=== PATIENT | female | born 1940 | race Caucasian/White ===

== ENCOUNTER 2019-07-31 06:00 | Outpatient (RCR) | payer MEDICARE, OTHER, SELFPAY | END 2019-08-30 00:01 | LOC: TPT 06:00 | PROVIDERS: Family Provider Nurse Practitioner Family; Visit Provider Nurse Practitioner Family | DX: S22.009D Unspecified fracture of unspecified thoracic vertebra, subsequent encounter for fracture with routine healing (principal); X58.XXXD Exposure to other specified factors, subsequent encounter | CPT/HCPCS: 97110 ×5; 97112; 97116 ×2; 97530 ×2 ==

== ENCOUNTER 2019-08-31 14:41 | Outpatient (RCR) | payer MEDICARE, OTHER, SELFPAY | END 2019-08-31 23:00 | disposition home or self-care (01) | LOC: TPT 14:41 | PROVIDERS: Family Provider Nurse Practitioner Family; PCP Nurse Practitioner Family; Visit Provider Nurse Practitioner Family | DX: S22.009D Unspecified fracture of unspecified thoracic vertebra, subsequent encounter for fracture with routine healing (principal); X58.XXXD Exposure to other specified factors, subsequent encounter ==

== ENCOUNTER → 2019-09-15 10:44 | Outpatient (BNVA) | payer MEDICARE, OTHER, SELFPAY | PROVIDERS: PCP Family Medicine; Visit Provider Nurse Practitioner Family | DX: I26.99 Other pulmonary embolism without acute cor pulmonale (principal) | CPT/HCPCS: 85610 ==

== ENCOUNTER → 2019-10-28 13:21 | Outpatient (BNVA) | payer MEDICARE, OTHER, SELFPAY | PROVIDERS: Visit Provider Nurse Practitioner Family | DX: I10 Essential (primary) hypertension (principal); E55.9 Vitamin D deficiency, unspecified; I48.91 Unspecified atrial fibrillation | CPT/HCPCS: 80053; 80061; 82306; 84443; 85025; 85610 ==

== ENCOUNTER → 2019-12-27 11:49 | Outpatient (BNVA) | payer MEDICARE, OTHER, SELFPAY | PROVIDERS: Visit Provider Nurse Practitioner Family | DX: I48.91 Unspecified atrial fibrillation (principal) | CPT/HCPCS: 85610 ==

== ENCOUNTER → 2020-01-10 17:07 | Outpatient (BNVA) | payer MEDICARE, OTHER, SELFPAY | PROVIDERS: PCP Nurse Practitioner Family; Visit Provider Nurse Practitioner Family | DX: I26.99 Other pulmonary embolism without acute cor pulmonale (principal) | CPT/HCPCS: 85610 ==

== ENCOUNTER → 2020-01-24 09:12 | Outpatient (BNVA) | payer MEDICARE, OTHER, SELFPAY | PROVIDERS: PCP Nurse Practitioner Family; Visit Provider Nurse Practitioner Family | DX: I48.91 Unspecified atrial fibrillation (principal); I10 Essential (primary) hypertension; R19.7 Diarrhea, unspecified; E55.9 Vitamin D deficiency, unspecified | CPT/HCPCS: 85610 ==

== ENCOUNTER → 2020-02-08 11:00 | Outpatient (BNVA) | payer MEDICARE, OTHER, SELFPAY | PROVIDERS: PCP Nurse Practitioner Family; Visit Provider Nurse Practitioner Family | DX: I48.91 Unspecified atrial fibrillation (principal) | CPT/HCPCS: 85610 ==

== ENCOUNTER → 2020-02-15 10:20 | Outpatient (BNVA) | payer MEDICARE, OTHER, SELFPAY | PROVIDERS: PCP Nurse Practitioner Family; Visit Provider Nurse Practitioner Family | DX: I48.91 Unspecified atrial fibrillation (principal) | CPT/HCPCS: 85610 ==

== ENCOUNTER → 2020-02-29 14:47 | Outpatient (BNVA) | payer MEDICARE, OTHER, SELFPAY | PROVIDERS: PCP Nurse Practitioner Family; Visit Provider Family Medicine | DX: I48.91 Unspecified atrial fibrillation (principal); R60.9 Edema, unspecified; M25.471 Effusion, right ankle; M25.472 Effusion, left ankle | CPT/HCPCS: 85610 ==

== ENCOUNTER → 2020-03-09 11:01 | Outpatient (BNVA) | payer MEDICARE, OTHER, SELFPAY | PROVIDERS: PCP Nurse Practitioner Family; Visit Provider Family Medicine | DX: I48.91 Unspecified atrial fibrillation (principal) | CPT/HCPCS: 85610 ==

== ENCOUNTER → 2020-03-16 11:45 | Outpatient (BNVA) | payer MEDICARE, OTHER, SELFPAY | PROVIDERS: PCP Nurse Practitioner Family; Visit Provider Nurse Practitioner Family | DX: I48.91 Unspecified atrial fibrillation (principal) | CPT/HCPCS: 85610 ==

== ENCOUNTER → 2020-03-23 10:53 | Outpatient (BNVA) | payer MEDICARE, OTHER, SELFPAY | PROVIDERS: PCP Nurse Practitioner Family; Visit Provider Nurse Practitioner Family | DX: I48.91 Unspecified atrial fibrillation (principal) | CPT/HCPCS: 85610 ==

== ENCOUNTER → 2020-03-30 11:37 | Outpatient (BNVA) | payer MEDICARE, OTHER, SELFPAY | PROVIDERS: PCP Nurse Practitioner Family; Visit Provider Nurse Practitioner Family | DX: I48.91 Unspecified atrial fibrillation (principal) | CPT/HCPCS: 85610 ==

== ENCOUNTER → 2020-04-06 13:19 | Outpatient (BNVA) | payer MEDICARE, OTHER, SELFPAY | PROVIDERS: PCP Nurse Practitioner Family; Visit Provider Nurse Practitioner Family | DX: I10 Essential (primary) hypertension (principal); E55.9 Vitamin D deficiency, unspecified; I48.91 Unspecified atrial fibrillation | CPT/HCPCS: 80053; 80061; 82306; 83735; 84443; 85025; 85610 ==

== ENCOUNTER → 2020-04-16 08:31 | Outpatient (BNVA) | payer MEDICARE, OTHER, SELFPAY | PROVIDERS: PCP Nurse Practitioner Family; Visit Provider Nurse Practitioner Family | DX: I48.91 Unspecified atrial fibrillation (principal) | CPT/HCPCS: 85610 ==

== ENCOUNTER → 2020-04-18 08:00 | Outpatient (BNVA) | payer MEDICARE, OTHER, SELFPAY | PROVIDERS: PCP Nurse Practitioner Family; Visit Provider Nurse Practitioner Family | DX: I48.91 Unspecified atrial fibrillation (principal); R19.7 Diarrhea, unspecified; H66.002 Acute suppurative otitis media without spontaneous rupture of ear drum, left ear | CPT/HCPCS: 85610 ==

== ENCOUNTER → 2020-09-10 09:34 | Outpatient (BNVA) | payer MEDICARE, OTHER, SELFPAY | PROVIDERS: PCP Nurse Practitioner Family; Visit Provider Nurse Practitioner Family | DX: I10 Essential (primary) hypertension (principal); E55.9 Vitamin D deficiency, unspecified | CPT/HCPCS: 80053; 80061; 82306; 84443; 85025 ==

== ENCOUNTER → 2020-09-18 11:00 | Outpatient (BNVA) | payer MEDICARE, OTHER, SELFPAY | PROVIDERS: PCP Nurse Practitioner Family; Visit Provider Nurse Practitioner Family | DX: M25.50 Pain in unspecified joint (principal) | CPT/HCPCS: 80053; 84550; 85651; 86038; 86140; 86431 ==

== ENCOUNTER → 2021-01-01 11:43 | Outpatient (BNVA) | payer MEDICARE, OTHER, SELFPAY | PROVIDERS: PCP Nurse Practitioner Family; Visit Provider Nurse Practitioner Family | DX: R25.2 Cramp and spasm (principal); M79.605 Pain in left leg | CPT/HCPCS: 80053; 82306; 83735; 84443; 85025; 85379 ==

== ENCOUNTER 2021-01-02 15:21 | Outpatient (CLI) | payer MEDICARE, OTHER, SELFPAY ==
--- NOTE | 2021-01-02 15:40 | USCV_ITS ---
Mary Shoemaker Age: 80 Gender: F : 1940 Exam Date: 01/02/2021 15:55 Ordering Phys: Ana Gould RESIDENT PHYSICIAN IN RADIOLOGY RESIDENT PHYSICIAN IN RADIOLOGY Technologist: Yessenia Cox Exam Location: [facility] [place] Indication: TENDERNESS LT INNER THIGH HISTORY: Tenderness lt inner thigh History of DVT lt leg PROCEDURES: Venous duplex imaging was performed in only the left lower extremity. The following venous structures were evaluated: common femoral vein, profunda vein, proximal portion of the greater saphenous vein, superficial femoral vein, and the popliteal vein. In addition, the posterior tibial and peroneal trunk were evaluated. Serial compression, augmentation maneuvers, and spectral Doppler flow evaluation were performed. FINDINGS: No dvt seen in any vessel examained CONCLUSIONS No evidence of left lower extremity DVT. Artemio Munoz MD (Electronically Signed) Final Date: 02 Jan 2021 17:00 S
== END 2021-01-02 15:22 | disposition home or self-care (01) ==
PROVIDERS: PCP Nurse Practitioner Family; Visit Provider Nurse Practitioner Family
DX: M79.605 Pain in left leg (principal)
CPT/HCPCS: 93971

== ENCOUNTER → 2021-02-01 11:55 | Outpatient (BNVA) | payer MEDICARE, OTHER, SELFPAY | PROVIDERS: PCP Nurse Practitioner Family; Visit Provider Nurse Practitioner Family | DX: R60.9 Edema, unspecified (principal) | CPT/HCPCS: 80048; 85025 ==

== ENCOUNTER → 2021-07-18 13:32 | Outpatient (BNVA) | payer MEDICARE, OTHER, SELFPAY | PROVIDERS: PCP Nurse Practitioner Family; Visit Provider Nurse Practitioner Family | DX: I10 Essential (primary) hypertension (principal); M79.605 Pain in left leg; R25.2 Cramp and spasm; R60.9 Edema, unspecified; M19.90 Unspecified osteoarthritis, unspecified site; R05.9 Cough, unspecified; R10.31 Right lower quadrant pain; I48.91 Unspecified atrial fibrillation; E55.9 Vitamin D deficiency, unspecified | CPT/HCPCS: 80053; 83735; 84550 ==

== ENCOUNTER 2021-07-20 09:05 | Inpatient (IN) | payer MEDICARE, OTHER, SELFPAY ==
[2021-07-20] VITALS (8 sets, daily range): BP systolic 127–174; BP diastolic 61–72; PULSE 69–97; RESP 18–20; TEMP 36.8–37.6; O2SAT 89–100; BMI 32.5; BMI 33.1
--- NOTE | 2021-07-20 09:27 | W.ED.SOB ---
HPI - SOB/Dyspnea General: Chief Complaint: Shortness of Breath/Dyspnea Stated Complaint: Cough, just not feeling good Time Seen by Provider: 07/20/21 09:27 History of Present Illness: HPI Narrative: Ms. Shoemaker is a 80-year-old lady with history of atrial fibrillation on anticoagulation who presents to the emergency department due to shortness of breath cough. Symptom onset was gradual approximately 2 weeks ago. She endorses worsening cough, generalized malaise, and shortness of breath. This is worse in the point that is moderate to severe and she feels short of breath with fairly minimal exertion. Cough is mildly productive. She has been vaccinated against COVID-19. No other specific symptoms, provoking, exacerbating, or alleviating factors identified. Review of Systems General: Reports: 10 or more systems reviewed and unremarkable except in HPI and below PFSH ED PFSH: Medical History (Updated 07/23/21 @ 00:01 by ) Atrial fibrillation Diverticulosis Emphysema of lung History of compression fracture of spine History of GI bleed History of pulmonary embolism HTN (hypertension) Lupus Lymphadenopathy Myalgia SCC (spinal cord compression) Varicose veins of both lower extremities Vitamin D insufficiency Surgical History Previous back surgery S/P D&C (status post dilation and curettage) S/P hysterectomy Family History Mother Cancer Social History Smoking and tobacco status: never smoked Second hand smoke exposure: No Alcohol intake: never Lives independently: No Household members: children Marital status: / service: No Current occupational status: retired History of recent travel: No Current gender identity: Female Special rafita needs: No Physical Exam Narrative: EXAM NARRATIVE: GENERAL/CONSTITUTIONAL -moderately ill ill-appearing. No acute distress. Eyes - PERRL, no conjunctival injection ENMT - Atraumatic external nose and ears. Dry mucous membranes NECK - supple. trachea midline CARDIOVASCULAR - regular rate and rhythm. Peripheral pulses 2+ and equal RESPIRATORY -coarse and diminished to auscultation bilaterally. Increased respiratory effort and rate, marked with exertion. Decreased oxygen saturation on room air. ABDOMEN/GI - Nontender/Nondistended. MSK - Extremities without obvious deformity or tenderness to palpation SKIN - Warm, Dry NEURO - alert and appropriately oriented. No focal neurologic deficits. Moves all extremities equally. Course ED course: - Patient was seen and evaluated by me at bedside - Patient placed on cardiac monitors, IV access obtained - Initial evaluation notable for diminished and coarse breath sounds with wheezes as noted above. Respiratory effort is increased and patient requiring supplemental oxygen. -RT and symptom treatment ordered - Labs notable for leukocytosis. Metabolic panel with hyponatremia and hypochloremia, mildly elevated anion gap. Delta troponin negative. Procalcitonin negative with significantly elevated CRP. - Imaging notable for no lobar consolidation - Upon serial reexamination after treatment the patient was mildly improved though patient still felt ill - Based on patient history, evaluation, labs, and imaging as interpreted the most likely cause of the patient's condition is viral pneumonia with superimposed asthma exacerbation - The results of ED evaluation were discussed with the patient including plan for admission due to requirement for level of care not available if discharged to prevent significant worsening/deterioration. -Hospitalist service contacted and agreed admit the patient. - Patient was admitted without further deterioration or significant events. Vital Signs: Vital signs: Vital Signs Temperature 98.0 F 07/22/21 14:57 Pulse Rate 73 07/22/21 14:57 Respiratory Rate 16 07/22/21 14:57 Blood Pressure 131/70 07/22/21 14:57 Pulse Oximetry 93 07/22/21 14:57 MDM - SOB/Dyspnea Medical Records: Attestation: I reviewed the patient's medical records. Lab Data: Attestation: I reviewed the patient's lab results. Labs: Lab Results 07/20/21 07/20/21 07/20/21 10:15 10:15 10:15 WBC 20.7 10^3/uL H 10 ^3/uL (4.0-10.0) RBC 3.57 10^6/uL L 10 ^6/uL (4.1-5.3) Hgb 11.9 g/dL g/dL (11.5-15.3) Hct 34.1 % L % (37.0-47.0) MCV 95.5 fl fl (81-99) MCH 33.3 pg pg (28.0-34.0) MCHC 34.9 g/dL g/dL (30.0-36.0) RDW 12.6 % % (12.1-15.1) Plt Count 283 10^3/cmm 10^3 /cmm (130-400) MPV 9.9 fL fL (7.4-10.4) Neut % (Auto) 83.1 % % Lymph % (Auto) 5.6 % % [place] % (Auto) 10.1 % % Eos % (Auto) 0.3 % % Baso % (Auto) 0.4 % % Neut # (Auto) 17.20 10^3/uL H 1 0^3/uL (1.8-7.7) Lymph # (Auto) 1.2 10^3/uL 10^3/ uL (0.8-4.8) [place] # (Auto) 2.1 10^3/uL H 10^ 3/uL (0.2-0.9) Eos # (Auto) 0.1 10^3/uL 10^3/ uL (0.0-0.8) Baso # (Auto) 0.1 10^3/uL 10^3/ uL (0.0-0.1) Nucleated RBC % (a uto) 0 % % Nucleated RBCs # 0.0 /100WBC /100W BC D-Dimer Sodium 130 mmol/L L mmol /L (136-145) Potassium 4.1 mmol/L mmol/L (3.5-5.1) Chloride 91 mmol/L L mmol/ L (98-107) Carbon Dioxide 24 mmol/L mmol/L (22-29) Anion Gap 19.1 H (5-19) BUN 19 mg/dL mg/dL (8-23) Creatinine 0.7 mg/dL mg/dL (0.5-0.9) GFR Calculation Not Reportable Glucose 109 mg/dL mg/dL (65-115) Calculated Osmolal ity 273 mOsm/kg L mOs m/kg (285-295) Lactic Acid 0.9 mmol/L mmol/L (0.5-2.2) Calcium 8.5 mg/dL mg/dL (8.5-10.5) Phosphorus Magnesium Total Bilirubin 0.9 mg/dL mg/dL (0.15-1.2) AST 16 U/L U/L (0-32) ALT 12 U/L U/L (0-33) Alkaline Phosphata se 83 IU/L IU/L (35-105) Troponin T Baselin e Troponin T 120 Min [place] Delta Troponin T Troponin T Hi Sens 6Hr Troponin T Hi Sens 6Hr Delta C-Reactive Protein 121.8 mg/L H mg/L (0.0-4.9) NT-Pro-B Natriuret Pep 1026 pg/mL H pg/m L (0-450) Total Protein 7.0 g/dL g/dL (6.6-8.7) Albumin 4.0 g/dL g/dL (3.5-5.2) Globulin 3.0 g/dL g/dL (1.3-4.6) Triglycerides Cholesterol LDL Cholesterol, C alc HDL Cholesterol LDL/HDL Ratio Cholesterol/HDL Ra chris Procalcitonin 0.19 ng/mL ng/mL (0-0.5) Influenza Type A A g Influenza Type B A g SARS-CoV-2 RNA (RT -PCR) SARS-CoV-2 Ag (Rap id) 07/20/21 07/20/21 07/20/21 10:15 10:15 10:15 WBC RBC Hgb Hct MCV MCH MCHC RDW Plt Count MPV Neut % (Auto) Lymph % (Auto) [place] % (Auto) Eos % (Auto) Baso % (Auto) Neut # (Auto) Lymph # (Auto) [place] # (Auto) Eos # (Auto) Baso # (Auto) Nucleated RBC % (a uto) Nucleated RBCs # D-Dimer <= 0.27 ug/mIFEU ug/mIFEU (0-0.59) Sodium Potassium Chloride Carbon Dioxide Anion Gap BUN Creatinine GFR Calculation Glucose Calculated Osmolal ity Lactic Acid Calcium Phosphorus Magnesium Total Bilirubin AST ALT Alkaline Phosphata se Troponin T Baselin e 20 ng/L H ng/L (0-10) Troponin T 120 Min [place] Delta Troponin T Troponin T Hi Sens 6Hr Troponin T Hi Sens 6Hr Delta C-Reactive Protein NT-Pro-B Natriuret Pep Total Protein Albumin Globulin Triglycerides Cholesterol LDL Cholesterol, C alc HDL Cholesterol LDL/HDL Ratio Cholesterol/HDL Ra chris Procalcitonin Influenza Type A A g Influenza Type B A g SARS-CoV-2 RNA (RT -PCR) SARS-CoV-2 Ag (Rap id) Negative (Negative) 07/20/21 07/20/21 07/20/21 12:25 18:18 19:03 WBC RBC Hgb Hct MCV MCH MCHC RDW Plt Count MPV Neut % (Auto) Lymph % (Auto) [place] % (Auto) Eos % (Auto) Baso % (Auto) Neut # (Auto) Lymph # (Auto) [place] # (Auto) Eos # (Auto) Baso # (Auto) Nucleated RBC % (a uto) Nucleated RBCs # D-Dimer Sodium Potassium Chloride Carbon Dioxide Anion Gap BUN Creatinine GFR Calculation Glucose Calculated Osmolal ity Lactic Acid Calcium Phosphorus Magnesium Total Bilirubin AST ALT Alkaline Phosphata se Troponin T Baselin e Troponin T 120 Min [place] 19.89 ng/L H ng/L (0-10) Delta Troponin T -0.11 ABS# L ABS# (0-10) Troponin T Hi Sens 6Hr 17.44 ng/L H ng/L (0-10) Troponin T Hi Sens 6Hr Delta Not Reportable C-Reactive Protein NT-Pro-B Natriuret Pep Total Protein Albumin Globulin Triglycerides 57 mg/dL mg/dL (0-150) Cholesterol 155 mg/dL mg/dL (0-200) LDL Cholesterol, C alc 80 mg/dL mg/dL (50-129) HDL Cholesterol 64 mg/dL mg/dL (60-100) LDL/HDL Ratio 1.25 RATIO RATIO (0.00-3.22) Cholesterol/HDL Ra chris 2.42 mg/dL mg/dL (0.0-4.40) Procalcitonin Influenza Type A A g Influenza Type B A g SARS-CoV-2 RNA (RT -PCR) SARS-CoV-2 Ag (Rap id) 07/20/21 07/20/21 07/21/21 20:11 22:50 05:26 WBC 11.9 10^3/uL H 10 ^3/uL (4.0-10.0) RBC 3.31 10^6/uL L 10 ^6/uL (4.1-5.3) Hgb 10.6 g/dL L g/dL (11.5-15.3) Hct 31.9 % L % (37.0-47.0) MCV 96.4 fl fl (81-99) MCH 32.0 pg pg (28.0-34.0) MCHC 33.2 g/dL g/dL (30.0-36.0) RDW 12.4 % % (12.1-15.1) Plt Count 255 10^3/cmm 10^3 /cmm (130-400) MPV 10.1 fL fL (7.4-10.4) Neut % (Auto) 87.7 % % Lymph % (Auto) 8.3 % % [place] % (Auto) 3.2 % % Eos % (Auto) 0.0 % % Baso % (Auto) 0.3 % % Neut # (Auto) 10.43 10^3/uL H 1 0^3/uL (1.8-7.7) Lymph # (Auto) 1.0 10^3/uL 10^3/ uL (0.8-4.8) [place] # (Auto) 0.4 10^3/uL 10^3/ uL (0.2-0.9) Eos # (Auto) 0.0 10^3/uL 10^3/ uL (0.0-0.8) Baso # (Auto) 0.0 10^3/uL 10^3/ uL (0.0-0.1) Nucleated RBC % (a uto) 0 % % Nucleated RBCs # 0.0 /100WBC /100W BC D-Dimer Sodium Potassium Chloride Carbon Dioxide Anion Gap BUN Creatinine GFR Calculation Glucose Calculated Osmolal ity Lactic Acid Calcium Phosphorus Magnesium Total Bilirubin AST ALT Alkaline Phosphata se Troponin T Baselin e Troponin T 120 Min [place] Delta Troponin T Troponin T Hi Sens 6Hr Troponin T Hi Sens 6Hr Delta C-Reactive Protein NT-Pro-B Natriuret Pep Total Protein Albumin Globulin Triglycerides Cholesterol LDL Cholesterol, C alc HDL Cholesterol LDL/HDL Ratio Cholesterol/HDL Ra chris Procalcitonin Influenza Type A A g Negative (Negative) Influenza Type B A g Negative (Negative) SARS-CoV-2 RNA (RT -PCR) Not detected (NOT DETECTED) SARS-CoV-2 Ag (Rap id) 07/21/21 07/21/21 07/21/21 05:26 11:42 11:42 WBC RBC Hgb Hct MCV MCH MCHC RDW Plt Count MPV Neut % (Auto) Lymph % (Auto) [place] % (Auto) Eos % (Auto) Baso % (Auto) Neut # (Auto) Lymph # (Auto) [place] # (Auto) Eos # (Auto) Baso # (Auto) Nucleated RBC % (a uto) Nucleated RBCs # D-Dimer 0.52 ug/mIFEU ug/ mIFEU (0-0.59) Sodium 124 mmol/L L mmol /L 128 mmol/L L mmol /L (136-145) (136-145) Potassium 4.1 mmol/L mmol/L 4.0 mmol/L mmol/L (3.5-5.1) (3.5-5.1) Chloride 90 mmol/L L mmol/ L 90 mmol/L L mmol/ L (98-107) (98-107) Carbon Dioxide 25 mmol/L mmol/L 27 mmol/L mmol/L (22-29) (22-29) Anion Gap 13.1 15.0 (5-19) (5-19) BUN 15 mg/dL mg/dL 17 mg/dL mg/dL (8-23) (8-23) Creatinine 0.5 mg/dL mg/dL 0.7 mg/dL mg/dL (0.5-0.9) (0.5-0.9) GFR Calculation Not Reportable Not Reportable Glucose 152 mg/dL H mg/dL 192 mg/dL H mg/dL (65-115) (65-115) Calculated Osmolal ity 262 mOsm/kg L mOs m/kg 273 mOsm/kg L mOs m/kg (285-295) (285-295) Lactic Acid Calcium 8.1 mg/dL L mg/dL 9.0 mg/dL mg/dL (8.5-10.5) (8.5-10.5) Phosphorus 2.4 mg/dL L mg/dL (2.5-4.5) Magnesium 1.8 mg/dL mg/dL (1.7-2.3) Total Bilirubin 0.5 mg/dL mg/dL (0.15-1.2) AST 14 U/L U/L (0-32) ALT 11 U/L U/L (0-33) Alkaline Phosphata se 98 IU/L IU/L (35-105) Troponin T Baselin e Troponin T 120 Min [place] Delta Troponin T Troponin T Hi Sens 6Hr Troponin T Hi Sens 6Hr Delta C-Reactive Protein NT-Pro-B Natriuret Pep Total Protein 6.5 g/dL L g/dL (6.6-8.7) Albumin 3.6 g/dL g/dL (3.5-5.2) Globulin 2.9 g/dL g/dL (1.3-4.6) Triglycerides Cholesterol LDL Cholesterol, C alc HDL Cholesterol LDL/HDL Ratio Cholesterol/HDL Ra chris Procalcitonin Influenza Type A A g Influenza Type B A g SARS-CoV-2 RNA (RT -PCR) SARS-CoV-2 Ag (Rap id) EKG Data^: EKG 1: Attestation: I personally reviewed and interpreted this EKG as follows: EKG Interpretation Date: 07/20/21 EKG interpretation time: 09:52 Interpretation: Twelve-lead EKG shows a regular rhythm at a rate of 71. ME interval 162, QRS duration 141, QTc 415. Normal axis. Interpretation: Sinus rhythm. Left bundle branch block. EKG 2: Attestation: I personally reviewed and interpreted this EKG as follows: EKG Interpretation Date: 07/20/21 EKG interpretation time: 11:46 Interpretation: Twelve-lead EKG shows a regular rhythm at a rate of 68. ME interval 135, QRS duration 136, QTc 410. Normal axis. Interpretation: Sinus rhythm. Left bundle branch block. EKG 3: Attestation: I personally reviewed and interpreted this EKG as follows: EKG Interpretation Date: 07/20/21 EKG interpretation time: 15:50 Interpretation: Twelve-lead EKG shows a regular rhythm at a rate of 73. ME interval 163, QRS duration 138, QTc 418. Normal axis. Interpretation: Sinus rhythm. Bundle branch block. Discharge Plan Discharge Patient Disposition: Admitted As Inpatient Admit Provider: Beka Timmons Clinical Impression: Asthma with exacerbation, Viral pneumonia Condition: Stable Discharge Diet: Usual diet Discharge Activity: Resume usual activity Coding Level of Care Code ED Oracle Erp Architect for Oliva Gamble
--- NOTE | 2021-07-20 09:35 | XRR_ITS ---
PROCEDURE INFORMATION: Exam: XR Chest Exam date and time: 07/20/2021 9:35 AM Age: 80 years old Clinical indication: Shortness of breath; Additional info: SOB TECHNIQUE: Imaging protocol: XR of the chest. Views: 1 view. COMPARISON: CR Chest 1 [place] [id number] 11/15/2018 6:22 PM FINDINGS: Lungs: No consolidation. Pleural spaces: No pleural effusion. No pneumothorax. Heart/Mediastinum: No cardiomegaly. Bones/joints: Visualized osseous structures are intact. XR/XR chest 1V portable [id number] IMPRESSION: No acute findings. Radiation Dose CTDIVOL = (mGy): DLP = (mGy-cm)
--- NOTE | 2021-07-20 09:36 | ECG_ITS ---
[facility] Test Date: 2021-07-20 Pat Name: Mary Shoemaker Department: Room: Gender: Female Manager Java: : 1940 Requested By: Deo Rodriguez Order Number: [id number] Ines MD: Dejon Morris M.D. Measurements Intervals [place] Rate: 71 P: 70 [place]: 162 QRS: 16 QRSD: 141 T: 77 QT: 392 QTc: 427 Interpretive Statements SINUS RHYTHM LEFT BUNDLE BRANCH BLOCK [120+ ms QRS DURATION, 80+ ms Q/S IN V1/V2, 85+ ms R IN I/aVL/V5/V6] Compared to ECG 11/16/2018 03:25:09 Sinus tachycardia no longer present Electronically Signed On 07-20-2021 22:05:06 BURRER HAND by Dejon Morris M.D. [id number] f
[2021-07-20] MEDS: sodium chloride 0.9% 500 ML 999 ML IV (10:33)
[2021-07-20 10:48] LABS: Basophils # 0.1 10^3/uL (0.0-0.1); Basophils % 0.4 %; Eosinophils # 0.1 10^3/uL (0.0-0.8); Eosinophils % 0.3 %; Hematocrit 34.1 % (37.0-47.0); Hemoglobin 11.9 g/dL (11.5-15.3); Lymphocytes # 1.2 10^3/uL (0.8-4.8); Lymphocytes % 5.6 %; Mean Corpuscular HGB Conc 34.9 g/dL (30.0-36.0); Mean Corpuscular Hemoglobin 33.3 pg (28.0-34.0); Mean Corpuscular Volume 95.5 fl (81-99); Mean Platelet Volume 9.9 fL (7.4-10.4); Monocytes # 2.1 10^3/uL (0.2-0.9); Monocytes % 10.1 %; Neutrophils % 83.1 %; Nucleated Red Blood Cells % 0 %; Platelet Count 283 10^3/cmm (130-400); Red Blood Count 3.57 10^6/uL (4.1-5.3); Red Cell Distribution Width 12.6 % (12.1-15.1); White Blood Count 20.7 10^3/uL (4.0-10.0)
[2021-07-20 10:57] LABS: Lactic Sepsis W/Reflex 0.9 mmol/L (0.5-2.2)
[2021-07-20 11:02] LABS: Troponin(5th) Baseline 20 ng/L (0-10)
[2021-07-20 11:09] LABS: NT Pro B Type Natriuretic Pept 1026 pg/mL (0-450); Procalcitonin 0.19 ng/mL (0-0.5)
[2021-07-20 11:20] LABS: Alanine Aminotransferase 12 U/L (0-33); Alkaline Phosphatase 83 IU/L (35-105); Anion Gap 19.1 (5-19); Aspartate Amino Transferase 16 U/L (0-32); Blood Urea Nitrogen 19 mg/dL (8-23); C Reactive Protein 121.8 mg/L (0.0-4.9); Calcium 8.5 mg/dL (8.5-10.5); Carbon Dioxide 24 mmol/L (22-29); Chloride 91 mmol/L (98-107); Creatinine Clr Calc Pharmacy 60.5756; Glucose 109 mg/dL (65-115); Osmolality Calculated 273 mOsm/kg (285-295); Potassium 4.1 mmol/L (3.5-5.1); Sodium 130 mmol/L (136-145); Total Bilirubin 0.9 mg/dL (0.15-1.2)
--- NOTE | 2021-07-20 11:36 | ECG_ITS ---
[facility] Test Date: 2021-07-20 Pat Name: Mary Shoemaker Department: Room: Gender: Female Bearingizer: : 1940 Requested By: Deo Rodriguez Order Number: [id number] Ines MD: Dejon Morris M.D. Measurements Intervals [place] Rate: 68 P: 52 [place]: 135 QRS: 13 QRSD: 136 T: 82 QT: 392 QTc: 420 Interpretive Statements SINUS RHYTHM WITH OCCASIONAL SUPRAVENTRICULAR PREMATURE COMPLEXES LEFT BUNDLE BRANCH BLOCK [120+ ms QRS DURATION, 80+ ms Q/S IN V1/V2, 85+ ms R IN I/aVL/V5/V6] Compared to ECG 07/20/2021 09:50:15 No significant changes Electronically Signed On 07-20-2021 22:16:54 DRUM BARKER OPERATOR by Dejon Morris M.D. [id number]
[2021-07-20 11:38] LABS: SARS Covid-2 Antigen Negative (Negative)
[2021-07-20 12:59] LABS: Troponin 5 2HR 19.89 ng/L (0-10)
[2021-07-20 13:17] LABS: Troponin 5 2HR Delta -0.11 ABS# (0-10)
[2021-07-20] MEDS: ipratropium-albuterol 3 mL Neb INHALATION ×2 (13:55→20:00)
[2021-07-20 15:21] LABS: D Dimer <= 0.27 ug/mIFEU (0-0.59)
--- NOTE | 2021-07-20 15:36 | ECG_ITS ---
[facility] Test Date: 2021-07-20 Pat Name: Mary Shoemaker Department: Room: Gender: Female Quality Assurance Manager: : 1940 Requested By: Deo Rodriguez Order Number: [id number] Ines MD: Dejon Morris M.D. Measurements Intervals [place] Rate: 73 P: 53 [place]: 163 QRS: -9 QRSD: 138 T: 80 QT: 392 QTc: 435 Interpretive Statements SINUS RHYTHM LEFT BUNDLE BRANCH BLOCK [120+ ms QRS DURATION, 80+ ms Q/S IN V1/V2, 85+ ms R IN I/aVL/V5/V6] Compared to ECG 07/20/2021 11:36:16 No significant changes Electronically Signed On 07-20-2021 22:19:10 DATA SECURITY ADMINISTRATOR by Dejon Morris M.D. [id number]
--- NOTE | 2021-07-20 16:15 | PM.HP ---
Providers/Chief Complaint Admitting Physician: Beka Timmons MD Primary Care Provider: Claribel Fink NP Chief Complaint: Cough, just not feeling good History of Present Illness Mary Shoemaker is a 80 year old female with a past medical history of asthma, lupus and arthritis on hydroxychloroquine, atrial fibrillation on Eliquis, history of multiple pulmonary emboli on Eliquis, history of GI bleed secondary to gastric ulcer, hypertension, hyperlipidemia, GERD, who presents to [facility] due to complaints of cough, shortness of breath, wheezing. Patient tells me that for the last week she has had increased episodes of shortness of breath, wheezing, cough, no lower extremity edema, no chest pain, no palpitations. She does have a history of asthma, no history of smoking, she received both Covid vaccinations, has not received flu vaccine, has not received pneumonia vaccine. No fevers, no chills, no nausea, no vomiting. She was seen in her primary care physician's office she was given Decadron and penicillin. In the emergency room she was found to have shortness of breath, was given a nebulizer treatment, no pneumonia, was found to be hyponatremia, evidence of dehydration, was given fluids, her oxygen saturations remained in the 90s, but at times it would drift down into the high 80s, hospitalist team was called for admission Review of Systems Const: Reports: fatigue and malaise; Denies: fever(s) or chills Eyes: Denies: change in vision or blurry vision ENMT: Reports: nasal congestion Card: Reports: dyspnea on exertion; Denies: chest pain, palpitations, irregular heart rhythm, edema, syncope or pre-syncope Resp: Reports: dyspnea, non-productive cough and wheezing; Denies: productive cough GI: Denies: abdominal pain, nausea, vomiting, hematemesis, diarrhea, constipation, hematochezia or melena : Denies: flank pain, dysuria or urinary frequency Musc: Reports: back pain Skin/Breast: Denies: rash Neuro: Denies: headache(s), dizziness or vertigo Psych: Denies: anxiety Medications/Allergies Home Medications Medication Instructions Recorded Confirmed Last Taken Type cholecalciferol (vitamin D3) 25 1,000 unit PO DAILY cap 09/14/19 07/18/21 Unknown History mcg (1,000 unit) capsule hydroxychloroquine 200 mg tablet 200 mg PO DAILY tab 01/16/20 07/18/21 Unknown History omega-3 fatty acids 1,000 mg 1,000 mg PO DAILY #90 cap 09/05/20 07/18/21 Unknown Rx capsule triamterene 37.5 1 tab PO DAILY PRN #30 tab 09/13/20 07/18/21 Unknown Rx mg-hydrochlorothiazide 25 mg tablet vit A 7,160 unit-vit C 113 mg-vit tab PO 09/14/20 07/18/21 Unknown History E 100 [id number]-[id number] tablet apixaban 5 mg tablet See Rx Instructions .ROUTE 04/05/21 07/18/21 Unknown Rx .COMPLEX #60 tab diclofenac sodium 1 % topical gel 2 g TOPICAL QID #1 tube 07/18/21 07/18/21 Unknown Rx levalbuterol tartrate 45 2 inh INHALATION TID PRN #15 gm 07/18/21 07/18/21 Unknown Rx mcg/actuation aerosol inhaler levothyroxine 100 mcg tablet See Rx Instructions .ROUTE 07/18/21 07/18/21 Unknown Rx .COMPLEX #90 tab metoprolol tartrate 50 mg tablet See Rx Instructions .ROUTE 07/18/21 07/18/21 Unknown Rx .COMPLEX #180 tab pantoprazole 40 mg tablet,delayed See Rx Instructions .ROUTE 07/18/21 07/18/21 Unknown Rx release .COMPLEX #180 tab penicillin V potassium 500 mg 500 mg PO TID 10 Days #30 tab 07/18/21 Unknown Rx tablet potassium chloride 20 mEq See Rx Instructions .ROUTE 07/18/21 07/18/21 Unknown Rx tablet,extended release(part/cryst) .COMPLEX #90 tab promethazine-DM 6.25 mg-15 mg/5 mL 5 ml PO Q6H #118 ml 07/18/21 07/18/21 Unknown Rx oral syrup albuterol sulfate 2 inh INHALATION Q4H #8.5 g 07/20/21 Unknown Rx doxycycline hyclate 100 mg PO BID 10 Days #20 tab 07/20/21 Unknown Rx prednisone 50 mg PO DAILY 5 Days #5 tab 07/20/21 Unknown Rx Allergies Allergy/AdvReac Type Severity Reaction Status Date / Time No Known Allergies Allergy Verified 07/20/21 09:23 PFSH Acute PFSH: Medical History (Updated 07/20/21 @ 16:18 by Beka Timmons MD) Atrial fibrillation Diverticulosis Emphysema of lung History of compression fracture of spine History of GI bleed History of pulmonary embolism HTN (hypertension) Lupus Lymphadenopathy Myalgia SCC (spinal cord compression) Varicose veins of both lower extremities Vitamin D insufficiency Surgical History Previous back surgery S/P D&C (status post dilation and curettage) S/P hysterectomy Family History Mother Cancer Social History Smoking and tobacco status: never smoked Second hand smoke exposure: No Alcohol intake: never Lives independently: No Household members: children Marital status: / service: No Current occupational status: retired History of recent travel: No Current gender identity: Female Special rafita needs: No Vitals/I&O/Wt Last Vital Signs Temp 98.3 F 07/20/21 10:22 Pulse 80 07/20/21 14:06 Resp 18 07/20/21 14:00 BP 174/72 07/20/21 10:22 Pulse Ox 93 07/20/21 14:00 07/20/21 07/20/21 07/20/21 06:59 14:59 22:59 Intake Total 500 / 500 Balance 500 / 500 Weight last 48 hrs Weight 86.183 kg Physical Exam Const: COMMON NORMALS: no acute distress and patient oriented x3 GENERAL APPEARANCE: cooperative and comfortable HENMT: COMMON NORMALS: normocephalic HEAD & SCALP: normocephalic Eye: COMMON NORMALS: Equal, round and reactive pupils present and EOMs intact bilaterally GENERAL EYE: appearance normal, both eyes and all related structures PUPIL: Yes Equal, round and reactive pupils present Neck/C-Spine: COMMON NORMALS: full ROM and no lymphadenopathy THYROID: Thyroid normal Lymph: LYMPHATIC: no lymphadenopathy noted Resp: COMMON NORMALS: normal respiratory effort, No retractions, No use of accessory muscles and clear to auscultation bilaterally AUSCULTATION: wheezes scattered wheezes Cardio: COMMON NORMALS: regular rate, regular rhythm, S1 normal heart sound present, S2 normal heart sound present, No gallops present (Cardio), No clicks present (Cardio) and No murmurs present (Cardio) RATE: regular rate RHYTHM: regular rhythm HEART SOUNDS: S1 normal heart sound present and S2 normal heart sound present GI: COMMON NORMALS: Normal to inspection, nondistended, normoactive bowel sounds present, Soft to palpation, non-tender and No hepatosplenomegaly present PALPATION: Yes Soft to palpation and Yes No hepatosplenomegaly present Extremity: COMMON NORMALS: normal to inspection, full ROM and no pedal edema Neuro: COMMON NORMALS: patient oriented x3, CN's II-XII intact bilaterally, moves all extremities and no focal motor deficits Psych: COMMON NORMALS: mental status grossly normal, Normal thought process present and cooperative THOUGHT PROCESS: Normal thought process present Data : 07/20/21 10:15 07/20/21 10:15 A&P Assessment and plan (1) Asthma with exacerbation: Asthma exacerbation with possible viral pneumonia Plan -Solu-Medrol 40 IV every 8 hours -BNP is elevated, hold off on Lasix for now -Rocephin and azithromycin -Rapid flu, Covid PCR, sputum cultures, urine bacterial antigens, Legionella -Full code -Eliquis for DVT prophylaxis Hyponatremia, secondary dehydration, hypertension medications, hold for now, hold off on IV hydration Hypothyroidism, continue levothyroxine Atrial fibrillation, continue metoprolol, continue Eliquis History of pulmonary emboli, on Eliquis, continue to monitor, not requiring any oxygen, no chest pain History of GI bleed, monitor hemoglobin Status: Acute (2) Viral pneumonia: Status: Acute Attestations Medical Necessity Statement*: Patient requires hospitalization, outpatient with observation, with asthma, possible viral pneumonia, Coding Level of Care Code Acute Planning Coordinator for [facility] Mavis Diagnoses Asthma with exacerbation J45.901 Viral pneumonia J12.9
--- NOTE | 2021-07-20 16:26 | PC.NURSE ---
Report called to floor, given to MIRELLA Farooq.
[2021-07-20] MEDS: doxycycline 100 MG in sodium chloride 0.9% (plus) 100 ML IV (17:31)
[2021-07-20 19:14] LABS: Troponin 5 6HR 17.44 ng/L (0-10)
[2021-07-20] MEDS: budesonide 0.5 mg/2 mL Neb INHALATION (19:59)
[2021-07-20] MEDS: cefTRIAXone 1,000 MG in sodium chloride 0.9% (plus) 50 ML 100 MG IV (20:00)
[2021-07-20] MEDS: metoprolol tartrate 50 mg Tablet PO (20:01)
[2021-07-20] MEDS: apixaban 5 mg Tablet PO (20:01)
[2021-07-20 20:07] LABS: Chol HDL Ratio 2.42 mg/dL (0.0-4.40); Cholesterol 155 mg/dL (0-200); HDL Cholesterol 64 mg/dL (60-100); LDL Cholesterol Calculated 80 mg/dL (50-129); LDL HDL Ratio 1.25 RATIO (0.00-3.22); Triglycerides 57 mg/dL (0-150)
[2021-07-20] MEDS: azithromycin 500 MG in sodium chloride 0.9% 250 ML 250 MG IV (21:12)
[2021-07-20 21:13] LABS: Influenza A by IFA Negative (Negative); Influenza B by IFA Negative (Negative)
[2021-07-21] VITALS (10 sets, daily range): BP systolic 119–151; BP diastolic 62–74; PULSE 69–82; RESP 16–18; TEMP 36.4–37.1; O2SAT 92–97
[2021-07-21 07:03] LABS: Basophils % 0.3 %; Hematocrit 31.9 % (37.0-47.0); Hemoglobin 10.6 g/dL (11.5-15.3); Lymphocytes % 8.3 %; Mean Corpuscular HGB Conc 33.2 g/dL (30.0-36.0); Mean Corpuscular Volume 96.4 fl (81-99); Mean Platelet Volume 10.1 fL (7.4-10.4); Monocytes # 0.4 10^3/uL (0.2-0.9); Monocytes % 3.2 %; Neutrophils # 10.43 10^3/uL (1.8-7.7); Neutrophils % 87.7 %; Nucleated Red Blood Cells % 0 %; Platelet Count 255 10^3/cmm (130-400); Red Blood Count 3.31 10^6/uL (4.1-5.3); Red Cell Distribution Width 12.4 % (12.1-15.1); White Blood Count 11.9 10^3/uL (4.0-10.0)
[2021-07-21 07:43] LABS: Alanine Aminotransferase 11 U/L (0-33); Albumin Level 3.6 g/dL (3.5-5.2); Alkaline Phosphatase 98 IU/L (35-105); Anion Gap 13.1 (5-19); Aspartate Amino Transferase 14 U/L (0-32); Blood Urea Nitrogen 15 mg/dL (8-23); Calcium 8.1 mg/dL (8.5-10.5); Carbon Dioxide 25 mmol/L (22-29); Chloride 90 mmol/L (98-107); Globulin 2.9 g/dL (1.3-4.6); Glucose 152 mg/dL (65-115); Magnesium 1.8 mg/dL (1.7-2.3); Osmolality Calculated 262 mOsm/kg (285-295); Phosphorus 2.4 mg/dL (2.5-4.5); Potassium 4.1 mmol/L (3.5-5.1); Sodium 124 mmol/L (136-145); Total Bilirubin 0.5 mg/dL (0.15-1.2); Total Protein 6.5 g/dL (6.6-8.7)
[2021-07-21] MEDS: apixaban 5 mg Tablet PO ×2 (09:18→20:14)
[2021-07-21] MEDS: levothyroxine 100 mcg Tablet PO (09:18)
[2021-07-21] MEDS: pantoprazole DR 40 mg Tablet PO (09:18)
[2021-07-21] MEDS: metoprolol tartrate 50 mg Tablet PO ×2 (09:18→20:14)
[2021-07-21] MEDS: ipratropium-albuterol 3 mL Neb INHALATION ×2 (09:25→20:07)
[2021-07-21] MEDS: budesonide 0.5 mg/2 mL Neb INHALATION ×2 (09:25→20:08)
[2021-07-21] MEDS: FUROsemide 10 mg/mL SDV 4mL 40 MG IVP (11:20)
--- NOTE | 2021-07-21 11:28 | CTR_ITS ---
PROCEDURE INFORMATION: Exam: CTA Chest With Contrast Exam date and time: 07/21/2021 11:28 AM Age: 80 years old Clinical indication: Cough and shortness of breath; Patient HX: C/O SOB, cough, wheezing TECHNIQUE: Imaging protocol: Computed tomographic angiography of the chest with contrast. 3D rendering (Not supervised by radiologist): MIP and/or 3D reconstructed images were created by the technologist. Radiation optimization: All CT scans at this facility use at least one of these dose optimization techniques: automated exposure control; mA and/or kV adjustment per patient size (includes targeted exams where dose is matched to clinical indication); or iterative reconstruction. Contrast material: OMNI 350; Contrast volume: 62 ml; Contrast route: INTRAVENOUS (IV); COMPARISON: CTA Chest-Pulmonary Emb [id number] 11/17/2018 4:15 PM RADIATION DOSE METRICS: Total DLP (mGy-cm): 542.44 FINDINGS: Pulmonary arteries: Normal. No pulmonary emboli. Aorta: Unremarkable. No aortic aneurysm. No aortic dissection. Veins: Suprarenal IVC filter. Lungs: Discoid atelectasis in both lungs. No consolidation. Pleural spaces: Unremarkable. No pneumothorax. No pleural effusion. Heart: Unremarkable. No cardiomegaly. No pericardial effusion. Lymph nodes: Prominent mediastinal and hilar lymph nodes are most likely reactive. Bones/joints: Severe progressive T9 compression fracture. Mild L1 and L2 compression fractures. Soft tissues: Unremarkable. CT/CT angio chest PE protcl [id number] IMPRESSION: 1. No evidence for pulmonary embolus. 2. Mild scattered atelectasis. 3. T9, L1, and L2 compression fractures. Radiation Dose CTDIVOL = (mGy): DLP = 542.44 (mGy-cm)
[2021-07-21 12:40] LABS: D Dimer 0.52 ug/mIFEU (0-0.59)
[2021-07-21 12:43] LABS: Blood Urea Nitrogen 17 mg/dL (8-23); Carbon Dioxide 27 mmol/L (22-29); Chloride 90 mmol/L (98-107); Glucose 192 mg/dL (65-115); Osmolality Calculated 273 mOsm/kg (285-295); Sodium 128 mmol/L (136-145)
--- NOTE | 2021-07-21 15:38 | P.PN_ITS ---
Subjective Subjective: Interval history: Patient was seen this morning, she continues to complain of shortness of breath, wheezing, she is worried about her Covid test Vitals/I&O/Wt Last Vital Signs Temp 98.4 F 07/21/21 12:00 Pulse 82 07/21/21 12:00 Resp 17 07/21/21 12:00 BP 132/74 07/21/21 12:00 Pulse Ox 94 07/21/21 12:00 07/21/21 07/21/21 07/21/21 06:59 14:59 22:59 Intake Total 240 / 1380 240 / 240 Output Total 350 / 650 200 / 200 Balance -110 / 730 40 / 40 Weight last 48 hrs Weight 87.543 kg Weight 86.183 kg Physical Exam Const: COMMON NORMALS: no acute distress and patient oriented x3 Resp: COMMON NORMALS: normal respiratory effort, No retractions and No use of accessory muscles AUSCULTATION: wheezes Cardio: COMMON NORMALS: regular rate, regular rhythm, S1 normal heart sound present and S2 normal heart sound present RATE: regular rate RHYTHM: regular rhythm HEART SOUNDS: S1 normal heart sound present and S2 normal heart sound present GI: COMMON NORMALS: Normal to inspection, nondistended, normoactive bowel sounds present, Soft to palpation and non-tender PALPATION: Yes Soft to palpation Extremity: COMMON NORMALS: no pedal edema Neuro: COMMON NORMALS: patient oriented x3 Psych: COMMON NORMALS: mental status grossly normal Data : 07/21/21 05:26 07/21/21 11:42 Micro: Microbiology 07/20/21 22:35 Legionella Urinary Antigen - Final Urine,Clean Catch Bacterial Antigens - Final 07/20/21 19:03 Blood Culture - Preliminary Blood SPECIMEN COLLECTED 07/20/21 19:03 Blood Culture - Preliminary Blood SPECIMEN COLLECTED A&P Assessment and plan (1) Asthma with exacerbation: Asthma exacerbation with possible viral pneumonia Plan -Solu-Medrol 40 IV every 8 hours -1 dose of Lasix today -Rocephin and azithromycin -Rapid flu negative, Covid PCR pending, sputum cultures, urine bacterial antigens, Legionella -Will perform CT angiogram the chest- -Full code -Eliquis for DVT prophylaxis Hyponatremia, secondary dehydration, hypertension medications, hold for now, hold off on IV hydration Hypothyroidism, continue levothyroxine Atrial fibrillation, continue metoprolol, continue Eliquis History of pulmonary emboli, on Eliquis, continue to monitor, not requiring any oxygen, no chest pain History of GI bleed, monitor hemoglobin Status: Acute (2) Viral pneumonia: Status: Acute Attestations Medical Necessity Statement*: Patient requires hospitalization inpatient, greater than 2 midnights, for asthma, hypoxia, viral pneumonia, Coding Level of Care Code Acute 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
[2021-07-21] MEDS: iohexol 350 mg/mL 100 mL Btl IV (16:19)
[2021-07-21] MEDS: cefTRIAXone 1,000 MG in sodium chloride 0.9% (plus) 50 ML 100 MG IV (19:38)
[2021-07-21] MEDS: azithromycin 500 MG in sodium chloride 0.9% 250 ML 250 MG IV (20:14)
[2021-07-22 03:10] VITALS: BP 125/68; PULSE 67; RESP 18; TEMP 36.4; O2SAT 93
[2021-07-22 06:30] LABS: Basophils % 0.3 %; Eosinophils # 0.1 10^3/uL (0.0-0.8); Eosinophils % 0.4 %; Hematocrit 30.9 % (37.0-47.0); Hemoglobin 10.7 g/dL (11.5-15.3); Lymphocytes # 1.4 10^3/uL (0.8-4.8); Lymphocytes % 8.8 %; Mean Corpuscular HGB Conc 34.6 g/dL (30.0-36.0); Mean Corpuscular Hemoglobin 32.9 pg (28.0-34.0); Mean Corpuscular Volume 95.1 fl (81-99); Mean Platelet Volume 10.6 fL (7.4-10.4); Monocytes # 1.1 10^3/uL (0.2-0.9); Monocytes % 6.8 %; Neutrophils # 13.23 10^3/uL (1.8-7.7); Neutrophils % 83.1 %; Nucleated Red Blood Cells % 0.1 %; Platelet Count 292 10^3/cmm (130-400); Red Blood Count 3.25 10^6/uL (4.1-5.3); Red Cell Distribution Width 12.1 % (12.1-15.1); White Blood Count 15.9 10^3/uL (4.0-10.0)
[2021-07-22 06:39] LABS: Alanine Aminotransferase 12 U/L (0-33); Albumin Level 3.4 g/dL (3.5-5.2); Alkaline Phosphatase 77 IU/L (35-105); Aspartate Amino Transferase 15 U/L (0-32); Blood Urea Nitrogen 21 mg/dL (8-23); Calcium 8.3 mg/dL (8.5-10.5); Carbon Dioxide 27 mmol/L (22-29); Chloride 92 mmol/L (98-107); Globulin 2.9 g/dL (1.3-4.6); Glucose 160 mg/dL (65-115); Magnesium 1.9 mg/dL (1.7-2.3); Osmolality Calculated 276 mOsm/kg (285-295); Phosphorus 2.5 mg/dL (2.5-4.5); Sodium 130 mmol/L (136-145); Total Bilirubin 0.3 mg/dL (0.15-1.2); Total Protein 6.3 g/dL (6.6-8.7)
[2021-07-22 07:49] VITALS: BP 148/77; PULSE 67; RESP 18; TEMP 36.5; O2SAT 94
[2021-07-22] MEDS: apixaban 5 mg Tablet PO (07:56)
[2021-07-22] MEDS: metoprolol tartrate 50 mg Tablet PO (07:56)
[2021-07-22] MEDS: levothyroxine 100 mcg Tablet PO (07:56)
[2021-07-22] MEDS: pantoprazole DR 40 mg Tablet PO (07:56)
[2021-07-22] MEDS: budesonide 0.5 mg/2 mL Neb INHALATION (09:38)
[2021-07-22] MEDS: ipratropium-albuterol 3 mL Neb INHALATION (09:39)
[2021-07-22 09:40] VITALS: PULSE 64; RESP 18; O2SAT 96
[2021-07-22 10:41] VITALS: O2SAT 88; O2SAT 94
--- NOTE | 2021-07-22 11:43 | P.DS_ITS ---
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 Patient was admitted for management of acute asthma exacerbation secondary to pneumonia. Patient was kept on steroids, nebs, inhalers, antibiotics , supplemental oxygen as needed, and other conservative RESPIRATORY SUPPORT MEASURES, CTA chest done during the hospital stay: Failed to show any acute PE, Prominent mediastinal and hilar lymph nodes are most likely reactive. Blood cultures were negative, urine Legionella antigen and bacterial antigen panel was negative.Rapid flu negative, influenza was negative, rapid Covid antigen. Patient responded well to above medical management at the time of discharge she was requiring 2 L home oxygen likely secondary to pneumonia. For CT finding of prominent mediastinal and hilar lymphadenopathy which is likely reactive she will follow pulmonary as an outpatient. Hyponatremia which was likely secondary to dehydration was improving she was asymptomatic.Hypothyroidism, she was continued on levothyroxine. Atrial fibrillation, continue metoprolol, continue Eliquis.History of pulmonary emboli, on Eliquis. Patient responded well to medical management and is being discharged in stable condition to home. She is being discharged on doxycycline 100 mg po BID for additional 10 days as well as prednisone 50 mg po daily for additional 5 days. Continue to follow with the primary care physician as well as pulmonary as an outpatient. Physical Exam Const: COMMON NORMALS: patient oriented x3 HENMT: COMMON NORMALS: normocephalic and atraumatic HEAD & SCALP: normocephalic and atraumatic Chest: COMMONS NORMALS: normal inspection of the chest Resp: OTHER: Minimal expiratory wheezing Cardio: COMMON NORMALS: regular rate, regular rhythm, S1 normal heart sound present, S2 normal heart sound present, No gallops present (Cardio), No murmurs present (Cardio), No rub (Cardio) and Peripheral pulses 2+ throughout RATE: regular rate RHYTHM: regular rhythm HEART SOUNDS: S1 normal heart sound present and S2 normal heart sound present PERIPHERAL PULSES: Peripheral pulses 2+ throughout GI: COMMON NORMALS: Normal to inspection, nondistended, normoactive bowel sounds present, Soft to palpation, non-tender, No hepatosplenomegaly present and no masses AUSCULTATION: Yes normoactive bowel sounds PALPATION: Yes Soft to palpation and Yes No hepatosplenomegaly present RECTAL EXAM: deferred Extremity: COMMON NORMALS: no clubbing, cyanosis or edema and no pedal edema Neuro: COMMON NORMALS: patient oriented x3 Discharge Data Data Completed and Pending: Completed Studies During Hospitalization Category Date Time Status CT angio chest PE protcl [id number] Rout ine Cat Scan 07/21/21 11:28 Completed XR chest 1V torrey ble [id number] Urgent Exams 07/20/21 09:35 Completed Pending at discharge Category Date Time Status Blood Culture Rou stephanie Lab 07/20/21 19:03 Results Complete Blood Co unt w/Auto AM LABS Lab 07/23/21 04:00 Ordered Comprehensive Met abolic Panel AM LA BS Lab 07/23/21 04:00 Ordered Magnesium AM LABS Lab 07/23/21 04:00 Ordered Phosphorus AM LAB S Lab 07/23/21 04:00 Ordered [facility] SARS-CoV-2 RNA Stat Lab 07/20/21 22:50 Received Labs from last 24 hours 07/22/21 07/22/21 07/21/21 04:33 04:33 11:42 WBC 15.9 H RBC 3.25 L Hgb 10.7 L Hct 30.9 L MCV 95.1 MCH 32.9 MCHC 34.6 RDW 12.1 Plt Count 292 MPV 10.6 H Neut % (Auto) 83.1 Lymph % (Auto) 8.8 Antelope % (Auto) 6.8 Eos % (Auto) 0.4 Baso % (Auto) 0.3 Neut # (Auto) 13.23 H Lymph # (Auto) 1.4 Antelope # (Auto) 1.1 H Eos # (Auto) 0.1 Baso # (Auto) 0.0 Nucleated RBC % (a uto) 0.1 Nucleated RBCs # 0.0 D-Dimer 0.52 Sodium 130 L Potassium 4.0 Chloride 92 L Carbon Dioxide 27 Anion Gap 15.0 BUN 21 Creatinine 0.8 GFR Calculation Not Reportable Glucose 160 H Calculated Osmolal ity 276 L Calcium 8.3 L Phosphorus 2.5 Magnesium 1.9 Total Bilirubin 0.3 AST 15 ALT 12 Alkaline Phosphata se 77 Total Protein 6.3 L Albumin 3.4 L Globulin 2.9 07/21/21 11:42 WBC RBC Hgb Hct MCV MCH MCHC RDW Plt Count MPV Neut % (Auto) Lymph % (Auto) Antelope % (Auto) Eos % (Auto) Baso % (Auto) Neut # (Auto) Lymph # (Auto) Antelope # (Auto) Eos # (Auto) Baso # (Auto) Nucleated RBC % (a uto) Nucleated RBCs # D-Dimer Sodium 128 L Potassium 4.0 Chloride 90 L Carbon Dioxide 27 Anion Gap 15.0 BUN 17 Creatinine 0.7 GFR Calculation Not Reportable Glucose 192 H Calculated Osmolal ity 273 L Calcium 9.0 Phosphorus Magnesium Total Bilirubin AST ALT Alkaline Phosphata se Total Protein Albumin Globulin Vitals: Last Vital Signs Temp 97.7 F 07/22/21 07:49 Pulse 64 07/22/21 09:40 Resp 18 07/22/21 09:40 BP 148/77 07/22/21 07:49 Pulse Ox 88 L 07/22/21 10:41 Discharge Plan Discharge Patient Disposition: Home Condition: Stable Prescriptions: New albuterol sulfate 90 mcg/actuation HFA aerosol inhaler 2 inh inhalation Q4H Qty: 8.5 RF: 0 prednisone 50 mg tablet 50 mg PO DAILY 5 Days Qty: 5 RF: 0 doxycycline hyclate 100 mg tablet 100 mg PO BID 10 Days Qty: 20 RF: 0 Continued triamterene-hydrochlorothiazid 37.5-25 mg tablet 1 tab PO DAILY PRN (Reason: edema) Qty: 30 RF: 5 cholecalciferol (vitamin D3) 1,000 unit capsule 1,000 unit PO DAILY RF: 0 hydroxychloroquine 200 mg tablet 200 mg PO DAILY RF: 0 EyeProtect 7,160-113-100 [id number]-nf-jopy tablet 1 tab PO DAILY RF: 0 levalbuterol tartrate [Xopenex HFA] 45 mcg/actuation HFA aerosol inhaler 2 inh INHALATION TID PRN (Reason: shortness of breath or wheezing) Qty: 15 RF: 5 pantoprazole 40 mg tablet,delayed release (DR/EC) See Rx Instructions .ROUTE .COMPLEX Qty: 180 RF: 0 diclofenac sodium [Voltaren Arthritis Pain] 1 % gel 2 g topical QID Qty: 1 RF: 6 promethazine-DM 6.25-15 mg/5 mL syrup 5 ml PO Q6H Qty: 118 RF: 0 omega-3 fatty acids [Fish Oil Concentrate] 1,000 mg capsule 1,000 mg PO DAILY Qty: 90 RF: 3 levothyroxine 100 mcg tablet 100 mcg PO DAILY RF: 0 potassium chloride 20 mEq tablet,ER particles/crystals 20 meq PO DAILY RF: 0 metoprolol tartrate 50 mg tablet 50 mg PO BID RF: 0 Eliquis 5 mg tablet 5 mg PO BID RF: 0 Discontinued penicillin V potassium 500 mg tablet 500 mg PO TID 10 Days Qty: 30 RF: 0 Discharge Orders: Discharge Order (Routine); Ordered 07/22/21 Ordered By: Haile Nayak Other Ambulatory Orders: DME: Oxygen (Order) Location: None Selected Ordered By: Haile Nayak DME: Oxygen (Order) Location: None Selected Ordered By: Haile Nayak DME: Oxygen (Order) Location: None Selected Ordered By: Haile Nayak Referrals: Claribel Fink NP [Primary Care Provider] - 08/01/21 9:00 am Datar,Samir Mai MD [Physician] - 09/02/21 10:00 am Discharge Diet: Usual diet Discharge Activity: Resume usual activity Patient Instructions: Asthma Exacerbation - Adult, Opioid Safety, Pneumonia - Viral Activity Restrictions/Additional Instructions: Thank you for visiting the emergency department. You were seen and evaluated for shortness of breath, cough, malaise. The exact cause of your symptoms is unclear however is likely related to exacerbation of your asthma in the context of viral or atypical infection. You were found to be dehydrated as well. Please ensure that you are staying hydrated. For the next 24 hours use your albuterol inhaler with 2 puffs every 4 hours, then 2 puffs every 6 hours for the next day, then back to your every 8 hour use. If you feel that you are worsening and have to use this significantly more frequently you should return to the emergency department. You will also be given a prescription for antibiotics and steroids. Please follow-up with your primary care provider. Please return to the emergency department for anything that you are concerned about and feel needs emergency department evaluation. Discharge Attestations Time Spent in Discharge Care*: less than 30 min Specific Discharge Activities: educating patient, educating and/or supporting family/caregiver, discussing with pcp/other providers, discussing with piano case and bench assembler/social workers/dc planners, documenting/other paperwork and evaluating patient/reviewing data Status at Discharge: Cognitive status at discharge: cognitively intact , Behavioral status at discharge: cooperative , Overall status at discharge: patient is progressing back to baseline Quality Metrics Clinical Quality Measures During this hospital stay, did patient experience: None Coding Level of Care Code Acute Chg FW DC note Diagnoses Asthma with exacerbation J45.901 Viral pneumonia J12.9
[2021-07-22 11:52] VITALS: BP 131/70; PULSE 73; RESP 16; TEMP 36.7; O2SAT 93
--- NOTE | 2021-07-22 14:56 | PC.NURSE ---
THIS NURSE CALLED IN PATIENT'S PRESCRIPTIONS TO [facility].
[2021-07-22 14:57] VITALS: BP 131/70; PULSE 73; RESP 16; TEMP 36.7; O2SAT 93
--- NOTE | 2021-07-22 15:01 | PC.NURSE ---
IV removed intact. Patient tolerated well. Patient is A&Ox3. Respirations even and [id number] on room air. Reviewed discharge with patient who verbalized understanding of new medications and follow up appointments. Patient wheel chaired to private car with her portable home oxygen.
[2021-07-23 09:52] LABS: Quest SARS-CoV-2 RNA NOT DETECTED (NOT DETECTED)
== END 2021-07-22 15:00 | disposition home or self-care (01) | DRG 202 ==
LOC: ER 14:39 → MEDSURG 15:49
PROVIDERS: Admitting Provider Family Medicine; Emergency Provider Emergency Medicine; PCP Nurse Practitioner Family; Visit Provider Internal Medicine
DX: J45.901 Unspecified asthma with (acute) exacerbation (principal); J12.9 Viral pneumonia, unspecified; E87.1 Hypo-osmolality and hyponatremia; I48.91 Unspecified atrial fibrillation; K57.90 Diverticulosis of intestine, part unspecified, without perforation or abscess without bleeding; Z86.711 Personal history of pulmonary embolism; I10 Essential (primary) hypertension; E55.9 Vitamin D deficiency, unspecified; M32.9 Systemic lupus erythematosus, unspecified; E78.5 Hyperlipidemia, unspecified; K21.9 Gastro-esophageal reflux disease without esophagitis; E86.0 Dehydration; E03.9 Hypothyroidism, unspecified; R59.0 Localized enlarged lymph nodes; Z79.01 Long term (current) use of anticoagulants
CPT/HCPCS: 36415; 71045; 71275; 80048; 80053; 80061; 83605; 83735; 83880; 84100; 84145; 84484; 84550; 85025; 85378; 86140; 86403; 87040; 87426; 87449; 87635; 87804; 93005; 94640; 94664; 96365; 96375; 97110; 97161; 97165; 97530; 99285; G0378; J0456; J0696; J1940; J2920; J2930; J3490; J7040; J7050; J7626; Q9967

== ENCOUNTER 2021-09-13 09:12 | Outpatient (CLI) | payer MEDICARE, OTHER, SELFPAY ==
--- NOTE | 2021-09-13 09:30 | US_ITS ---
WS: [id number] ULTRASOUND ABDOMEN CLINICAL INFORMATION: RLQ abd pain COMPARISON: None. FINDINGS: Technically difficult study. Patient unable to lie supine for exam Liver Size: Normal. Craniocaudal length: 15.8 cm. Echogenicity: Normal. Surface nodularity: None. Mass (size and location): None. Bile ducts Intrahepatic ducts: Normal. Common bile duct diameter: 0.5 cm. Gallbladder Shadowing cholelithiasis with calculus measuring 12 mm Gallstones: Present Gallbladder sludge: None. Gallbladder wall thickening: None. Pericholecystic fluid: None. Sonographic Yang sign: Absent. Pancreas Normal as visualized. Splenic granulomas. Splenomegaly: None. Craniocaudal length: 9.2 cm. Right kidney: Normal. Hydronephrosis: None. Size: 11.4 cm x 4.0 cm x 4.8 cm Left kidney: Normal. Hydronephrosis: None. Size: 10.3 cm x 4.6 cm x 4.5 cm. Abdominal aorta and IVC Visualized portions are normal. Ascites: None. US/US abdomen complete* [id number] IMPRESSION: 1. Normal liver. No intrahepatic biliary ductal dilatation. 2. Shadowing cholelithiasis with calculus measuring 12 mm. No gallbladder wall thickening or pericholecystic fluid. 3. Normal common bile duct. 4. No hydronephrosis in either kidney. 5. Splenic granulomas.
== END 2021-09-13 09:13 | disposition home or self-care (01) ==
LOC: RAD 09:14
PROVIDERS: PCP Nurse Practitioner Family; Visit Provider Nurse Practitioner Family
DX: R10.31 Right lower quadrant pain (principal); K80.20 Calculus of gallbladder without cholecystitis without obstruction; L92.8 Other granulomatous disorders of the skin and subcutaneous tissue
CPT/HCPCS: 76700

== ENCOUNTER → 2021-11-19 12:13 | Outpatient (BNVA) | payer MEDICARE, OTHER, SELFPAY | PROVIDERS: PCP Nurse Practitioner Family; Visit Provider Nurse Practitioner Family | DX: I10 Essential (primary) hypertension (principal); E55.9 Vitamin D deficiency, unspecified; R73.9 Hyperglycemia, unspecified | CPT/HCPCS: 80053; 80061; 82306; 82607; 83036; 83735; 84443; 85025 ==

== ENCOUNTER → 2021-12-11 15:07 | Outpatient (BNVA) | payer MEDICARE, OTHER, SELFPAY | PROVIDERS: PCP Nurse Practitioner Family; Visit Provider Internal Medicine Cardiovascular Disease | DX: I48.91 Unspecified atrial fibrillation (principal); I10 Essential (primary) hypertension; E03.9 Hypothyroidism, unspecified; J45.20 Mild intermittent asthma, uncomplicated; Z86.711 Personal history of pulmonary embolism; R06.02 Shortness of breath; Z87.891 Personal history of nicotine dependence; Z79.01 Long term (current) use of anticoagulants | CPT/HCPCS: 99214 ==

== ENCOUNTER → 2021-12-25 10:17 | Outpatient (BNVA) | payer MEDICARE, OTHER, SELFPAY | PROVIDERS: PCP Family Medicine; Visit Provider Internal Medicine Pulmonary Disease | DX: R05.9 Cough, unspecified (principal); Z09 Encounter for follow-up examination after completed treatment for conditions other than malignant neoplasm; J45.20 Mild intermittent asthma, uncomplicated; I48.91 Unspecified atrial fibrillation; Z87.891 Personal history of nicotine dependence; I10 Essential (primary) hypertension | CPT/HCPCS: 99214 ==

== ENCOUNTER 2022-01-08 10:45 | Outpatient (CLI) | payer MEDICARE, OTHER, SELFPAY ==
--- NOTE | 2022-01-08 11:15 | USCV_ITS ---
Mary Shoemaker Age: 81 Gender: F : 1940 Exam Date: 01/08/2022 11:15 Ordering Phys: Grace Calvo MD ([email or web address]) Technologist: TOÑO Exam Location: [facility] – [place], [place] Indication: SHORTNESS OF BREATH BP: 130 / 80 HR: 57 Rhythm: Sinus Technical Quality: Adequate MEASUREMENTS (Male / Female) Normal Values 2D ECHO LV Diastolic Diameter PLAX 4.1 cm 4.2 - 5.9 / 3.9 - 5.3 cm LV Systolic Diameter PLAX 2.4 cm IVS Diastolic Thickness 1.3 cm 0.6 - 1.0 / 0.6 - 0.9 cm IVS Systolic Thickness 2.0 cm LVPW Diastolic Thickness 1.2 cm 0.6 - 1.0 / 0.6 - 0.9 cm LVPW Systolic Thickness 2.0 cm LVOT Diameter 2.0 cm LV Ejection Fraction 2D Teich 71.3 % LV Ejection Fraction MOD 2C 62.9 % LV Ejection Fraction 2C AL 66.9 % LA Diameter 2.9 cm LA Width 3.8 cm LA Height 4.6 cm RA Width 4.1 cm RA Height 5.0 cm Aorta at Sinotubular Diameter 2.1 cm M-MODE Aortic Annulus Diameter 3.1 cm LA Ao Ratio MM 0.9 MV E Point Septal Separation 0.9 cm DOPPLER AV Peak Velocity 188.0 cm/s LVOT Peak Velocity 111.0 cm/s AV Area Cont Eq vti 1.8 cm squared AV Area Cont Eq pk 1.8 cm squared MV Peak Velocity 132.0 cm/s MV Area PHT 2.6 cm squared Mitral E to A Ratio 0.9 MV E' Velocity 61.0 cm/s Mitral E to MV E' Ratio 13.9 Mitral E to LV E' Lateral Ratio 12.2 Mitral E to LV E' Septal Ratio 16.6 TR Peak Velocity 252.3 cm/s TR Peak Gradient 25.5 mmHg TR Mean Velocity 187.3 cm/s TR Mean Gradient 15.7 mmHg TR Velocity Time Integral 73.3 cm TV Peak E Velocity 47.0 cm/s Right Atrial Pressure 8.0 mmHg Pulmonary Artery Systolic Pressu 33.5 mmHg PV Peak Velocity 130.0 cm/s RV Acceleration Time 0.1 s RV Ejection Time 0.3 s RV AcT/ET 0.3 FINDINGS Left Ventricle Normal left ventricular cavity size. Normal left ventricular wall thickness. Mildly decreased left ventricular systolic function. Left ventricular ejection fraction is estimated at 50- 55 %. Global left ventricular hypokinesis. Abnormal septal motion consistent with conduction abnormality. Grade II diastolic dysfunction, moderately elevated filling pressures. Right Ventricle Normal right ventricular size and systolic function. Right ventricular systolic pressure 34 mmHg. Right Atrium Mildly increased right atrial size. Left Atrium Mildly increased left atrial size. Mitral Valve Mild mitral annular calcification. Mildly thickened mitral valve. No mitral valve stenosis. Trace mitral valve regurgitation. Aortic Valve Aortic valve not well visualized. No aortic valve stenosis. No aortic valve regurgitation. Tricuspid Valve Structurally normal tricuspid valve. No tricuspid valve stenosis. Mild tricuspid valve regurgitation. Pulmonic Valve Pulmonic valve not well visualized. No pulmonary valve stenosis. Trace pulmonary valve regurgitation. Pericardium No pericardial effusion. Aorta Normal size aortic root and proximal ascending aorta. CONCLUSIONS 1. Normal left ventricular cavity size and wall thickness. Mildly decreased left ventricular systolic function. Left ventricular ejection fraction is estimated at 50-55 %. Global left ventricular hypokinesis. Grade II diastolic dysfunction, moderately elevated filling pressures. 2. Pulmonary artery pressure estimated at 34 mm Hg. 3. Mild biatrial enlargement. 4. Mild tricuspid valve regurgitation. 5. When compared to previous study dated 02/23/2015, there may not have been any significant change. Grace Calvo MD (Electronically Signed) Final Date: 12 Jan 2022 18:57 S
== END 2022-01-08 10:46 | disposition home or self-care (01) ==
LOC: RAD 10:53
PROVIDERS: PCP Family Medicine; Visit Provider Internal Medicine Cardiovascular Disease
DX: R06.02 Shortness of breath (principal); I48.91 Unspecified atrial fibrillation
CPT/HCPCS: 93306

== ENCOUNTER → 2022-04-23 10:28 | Outpatient (BNVA) | payer MEDICARE, OTHER, SELFPAY | PROVIDERS: PCP Family Medicine; Visit Provider Family Medicine | DX: R05.9 Cough, unspecified (principal) | CPT/HCPCS: 71046 ==

== ENCOUNTER → 2022-06-09 15:56 | Outpatient (BNVA) | payer MEDICARE, OTHER, SELFPAY | PROVIDERS: PCP Family Medicine; Visit Provider Family Medicine | DX: E03.9 Hypothyroidism, unspecified (principal); I10 Essential (primary) hypertension; I48.91 Unspecified atrial fibrillation; E78.5 Hyperlipidemia, unspecified | CPT/HCPCS: 80053; 80061; 84443; 85025 ==

== ENCOUNTER → 2022-06-26 10:17 | Outpatient (BNVA) | payer MEDICARE, OTHER, SELFPAY | PROVIDERS: PCP Family Medicine; Visit Provider Internal Medicine Pulmonary Disease | DX: I48.91 Unspecified atrial fibrillation (principal); I10 Essential (primary) hypertension; E03.9 Hypothyroidism, unspecified; J45.20 Mild intermittent asthma, uncomplicated; Z86.711 Personal history of pulmonary embolism; Z87.891 Personal history of nicotine dependence; R06.02 Shortness of breath; M32.9 Systemic lupus erythematosus, unspecified; Z86.718 Personal history of other venous thrombosis and embolism; Z79.01 Long term (current) use of anticoagulants; M79.672 Pain in left foot; R59.9 Enlarged lymph nodes, unspecified | CPT/HCPCS: 36415; 82785; 85025; 86003; 99214 ==

== ENCOUNTER → 2022-07-01 10:14 | Outpatient (BNVA) | payer MEDICARE, OTHER, SELFPAY | PROVIDERS: PCP Family Medicine; Visit Provider Podiatrist Foot & Ankle Surgery | DX: M10.9 Gout, unspecified (principal); I73.9 Peripheral vascular disease, unspecified | CPT/HCPCS: 73630; 99204 ==

== ENCOUNTER 2022-11-20 06:00 | Outpatient (RCR) | payer MEDICARE, OTHER, SELFPAY | END 2022-11-28 23:59 | disposition home or self-care (01) | LOC: TPT 06:00 | PROVIDERS: Visit Provider Family Medicine | DX: R53.1 Weakness (principal) | CPT/HCPCS: 97110; 97163 ==

== ENCOUNTER 2022-11-29 06:00 | Outpatient (RCR) | payer MEDICARE, OTHER, SELFPAY | END 2022-12-28 23:59 | disposition home or self-care (01) | LOC: TPT 06:00 | PROVIDERS: Visit Provider Family Medicine | DX: R53.1 Weakness (principal) | CPT/HCPCS: 97110 ==

== ENCOUNTER 2022-12-23 17:09 | Inpatient (IN) | payer MEDICARE, OTHER, SELFPAY ==
[2022-12-23] VITALS (18 sets, daily range): BP systolic 111–125; BP diastolic 51–83; PULSE 82–136; RESP 15–24; TEMP 36.5–36.7; O2SAT 89–96; BMI 32.6
--- NOTE | 2022-12-23 17:32 | XRR_ITS ---
PROCEDURE INFORMATION: Exam: XR Chest Exam date and time: 12/23/2022 5:52 PM Age: 82 years old Clinical indication: Pain; Chest pressure; Additional info: Cp TECHNIQUE: Imaging protocol: Radiologic exam of the chest. Views: 1 view. COMPARISON: CR XR chest 2V* [id number] 04/23/2022 10:34 AM FINDINGS: Lungs: Lungs are clear bilaterally. Pleural spaces: No pleural effusion. No pneumothorax. Heart/Mediastinum: Stable mild enlargement of the cardiac silhouette. Mediastinal contours are unremarkable. Vasculature: Stable vascular calcifications in the aorta. Bones/joints: Bones are diffusely osteopenic. Degenerative changes in the spine and shoulders. Stable moderate compression deformity of T10. XR/XR chest 1V portable [id number] IMPRESSION: 1. No acute cardiopulmonary process. 2. Incidental/nonacute findings are listed in the report.
--- NOTE | 2022-12-23 17:32 | ECG_ITS ---
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 Measurements Intervals [place] Rate: 135 P: 0 PA: 0 QRS: 19 QRSD: 138 T: 191 QT: 286 QTc: 429 Interpretive Statements ATRIAL FIBRILLATION WITH RAPID VENTRICULAR RESPONSE LEFT BUNDLE BRANCH BLOCK [120+ ms QRS DURATION, 80+ ms Q/S IN V1/V2, 85+ ms R IN I/aVL/V5/V6] Compared to ECG 07/20/2021 15:43:33 Sinus rhythm no longer present Electronically Signed On 12-23-2022 20:37:21 CDT by Inocencio Walters M.D. [id number]
--- NOTE | 2022-12-23 17:47 | W.ED.CHESTPA ---
HPI - Chest Pain General: Chief Complaint: Chest Pain Stated Complaint: chest pain/dizzy/weak Time Seen by Provider: 12/23/22 17:36 Source: patient Mode of arrival: ambulatory Limitations: no limitations History of Present Illness: 82-year-old female who states she has been having some pain in the center of her chest since 3 PM. States she is also had some palpitations she does have a history of A-fib she is in A-fib with RVR here 136. She denies any shortness of breath states her pain is actually improved its currently 2 out of 10 she denies any fever denies any cough. [facility] ED PFSH: Medical History Atrial fibrillation Diverticulosis Emphysema of lung History of compression fracture of spine History of GI bleed History of pulmonary embolism HTN (hypertension) Lupus Lymphadenopathy Myalgia SCC (spinal cord compression) Varicose veins of both lower extremities Vitamin D insufficiency Surgical History Previous back surgery S/P D&C (status post dilation and curettage) S/P hysterectomy Family History Mother Cancer Social History Smoking and tobacco status: former smoker Quit status (tobacco): has quit using tobacco Former quit date comment: reports smoking cigarettes occasionally as teenager, unsure as to length Second hand smoke exposure: No Alcohol intake: never Substance/Drug Use: never Lives independently: No Household members: children Marital status: / service: No Current occupational status: retired Current gender identity: Female Special rafita needs: No Physical Exam Const: COMMON NORMALS: patient oriented x3 GENERAL APPEARANCE: ill appearing HENMT: COMMON NORMALS: normocephalic and atraumatic HEAD & SCALP: normocephalic and atraumatic Eye: COMMON NORMALS: conjunctivae normal CONJUNCTIVA: Yes conjunctivae normal Neck/C-Spine: COMMON NORMALS: full ROM and supple Chest: COMMONS NORMALS: normal inspection of the chest and normal palpation of entire chest wall Resp: COMMON NORMALS: normal respiratory effort, No retractions, No use of accessory muscles and clear to auscultation bilaterally AUSCULTATION: clear to auscultation bilaterally Cardio: COMMON NORMALS: No murmurs present (Cardio) RATE: tachycardic RHYTHM: abnormal rhythm irregularly irregular GI: COMMON NORMALS: Normal to inspection, nondistended, normoactive bowel sounds present, Soft to palpation, non-tender and no masses PALPATION: Yes Soft to palpation Extremity: COMMON NORMALS: normal to inspection and full ROM Neuro: COMMON NORMALS: patient oriented x3, moves all extremities and no focal motor deficits Psych: COMMON NORMALS: mental status grossly normal, Normal thought process present and cooperative THOUGHT PROCESS: Normal thought process present Skin: COMMON NORMALS: no rashes or lesions noted and no wounds GENERAL SKIN EXAM: no rashes or lesions noted Course Vital Signs: Vital signs: Vital Signs Temperature 98.0 F 12/23/22 17:31 Pulse Rate 108 H 12/23/22 18:55 Respiratory Rate 18 12/23/22 18:55 Blood Pressure 111/68 12/23/22 18:55 Pulse Oximetry 92 12/23/22 18:55 Oxygen Delivery Me thod Room Air 12/23/22 18:50 MDM - Chest Pain Medical Decision Making Patient presents here with some chest pain along with A-fib with RVR her heart rate did improve here after Cardizem bolus but still is over 100 patient was started on a drip initial troponins only mildly elevated she has been pain-free here no signs of dissection or pulmonary embolism I spoke to the hospitalist will admit for A-fib with RVR. Lab Data 12/23/22 17:40 12/23/22 17:40 Radiology Impressions Chest X-Ray 12/23/22 17:32 IMPRESSION: 1. No acute cardiopulmonary process. 2. Incidental/nonacute findings are listed in the report. Laboratory Results WBC 9.9 10^3/uL (4.0-10.0) 12/23/22 17:40 RBC 4.09 10^6/uL (4.1-5.3) L 12/23/22 17:40 Hgb 13.4 g/dL (11.5-15.3) 12/23/22 17:40 Hct 38.2 % (37.0-47.0) 12/23/22 17:40 MCV 93.4 fl (81-99) 12/23/22 17:40 MCH 32.8 pg (28.0-34.0) 12/23/22 17:40 MCHC 35.1 g/dL (30.0-36.0) 12/23/22 17:40 RDW 12.9 % (12.1-15.1) 12/23/22 17:40 Plt Count 316 10^3/cmm (130-400) 12/23/22 17:40 MPV 9.1 fL (7.4-10.4) 12/23/22 17:40 Neut % (Auto) 62.1 % 12/23/22 17:40 Lymph % (Auto) 16.7 % 12/23/22 17:40 [place] % (Auto) 13.0 % 12/23/22 17:40 Eos % (Auto) 7.2 % 12/23/22 17:40 Baso % (Auto) 0.7 % 12/23/22 17:40 Neut # (Auto) 6.16 10^3/uL (1.8-7.7) 12/23/22 17:40 Lymph # (Auto) 1.7 10^3/uL (0.8-4.8) 12/23/22 17:40 [place] # (Auto) 1.3 10^3/uL (0.2-0.9) H 12/23/22 17:40 Eos # (Auto) 0.7 10^3/uL (0.0-0.8) 12/23/22 17:40 Baso # (Auto) 0.1 10^3/uL (0.0-0.1) 12/23/22 17:40 Nucleated RBC % (auto) 0 % 12/23/22 17:40 Nucleated RBCs # 0.0 /100WBC 12/23/22 17:40 PT 14.60 SECONDS (12.1-14.9) 12/23/22 17:40 INR 1.10 (0.8-1.2) 12/23/22 17:40 Sodium 129 mmol/L (136-145) L 12/23/22 17:40 Potassium 3.6 mmol/L (3.5-5.1) 12/23/22 17:40 Chloride 88 mmol/L (98-107) L 12/23/22 17:40 Carbon Dioxide 28 mmol/L (22-29) 12/23/22 17:40 Anion Gap 16.6 (5-19) 12/23/22 17:40 BUN 20 mg/dL (8-23) 12/23/22 17:40 Creatinine 0.9 mg/dL (0.5-0.9) 12/23/22 17:40 GFR Calculation Not Reportable 12/23/22 17:40 Glucose 109 mg/dL (65-115) 12/23/22 17:40 Calculated Osmolality 271 mOsm/kg (285-295) L 12/23/22 17:40 Calcium 9.5 mg/dL (8.5-10.5) 12/23/22 17:40 Total Bilirubin 0.6 mg/dL (0.15-1.2) 12/23/22 17:40 AST 19 U/L (0-32) 12/23/22 17:40 ALT 17 U/L (0-33) 12/23/22 17:40 Alkaline Phosphatase 88 U/L (35-105) 12/23/22 17:40 Troponin T Baseline 24 ng/L (0-10) H 12/23/22 17:40 Total Protein 7.4 g/dL (6.6-8.7) 12/23/22 17:40 Albumin 4.7 g/dL (3.5-5.2) 12/23/22 17:40 Globulin 2.7 g/dL (1.3-4.6) 12/23/22 17:40 EKG Data EKG 1: I personally reviewed and interpreted this EKG as follows: EKG interpretation date: 12/23/22 EKG interpretation time: 17:27 Interpretation: afib with rvr hr [address] or t wave abnormalities qrs 138 qtc 365 Critical Care Time Critical Care Time: Critical Care Time: Yes Total Critical Care Time: 40 Attestation: The high probability of a clinically significant, sudden or life threatening deterioration of the patient's cv system(s) required my full and direct attention, intervention and personal management. The critical care time is as shown. This time is in addition to time spent performing any reported procedures but includes the following: [x] Data and vital sign review and interpretation [x] Patient assessment, examination and intervention [x] Documentation [x] Medication orders and management Discharge Plan Discharge Patient Disposition: Admitted As Inpatient Clinical Impression: Atrial fibrillation with RVR Condition: Stable Prescriptions: No Action cholecalciferol (vitamin D3) 1,000 unit capsule 1,000 unit PO DAILY hydroxychloroquine 200 mg tablet 200 mg PO BID EyeProtect 7,160-113-100 [id number] tablet 1 tab PO DAILY diclofenac sodium [Voltaren Arthritis Pain] 1 % gel 2 g topical QID Qty: 1 6RF Rx Instructions: apply to single elbow, wrist or hand; for hand includes palm/fingers/back of hand levalbuterol tartrate [Xopenex HFA] 45 mcg/actuation HFA aerosol inhaler 2 inh INHALATION TID PRN (Reason: shortness of breath or wheezing) Qty: 15 5RF triamterene-hydrochlorothiazid 37.5-25 mg tablet See Rx Instructions .ROUTE .COMPLEX Qty: 30 4RF Dose Instruction: 1 TABLET BY MOUTH DAILY NEEDED FOR EDEMA Rx Instructions: 1 TABLET BY MOUTH DAILY in am. fluticasone propion-salmeterol [Advair Diskus] 100-50 mcg/dose blister with device 1 inh inhalation BID Qty: 60 3RF omega-3 fatty acids [Fish Oil Concentrate] 1,000 mg capsule 1,000 mg PO DAILY Qty: 90 3RF albuterol sulfate 2.5 mg /3 mL (0.083 %) solution for nebulization 2.5 mg inhalation QID PRN (Reason: shortness of breath or wheezing) Qty: 90 1RF (DME) tubing and mask for nebulizer See Rx Instructions .Route .MEDSUPPLY Qty: 1 0RF Rx Instructions: As directed levothyroxine 100 mcg tablet See Rx Instructions .ROUTE .COMPLEX Qty: 90 1RF Dose Instruction: TAKE 1 TABLET BY MOUTH EVERY DAY Rx Instructions: TAKE 1 TABLET BY MOUTH EVERY DAY sodium chloride 1,000 mg tablet,soluble 1,000 mg PO DAILY Qty: 30 1RF pantoprazole 40 mg tablet,delayed release (DR/EC) See Rx Instructions .ROUTE .COMPLEX Qty: 120 2RF Dose Instruction: TAKE ONE TABLET BY MOUTH TWICE DAILY Rx Instructions: TAKE ONE TABLET BY MOUTH TWICE DAILY metoprolol tartrate 50 mg tablet See Rx Instructions .ROUTE .COMPLEX Qty: 120 2RF Dose Instruction: TAKE ONE TABLET BY MOUTH TWICE DAILY Rx Instructions: TAKE ONE TABLET BY MOUTH TWICE DAILY potassium chloride 20 mEq tablet,ER particles/crystals See Rx Instructions .ROUTE .COMPLEX Qty: 90 0RF Dose Instruction: TAKE ONE TABLET BY MOUTH EVERY DAY Rx Instructions: TAKE ONE TABLET BY MOUTH EVERY DAY Eliquis 5 mg tablet See Rx Instructions .ROUTE .COMPLEX Qty: 180 0RF Dose Instruction: TAKE 1 TABLET BY MOUTH TWICE DAILY Rx Instructions: TAKE 1 TABLET BY MOUTH TWICE DAILY Referrals: Magaly Menchaca MD [Primary Care Provider] - Coding Level of Care Code 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
[2022-12-23] MEDS: dilTIAZem 5 mg/mL SDV 5 mL 10 MG IVP (17:58)
[2022-12-23] MEDS: aspirin 81 mg Chew Tablet 324 MG PO (17:58)
[2022-12-23 18:03] LABS: Basophils # 0.1 10^3/uL (0.0-0.1); Basophils % 0.7 %; Eosinophils # 0.7 10^3/uL (0.0-0.8); Eosinophils % 7.2 %; Hematocrit 38.2 % (37.0-47.0); Hemoglobin 13.4 g/dL (11.5-15.3); Lymphocytes # 1.7 10^3/uL (0.8-4.8); Lymphocytes % 16.7 %; Mean Corpuscular HGB Conc 35.1 g/dL (30.0-36.0); Mean Corpuscular Hemoglobin 32.8 pg (28.0-34.0); Mean Corpuscular Volume 93.4 fl (81-99); Mean Platelet Volume 9.1 fL (7.4-10.4); Monocytes # 1.3 10^3/uL (0.2-0.9); Neutrophils # 6.16 10^3/uL (1.8-7.7); Neutrophils % 62.1 %; Nucleated Red Blood Cells % 0 %; Platelet Count 316 10^3/cmm (130-400); Red Blood Count 4.09 10^6/uL (4.1-5.3); Red Cell Distribution Width 12.9 % (12.1-15.1); White Blood Count 9.9 10^3/uL (4.0-10.0)
[2022-12-23 18:27] LABS: Troponin(5th) Baseline 24 ng/L (0-10)
[2022-12-23 18:28] LABS: Alanine Aminotransferase 17 U/L (0-33); Albumin Level 4.7 g/dL (3.5-5.2); Alkaline Phosphatase 88 U/L (35-105); Anion Gap 16.6 (5-19); Aspartate Amino Transferase 19 U/L (0-32); Blood Urea Nitrogen 20 mg/dL (8-23); Calcium 9.5 mg/dL (8.5-10.5); Carbon Dioxide 28 mmol/L (22-29); Chloride 88 mmol/L (98-107); Globulin 2.7 g/dL (1.3-4.6); Glucose 109 mg/dL (65-115); Osmolality Calculated 271 mOsm/kg (285-295); Potassium 3.6 mmol/L (3.5-5.1); Sodium 129 mmol/L (136-145); Total Bilirubin 0.6 mg/dL (0.15-1.2); Total Protein 7.4 g/dL (6.6-8.7)
[2022-12-23] MEDS: dilTIAZem 100 MG in sodium chloride 0.9% (add-van) 100 ML IV (19:13)
--- NOTE | 2022-12-23 19:32 | ECG_ITS ---
[facility] Test Date: 2022-12-23 Pat Name: Mary Shoemaker Department: Room: 105 Gender: Female Clinical Rehabilitation Aide: : 1940 Requested By: Franklyn Arce Order Number: [id number] Ines MD: Inocencio Walters M.D. Measurements Intervals [place] Rate: 95 P: 0 PA: 0 QRS: 1 QRSD: 141 T: 122 QT: 368 QTc: 465 Interpretive Statements ATRIAL FIBRILLATION WITH ABERRANT CONDUCTION OR VENTRICULAR PREMATURE COMPLEXES LEFT BUNDLE BRANCH BLOCK [120+ ms QRS DURATION, 80+ ms Q/S IN V1/V2, 85+ ms R IN I/aVL/V5/V6] Compared to ECG 12/23/2022 17:27:48 Ventricular premature complex(es) now present Aberrant conduction of supraventricular beat(s) now present Electronically Signed On 12-24-2022 11:05:13 CDT by Inocencio Walters M.D. [id number]
--- NOTE | 2022-12-23 20:39 | PM.HP ---
Providers/Chief Complaint Admitting Physician: Silvia Solorzano MD Primary Care Provider: Magaly Menchaca MD Chief Complaint: chest pain/dizzy/weak History of Present Illness Mary Shoemaker is a 82 year old female with past medical history of atrial fibrillation, on chronic anticoagulation with Eliquis, history of GI bleed, history of pulmonary embolism, hypertension, spinal cord compression causing temporary paralysis in the bilateral lower extremities, lupus presented to the hospital today for complaint of chest tightness with pain radiating to the middle of her back. She also states she had a headache at the same time and felt she had facial flushing. She says she typically does not have the symptoms and therefore it alarmed her today. She does have a history of atrial fibrillation and is on Eliquis for it however says that she was never informed that she has a history of A-fib and she was unaware of this however she calls in palpitations. 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 Denies any gross shortness of breath however says the chest tightness really bothered her when it happened. The walker and a cane whenever needed. She states that she was at physical therapy today and that is when all this started and therefore she came to the hospital. ED course: 111/68, 18, 108, 98, saturating 92% on room air. Chest x-ray did not show any acute findings. He was given a Cardizem IV push and started on a Cardizem drip. Baseline troponin 24. 2-hour and 6-hour troponin pending at this time. WBC 9.9, hemoglobin 13.4, platelets 316, INR 1.10, sodium 139, potassium 3.6, anion gap 16.6, creatinine 0.9. Medications/Allergies Home Medications Medication Instructions Recorded Confirmed Last Taken Type cholecalciferol (vitamin D3) 25 1,000 unit PO DAILY 09/14/19 12/23/22 07/19/21 History mcg (1,000 unit) capsule omega-3 fatty acids 1,000 mg 1,000 mg PO DAILY #90 caps 09/05/20 12/23/22 07/20/21 Rx capsule (Fish Oil Concentrate) vit A 7,160 unit-vit C 113 mg-vit 1 tab PO DAILY 09/14/20 12/23/22 07/20/21 History E 100 [id number] tablet (EyeProtect) hydroxychloroquine 200 mg tablet 200 mg PO BID 12/11/21 12/23/22 Unknown History levalbuterol tartrate 45 2 inh inhalation TID PRN shortness 01/20/22 11/06/22 Unknown Rx mcg/actuation aerosol inhaler of breath or wheezing #15 grams (Xopenex HFA) albuterol sulfate 2.5 mg/3 mL 2.5 mg (3 mL) inhalation QID PRN 04/24/22 12/23/22 Unknown Rx (0.083 %) solution for nebulization shortness of breath or wheezing #90 mL tubing and mask for nebulizer #1 ea 04/24/22 11/06/22 Unknown Rx levothyroxine 100 mcg tablet See Rx Instructions .Route 06/02/22 12/23/22 Unknown Rx .COMPLEX #90 tabs sodium chloride 1,000 mg soluble 1,000 mg PO DAILY #30 tabs 06/23/22 11/06/22 Unknown Rx tablet fluticasone 100 mcg-salmeterol 50 1 inh inhalation BID #60 ea 06/26/22 11/06/22 Unknown Rx mcg/dose blistr powdr for inhalation (Advair Diskus) metoprolol tartrate 50 mg tablet See Rx Instructions .Route 08/11/22 12/23/22 Unknown Rx .COMPLEX #120 tabs pantoprazole 40 mg tablet,delayed See Rx Instructions .Route 08/11/22 12/23/22 Unknown Rx release .COMPLEX #120 tabs potassium chloride 20 mEq See Rx Instructions .Route 09/22/22 11/06/22 Unknown Rx tablet,extended release(part/cryst) .COMPLEX #90 tabs triamterene 37.5 See Rx Instructions .Route 11/06/22 11/06/22 Unknown Rx mg-hydrochlorothiazide 25 mg tablet .COMPLEX #30 tabs apixaban 5 mg tablet (Eliquis) See Rx Instructions .Route 11/10/22 12/23/22 Unknown Rx .COMPLEX #180 tabs diclofenac sodium 1 % topical gel 2 g topical PRN 12/23/22 Unknown History (Voltaren Arthritis Pain) Allergies Allergy/AdvReac Type Severity Reaction Status Date / Time No Known Allergies Allergy Verified 11/06/22 13:40 PFSH Acute PFSH: Medical History Atrial fibrillation Diverticulosis Emphysema of lung History of compression fracture of spine History of GI bleed History of pulmonary embolism HTN (hypertension) Lupus Lymphadenopathy Myalgia SCC (spinal cord compression) Varicose veins of both lower extremities Vitamin D insufficiency Surgical History Previous back surgery S/P D&C (status post dilation and curettage) S/P hysterectomy Family History Mother Cancer Social History Smoking and tobacco status: former smoker Quit status (tobacco): has quit using tobacco Former quit date comment: reports smoking cigarettes occasionally as teenager, unsure as to length Second hand smoke exposure: No Alcohol intake: never Substance/Drug Use: never Lives independently: No Household members: children Marital status: / service: No Current occupational status: retired Current gender identity: Female Special rafita needs: No Vitals/I&O/Wt Last Vital Signs Temp 97.8 F 12/23/22 19:57 Pulse 111 H 12/23/22 19:57 Resp 20 H 12/23/22 19:57 BP 115/79 12/23/22 19:57 Pulse Ox 95 12/23/22 19:57 O2 Del Method Room Air 12/23/22 20:04 12/23/22 12/23/22 12/23/22 06:59 14:59 22:59 Intake Total 2.5 / 2.5 Balance 2.5 / 2.5 Weight last 48 hrs Weight 86.319 kg Weight 81.193 kg Physical Exam Narrative: General: Alert oriented x3, patient seen laying in bed appearing comfortable at this time. HEENT: Normocephalic, atraumatic, EOMI, breathing comfortably Cardio: Irregularly irregular, slightly tachycardic at 112, normal S1-S2, currently running Cardizem drip at 12.5/h Respiratory: Good bilateral air entry, no wheezes no rhonchi appreciated GI: Abdomen soft, nontender, nondistended, bowel sounds + Extremities: Trace to 1+ generalized pitting edema bilateral lower extremities. Data 12/23/22 17:40 12/23/22 17:40 A&P Assessment and plan (1) Atrial fibrillation with RVR: (2) Edema: (3) Hyperlipidemia: (4) Hypothyroid: (5) Asthma: Qualifiers: Asthma severity: mild Asthma persistence: intermittent Asthma complication type: uncomplicated Qualified Code(s): J45.20 - Mild intermittent asthma, uncomplicated (6) Atrial fibrillation: Qualifiers: Atrial fibrillation type: unspecified Qualified Code(s): I48.91 - Unspecified atrial fibrillation (7) HTN (hypertension): Qualifiers: Hypertension type: essential hypertension Qualified Code(s): I10 - Essential (primary) hypertension Plan #Atrial fibrillation with RVR #Chest pain/chest tightness #Chronic anticoagulation with Eliquis #Lupus #History of PE, GI bleed, emphysema #Hypertension ? Initial troponin 24, 2-hour 6-hour troponin pending at this time ? Check echocardiogram ? Continue Cardizem drip and titrate. ? Titrate dose of beta-gerardo. Currently she is on Lopressor 50 twice daily at home. ? Placed on IV fluids normal saline 75 cc/h ? Continue hydroxychloroquine, levothyroxine, pantoprazole, -Patient's home medications will need to be confirmed in the morning. Hold parameter and hydrochlorothiazide at this time. ? Check TSH ? EKG done in ER did not show any acute ischemic changes. Did show A-fib with RVR ? Check electrolytes. Keep magnesium above 2 and potassium above 4 ? Check BMP, magnesium in a.m. Continue to monitor on cardiac telemetry DNR DNI SCDs Attestations Medical Necessity Statement*: Greater than 2 midnight stay for management of atrial fibrillation requiring Cardizem drip Other Coding Information Focused coding review requested Diagnoses Atrial fibrillation with RVR I48.91 Edema R60.9 Hyperlipidemia E78.5 Hypothyroid E03.9 Asthma J45.20 Asthma severity: mild Asthma persistence: intermittent Asthma complication type: uncomplicated Atrial fibrillation I48.91 Atrial fibrillation type: unspecified HTN (hypertension) I10 Hypertension type: essential hypertension
--- NOTE | 2022-12-23 21:08 | USCV_ITS ---
Mary Shoemaker Age: 82 Gender: F : 1940 Exam Date: 12/23/2022 01:49 Ordering Phys: Silvia Solorzano MD Technologist: SHARAD Exam Location: [facility] – [place] Indication: atrial fibrillation BP: 115 / 79 HR: 95 Rhythm: mostily Atrial Fibrillation Technical Quality: Adequate MEASUREMENTS (Male / Female) Normal Values 2D ECHO LV Diastolic Diameter PLAX 2.5 cm 4.2 - 5.9 / 3.9 - 5.3 cm LV Systolic Diameter PLAX 1.6 cm IVS Diastolic Thickness 1.4 cm 0.6 - 1.0 / 0.6 - 0.9 cm IVS Systolic Thickness 2.2 cm LVPW Diastolic Thickness 1.1 cm 0.6 - 1.0 / 0.6 - 0.9 cm LVPW Systolic Thickness 1.5 cm LVOT Diameter 1.8 cm LV Ejection Fraction 2D Teich 68.2 % LV Ejection Fraction MOD 2C 69.1 % LV Ejection Fraction 2C AL 70.0 % LA Diameter 3.5 cm LA Width 4.2 cm LA Height 5.7 cm RA Width 3.8 cm RA Height 5.6 cm Aorta at Sinotubular Diameter 2.4 cm IVC Diameter 1.3 cm M-MODE Aortic Annulus Diameter 2.8 cm LA Ao Ratio MM 1.2 MV E Point Septal Separation 0.5 cm DOPPLER AV Peak Velocity 197.0 cm/s LVOT Peak Velocity 121.0 cm/s AV Area Cont Eq vti 1.5 cm squared AV Area Cont Eq pk 1.6 cm squared MV Area PHT 5.1 cm squared MV E' Velocity 92.0 cm/s Mitral E to MV E' Ratio 11.1 Mitral E to LV E' Lateral Ratio 8.7 Mitral E to LV E' Septal Ratio 15.3 TR Peak Velocity 288.3 cm/s TR Peak Gradient 33.2 mmHg TV Peak E Velocity 61.0 cm/s Right Atrial Pressure 5.0 mmHg Pulmonary Artery Systolic Pressu 38.2 mmHg PV Peak Velocity 146.0 cm/s RV Acceleration Time 0.1 s RV Ejection Time 0.3 s RV AcT/ET 0.4 FINDINGS Left Ventricle Left ventricle is normal in size. LV systolic function is normal with EF of 50-55%. Septal motion consistent with conduction abnormality. Right Ventricle Normal in size and function. Right Atrium Normal in size Left Atrium Dilated Mitral Valve Mild mitral annular calcification. Aortic Valve Aortic valve is thickened. Mild aortic stenosis with aortic valve area 1.54 cm squared and mean gradient across aortic valve of 8 mmHg. Tricuspid Valve Mild tricuspid regurgitation. RVSP is 35 to 40 mmHg. This is consistent with mild pulmonary hypertension. Pulmonic Valve Not well-visualized Pericardium Normal Aorta Normal in size. IVC Appears to be normal CONCLUSIONS LV systolic function is normal with EF 50-55%. Left atrial dilation Mild aortic stenosis. Mild tricuspid regurgitation Mild pulmonary hypertension Compared to prior echocardiogram from 2021, no significant changes are seen Inocencio Walters MD (Electronically Signed) Final Date: 25 December 2022 11:18 S
[2022-12-23 21:13] LABS: Troponin 5 2HR 81.25 ng/L (0-10)
[2022-12-23 21:19] LABS: Troponin 5 2HR Delta 57.25 ABS# (0-10)
[2022-12-23] MEDS: sodium chloride 0.9% 1,000 ML 75 ML IV (21:42)
[2022-12-23 22:04] LABS: Estmated Average Glucose 111; Hemoglobin A1C 5.5 % (4.0-6.0); Procalcitonin 0.12 ng/mL (0-0.5); Thyroid Stimulating Hormone 4.49 uIU/mL (0.27-4.20)
[2022-12-23 22:14] LABS: Chol HDL Ratio 2.62 mg/dL (0.0-4.40); Cholesterol 204 mg/dL (0-200); HDL Cholesterol 78 mg/dL (60-100); LDL Cholesterol Calculated 99 mg/dL (50-129); LDL HDL Ratio 1.27 RATIO (0.00-3.22); Triglycerides 137 mg/dL (0-150)
[2022-12-23] MEDS: enoxaparin 100 mg/mL Syringe 90 MG SUBCUT (23:26)
--- NOTE | 2022-12-23 23:40 | ECG_ITS ---
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 Measurements Intervals [place] Rate: 97 P: 207 NH: 95 QRS: 39 QRSD: 133 T: 247 QT: 364 QTc: 463 Interpretive Statements ATRIAL FIBRILLATION LEFT BUNDLE BRANCH BLOCK [120+ ms QRS DURATION, 80+ ms Q/S IN V1/V2, 85+ ms R IN I/aVL/V5/V6] Compared to ECG 12/23/2022 22:30:01 Ventricular premature complex(es) no longer present Aberrant conduction of supraventricular beat(s) no longer present Electronically Signed On 12-24-2022 11:04:27 CDT by Inocencio Walters M.D. [id number]
[2022-12-24] VITALS (10 sets, daily range): BP systolic 95–120; BP diastolic 46–68; PULSE 68–109; RESP 16–21; TEMP 36.5–36.9; O2SAT 92–96
[2022-12-24 00:16] LABS: Troponin 5 6HR 111.4 ng/L (0-10)
[2022-12-24 00:18] LABS: Troponin 5 6HR Delta 87.4 ng/L (0-12)
[2022-12-24] MEDS: dilTIAZem 100 MG in sodium chloride 0.9% (add-van) 100 ML 12.5 MG IV (00:53)
[2022-12-24 03:38] LABS: Basophils # 0.1 10^3/uL (0.0-0.1); Basophils % 1.1 %; Eosinophils # 0.7 10^3/uL (0.0-0.8); Eosinophils % 10.4 %; Hematocrit 32.7 % (37.0-47.0); Hemoglobin 11.2 g/dL (11.5-15.3); Lymphocytes # 1.7 10^3/uL (0.8-4.8); Lymphocytes % 23.9 %; Mean Corpuscular HGB Conc 34.3 g/dL (30.0-36.0); Mean Corpuscular Hemoglobin 32.4 pg (28.0-34.0); Mean Corpuscular Volume 94.5 fl (81-99); Mean Platelet Volume 9.3 fL (7.4-10.4); Monocytes # 1.2 10^3/uL (0.2-0.9); Monocytes % 16.1 %; Neutrophils # 3.43 10^3/uL (1.8-7.7); Neutrophils % 48.1 %; Nucleated Red Blood Cells % 0 %; Platelet Count 263 10^3/cmm (130-400); Red Blood Count 3.46 10^6/uL (4.1-5.3); White Blood Count 7.1 10^3/uL (4.0-10.0)
[2022-12-24 04:00] LABS: Blood Urea Nitrogen 17 mg/dL (8-23); Calcium 8.8 mg/dL (8.5-10.5); Carbon Dioxide 24 mmol/L (22-29); Chloride 94 mmol/L (98-107); Glucose 94 mg/dL (65-115); Magnesium 1.7 mg/dL (1.7-2.3); Osmolality Calculated 271 mOsm/kg (285-295); Sodium 130 mmol/L (136-145)
[2022-12-24 04:01] LABS: Anion Gap 15.8 (5-19); Potassium 3.8 mmol/L (3.5-5.1)
[2022-12-24] MEDS: levothyroxine 100 mcg Tablet PO (08:55)
[2022-12-24] MEDS: pantoprazole DR 40 mg Tablet PO ×2 (08:55→17:19)
[2022-12-24] MEDS: metoprolol tartrate 50 mg Tablet PO ×2 (08:55→17:19)
[2022-12-24] MEDS: sodium chloride 1 gm Tablet PO (08:55)
[2022-12-24] MEDS: aspirin 81 mg EC Tablet PO (08:56)
--- NOTE | 2022-12-24 09:03 | PC.CHAP ---
Pastoral Care Encounter/Spiritual Assessment Type of Contact [] Declined mill washer visit [] Patient/Family/Request visit [] Outpatient visit [] Follow-up visit [] Physician referral [] Code/Alert [x] Routine visit [] Staff referral [] Actively dying [] Patient sleeping [] Family support [] [] Out of room [] Palliative care [] [] Receiving care in room [] Pre-surgical visit [] Trauma [] Long length of stay [] ICU visit [] Other: Relational/Emotional Strength [x] Patient feels connected with others/family/visitors/staff [] Distress [] Loneliness/isolation [] Abandonment Spirituality of Patient [x] Person of Delmy [x] Attends Holiness of their Delmy [x] Believes in Prayer [] Reads Bible or Restorationist materials [] There are Spiritual issues to be addressed [employer] Interventions [x] Prayer [x] Active listening [x] Non-anxious presence [x] Spiritual/emotional support [] Crisis/trauma care [] Spiritual counseling [] Bereavement support [] Provided bereavement packet [] Provided Bible/devotional materials [] Provided toy/stuffed animal, coloring book to patient or family member [] Provided Communion [] Anointing/[place] [] Salvation [x] Completed spiritual assessment [] Other: Impact on Illness or Injury [] Angry [] Fearful [] Anxious [] Often cries [] Exhaustion [] Unable to work [] Unable to attend faith [] Unable to walk/stand [] Unable to read [] Unable to drive [] Unable to eat/drink [] Unable to sleep [] Unable to be with family [] Patient intubated [] Other: Summary Pt has a positive attitude. Has three children and three grandchildren who are around if she needs them. Her of 49 years nine years ago and since then she has had many health issues. Time spent with patient 15m
--- NOTE | 2022-12-24 10:15 | PM.CONSULT ---
Providers/Reason For Consult Consulting Physician/Specialty*: Inocencio Walters MD/ Cardiology Reason for Consult*: NSTEMI/Atrial fibrillation Requesting Physician: Dr Solorzano Attending Physician: Silvia Solorzano MD Primary Care Provider: Magaly Menchaca MD History of Present Illness History of Present Illness Mary Shoemaker is a 82 year old female with past medical history of atrial fibrillation on Eliquis, history of pulmonary emboli, hypothyroidism, lupus who presented to hospital with chest pain that started last evening. She states it was substernal radiating to the back. It was severe and she decided to come to the hospital. Her troponins increase significantly from 24 at baseline to 111 at 6 hours. Chest pain has resolved now. EKG showed atrial fibrillation with RVR and left bundle branch block. She denies any prior history of coronary artery disease. Review of Systems Narrative: CONSTITUTIONAL: No fever chills weight loss or gain or night sweats. [] HEENT: Normocephalic, atraumatic.[] RESPIRATORY: Shortness of breath CARDIOVASCULAR: Chest pain and shortness of breath GI: no nausea vomiting diarrhea. [] EPIDEMIOLOGY INTERNSHIP: No numbness, tingling, weakness or loss of function in any part of the body. [] MUSCULOSKELETAL: No knee or joint pain or rashes. [] Medications/Allergies Home Medications Medication Instructions Recorded Confirmed Last Taken Type cholecalciferol (vitamin D3) 25 1,000 unit PO DAILY 09/14/19 12/23/22 07/19/21 History mcg (1,000 unit) capsule omega-3 fatty acids 1,000 mg 1,000 mg PO DAILY #90 caps 09/05/20 12/23/22 07/20/21 Rx capsule (Fish Oil Concentrate) vit A 7,160 unit-vit C 113 mg-vit 1 tab PO DAILY 09/14/20 12/23/22 07/20/21 History E 100 xonm-eoes-hxymxt tablet (EyeProtect) hydroxychloroquine 200 mg tablet 200 mg PO BID 12/11/21 12/23/22 Unknown History levalbuterol tartrate 45 2 inh inhalation TID PRN shortness 01/20/22 12/24/22 Unknown Rx mcg/actuation aerosol inhaler of breath or wheezing #15 grams (Xopenex HFA) albuterol sulfate 2.5 mg/3 mL 2.5 mg (3 mL) inhalation QID PRN 04/24/22 12/23/22 Unknown Rx (0.083 %) solution for nebulization shortness of breath or wheezing #90 mL tubing and mask for nebulizer #1 ea 04/24/22 12/24/22 Unknown Rx levothyroxine 100 mcg tablet See Rx Instructions .Route 06/02/22 12/23/22 Unknown Rx .COMPLEX #90 tabs sodium chloride 1,000 mg soluble 1,000 mg PO DAILY #30 tabs 06/23/22 12/24/22 Unknown Rx tablet metoprolol tartrate 50 mg tablet See Rx Instructions .Route 08/11/22 12/23/22 Unknown Rx .COMPLEX #120 tabs pantoprazole 40 mg tablet,delayed See Rx Instructions .Route 08/11/22 12/23/22 Unknown Rx release .COMPLEX #120 tabs potassium chloride 20 mEq See Rx Instructions .Route 09/22/22 12/24/22 Unknown Rx tablet,extended release(part/cryst) .COMPLEX #90 tabs triamterene 37.5 See Rx Instructions .Route 11/06/22 12/24/22 Unknown Rx mg-hydrochlorothiazide 25 mg tablet .COMPLEX #30 tabs apixaban 5 mg tablet (Eliquis) See Rx Instructions .Route 11/10/22 12/23/22 Unknown Rx .COMPLEX #180 tabs diclofenac sodium 1 % topical gel 2 g topical PRN 12/23/22 12/24/22 Unknown History (Voltaren Arthritis Pain) Allergies Allergy/AdvReac Type Severity Reaction Status Date / Time No Known Allergies Allergy Verified 12/24/22 08:44 Current Medications Generic Name Dose Route Start Last Admin Trade Name Freq PRN Reason Stop Dose Admin Aspirin 81 mg 12/24/22 09:00 12/24/22 08:56 Aspirin 81 Mg Ec Tablet PO 81 mg DAILY SUZANNA Administration Enoxaparin Sodium 90 mg 12/23/22 22:45 12/23/22 23:26 Enoxaparin 100 Mg/Ml Syringe 1 mg/kg (90 mg) 90 mg SUBCUT Administration Q12H SUZANNA Diltiazem HCl 100 mg/ Sodium 100 mls @ 0 mls/hr 12/23/22 18:45 12/24/22 06:57 Chloride IV 10 mg/hr .Q0M SUZANNA 10 mls/hr Titration Protocol Per Protocol Sodium Chloride 1,000 mls @ 75 mls/hr 12/23/22 21:15 12/23/22 21:42 Sodium Chloride 0.9% IV 75 mls/hr .[id number] SUZANNA Administration Levothyroxine Sodium 100 mcg 12/24/22 09:00 12/24/22 08:55 Levothyroxine 100 Mcg Tablet PO 100 mcg DAILY SUZANNA Administration Metoprolol Tartrate 50 mg 12/24/22 09:00 12/24/22 08:55 Metoprolol Tartrate 50 Mg Tablet PO 50 mg BID SUZANNA Administration Pantoprazole Sodium 40 mg 12/24/22 09:00 12/24/22 08:[address] 40 Mg Tablet PO 40 mg BID SUZANNA Administration Sodium Chloride 1 gm 12/24/22 09:00 12/24/22 08:55 Sodium Chloride 1 Gm Tablet PO 1 gm DAILY SUZANNA Administration PFSH Acute PFSH: Medical History Atrial fibrillation Diverticulosis Emphysema of lung History of compression fracture of spine History of GI bleed History of pulmonary embolism HTN (hypertension) Lupus Lymphadenopathy Myalgia SCC (spinal cord compression) Varicose veins of both lower extremities Vitamin D insufficiency Surgical History Previous back surgery S/P D&C (status post dilation and curettage) S/P hysterectomy Family History Mother Cancer Social History Smoking and tobacco status: former smoker Quit status (tobacco): has quit using tobacco Former quit date comment: reports smoking cigarettes occasionally as teenager, unsure as to length Second hand smoke exposure: No Alcohol intake: never Substance/Drug Use: never Lives independently: No Household members: children Marital status: / service: No Current occupational status: retired Current gender identity: Female Special rafita needs: No Vitals/I&O/Wt Last Vital Signs Temp 97.9 F 12/24/22 08:00 Pulse 79 12/24/22 08:17 Resp 16 04/26/23 08:17 BP 120/68 12/24/22 08:00 Pulse Ox 92 12/24/22 08:17 O2 Del Method Room Air 12/24/22 08:17 12/23/22 12/24/22 12/24/22 22:59 06:59 14:59 Intake Total 125.333 / 125.333 111.875 / 237.208 240 / 240 Balance 125.333 / 125.333 111.875 / 237.208 240 / 240 Weight last 48 hrs Weight 190 lb 4.8 oz Weight 179 lb Physical Exam Narrative: GENERAL: Patient is alert, awake and oriented x3. [] NECK: No jugular vein distension. [] HEENT: No cyanosis. No icterus. No pallor. [] HEART: Slightly irregular. LUNGS: Clear to auscultate bilaterally. [] CENTRAL NERVOUS SYSTEM: Grossly nonfocal. [] EXTREMITIES: Lower extremities with 1+ edema bilaterally. Pulses palpable in the lower extremities, both dorsalis pedis and posterior tibial. [] Data 12/24/22 03:20 12/24/22 03:20 A&P Assessment and plan (1) Atrial fibrillation with RVR: (2) NSTEMI (non-ST elevated myocardial infarction): (3) Hyperlipidemia: (4) HTN (hypertension): Qualifiers: Hypertension type: essential hypertension Qualified Code(s): I10 - Essential (primary) hypertension Plan Patient has presented with typical chest pain symptoms. These were in the setting of A-fib with RVR. However troponins have increased significantly. We will proceed with coronary angiogram with possible percutaneous coronary intervention. Risks and benefits of the procedure have been discussed with the patient. She understands the risks and benefits and wants to proceed with it. N.p.o. past midnight. Continue aspirin and Lovenox. Keep holding eliquis in preparation of cardiac cath tomorrow. Can titrate down Cardizem if heart rates allow. Echocardiogram ordered. Thank you for involving us with care of this patient. We will continue to follow. Please call with questions. Consult Attestations Medical Necessity Statement: Care expected to cross 2 midnights. Coding Level of Care Code Acute Code for [facility] Fwd Diagnoses Atrial fibrillation with RVR I48.91 NSTEMI (non-ST elevated myocardial infarction) I21.4 Hyperlipidemia E78.5 HTN (hypertension) I10 Hypertension type: essential hypertension
--- NOTE | 2022-12-24 10:42 | PC.NURSE ---
Held PO metoprolol 50mg due to blood pressure. Current blood pressure 108/50 and received orders to proceed with ordered dose. Also notified physician regarding urinary retention. Patient unable to void and has 411 in bladder. Received orders to place de leon catheter.
[2022-12-24] MEDS: enoxaparin 100 mg/mL Syringe 90 MG SUBCUT ×2 (11:22→22:14)
--- NOTE | 2022-12-24 19:09 | P.PN_ITS ---
Subjective Subjective: Patient was seen and examined this morning, heart rate is better controlled she is off Cardizem drip, currently she has denied chest tightness, palpitation nausea vomiting diaphoresis. Medications: Medication Review Details: Generic Name Dose Route Start Last Admin Trade Name Flo PRN Reason Stop Dose Admin Aspirin 81 mg 12/24/22 09:00 12/24/22 08:56 Aspirin 81 Mg Ec Tablet PO 81 mg DAILY SUZANNA Administration Enoxaparin Sodium 90 mg 12/23/22 22:45 12/24/22 11:22 Enoxaparin 100 M g/Ml Syringe 1 mg/kg (90 mg) 90 mg SUBCUT Administration Q12H SUZANNA Diltiazem HCl 100 mg/ Sodium 100 mls @ 0 mls/h r 12/23/22 18:45 12/24/22 11:15 Chloride IV Infused .Q0M SUZANNA Titration Protocol Per Protocol Sodium Chloride 1,000 mls @ 75 ml s/hr 12/23/22 21:15 12/24/22 13:57 Sodium Chloride 0.9% IV Infused .[id number] SUZANNA Infusion Levothyroxine Sodi um 100 mcg 12/24/22 09:00 12/24/22 08:55 Levothyroxine 10 0 Mcg Tablet PO 100 mcg DAILY SUZANNA Administration Metoprolol Tartrat e 50 mg 12/24/22 09:00 12/24/22 17:19 Metoprolol Tartr ate 50 Mg Tablet PO 50 mg BID SUZANNA Administration Pantoprazole Sodiu m 40 mg 12/24/22 09:00 12/24/22 17:[address] 40 Mg Tablet PO 40 mg BID SUZANNA Administration Sodium Chloride 1 gm 12/24/22 09:00 12/24/22 08:55 Sodium Chloride 1 Gm Tablet PO 1 gm DAILY SUZANNA Administration Vitals/I&O/Wt Last Vital Signs Temp 97.9 F 12/24/22 08:00 Pulse 70 12/24/22 16:03 Resp 21 H 12/24/22 16:03 BP 104/55 12/24/22 16:03 Pulse Ox 96 12/24/22 16:03 O2 Del Method Room Air 12/24/22 12:00 12/24/22 12/24/22 12/24/22 06:59 14:59 22:59 Intake Total 111.875 / 756.885 3987.167 / 1504.167 480 / 1984.167 Output Total 550 / 550 350 / 900 Balance 111.875 / 237.208 954.167 / 954.167 130 / 1084.167 Weight last 48 hrs Weight 86.319 kg Weight 81.193 kg Physical Exam Const: COMMON NORMALS: patient oriented x3 HENMT: COMMON NORMALS: normocephalic and atraumatic HEAD & SCALP: normoceph alic and atraumatic Resp: COMMON NORMALS: normal respiratory effort, No retractions, No use of accessory muscles and clear to auscultation bilaterally EFFORT & INSPECTION: Yes symmetric chest movement AUSCULTATION: clear to auscultation bilaterally Cardio: COMMON NORMALS: Peripheral pulses 2+ throughout PERIPHERAL PULSES: Peripheral pulses 2+ throughout OTHER: Irregularly irregular rhythm S1-S2 variable intensity GI: COMMON NORMALS: Normal to inspection, nondistended, normoactive bowel sounds present, Soft to palpation, non-tender, No hepatosplenomegaly present and no masses AUSCULTATION: Yes normoactive bowel sounds PALPATION: Yes Soft to palpation and Yes No hepatosplenomegaly present RECTAL EXAM: deferred Extremity: COMMON NORMALS: no clubbing, cyanosis or edema and no pedal edema Neuro: COMMON NORMALS: patient oriented x3 Urinary Catheter Management: [place]: Cath Placed During This Visit: yes Urinary Catheter Date of Insertion: 12/24/22 Urinary Catheter Time of Insertion: 11:00 Data 12/24/22 03:20 12/24/22 03:20 A&P Assessment and plan (1) Atrial fibrillation with RVR: (2) Edema: (3) Hyperlipidemia: (4) Hypothyroid: (5) Asthma: Qualifiers: Asthma severity: mild Asthma persistence: intermittent Asthma complication type: uncomplicated Qualified Code(s): J45.20 - Mild intermittent asthma, uncomplicated (6) Atrial fibrillation: Qualifiers: Atrial fibrillation type: unspecified Qualified Code(s): I48.91 - Unspecified atrial fibrillation (7) HTN (hypertension): Qualifiers: Hypertension type: essential hypertension Qualified Code(s): I10 - Essential (primary) hypertension Plan Assessment: #NSTEMI #Atrial fibrillation with RVR #Lupus #History of PE, #GI bleed #Hypertension Troponin trend with significant delta 2D echo: Done report pending She was on Cardizem has been weaned off currently on p.o. metoprolol. Currently she is on ACS protocol on therapeutic anticoagulation with Lovenox aspirin , statin beta-gerardo. -Cardiology on board for coronary angiogram tomorrow in the morning n.p.o. after midnight ? Continue hydroxychloroquine, levothyroxine, pantoprazole, Attestations Medical Necessity Statement*: Needs to be in hospital management of NSTEMI Coding Level of Care Code Acute Code for [facility] Fw Diagnoses Atrial fibrillation with RVR I48.91 Edema R60.9 Hyperlipidemia E78.5 Hypothyroid E03.9 Asthma J45.20 Asthma severity: mild Asthma persistence: intermittent Asthma complication type: uncomplicated Atrial fibrillation I48.91 Atrial fibrillation type: unspecified HTN (hypertension) I10 Hypertension type: essential hypertension
[2022-12-24] MEDS: atorvastatin 40 mg Tablet 80 MG PO (19:56)
[2022-12-25] VITALS (54 sets, daily range): BP systolic 85–136; BP diastolic 41–106; PULSE 59–90; RESP 0–25; TEMP 36.6–37.2; O2SAT 85–97
[2022-12-25 05:02] LABS: Basophils # 0.1 10^3/uL (0.0-0.1); Basophils % 0.6 %; Eosinophils # 0.6 10^3/uL (0.0-0.8); Eosinophils % 5.4 %; Hematocrit 30.3 % (37.0-47.0); Hemoglobin 10.5 g/dL (11.5-15.3); Lymphocytes # 1.4 10^3/uL (0.8-4.8); Lymphocytes % 12.7 %; Mean Corpuscular HGB Conc 34.7 g/dL (30.0-36.0); Mean Corpuscular Hemoglobin 32.5 pg (28.0-34.0); Mean Corpuscular Volume 93.8 fl (81-99); Mean Platelet Volume 9.7 fL (7.4-10.4); Monocytes # 1.5 10^3/uL (0.2-0.9); Monocytes % 14.2 %; Neutrophils # 7.12 10^3/uL (1.8-7.7); Neutrophils % 66.7 %; Nucleated Red Blood Cells % 0 %; Platelet Count 274 10^3/cmm (130-400); Red Blood Count 3.23 10^6/uL (4.1-5.3); White Blood Count 10.7 10^3/uL (4.0-10.0)
[2022-12-25 06:44] LABS: Alanine Aminotransferase 14 U/L (0-33); Albumin Level 3.4 g/dL (3.5-5.2); Alkaline Phosphatase 61 U/L (35-105); Anion Gap 12.7 (5-19); Aspartate Amino Transferase 16 U/L (0-32); Blood Urea Nitrogen 15 mg/dL (8-23); Calcium 8.1 mg/dL (8.5-10.5); Carbon Dioxide 24 mmol/L (22-29); Chloride 93 mmol/L (98-107); Glucose 105 mg/dL (65-115); Osmolality Calculated 263 mOsm/kg (285-295); Potassium 3.7 mmol/L (3.5-5.1); Sodium 126 mmol/L (136-145); Total Bilirubin 0.7 mg/dL (0.15-1.2); Total Protein 5.4 g/dL (6.6-8.7)
[2022-12-25] MEDS: pantoprazole DR 40 mg Tablet PO ×3 (08:08→16:57)
[2022-12-25] MEDS: levothyroxine 100 mcg Tablet PO ×2 (08:08→08:13)
[2022-12-25] MEDS: metoprolol tartrate 50 mg Tablet PO ×2 (08:08→16:57)
[2022-12-25] MEDS: sodium chloride 1 gm Tablet 2 GM PO ×2 (08:08→16:56)
[2022-12-25] MEDS: sodium chloride 0.9% 1,000 ML 50 ML IV (08:10)
[2022-12-25] MEDS: aspirin 81 mg EC Tablet PO (08:12)
[2022-12-25] MEDS: ipratropium-albuterol 3 mL Neb INHALATION (08:17)
--- NOTE | 2022-12-25 09:27 | PM.PN ---
Subjective Subjective: Patient feels different sensation in chest but no chest pain. Blood pressure controlled. Heart rate is controlled. She underwent coronary angiogram that did not show significant CAD. Vitals/I&O/Wt Last Vital Signs Temp 98.6 F 12/25/22 07:21 Pulse 79 12/25/22 08:19 Resp 18 12/25/22 08:19 BP 128/76 12/25/22 07:21 Pulse Ox 97 12/25/22 08:19 O2 Del Method Room Air 12/25/22 08:19 12/24/22 12/25/22 12/25/22 22:59 06:59 14:59 Intake Total 580 / 2084.167 Output Total 400 / 950 550 / 1500 Balance 180 / 1134.167 -550 / 584.167 Weight last 48 hrs Weight 190 lb 4.8 oz Weight 179 lb Physical Exam Narrative: GENERAL: Patient is alert, awake and oriented x3. [] NECK: No jugular vein distension. [] HEENT: No cyanosis. No icterus. No pallor. [] HEART: Slightly irregular. LUNGS: Clear to auscultate bilaterally. [] CENTRAL NERVOUS SYSTEM: Grossly nonfocal. [] EXTREMITIES: Lower extremities with 1+ edema bilaterally. Pulses palpable in the lower extremities, both dorsalis pedis and posterior tibial. [] Urinary Catheter Management: [place]: Cath Placed During This Visit: yes Reason for Continuing Indwelling Catheter: Acute Urinary Retention or Obstruction Urinary Catheter Date of Insertion: 12/24/22 Urinary Catheter Time of Insertion: 11:00 Data 12/25/22 04:35 12/25/22 06:00 A&P Assessment and plan (1) Atrial fibrillation with RVR: (2) NSTEMI (non-ST elevated myocardial infarction): (3) Hyperlipidemia: (4) HTN (hypertension): Qualifiers: Hypertension type: essential hypertension Qualified Code(s): I10 - Essential (primary) hypertension Plan Coronary angiogram reveals nonobstructive CAD. Troponin elevation and chest pain secondary to A-fib RVR. Heart rate is better controlled. Can stop cardizem gtt. Uptitrate metoprolol as tolerated Resume eliquis in the evening Echocardiogram showed normal LV systolic function Thank you for involving us with care of this patient. Please call with questions. Attestations Medical Necessity Statement*: Care expected to cross 2 midnights. Coding Level of Care Code Acute Code for [facility] Fwd Diagnoses Atrial fibrillation with RVR I48.91 NSTEMI (non-ST elevated myocardial infarction) I21.4 Hyperlipidemia E78.5 HTN (hypertension) I10 Hypertension type: essential hypertension
--- NOTE | 2022-12-25 09:49 | W.PM.OPSUD ---
Surgery/Procedure H&P Update DATE OF PROCEDURE: December 25, 2022 DATE H&P PERFORMED: 12/24/22 H&P UPDATE INFORMATION: I have reviewed H&P completed within last 30 days, I have examined patient prior to procedure and No changes to prior documentation PREOP DIAGNOSIS: NSTEMI PRIMARY INDICATION FOR PROCEDURE: NSTEMI PLANNED PROCEDURE: Operation Date: 12/25/22 10:00 Proposed Procedures p Cardiac Catheterization(Left) - Inocencio Walters M.D Possible percutaneous coronary intervention PATIENT REASSESSED PRIOR TO SEDATION, WITH NO CHANGE NOTED: Yes PHYSICAL EXAM: alert, oriented x 3, clear to auscultation bilaterally and regular rate & rhythm AIRWAY EVAL/ANESTHESIA PLAN: normal airway, ASA III, Local Anesthesia, Risks, benefits & alternatives of sedation and/or procedure discussed and Patient agrees to continue as planned
--- NOTE | 2022-12-25 09:58 | PC.NURSE ---
pt off unit for angiogram
--- NOTE | 2022-12-25 10:00 | XACV_ITS ---
Exam Room: 2 Ht: 163 cm Wt: 86 kg BSA: 2.01 m2 Gender: Female : 1940 Exam Priority: Routine Procedure(s): Procedure Description: Diagnostic procedure Procedure Description: Left Heart Catheterization Procedure Description: Left ventriculography Procedure Description: Coronary Angiography Diagnostic Cath Status: Urgent Diagnostic Findings * Left Main has no significant disease. * Circumflex has no significant disease. * Right Coronary Artery has no significant disease. * Mid Left Anterior Descending: minimal 30% stenosis, SUSAN: 3 flow. * Coronary angiography shows right dominance. Conclusions 1. Non-obstructive coronary artery disease. 2. Normal left ventricular systolic function. Ejection fraction of 55%. Recommendations * Aggressive risk factor modification. * High intensity statin therapy. * Outpatient cardiology follow up in 4 weeks. Interventional RX Recommendation: medical therapy and/or counseling Diagnostic RX Recommendation: medical therapy and/or counseling Anticoagulation: Heparin Ventriculography Ejection Fraction: 55.0 % Pressures Phase:Rest AO : 90 / 85 ( 69 ) @ 11:11:00 AM 88 / 52 ( 69 ) @ 11:16:00 AM 111 / 55 ( 76 ) @ 11:20:00 AM 106 / 60 ( 76 ) @ 11:20:00 AM LV : 120 / 10 / 22 @ 11:19:00 AM 124 / 9 / 25 @ 11:20:00 AM 122 / 9 / 24 @ 11:20:00 AM Valves Phase:DefaultPhase AV : 13.0 @ 10:27:59 AM 13.0 @ 10:27:59 AM AV Mean Gradient: 12.0 @ 10:27:59 AM 12.0 @ 10:27:59 AM Clinical Evaluation EBL: 5mL-10mL Procedural Details Procedure Consent Obtained. Admit Source: In Patient. Pre-Procedure Time Out. Identified patient by full name and date of as verbalized by the patient/guarantor. Does the consent match the physician's order: Yes. Accurate & Complete Informed Consent: Yes. Inpatient/Outpatient History & Physical on Chart: Yes. If H&P is completed, is and addenduem needed: No; If yes, is the addendum complete: N/A. Visualize and Verify Site with Patient/Guarantor: N/A. Relevant Radiology Images available: N/A. The risks, benefits, and alternatives of sedation and/or procedure were discussed by physician. The patient agrees to continue. Procedure started. [facility] Clinical Fraility Score: 4: Vulnerable. Chest Pain Symptom Assessment: Typical Angina Symptoms. Decatizer Indications: NSTEMI. Cardiovascular Instability: No. Correct patient, site and procedure confirmed by cath team. Current diagnosis: NSTEMI. PERRLA. 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 Lungs clear x 5 lobes. IV Site on Arrival: 20 gauge in the right anticubital. IV Fluids: 0.9% NaCl at KVO. 150 mL infused prior to mobile home laborer. Pre Procedural Pulses: bilateral radial was 1+. Pre Procedural Pulses: right dorsalis pedis was 2+. Pre Procedural Pulses: right dorsalis pedis was 1+. Oxygen started at 2liters/min via nasal canula. right groin was prepped with chloroprep then draped in the usual sterile fashion. right radial was prepped with chloroprep then draped in the usual sterile fashion. Baseline sample Acquired. HR: 80 BPM. Physician notified. Physician arrived. Physician scrubbed in. Immediate Pre-Procedure Time Out. Correct Patient: Yes; Correct Procedure: Yes; Correct Site: Yes; Correct Patient Position: Yes; Correct Supplies: Yes; Dried Flammable Prep: Yes; Blood Products Available: N/A;. Lidocaine 1% infiltrated to the right radial. Arterial access obtained. A 5 mozamb[place] TIG catheter in over wire. Multiple views taken of left coronary artery. Catheter redirected to the RCA. Multiple views taken of right coronary artery. Catheter out. A 5 mozambican Angled Pig catheter in over wire. LV gram performed in DYKES @ 10 mL/second for a total of 30 mL. EDP Sample taken: LV 120/10,22; HR: 78 BPM; SpO2: 92%. EDP Sample taken: LV 124/9,25; HR: 67 BPM; SpO2: 93%. Pullback taken: LV 122/9,24; AO 111/55(76); Mean: 12mmHg, Peak to Peak: 13mmHg, SEP: 19sec/min; HR: 70 BPM; SpO2: 92%. Catheter out. Wire out. PERRLA. 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 No VTE prophylaxis required. Medication's Wasted: Lidocaine 1% = 1 mL. Medication's Wasted: Nitro = 49.8 mg. Medication's Wasted: Heparin = 1000 units. Medication's Wasted: Other = Fentanyl 50 mcg. Total IV fluids: 38 mL. A TR Band was successful obtaining hemostatsis at the Right Radial artery insertion site. Post-op diagnosis: non obstructive CAD. Complications: none. Estimated blood loss: 5mL-10mL. Responsiveness - Normal response to verbal stimuli; alert and oriented, PERRLA. Airway - Unaffected, no intervention required; spontaneous ventilation. Circulation: W/N/L, pulses unchanged. Nausea/Vomiting: No. Procedure completed. Patient transferred by bed to 1st floor. Vital chart was stopped. Access Site Site: Right Radial artery Sheath Size: 6 Fr Hemostasis Method: TR Band Hemostasis Success: Successful Procedure Medications Start: 10:00 AM Stop: 10:00 AM Medication: Versed Amount: 1 mg Route: I.V. Start: 10:00 AM Stop: 10:00 AM Medication: Fentanyl Amount: 50 mcg Route: I.V. Start: 10:09 AM Stop: 10:09 AM Medication: Nitrogylcerin Amount: 200 mcg Route: I.A. Start: 10:11 AM Stop: 10:11 AM Medication: Heparin Amount: 5000 units Route: I.V. Start: 10:14 AM Stop: 10:14 AM Medication: Versed Amount: 1 mg Route: I.V. I, the attending physician, have reviewed and verified all procedure medications. Yes, all medications given per verbal order History/Risk Factors Hypertension: Yes Dyslipidemia: No Peripheral Arterial Disease (PAD): No Myocardial Infarction (OR): No Obesity: No Tobacco Use: Former Prior Interventions PCI: Yes CABG: Yes Valve Surgery: No Report Signatures Finalized by Inocencio Walters MD on 12/30/2022 12:50 PM
--- NOTE | 2022-12-25 10:44 | PC.NURSE ---
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 TR band in place no oozing or hematoma present. Patient educated on restrictions. Nurse will continue to monitor per protocol.
--- NOTE | 2022-12-25 10:53 | P.PN_ITS ---
Subjective Subjective: Patient was seen and examined this morning, after her coronary angiogram, denied any chest pain. Currently heart rate is decently controlled. Medications: Medication Review Details: Generic Name Dose Route Start Last Admin Trade Name Flo PRN Reason Stop Dose Admin Albuterol/Ipratrop ium 3 ml 12/23/22 21:07 12/25/22 08:17 Ipratropium-Albu terol 3 Ml Neb INHALATION 3 ml Q6H.RESP PRN Administration SHORTNESS OF RIN TH Aspirin 81 mg 12/24/22 09:00 12/25/22 08:12 Aspirin 81 Mg Ec Tablet PO 81 mg DAILY SUZANNA Administration Atorvastatin Calci um 80 mg 12/24/22 21:00 12/24/22 19:56 Atorvastatin 40 Mg Tablet PO 80 mg BEDTIME SUZANNA Administration Enoxaparin Sodium 90 mg 12/23/22 22:45 12/25/22 09:53 Enoxaparin 100 M g/Ml Syringe 1 mg/kg (90 mg) Not Given SUBCUT Q12H SUZANNA Diltiazem HCl 100 mg/ Sodium 100 mls @ 0 mls/h r 12/23/22 18:45 12/24/22 11:15 Chloride IV Infused .Q0M SUZANNA Titration Protocol Per Protocol Sodium Chloride 1,000 mls @ 50 ml s/hr 12/24/22 17:22 12/25/22 08:10 Sodium Chloride 0.9% IV 12/25/22 13:21 50 mls/hr .Q20H ONE Administration Levothyroxine Sodi um 100 mcg 12/24/22 09:00 12/25/22 08:13 Levothyroxine 10 0 Mcg Tablet PO 100 mcg DAILY SUZANNA Administration Metoprolol Tartrat e 50 mg 12/24/22 09:00 12/25/22 08:08 Metoprolol Tartr ate 50 Mg Tablet PO 50 mg BID SUZANNA Administration Pantoprazole Sodiu m 40 mg 12/24/22 09:00 12/25/22 08:[address] 40 Mg Tablet PO 40 mg BID SUZANNA Administration Sodium Chloride 2 gm 12/25/22 09:00 12/25/22 08:08 Sodium Chloride 1 Gm Tablet PO 2 gm BID SUZANNA Administration Vitals/I&O/Wt Last Vital Signs Temp 98.6 F 12/25/22 07:21 Pulse 79 12/25/22 08:19 Resp 18 12/25/22 08:19 BP 128/76 12/25/22 07:21 Pulse Ox 97 12/25/22 08:19 O2 Del Method Room Air 12/25/22 08:19 12/24/22 12/25/22 12/25/22 22:59 06:59 14:59 Intake Total 580 / 2084.167 100 / 100 Output Total 400 / 950 550 / 1500 300 / 300 Balance 180 / 1134.167 -550 / 584.167 -200 / -200 Weight last 48 hrs Weight 86.319 kg Weight 81.193 kg Physical Exam 2 Const: COMMON NORMALS: patient oriented x3 HENMT: COMMON NORMALS: normocephalic and atraumatic HEAD & SCALP: normocephalic and atraumatic Resp: COMMON NORMALS: normal respiratory effort, No retractions, No use of accessory muscles and clear to auscultation bilaterally EFFORT & INSPECTION: Yes symmetric chest movement AUSCULTATION: clear to auscultation bilaterally Cardio: COMMON NORMALS: Peripheral pulses 2+ throughout PERIPHERAL PULSES: Peripheral pulses 2+ throughout OTHER: Irregularly irregular rhythm S1-S2 variable intensity GI: COMMON NORMALS: Normal to inspection, nondistended, normoactive bowel sounds present, Soft to palpation, non-tender, No hepatosplenomegaly present and no masses AUSCULTATION: Yes normoactive bowel sounds PALPATION: Yes Soft to palpation and Yes No hepatosplenomegaly present RECTAL EXAM: deferred Extremity: COMMON NORMALS: no clubbing, cyanosis or edema and no pedal edema Neuro: COMMON NORMALS: patient oriented x3 Urinary Catheter Management: Beach: Cath Placed During This Visit: yes Reason for Continuing Indwelling Catheter: Acute Urinary Retention or Obs truction Urinary Catheter Date of Insertion: 12/24/22 Urinary Catheter Time of Insertion: 11:00 Data 12/25/22 04:35 12/25/22 06:00 A&P Assessment and plan (1) Atrial fibrillation with RVR: (2) Edema: (3) Hyperlipidemia: (4) Hypothyroid: (5) Asthma: Qualifiers: Asthma complication type: uncomplicated Asthma persistence: intermittent Asthma severity: mild Qualified Code(s): J45.20 - Mild intermittent asthma, uncomplicated (6) Atrial fibrillation: Qualifiers: Atrial fibrillation type: unspecified Qualified Code(s): I48.91 - Un specified atrial fibrillation (7) HTN (hypertension): Qualifiers: Hypertension type: essential hypertension Qualified Code(s): I10 - Essential (primary) hypertension Plan Assessment: #NSTEMI type II likely secondary to A-fib with RVR #Atrial fibrillation with RVR #Lupus #History of PE, #GI bleed #Hypertension #Hyponatremia appears to be chronic: Troponin trend with significant delta 2D echo: Normal LV systolic function with EF of 50 -55% LA dilation, mild mild TR, mild pulmonary hypertension. She was on Cardizem has been weaned off currently on p.o. metoprolol. She was on ACS protocol on therapeutic anticoagulation with Lovenox aspirin , statin beta-gerardo. Currently therapeutic anticoagulation has been discontinued, Eliquis has been resumed for history of atrial fibrillation Status post CAG: Has failed to show any significant coronary arteries stenosis. Continue hydroxychloroquine, levothyroxine, pantoprazole, Attestations Medical Necessity Statement*: Patient is in hospital for management of NSTEMI. Coding Level of Care Code 81259 Diagnoses Atrial fibrillation with RVR I48.91 Edema R60.9 Hyperlipidemia E78.5 Hypothyroid E03.9 Asthma J45.20 Asthma complication type: uncomplicated Asthma persistence: intermittent Asthma severity: mild Atrial fibrillation I48.91 Atrial fibrillation type: unspecified HTN (hypertension) I10 Hypertension type: essential hypertension
[2022-12-25] MEDS: sodium chloride 0.9% 1,000 ML 100 ML IV (12:04)
--- NOTE | 2022-12-25 18:36 | PC.NURSE ---
TR band removed dressing applied no issues or concerns. No hematoma or drainage.
[2022-12-25] MEDS: atorvastatin 40 mg Tablet PO (20:54)
[2022-12-25] MEDS: apixaban 5 mg Tablet PO (20:54)
[2022-12-26] VITALS (37 sets, daily range): BP systolic 102–132; BP diastolic 47–67; PULSE 61–99; RESP 0–31; TEMP 36.6–37.3; O2SAT 89–94
[2022-12-26 03:24] LABS: Basophils % 0.6 %; Eosinophils # 0.5 10^3/uL (0.0-0.8); Eosinophils % 7.5 %; Hemoglobin 9.8 g/dL (11.5-15.3); Lymphocytes # 1.5 10^3/uL (0.8-4.8); Lymphocytes % 21.5 %; Mean Corpuscular Hemoglobin 33.1 pg (28.0-34.0); Mean Corpuscular Volume 94.6 fl (81-99); Mean Platelet Volume 9.7 fL (7.4-10.4); Monocytes # 1.3 10^3/uL (0.2-0.9); Monocytes % 18.6 %; Neutrophils # 3.53 10^3/uL (1.8-7.7); Neutrophils % 51.5 %; Nucleated Red Blood Cells % 0 %; Platelet Count 232 10^3/cmm (130-400); Red Blood Count 2.96 10^6/uL (4.1-5.3); Red Cell Distribution Width 13.1 % (12.1-15.1); White Blood Count 6.8 10^3/uL (4.0-10.0)
[2022-12-26 03:47] LABS: Alanine Aminotransferase 10 U/L (0-33); Albumin Level 3.3 g/dL (3.5-5.2); Alkaline Phosphatase 65 U/L (35-105); Anion Gap 11.2 (5-19); Aspartate Amino Transferase 13 U/L (0-32); Blood Urea Nitrogen 12 mg/dL (8-23); Calcium 7.6 mg/dL (8.5-10.5); Carbon Dioxide 26 mmol/L (22-29); Chloride 93 mmol/L (98-107); Globulin 1.9 g/dL (1.3-4.6); Glucose 101 mg/dL (65-115); Osmolality Calculated 264 mOsm/kg (285-295); Potassium 3.2 mmol/L (3.5-5.1); Sodium 127 mmol/L (136-145); Total Bilirubin 0.7 mg/dL (0.15-1.2); Total Protein 5.2 g/dL (6.6-8.7)
--- NOTE | 2022-12-26 07:27 | P.PN_ITS ---
Subjective Subjective: Patient is doing well. No chest pain. Vitals/I&O/Wt Last Vital Signs Temp 99.2 F 12/26/22 04:00 Pulse 70 12/26/22 04:45 Resp 23 H 12/26/22 04:00 BP 115/49 12/26/22 04:00 Pulse Ox 91 12/26/22 04:00 O2 Del Method Room Air 12/26/22 04:00 12/25/22 12/26/22 12/26/22 22:59 06:59 14:59 Intake Total 1240 / 1460 880 / 2340 Output Total 1000 / 1300 Balance 1240 / 1160 -120 / 1040 Weight last 48 hrs Weight 196 lb 14.4 oz Physical Exam Narrative: GENERAL: Patient is alert, awake and oriented x3. [] NECK: No jugular vein distension. [] HEENT: No cyanosis. No icterus. No pallor. [] HEART: Slightly irregular. LUNGS: Clear to auscultate bilaterally. [] CENTRAL NERVOUS SYSTEM: Grossly nonfocal. [] EXTREMITIES: Lower extremities with 1+ edema bilaterally. Pulses palpable in the lower extremities, both dorsalis pedis and posterior tibial. [] Urinary Catheter Management: Beach: Cath Placed During This Visit: yes Reason for Continuing Indwelling Catheter: Accurate Measurement of Urinary Output in Critically Ill Patients Urinary Catheter Date of Insertion: 12/24/22 Urinary Catheter Time of Insertion: 11:00 Data 12/26/22 02:12 12/26/22 02:12 A&P Assessment and plan (1) Atrial fibrillation with RVR: (2) NSTEMI (non-ST elevated myocardial infarction): (3) Hyperlipidemia: (4) HTN (hypertension): Qualifiers: Hypertension type: essential hypertension Qualified Code(s): I10 - Essential (primary) hypertension Plan Patient is overall feeling better. Continue metoprolol. Anticoagulation with Eliquis resumed. Thank you for involving us with care of this patient. Patient is stable to be discharged from radiology standpoint. Please call with questions. Attestations Medical Necessity Statement*: Care expected to cross 2 midnights. Coding Level of Care Code Acute Code for [facility] Diagnoses Atrial fibrillation with RVR I48.91 NSTEMI (non-ST elevated myocardial infarction) I21.4 Hyperlipidemia E78.5 HTN (hypertension) I10 Hypertension type: essential hypertension
[2022-12-26] MEDS: sodium chloride 1 gm Tablet 2 GM PO (08:16)
[2022-12-26] MEDS: metoprolol tartrate 50 mg Tablet PO (08:16)
[2022-12-26] MEDS: aspirin 81 mg EC Tablet PO (08:16)
[2022-12-26] MEDS: apixaban 5 mg Tablet PO (08:17)
[2022-12-26] MEDS: potassium chloride ER 20 mEq Tablet 40 MEQ PO (11:09)
--- NOTE | 2022-12-26 11:09 | P.DS_ITS ---
Discharge Providers Date of Admission: 12/23/22 19:22 Date of Discharge: December 26, 2022 Attending Provider at Admission: Silvia Solorzano MD Attending Provider at Discharge: Haile Nayak MD Primary Care Provider: Magaly Menchaca MD Diagnoses at Discharge Discharge Diagnosis (1) Atrial fibrillation with RVR: Status: Acute (2) Edema: Status: Acute (3) Hyperlipidemia: Status: Acute (4) Hypothyroid: Status: Acute (5) Asthma: Status: Acute Qualifiers: Asthma complication type: uncomplicated Asthma persistence: intermittent Asthma severity: mild Qualified Code(s): J45.20 - Mild intermittent asthma, uncomplicated (6) Atrial fibrillation: Status: Acute Qualifiers: Atrial fibrillation type: unspecified Qualified Code(s): I48.91 - Unspecified atrial fibrillation (7) HTN (hypertension): Status: Acute Qualifiers: Hypertension type: essential hypertension Qualified Code(s): I10 - Essential (primary) hypertension Reason for Visit Reason for Visit: chest pain/dizzy/weak Hospital Course Hospital Course 82 year old female with past medical history of atrial fibrillation, on chronic anticoagulation with Eliquis, history of GI bleed, history of pulmonary embolism, hypertension, spinal cord compression causing 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 During the hospital stay she was admitted for the management of A-fib with RVR as well as NSTEMI type II: For A-fib with RVR she was initially kept on Cardizem drip and was later transitioned to metoprolol p.o. 50 twice daily, heart rate was well controlled at the time of discharge. She was also managed for NSTEMI: 2D echo showed:Normal LV systolic function with EF of 50 -55% LA dilation, mild mild TR, mild pulmonary hypertension.She was initially kept on ACS protocol given her typical symptomatic presentation for cardiac chest pain, she also underwent coronary angiogram, which failed to show any, significant coronary arteries lesion. NSTEMI is type II related to A-fib with RVR. Patient has history of chronic hyponatremia, BMP was monitored, serum sodium at the time of discharge was 127. Overall patient responded well to above medical management at the time of discharge she was not complaining of any chest pain, palpitation shortness of breath, she was discharged in stable condition to home,she will continue to follow PCP as well as cardiology as outpatient. Physical Exam 2 Const: COMMON NORMALS: patient oriented x3 HENMT: COMMON NORMALS: normocephalic and atraumatic HEAD & SCALP: normocephalic and atraumatic Resp: COMMON NORMALS: normal respiratory effort, No retractions, No use of accessory muscles and clear to auscultation bilaterally EFFORT & INSPECTION: Yes symmetric chest movement AUSCULTATION: clear to auscultation bilaterally Cardio: COMMON NORMALS: Peripheral pulses 2+ throughout PERIPHERAL PULSES: Peripheral pulses 2+ throughout OTHER: Irregularly irregular rhythm S1-S2 variable intensity GI: COMMON NORMALS: Normal to inspection, nondistended, normoactive bowel sounds present, Soft to palpation, non-tender, No hepatosplenomegaly present and no masses AUSCULTATION: Yes normoactive bowel sounds PALPATION: Yes Soft to palpation and Yes No hepatosplenomegaly present RECTAL EXAM: deferred Extremity: COMMON NORMALS: no clubbing, cyanosis or edema and no pedal edema Neuro: COMMON NORMALS: patient oriented x3 Urinary Catheter Management: [place]: Cath Placed During This Visit: yes Reason for Continuing Indwelling Catheter: Accurate Measurement of Urinary Output in Critically Ill Patients Urinary Catheter Date of Insertion: 12/24/22 Urinary Catheter Time of Insertion: 11:00 Discharge Data Studies Completed and Pending Completed Studies During Hospitalization Category Date Time Status XR chest 1V portable [id number] Stat Exams 12/23/22 17:32 Completed US echo complete [CV. echo complete* [id number]] Routine Ultrasound 12/23/22 21:08 Completed Pending at discharge Category Date Time Status [employer] request for service Routine Exams 12/25/22 10:00 Taken CBC Auto Diff [Complete Blood Count w/Auto] AM LABS Lab 12/27/22 04:00 Ordered CMP [Comprehensive Metabolic Panel] AM LABS Lab 12/27/22 04:00 Ordered Radiology Impressions Chest X-Ray 12/23/22 17:32 IMPRESSION: 1. No acute cardiopulmonary process. 2. Incidental/nonacute findings are listed in the report. Laboratory Results WBC 6.8 10^3/uL (4.0-10.0) 12/26/22 02:12 RBC 2.96 10^6/uL (4.1-5.3) L 12/26/22 02:12 Hgb 9.8 g/dL (11.5-15.3) L 12/26/22 02:12 Hct 28.0 % (37.0-47.0) L 12/26/22 02:12 MCV 94.6 fl (81-99) 12/26/22 02:12 MCH 33.1 pg (28.0-34.0) 12/26/22 02:12 MCHC 35.0 g/dL (30.0-36.0) 12/26/22 02:12 RDW 13.1 % (12.1-15.1) 12/26/22 02:12 Plt Count 232 10^3/cmm (130-400) 12/26/22 02:12 MPV 9.7 fL (7.4-10.4) 12/26/22 02:12 Neut % (Auto) 51.5 % 12/26/22 02:12 Lymph % (Auto) 21.5 % 12/26/22 02:12 [place] % (Auto) 18.6 % 12/26/22 02:12 Eos % (Auto) 7.5 % 12/26/22 02:12 Baso % (Auto) 0.6 % 12/26/22 02:12 Neut # (Auto) 3.53 10^3/uL (1.8-7.7) 12/26/22 02:12 Lymph # (Auto) 1.5 10^3/uL (0.8-4.8) 12/26/22 02:12 [place] # (Auto) 1.3 10^3/uL (0.2-0.9) H 12/26/22 02:12 Eos # (Auto) 0.5 10^3/uL (0.0-0.8) 12/26/22 02:12 Baso # (Auto) 0.0 10^3/uL (0.0-0.1) 12/26/22 02:12 Nucleated RBC % (auto) 0 % 12/26/22 02:12 Nucleated RBCs # 0.0 /100WBC 12/26/22 02:12 PT 14.60 SECONDS (12.1-14.9) 12/23/22 17:40 INR 1.10 (0.8-1.2) 12/23/22 17:40 Sodium 127 mmol/L (136-145) L 12/26/22 02:12 Potassium 3.2 mmol/L (3.5-5.1) L 12/26/22 02:12 Chloride 93 mmol/L (98-107) L 12/26/22 02:12 Carbon Dioxide 26 mmol/L (22-29) 12/26/22 02:12 Anion Gap 11.2 (5-19) 12/26/22 02:12 BUN 12 mg/dL (8-23) 12/26/22 02:12 Creatinine 0.7 mg/dL (0.5-0.9) 12/26/22 02:12 GFR Calculation Not Reportable 12/26/22 02:12 Glucose 101 mg/dL (65-115) 12/26/22 02:12 Estimat Average Glucose 111 12/23/22 17:40 Hemoglobin A1c 5.5 % (4.0-6.0) 12/23/22 17:40 Calculated Osmolality 264 mOsm/kg (285-295) L 12/26/22 02:12 Calcium 7.6 mg/dL (8.5-10.5) L 12/26/22 02:12 Magnesium 1.7 mg/dL (1.7-2.3) 12/24/22 03:20 Total Bilirubin 0.7 mg/dL (0.15-1.2) 12/26/22 02:12 AST 13 U/L (0-32) 12/26/22 02:12 ALT 10 U/L (0-33) 12/26/22 02:12 Alkaline Phosphatase 65 U/L (35-105) 12/26/22 02:12 Troponin T Baseline 24 ng/L (0-10) H 12/23/22 17:40 Troponin T 120 Minute 81.25 ng/L (0-10) H 12/23/22 20:38 Delta Troponin T 57.25 ABS# (0-10) H* 12/23/22 20:38 Troponin T Hi Sens 6Hr 111.4 ng/L (0-10) H 12/23/22 23:39 Troponin T Hi Sens 6Hr Delta 87.4 ng/L (0-12) H* 12/23/22 23:39 Total Protein 5.2 g/dL (6.6-8.7) L 12/26/22 02:12 Albumin 3.3 g/dL (3.5-5.2) L 12/26/22 02:12 Globulin 1.9 g/dL (1.3-4.6) 12/26/22 02:12 Triglycerides 137 mg/dL (0-150) 12/23/22 17:40 Cholesterol 204 mg/dL (0-200) H 12/23/22 17:40 LDL Cholesterol, Calc 99 mg/dL (50-129) 12/23/22 17:40 HDL Cholesterol 78 mg/dL (60-100) 12/23/22 17:40 LDL/HDL Ratio 1.27 RATIO (0.00-3.22) 12/23/22 17:40 Cholesterol/HDL Ratio 2.62 mg/dL (0.0-4.40) 12/23/22 17:40 Procalcitonin 0.12 ng/mL (0-0.5) 12/23/22 17:40 TSH 4.49 uIU/mL (0.27-4.20) H 12/23/22 17:40 Vitals Last Vital Signs Temp 99.2 F 12/26/22 04:00 Pulse 63 12/26/22 09:44 Resp 24 H 12/26/22 09:44 BP 132/48 12/26/22 09:44 Pulse Ox 93 12/26/22 09:44 O2 Del Method Room Air 12/26/22 07:57 Discharge Plan Discharge Patient Disposition: Home Condition: Stable Prescriptions: Continued cholecalciferol (vitamin D3) 1,000 unit capsule 1,000 unit PO DAILY hydroxychloroquine 200 mg tablet 200 mg PO BID EyeProtect [id number] puum-ci-geoc tablet 1 tab PO DAILY levalbuterol tartrate [Xopenex HFA] 45 mcg/actuation HFA aerosol inhaler 2 inh INHALATION TID PRN (Reason: shortness of breath or wheezing) Qty: 15 5RF triamterene-hydrochlorothiazid 37.5-25 mg tablet See Rx Instructions .ROUTE .COMPLEX Qty: 30 4RF Dose Instruction: 1 TABLET BY MOUTH DAILY NEEDED FOR EDEMA Rx Instructions: 1 TABLET BY MOUTH DAILY in am. omega-3 fatty acids [Fish Oil Concentrate] 1,000 mg capsule 1,000 mg PO DAILY Qty: 90 3RF albuterol sulfate 2.5 mg /3 mL (0.083 %) solution for nebulization 2.5 mg inhalation QID PRN (Reason: shortness of breath or wheezing) Qty: 90 1RF (DME) tubing and mask for nebulizer See Rx Instructions .Route .MEDSUPPLY Qty: 1 0RF Rx Instructions: As directed levothyroxine 100 mcg tablet See Rx Instructions .ROUTE .COMPLEX Qty: 90 1RF Dose Instruction: TAKE 1 TABLET BY MOUTH EVERY DAY Rx Instructions: TAKE 1 TABLET BY MOUTH EVERY DAY sodium chloride 1,000 mg tablet,soluble 1,000 mg PO DAILY Qty: 30 1RF pantoprazole 40 mg tablet,delayed release (DR/EC) See Rx Instructions .ROUTE .COMPLEX Qty: 120 2RF Dose Instruction: TAKE ONE TABLET BY MOUTH TWICE DAILY Rx Instructions: TAKE ONE TABLET BY MOUTH TWICE DAILY metoprolol tartrate 50 mg tablet See Rx Instructions .ROUTE .COMPLEX Qty: 120 2RF Dose Instruction: TAKE ONE TABLET BY MOUTH TWICE DAILY Rx Instructions: TAKE ONE TABLET BY MOUTH TWICE DAILY potassium chloride 20 mEq tablet,ER particles/crystals See Rx Instructions .ROUTE .COMPLEX Qty: 90 0RF Dose Instruction: TAKE ONE TABLET BY MOUTH EVERY DAY Rx Instructions: TAKE ONE TABLET BY MOUTH EVERY DAY Eliquis 5 mg tablet See Rx Instructions .ROUTE .COMPLEX Qty: 180 0RF Dose Instruction: TAKE 1 TABLET BY MOUTH TWICE DAILY Rx Instructions: TAKE 1 TABLET BY MOUTH TWICE DAILY diclofenac sodium [Voltaren Arthritis Pain] 1 % gel 2 g topical PRN Rx Instructions: apply to single elbow, wrist or hand; for hand includes palm/fingers/back of hand Discharge Orders: Discharge Order (Routine); Ordered 12/26/22 Ordered By: Haile Nayak Referrals: [facility] ([facility]) [Outside] Layne Fatima FNP [Nurse Practitioner] - 01/06/23 10:45 am Magaly Menchaca MD [Primary Care Provider] - 01/01/23 2:00 pm Patient Instructions: Heart Catheterization (DC), Opioid Safety, Post Angiogram Home Care Instructions Discharge Attestations Time Spent in Discharge Care*: less than 30 min Status at Discharge: Cognitive status at discharge: cognitively intact , Behavioral status at discharge: cooperative , Quality Metrics Clinical Quality Measures [ No reported AMI, CVA or VTE this stay] Coding Level of Care Code Acute Code for [facility] Diagnoses Atrial fibrillation with RVR I48.91 Edema R60.9 Hyperlipidemia E78.5 Hypothyroid E03.9 Asthma J45.20 Asthma complication type: uncomplicated Asthma persistence: intermittent Asthma severity: mild Atrial fibrillation I48.91 Atrial fibrillation type: unspecified HTN (hypertension) I10 Hypertension type: essential hypertension
--- NOTE | 2022-12-26 11:30 | PC.SOCIAL ---
Pg 2 IMM Explained to pt Pg 2 IMM. No questions voiced. Provided pt a copy. Initialed, dated, & timed a copy & placed in chart.
--- NOTE | 2022-12-26 15:28 | PC.NURSE ---
Catheter removed in 105 at 10:30am. Patient has still been unable to void. Bladder scan completed at 1400 and had 120cc's reported. Physician notified and orders to proceed with discharge.
--- NOTE | 2022-12-26 16:35 | PC.NURSE ---
Discharge Note Patient discharged to home via POV accompanied by daughter. Discharge instructions reviewed with patient and/or phlebotomy services representative. Mobile pharmacy medications and/or prescriptions provided. Belongings/home medications returned.
== END 2022-12-26 16:36 | disposition home health service (06) | DRG 281 ==
LOC: ER 19:17 → CSU 19:22
PROVIDERS: Internal Medicine Cardiovascular Disease; Admitting Provider Internal Medicine; Emergency Provider Emergency Medicine; PCP Family Medicine; Visit Provider Internal Medicine
DX: I48.91 Unspecified atrial fibrillation (principal); I21.A1 Myocardial infarction type 2; E87.1 Hypo-osmolality and hyponatremia; I25.10 Atherosclerotic heart disease of native coronary artery without angina pectoris; Z86.711 Personal history of pulmonary embolism; I10 Essential (primary) hypertension; M32.9 Systemic lupus erythematosus, unspecified; Z79.51 Long term (current) use of inhaled steroids; Z79.02 Long term (current) use of antithrombotics/antiplatelets; K57.90 Diverticulosis of intestine, part unspecified, without perforation or abscess without bleeding; J43.9 Emphysema, unspecified; Z87.891 Personal history of nicotine dependence; J45.20 Mild intermittent asthma, uncomplicated; E03.9 Hypothyroidism, unspecified; E78.5 Hyperlipidemia, unspecified
CPT/HCPCS: 36415; 51702; 71045; 80048; 80053; 80061; 83036; 83735; 84145; 84443; 84484; 85025; 85610; 93005; 93306; 93458; 94640; 96361; 96365; 96372; 96375; 96376; 97110; 97116; 97161; 99152; 99153; 99285; C1769; C1887; C1894; J1644; J1650; J2250; J3010; J3490; J7030; Q9967

== ENCOUNTER → 2023-01-06 11:12 | Outpatient (BNVA) | payer MEDICARE, OTHER, SELFPAY | PROVIDERS: PCP Family Medicine; Visit Provider Nurse Practitioner Family | DX: I25.2 Old myocardial infarction (principal); I25.10 Atherosclerotic heart disease of native coronary artery without angina pectoris; I48.91 Unspecified atrial fibrillation; Z79.01 Long term (current) use of anticoagulants; Z87.891 Personal history of nicotine dependence; I10 Essential (primary) hypertension | CPT/HCPCS: 36415; 80048; 99214 ==

== ENCOUNTER → 2023-02-23 10:14 | Outpatient (BNVA) | payer MEDICARE, OTHER, SELFPAY | PROVIDERS: PCP Family Medicine; Visit Provider Internal Medicine Pulmonary Disease | DX: J45.20 Mild intermittent asthma, uncomplicated (principal); J82.83 Eosinophilic asthma; I48.91 Unspecified atrial fibrillation; Z79.01 Long term (current) use of anticoagulants; M32.9 Systemic lupus erythematosus, unspecified | CPT/HCPCS: 99214 ==

== ENCOUNTER → 2023-02-27 10:09 | Outpatient (BNVA) | payer MEDICARE, OTHER, SELFPAY | PROVIDERS: PCP Family Medicine; Visit Provider Internal Medicine Cardiovascular Disease | DX: I48.91 Unspecified atrial fibrillation (principal); I10 Essential (primary) hypertension; Z87.891 Personal history of nicotine dependence; Z79.01 Long term (current) use of anticoagulants | CPT/HCPCS: 99214 ==

== ENCOUNTER 2023-04-16 12:11 | Emergency (ER) | payer MEDICARE, OTHER, SELFPAY ==
[2023-04-16 12:14] VITALS: BP 157/77; PULSE 66; RESP 93; TEMP 36.8; O2SAT 94; BMI 30.4
--- NOTE | 2023-04-16 12:21 | CT_ITS ---
WS: [id number] CT HEAD NONCONTRAST HISTORY: fall TECHNIQUE: Contiguous axial imaging performed through the brain in 2.5 mm imaging. Bone and soft tiss ue windows. Sagittal and coronal reformats reviewed. All CT scans at [facility] use at least one of these dose optimization techniques: automated exposure control; mA and/or kV adjustment per pa tient size (includes targeted exams where dose is matched to clinical indication); or iterative recon struction. DLP: 724.35 mGy.cm COMPARISON: None available. Suboptimal quality due to imaging technique and position of the head within the gantry. Limited evaluation for hemorrhage or edema. No obvious hemorrhage identified. No obvious atrophy. Sma ll vessel ischemic changes and edema would not be readily evident with this amount of artifact. Ventricles: Normal size with no hydrocephalus. Paranasal sinuses: Mild mucoperiosteal disease in the ethmoid air cells. Mastoid air cells: Well pneumatized. Calvarium and scalp: No skull fracture. Small left frontal scalp hematoma. IMPRESSION: 1. Suboptimal imaging quality evaluation. Small areas of hemorrhage or edema would be obscured. 2. Small left frontal scalp hematoma.
--- NOTE | 2023-04-16 12:21 | CT_ITS ---
WS: [id number] CT CERVICAL SPINE HISTORY: fall TECHNIQUE: Contiguous 2.0 mm axial imaging performed through the entire cervical spine. Sagittal and coronal reformats also performed. All CT scans at [facility] use at least one of these dose o ptimization techniques: automated exposure control; mA and/or kV adjustment per patient size (include s targeted exams where dose is matched to clinical indication); or iterative reconstruction. DLP: 724.35 mGy.cm COMPARISON: None available. Increase in the cervical kyphosis. No acute fractures. Craniocervical junction is normal. Marked face t joint arthritis throughout the cervical spine. Bilateral areas of facet joint fusion. Disc spaces a re narrowed. No fractures. Lateral masses of C1 and C2 are intact. C2-C3: Severe bilateral facet arthritis and foraminal narrowing. C3-C4: Severe bilateral facet arthropathy, right greater than left. Severe right and moderate left fo raminal stenosis. C4-C5: Severe bilateral facet arthritis with left foraminal stenosis. C5-C6: Severe bilateral facet arthritis and foraminal stenosis. C6-C7: Osteophytic ridging and severe bilateral facet arthritis and central and foraminal stenosis. C7-T1: Normal. IMPRESSION: 1. No acute cervical spine fracture. 2. Severe facet joint arthritis with multilevel areas of significant foraminal stenosis.
--- NOTE | 2023-04-16 12:25 | ED_ITS ---
HPI - Fall General: Chief Complaint: Fall Stated Complaint: fall, blood thinner Time Seen by Provider: 04/16/23 12:12 Source: patient Mode of arrival: ambulatory Limitations: no limitations History of Present Illness: 82-year-old female who states that she tripped and fell today at home hit her head on her deck. Does have a small laceration to her head she is on blood thinners she takes Eliquis. She denies any loss conscious has a mild headache and some neck pain denies any other injuries. Associated symptoms-after fall: Reports headache(s) and neck pain; Denies abdominal pain or chest pain Review of Systems Const: Denies: fever(s), chills, body aches or change in appetite ENMT: Denies: throat pain or dental pain Card: Denies: chest pain Resp: Denies: dyspnea GI: Denies: abdominal pain, nausea, vomiting or diarrhea : Denies: dysuria Musc: Reports: neck pain; Denies: back pain Skin/Breast: Denies: rash Neuro: Reports: headache(s) PFSH ED PFSH: Medical History Asthma Atrial fibrillation Atrial fibrillation with RVR Coronary artery disease 30% mid LAD 12/25/22 Diverticulosis Edema Emphysema of lung History of compression fracture of spine History of GI bleed History of pulmonary embolism HTN (hypertension) Hyperlipidemia Hypothyroid Lupus Lymphadenopathy Myalgia NSTEMI (non-ST elevated myocardial infarction) SCC (spinal cord compression) Varicose veins of both lower extremities Vitamin D insufficiency Surgical History Previous back surgery S/P D&C (status post dilation and curettage) S/P hysterectomy Family History Mother Cancer Social History Smoking and tobacco status: former smoker Quit status (tobacco): has quit using tobacco Former quit date comment: reports smoking cigarettes occasionally as teenager, unsure as to length Second hand smoke exposure: No Alcohol intake: never Substance/Drug Use: never Lives independently: No Household members: children Marital status: / service: No Current occupational status: retired Current gender identity: Female Special rafita needs: No Physical Exam Const: COMMON NORMALS: no acute distress, patient oriented x3 and healthy appearing HENMT: COMMON NORMALS: normocephalic; head/scalp not atraumatic HEAD & SCALP: normocephalic; not atraumatic OTHER: 1cm laceration Eye: COMMON NORMALS: Equal, round and reactive pupils present and EOMs intact bilaterally PUPIL: Yes Equal, round and reactive pupils present Neck/C-Spine: COMMON NORMALS: full ROM and supple Chest: COMMONS NORMALS: normal inspection of the chest and normal palpation of entire chest wall Resp: COMMON NORMALS: normal respiratory effort, No retractions, No use of accessory muscles and clear to auscultation bilaterally AUSCULTATION: clear to auscultation bilaterally Cardio: COMMON NORMALS: regular rate, regular rhythm and No murmurs present (C ardio) RATE: regular rate RHYTHM: regular rhythm GI: COMMON NORMALS: Normal to inspection, nondistended, normoactive bowel sounds present, Soft to palpation, non-tender and no masses PALPATION: Yes Soft to palpation Extremity: COMMON NORMALS: normal to inspection and full ROM Neuro: COMMON NORMALS: patient oriented x3, moves all extremities and no focal motor deficits Psych: COMMON NORMALS: mental status grossly normal, Normal thought process present and cooperative THOUGHT PROCESS: Normal thought process present Skin: COMMON NORMALS: no rashes or lesions noted and no wounds GENERAL SKIN EXAM: no rashes or lesions noted Procedures Laceration Laceration 1: Site: face Size (cm): 2 Description: linear Depth: simple, single layer Pre-repair: wound explored Skin layer closed with: other (dermabond) Course Vital Signs: Vital signs: Vital Signs Temperature 98.3 F 04/16/23 12:14 Pulse Rate 66 04/16/23 12:14 Respiratory Rate 93 H 04/16/23 12:14 Blood Pressure 157/77 04/16/23 12:14 Pulse Oximetry 94 04/16/23 12:14 Oxygen Delivery Me thod Room Air 04/16/23 12:14 MDM - Fall Medical Decision Making Patient presents here with a laceration from a fall her head and neck CT are normal she has slight abrasion to her left hand as well that does not require sutures was able to repair the head wound with Dermabond she had a small contusion left knee x-ray was normal she is stable for discharge. Medical Records I reviewed the patient's medical records. Lab Data I reviewed the patient's lab results. Discharge Plan Discharge Patient Disposition: Home Clinical Impression: Laceration of head, Fall Condition: Stable Prescriptions: New benzonatate 100 mg capsule 100 mg PO TID PRN (Reason: cough) Qty: 14 0RF No Action cholecalciferol (vitamin D3) 1,000 unit capsule 1,000 unit PO DAILY hydroxychloroquine 200 mg tablet 200 mg PO BID EyeProtect [id number] tablet 1 tab PO DAILY triamterene-hydrochlorothiazid 37.5-25 mg tablet See Rx Instructions .ROUTE .COMPLEX Qty: 30 4RF Dose Instruction: 1 TABLET BY MOUTH DAILY NEEDED FOR EDEMA Rx Instructions: 1 TABLET BY MOUTH DAILY in am. doxycycline hyclate 100 mg tablet 100 mg PO BID 7 Days Qty: 14 0RF fluticasone propion-salmeterol [Advair Diskus] 100-50 mcg/dose blister with device 1 inh inhalation BID Qty: 60 3RF levalbuterol tartrate [Xopenex HFA] 45 mcg/actuation HFA aerosol inhaler 2 inh INHALATION TID PRN (Reason: shortness of breath or wheezing) Qty: 15 5RF omega-3 fatty acids [Fish Oil Concentrate] 1,000 mg capsule 1,000 mg PO DAILY Qty: 90 3RF albuterol sulfate 2.5 mg /3 mL (0.083 %) solution for nebulization 2.5 mg inhalation QID PRN (Reason: shortness of breath or wheezing) Qty: 90 1RF (DME) tubing and mask for nebulizer See Rx Instructions .Route .MEDSUPPLY Qty: 1 0RF Rx Instructions: As directed levothyroxine 100 mcg tablet See Rx Instructions .ROUTE .COMPLEX Qty: 90 1RF Dose Instruction: TAKE 1 TABLET BY MOUTH EVERY DAY Rx Instructions: TAKE 1 TABLET BY MOUTH EVERY DAY sodium chloride 1,000 mg tablet,soluble 1,000 mg PO DAILY Qty: 30 1RF (DME) Blood Pressure Cuff Misc See Rx Instructions .Route Qty: 1 0RF Rx Instructions: As directed potassium chloride 20 mEq tablet,ER particles/crystals See Rx Instructions .ROUTE .COMPLEX Qty: 90 1RF Dose Instruction: TAKE ONE TABLET BY MOUTH EVERY DAY Rx Instructions: TAKE ONE TABLET BY MOUTH EVERY DAY metoprolol tartrate 50 mg tablet See Rx Instructions .ROUTE .COMPLEX Qty: 120 2RF Dose Instruction: TAKE ONE TABLET BY MOUTH TWICE DAILY Rx Instructions: TAKE ONE TABLET BY MOUTH TWICE DAILY pantoprazole 40 mg tablet,delayed release (DR/EC) See Rx Instructions .ROUTE .COMPLEX Qty: 120 2RF Dose Instruction: TAKE ONE TABLET BY MOUTH TWICE DAILY Rx Instructions: TAKE ONE TABLET BY MOUTH TWICE DAILY Eliquis 5 mg tablet See Rx Instructions .ROUTE .COMPLEX Qty: 180 0RF Dose Instruction: TAKE 1 TABLET BY MOUTH TWICE DAILY Rx Instructions: TAKE 1 TABLET BY MOUTH TWICE DAILY diclofenac sodium [Voltaren Arthritis Pain] 1 % gel 2 g topical PRN Rx Instructions: apply to single elbow, wrist or hand; for hand includes palm/fingers/back of hand Discharge Orders: Discharge ED (Routine); Ordered 04/16/23 Ordered By: Franklyn Arce Referrals: Magaly Menchaca MD [Primary Care Provider] - Discharge Diet: Advance as tolerated Discharge Activity: Resume usual activity Patient Instructions: Head Injury (ED), Skin Adhesive Care (ED) Coding Level of Care Code ED Charge Preparation Technician for Oliva Gamlbe
--- NOTE | 2023-04-16 13:11 | XR_ITS ---
WS: [id number] Left knee, 3 views, 04/16/2023 Clinical Data: injury Comparison: Left knee, 06/14/2009 Findings: No fractures or dislocations are seen. There is medial and lateral joint space narrowing with spurrin g of the medial and lateral tibial plateaus and femoral condyles. The patella shows minimal irregular ity with anterior spurs. The soft tissues are unremarkable. Vascular calcifications are seen. Impression: Moderate osteoarthritis of the left knee. Kellgren-Hi Classification: grade 3 (moderate): moderate multiple osteophytes, definite narrowi ng of joint space and some sclerosis and possible deformity of bone ends
== END 2023-04-16 13:50 | disposition home or self-care (01) ==
PROVIDERS: Emergency Provider Emergency Medicine; PCP Family Medicine
DX: S01.81XA Laceration without foreign body of other part of head, initial encounter (principal); S60.512A Abrasion of left hand, initial encounter; Z79.01 Long term (current) use of anticoagulants; Z87.891 Personal history of nicotine dependence; I25.10 Atherosclerotic heart disease of native coronary artery without angina pectoris; J43.9 Emphysema, unspecified; I10 Essential (primary) hypertension; E78.5 Hyperlipidemia, unspecified; I25.2 Old myocardial infarction; W01.198A Fall on same level from slipping, tripping and stumbling with subsequent striking against other object, initial encounter
CPT/HCPCS: 12011; 70450; 72125; 73562; 99284

== ENCOUNTER → 2023-04-21 11:07 | Outpatient (BNVA) | payer MEDICARE, OTHER, SELFPAY | PROVIDERS: PCP Family Medicine; Visit Provider Family Medicine | DX: R05.9 Cough, unspecified (principal) | CPT/HCPCS: 87426 ==

== ENCOUNTER 2023-07-26 21:39 | Emergency (ER) | payer MEDICARE, OTHER, SELFPAY ==
[2023-07-26 21:46] VITALS: BP 138/73; PULSE 61; TEMP 36.3; O2SAT 98; BMI 29.2
--- NOTE | 2023-07-26 23:12 | W.ED.BACK ---
HPI - Back Pain/Injury General: Chief Complaint: Back Pain/Injury Stated Complaint: Lower Back Pain Time Seen by Provider: 07/26/23 22:03 History of Present Illness: Patient is an 82-year-old female that presents to the emergency department with son and [id number]. Patient states that yesterday she developed some intermittent right-sided back pain. Denies radiation Denies numbness and tingling Denies weakness Denies falls or injuries. Patient states that she went to bed and pain got better but as the day wore on today she developed the pain again. Patient denies fever chills, abdominal pain, nausea vomiting or diarrhea. Denies any urinary symptoms Pain is worse with movement. Does not hurt when she is at rest History of back pain with prior lumbar fusion 4 years ago Review of Systems General: Reports: 10 or more systems reviewed and unremarkable except in HPI and below PFSH ED PFSH: Medical History Asthma Atrial fibrillation Atrial fibrillation with RVR Coronary artery disease 30% mid LAD 12/25/22 Diverticulosis Edema Emphysema of lung History of compression fracture of spine History of GI bleed History of pulmonary embolism HTN (hypertension) Hyperlipidemia Hypothyroid Lupus Lymphadenopathy Myalgia NSTEMI (non-ST elevated myocardial infarction) SCC (spinal cord compression) Varicose veins of both lower extremities Vitamin D insufficiency Surgical History Previous back surgery S/P D&C (status post dilation and curettage) S/P hysterectomy Family History Mother Cancer Social History Smoking and tobacco/nicotine status: former use of tobacco/nicotine Quit status (tobacco/nicotine): has quit using Former quit date comment: reports smoking cigarettes occasionally as teenager, unsure as to length Second hand smoke exposure: No Alcohol intake: never Substance/Drug Use: never Lives independently: No Household members: children Marital status: / service: No Current occupational status: retired Current gender identity: Female Special rafita needs: No Physical Exam Const: COMMON NORMALS: no acute distress, patient oriented x3 and alert GENERAL APPEARANCE: cooperative ORIENTATION/CONSCIOUSNESS: Yes awake, Yes oriented to person, Yes oriented to place and Yes oriented to time Neck/C-Spine: COMMON NORMALS: full ROM GENERAL: Yes normal visual inspection Lymph: LYMPHATIC: no lymphadenopathy noted Chest: COMMONS NORMALS: normal inspection of the chest Breast/axilla inspection: Yes no chest deformity, asymmetry, normal contours, no nodules, masses, tenderness Resp: COMMON NORMALS: normal respiratory effort, No retractions, No use of accessory muscles and clear to auscultation bilaterally EFFORT & INSPECTION: Yes able to speak in complete sentences and Yes symmetric chest movement AUSCULTATION: clear to auscultation bilaterally Cardio: COMMON NORMALS: regular rate, regular rhythm and Peripheral pulses 2+ throughout RATE: regular rate RHYTHM: regular rhythm PERIPHERAL PULSES: Peripheral pulses 2+ throughout GI: COMMON NORMALS: Normal to inspection, nondistended, normoactive bowel sounds present, Soft to palpation, non-tender and No hepatosplenomegaly present INSPECTION: Yes normal to inspection AUSCULTATION: Yes normoactive bowel sounds PALPATION: Yes Soft to palpation and Yes No hepatosplenomegaly present RECTAL EXAM: deferred Back/Pelvis: OTHER: Patient was evaluated in the emergency department right-sided paraspinous muscle spasm in the lumbar spine. Denies radiation Denies numbness and tingling Denies bladder or bowel dysfunction Denies saddle paresthesias Patient is able to perform straight leg raise Patient is able to flex and extend hip and knee without difficulty Patient is able to dorsiflex plantarflex bilateral feet She is able to dorsiflex great toe Sensation intact to light touch bilaterally 5/5 strength globally Extremity: COMMON NORMALS: normal to inspection GENERAL: Yes normal exam except as noted Neuro: COMMON NORMALS: patient oriented x3 SENSORIUM/ORIENTATION: Yes alert, Yes oriented to person, Yes oriented to place and Yes oriented to time CRANIAL NERVES: Yes CN normal except as noted Psych: COMMON NORMALS: mental status grossly normal, Normal thought process present, cooperative, activity/motor behavior normal, denies homicidal ideation and denies suicidal ideation THOUGHT PROCESS: Normal thought process present Skin: COMMON NORMALS: no rashes or lesions noted, no wounds and turgor normal GENERAL SKIN EXAM: no rashes or lesions noted and turgor normal Course Vital Signs: Vital signs: Vital Signs Temperature 97.4 F L 11/26/23 21:46 Pulse Rate 60 07/26/23 23:23 Respiratory Rate 17 07/26/23 23:23 Blood Pressure 135/56 07/26/23 23:23 Pulse Oximetry 98 07/26/23 23:23 Oxygen Delivery Me thod Room Air 07/26/23 23:23 MDM - Back Pain/Injury Medical Decision Making She was evaluated in the emergency department for paraspinous muscle spasm. Differential diagnosis fracture, contusion, kidney stone, hip injury Denies any falls or injuries Pain is intermittent and reproducible with any type of movement Patient does not warrant any diagnostic imaging at this time. I treated her pain here in the emergency department with Norflex, Toradol, Decadron. Patient responded very well to these medications. For him to discharge her home with similar prescriptions. Patient is to return to the emergency department as needed for new concerning or worsening symptoms. All questions answered No radiology studies performed this visit Discharge Plan Discharge Patient Disposition: Home Clinical Impression: Acute exacerbation of chronic low back pain Condition: Stable Prescriptions: New methocarbamol 500 mg tablet 500 mg PO Q6H Qty: 20 0RF methylprednisolone [Medrol (Logan)] 4 mg tablets,dose pack See Rx Instructions .ROUTE .COMPLEX Qty: 21 0RF Rx Instructions: orally per package directions No Action cholecalciferol (vitamin D3) 1,000 unit capsule 1,000 unit PO DAILY hydroxychloroquine 200 mg tablet 200 mg PO BID EyeProtect [id number] tablet 1 tab PO DAILY cefdinir 300 mg capsule 300 mg PO BID Qty: 14 0RF promethazine-DM 6.25-15 mg/5 mL syrup 5 ml PO Q6H PRN (Reason: cough) Qty: 160 1RF fluticasone propion-salmeterol [Advair Diskus] 100-50 mcg/dose blister with device 1 inh inhalation BID Qty: 60 3RF levalbuterol tartrate [Xopenex HFA] 45 mcg/actuation HFA aerosol inhaler 2 inh INHALATION TID PRN (Reason: shortness of breath or wheezing) Qty: 15 5RF omega-3 fatty acids [Fish Oil Concentrate] 1,000 mg capsule 1,000 mg PO DAILY Qty: 90 3RF albuterol sulfate 2.5 mg /3 mL (0.083 %) solution for nebulization 2.5 mg inhalation QID PRN (Reason: shortness of breath or wheezing) Qty: 90 1RF (DME) tubing and mask for nebulizer See Rx Instructions .Route .MEDSUPPLY Qty: 1 0RF Rx Instructions: As directed sodium chloride 1,000 mg tablet,soluble 1,000 mg PO DAILY Qty: 30 1RF (DME) Blood Pressure Cuff Misc See Rx Instructions .Route Qty: 1 0RF Rx Instructions: As directed levothyroxine 100 mcg tablet See Rx Instructions .ROUTE .COMPLEX Qty: 90 1RF Dose Instruction: TAKE 1 TABLET BY MOUTH EVERY DAY Rx Instructions: TAKE 1 TABLET BY MOUTH EVERY DAY potassium chloride 20 mEq tablet,ER particles/crystals See Rx Instructions .ROUTE .COMPLEX Qty: 90 1RF Dose Instruction: TAKE ONE TABLET BY MOUTH EVERY DAY Rx Instructions: TAKE ONE TABLET BY MOUTH EVERY DAY Eliquis 5 mg tablet See Rx Instructions .ROUTE .COMPLEX Qty: 180 1RF Dose Instruction: TAKE 1 TABLET BY MOUTH TWICE DAILY Rx Instructions: TAKE 1 TABLET BY MOUTH TWICE DAILY metoprolol tartrate 50 mg tablet See Rx Instructions .ROUTE .COMPLEX Qty: 120 2RF Dose Instruction: TAKE ONE TABLET BY MOUTH TWICE DAILY Rx Instructions: TAKE ONE TABLET BY MOUTH TWICE DAILY pantoprazole 40 mg tablet,delayed release (DR/EC) See Rx Instructions .ROUTE .COMPLEX Qty: 120 2RF Dose Instruction: TAKE ONE TABLET BY MOUTH TWICE DAILY Rx Instructions: TAKE ONE TABLET BY MOUTH TWICE DAILY triamterene-hydrochlorothiazid 37.5-25 mg tablet See Rx Instructions .ROUTE .COMPLEX Qty: 30 1RF Dose Instruction: TAKE 1 TABLET BY MOUTH EVERY MORNING Rx Instructions: TAKE 1 TABLET BY MOUTH EVERY MORNING diclofenac sodium [Voltaren Arthritis Pain] 1 % gel 2 g topical PRN Rx Instructions: apply to single elbow, wrist or hand; for hand includes palm/fingers/back of hand benzonatate 100 mg capsule 100 mg PO TID PRN (Reason: cough) Qty: 14 0RF Discharge Orders: Discharge ED (Routine); Ordered 07/27/23 Ordered By: Stefanie Barragan Referrals: Magaly Menchaca MD [Primary Care Provider] - Discharge Diet: Advance as tolerated Discharge Activity: Resume usual activity Patient Instructions: Chronic Back Pain (DC), Lower Back Exercises (ED), Pain Management Activity Restrictions/Additional Instructions: Please return to the emergency department for new, concerning, worsening symptoms Coding Level of Care Code ED Binding Cementer French Cord for Oliva Gamble
[2023-07-26] MEDS: dexamethasone 10 mg/mL INJ IM (23:17)
[2023-07-26] MEDS: orphenadrine 30 mg/mL Inj 2 mL IM (23:19)
[2023-07-26] MEDS: ketorolac 30 mg/mL INJ 15 MG IM (23:21)
[2023-07-26 23:23] VITALS: BP 135/56; PULSE 60; RESP 17; O2SAT 98
[2023-07-27 00:13] VITALS: BP 133/46; PULSE 63; RESP 18; O2SAT 99
== END 2023-07-27 00:14 | disposition home or self-care (01) ==
PROVIDERS: Emergency Provider Nurse Practitioner; PCP Family Medicine
DX: G89.29 Other chronic pain (principal); M54.50 Low back pain, unspecified; Z79.01 Long term (current) use of anticoagulants; Z87.891 Personal history of nicotine dependence; I25.10 Atherosclerotic heart disease of native coronary artery without angina pectoris; J43.9 Emphysema, unspecified; I10 Essential (primary) hypertension; E78.5 Hyperlipidemia, unspecified; M32.9 Systemic lupus erythematosus, unspecified; I25.2 Old myocardial infarction
CPT/HCPCS: 96372; 99284; J1100; J1885; J2360

== ENCOUNTER → 2023-09-24 09:14 | Outpatient (BNVA) | payer MEDICARE, OTHER, SELFPAY | PROVIDERS: PCP Family Medicine; Visit Provider Internal Medicine Pulmonary Disease | DX: J82.83 Eosinophilic asthma (principal); I48.91 Unspecified atrial fibrillation; Z79.01 Long term (current) use of anticoagulants; Z87.891 Personal history of nicotine dependence; Z86.711 Personal history of pulmonary embolism; Z86.718 Personal history of other venous thrombosis and embolism | CPT/HCPCS: 99214 ==

== ENCOUNTER 2023-10-01 06:03 | Outpatient (CLI) | payer MEDICARE, OTHER, SELFPAY ==
--- NOTE | 2023-10-01 06:15 | USCV_ITS ---
Mary Shoemaker Age: 83 Gender: F : 1940 Exam Date: 10/01/2023 06:34 Ordering Phys: Layne Fatima Technologist: TOÑO Exam Location: [facility] [place] Indication: AORTIC STENOSIS BP: 127 / 77 HR: 61 Rhythm: Sinus Technical Quality: Adequate MEASUREMENTS (Male / Female) Normal Values 2D ECHO LVOT Diameter 1.8 cm LV Ejection Fraction MOD 2C 68.0 % LV Ejection Fraction 2C AL 68.5 % LA Diameter 2.7 cm LA Width 3.1 cm LA Height 4.4 cm RA Width 3.6 cm RA Height 4.5 cm Aorta at Sinotubular Diameter 1.6 cm M-MODE Aortic Annulus Diameter 3.0 cm LA Ao Ratio MM 0.8 MV E Point Septal Separation 0.9 cm DOPPLER AV Peak Velocity 220.3 cm/s LVOT Peak Velocity 134.0 cm/s AV Area Cont Eq vti 1.5 cm squared AV Area Cont Eq pk 1.5 cm squared MV Peak Velocity 140.0 cm/s MV Area PHT 2.5 cm squared Mitral E to A Ratio 0.8 MV E' Velocity 55.0 cm/s Mitral E to MV E' Ratio 12.9 Mitral E to LV E' Lateral Ratio 14.0 Mitral E to LV E' Septal Ratio 12.2 TR Peak Velocity 249.0 cm/s TR Peak Gradient 24.8 mmHg TR Mean Velocity 209.9 cm/s TR Mean Gradient 18.1 mmHg TR Velocity Time Integral 92.7 cm TV Peak E Velocity 62.0 cm/s Right Atrial Pressure 8.0 mmHg Pulmonary Artery Systolic Pressu 32.8 mmHg PV Peak Velocity 106.0 cm/s RV Acceleration Time 0.1 s RV Ejection Time 0.3 s RV AcT/ET 0.3 FINDINGS Left Ventricle Left ventricle is normal size. LV systolic function is normal with EF of 50-55 %. Septal motion is consistent with conduction abnormality. Grade 1 diastolic dysfunction. Right Ventricle Normal in size and function Right Atrium Normal in size Left Atrium Normal in size Mitral Valve Mitral valve is thickened. Mild mitral regurgitation Aortic Valve Structurally normal aortic valve. Mild aortic stenosis with aortic valve area 1.55 cm squared and mean gradient of 10 mmHg. Tricuspid Valve Mild tricuspid regurgitation. Insufficient TR jet to calculate RVSP. Pulmonic Valve Not well-visualized Pericardium Normal Aorta Normal in size IVC Not well visualized CONCLUSIONS LV systolic function is normal with EF of 50 to 55%. Grade 1 diastolic dysfunction. Mild mitral regurgitation Mild aortic stenosis Mild tricuspid regurgitation Compared to prior echocardiogram from 2022, no significant changes are seen. Inocencio Walters MD (Electronically Signed) Final Date: 11 October 2023 19:12 S
== END 2023-10-01 06:04 | disposition home or self-care (01) ==
LOC: RAD 06:03
PROVIDERS: PCP Family Medicine; Visit Provider Nurse Practitioner Family
DX: I48.91 Unspecified atrial fibrillation (principal); I25.10 Atherosclerotic heart disease of native coronary artery without angina pectoris; R60.0 Localized edema
CPT/HCPCS: 93306

== ENCOUNTER → 2023-12-03 15:36 | Outpatient (BNVA) | payer MEDICARE, OTHER, SELFPAY | PROVIDERS: PCP Family Medicine; Visit Provider Family Medicine | DX: E55.9 Vitamin D deficiency, unspecified (principal); E78.5 Hyperlipidemia, unspecified; E03.9 Hypothyroidism, unspecified; I10 Essential (primary) hypertension; R25.2 Cramp and spasm; I21.4 Non-ST elevation (NSTEMI) myocardial infarction; E78.2 Mixed hyperlipidemia; Z79.899 Other long term (current) drug therapy | CPT/HCPCS: 80053; 80061; 82306; 84443; 85025 ==

== ENCOUNTER → 2024-03-24 12:30 | Outpatient (BNVA) | payer MEDICARE, OTHER, SELFPAY | PROVIDERS: PCP Family Medicine; Visit Provider Internal Medicine | DX: I48.91 Unspecified atrial fibrillation (principal); I10 Essential (primary) hypertension; E03.9 Hypothyroidism, unspecified; J45.20 Mild intermittent asthma, uncomplicated; Z86.711 Personal history of pulmonary embolism; Z87.891 Personal history of nicotine dependence; Z79.01 Long term (current) use of anticoagulants | CPT/HCPCS: 99214 ==

== ENCOUNTER → 2024-05-10 11:13 | Outpatient (BNVA) | payer MEDICARE, OTHER, SELFPAY | PROVIDERS: PCP Family Medicine; Visit Provider Family Medicine | DX: I10 Essential (primary) hypertension (principal); E78.2 Mixed hyperlipidemia; E03.9 Hypothyroidism, unspecified; E55.9 Vitamin D deficiency, unspecified; R25.2 Cramp and spasm | CPT/HCPCS: 80053; 80061; 84443; 85025 ==

== ENCOUNTER 2024-09-07 13:32 | Outpatient (CLI) | payer MEDICARE, OTHER, SELFPAY ==
--- NOTE | 2024-09-07 14:30 | XR_ITS ---
WS: [id number] DEXA (DUAL ENERGY X-RAY ABSORPTIOMETRY) Bone mineral density was performed using a [employer] machine. HISTORY: Z78.0 - Asymptomatic menopausal state COMPARISON: None available. Lumbar spine BMD (L1-L4): 1.150 g/cm2 T score: -0.3 Z score: 1.3 Total hip BMD: Left: 0.831 g/cm2. T score: -1.4 Z score: 0.5 Right: 0.716 g/cm2. T score: -2.3 Z score: -0.4 10 year probability of a major osteoporotic fracture is 13.6%. XR/XR DEXA axial skeleton* [id number] IMPRESSION: OSTEOPENIA based upon the WHO classification for females.
== END 2024-09-07 13:33 | disposition home or self-care (01) ==
LOC: RAD 13:36
PROVIDERS: PCP Nurse Practitioner Family; Visit Provider Nurse Practitioner Family
DX: Z78.0 Asymptomatic menopausal state (principal); M85.80 Other specified disorders of bone density and structure, unspecified site
CPT/HCPCS: 77080

== ENCOUNTER 2024-09-09 06:08 | Emergency (ER) | payer OTHER, MEDICARE, SELFPAY ==
[2024-09-09] VITALS (25 sets, daily range): BP systolic 102–130; BP diastolic 47–102; PULSE 56–133; RESP 18–26; TEMP 36.6; O2SAT 85–98; BMI 28.3
--- NOTE | 2024-09-09 06:21 | XRR_ITS ---
PROCEDURE INFORMATION: Exam: XR Chest Exam date and time: 09/09/2024 6:36 AM Age: 84 years old Clinical indication: Cough and dyspnea; Additional info: Dyspnea/cough TECHNIQUE: Imaging protocol: Radiologic exam of the chest. Views: 1 view. COMPARISON: CR XR chest 1V portable [id number] 12/23/2022 5:52 PM FINDINGS: Lungs: Mild interstitial prominence. Pleural spaces: Unremarkable. No pleural effusion. No pneumothorax. Heart/Mediastinum: See Vasculature finding. Vasculature: Borderline cardiomegaly and uncoiling of thoracic aorta. This is accentuated by the AP positioning. Bones/joints: Unremarkable. XR/XR chest 1V portable [id number] IMPRESSION: No acute cardiopulmonary disease.
[2024-09-09] MEDS: dilTIAZem 5 mg/mL SDV 5 mL 20 MG IVP (06:25)
[2024-09-09 06:32] LABS: Basophils # 0.1 10^3/uL (0.0-0.1); Basophils % 0.8 %; Eosinophils # 0.5 10^3/uL (0.0-0.8); Eosinophils % 6.8 %; Hematocrit 33.6 % (36-47); Lymphocytes % 26.5 %; Mean Corpuscular HGB Conc 34.8 g/dL (30-55); Mean Corpuscular Hemoglobin 33.5 pg (27-33); Mean Corpuscular Volume 96.3 fl (85-98); Mean Platelet Volume 9.7 fL (7.4-10.4); Monocytes # 0.9 10^3/uL (0.2-0.9); Monocytes % 12.3 %; Neutrophils # 4.04 10^3/uL (1.8-7.7); Neutrophils % 52.9 %; Nucleated Red Blood Cells % 0 %; Platelet Count 325 10^3/cmm (157-399); Red Blood Count 3.49 10^6/uL (3.85-5.65); Red Cell Distribution Width 13.7 % (12.1-15.1); White Blood Count 7.63 10^3/uL (3.29-11.43)
--- NOTE | 2024-09-09 06:37 | ED_ITS ---
HPI - Arrhythmia/Palpitations 2 General: Chief Complaint: Shortness of Breath/Dyspnea Stated Complaint: SOB feeling in chest n/d Time Seen by Provider: 09/09/24 06:15 History of Present Illness: 84-year-old female who presents to the mergency room with increasing shortness of breath chest discomfort rapid heart rate. Patient has a known history of atrial fibrillation. She is on Eliquis and metoprolol. She had symptoms for the last couple days she describes a vague chest heaviness increasing shortness of breath with exertion. No radiation of discomfort to the extremities. She has not noticed any increasing swelling in her lower extremities Related Data Home Medications Medication Instructions Recorded Confirmed vit A 7,160 unit-vit C 113 mg-vit 1 tab PO DAILY 09/14/20 09/09/24 E 100 oely-qgpi-kooatr tablet (EyeProtect) hydroxychloroquine 200 mg tablet 200 mg PO BID 12/11/21 09/09/24 cholecalciferol (vitamin D3) 10 10 mcg PO DAILY 03/24/24 09/09/24 mcg (400 unit) tablet omega 0-xeg-ogu-fish oil 100 1 cap PO DAILY 03/24/24 09/09/24 mg-160 mg-1,000 mg capsule (Fish Oil) apixaban 5 mg tablet (Eliquis) 5 mg PO BID 09/09/24 09/09/24 levothyroxine 100 mcg tablet 100 mcg PO DAILY 09/09/24 09/09/24 metoprolol tartrate 50 mg tablet 50 mg PO BID 09/09/24 09/09/24 pantoprazole 40 mg tablet,delayed 40 mg PO BID 09/09/24 09/09/24 release potassium chloride 20 mEq 20 meq PO DAILY 09/09/24 09/09/24 tablet,extended release(part/cryst) Previous Rx's Medication Instructions Recorded tubing and mask for nebulizer #1 ea 04/24/22 miscellaneous medical supply #1 ea 01/06/23 (Blood Pressure Cuff) albuterol sulfate 90 mcg/actuation 2 puff inhalation QID PRN 05/10/24 aerosol inhaler (Ventolin HFA) shortness of breath or wheezing #8.5 grams furosemide 20 mg tablet (Lasix) 40 mg (2 x 20 mg) PO .COMPLEX #270 05/10/24 tabs cefdinir 300 mg capsule 300 mg PO BID 7 days #14 caps 09/09/24 Allergies Allergy/AdvReac Type Severity Reaction Status Date / Time No Known Allergies Allergy Verified 08/29/24 14:00 Review of Systems 2 Const: Denies: fever(s) or chills Card: Reports: palpitations, irregular heart rhythm, dyspnea on exertion and orthopnea; Denies: edema or swelling of feet/ankles Resp: Denies: dyspnea GI: Denies: abdominal pain : Denies: dysuria, urinary frequency or urinary urgency Musc: Denies: neck pain or back pain Skin/Breast: Denies: rash PFSH ED 2 PFSH: Medical History Asthma Enrolled in chronic care management Hyperlipidemia Hypothyroid HTN (hypertension) Coronary artery disease 30% mid LAD 12/25/22 NSTEMI (non-ST elevated myocardial infarction) Atrial fibrillation with RVR Edema History of pulmonary embolism Lupus Lymphadenopathy SCC (spinal cord compression) History of compression fracture of spine Emphysema of lung History of GI bleed Myalgia Varicose veins of both lower extremities Diverticulosis Atrial fibrillation Vitamin D insufficiency Surgical History S/P D&C (status post dilation and curettage) S/P hysterectomy Previous back surgery Family History Mother Cancer Social History Smoking and tobacco/nicotine status: former use of tobacco/nicotine Quit status (tobacco/nicotine): has quit using Former quit date comment: reports smoking cigarettes occasionally as teenager, unsure as to length Second hand smoke exposure: No Alcohol intake: never Substance/Drug Use: never Lives independently: No Household members: children Marital status: / service: No Current occupational status: retired Current gender identity: Female Special rafita needs: No Physical Exam 2 Const: GENERAL APPEARANCE: cooperative ORIENTATION/CONSCIOUSNESS: Yes awake, Yes oriented to person, Yes oriented to place and Yes oriented to time HENMT: COMMON NORMALS: normocephalic, atraumatic and hearing grossly normal bilaterally HEAD & SCALP: normocephalic and atraumatic Resp: COMMON NORMALS: normal respiratory effort, No retractions, No use of accessory muscles and clear to auscultation bilaterally AUSCULTATION: clear to auscultation bilaterally Cardio: COMMON NORMALS: No murmurs present (Cardio) RATE: tachycardic R HYTHM: abnormal rhythm irregularly irregular GI: COMMON NORMALS: Soft to palpation and No hepatosplenomegaly present A USCULTATION: Yes normoactive bowel sounds PALPATION: Yes Soft to palpation, No Tenderness to palpation present (GI), No Guarding due to palpation present (GI) and Yes No hepatosplenomegaly present Extremity: COMMON NORMALS: normal to inspection, capillary refill normal, no clubbing, cyanosis or edema, no calf tenderness and no pedal edema Neuro: SENSORIUM/ORIENTATION: Yes oriented to person, Yes oriented to place and Yes oriented to time Skin: COMMON NORMALS: no rashes or lesions noted GENERAL SKIN EXAM: no rashes or lesions noted Course 2 Vital Signs: Vital signs: Vital Signs Temperature 98 F 09/09/24 06:13 Pulse Rate 73 09/09/24 09:38 Respiratory Rate 20 H 09/09/24 09:05 Blood Pressure 108/47 09/09/24 09:38 Pulse Oximetry 92 09/09/24 09:38 Oxygen Delivery Me thod Nasal Cannula 09/09/24 07:16 Oxygen Flow Rate 1.5 09/09/24 07:16 MDM - Arrhythmia/Palpitations Medical Decision Making Patient started on Cardizem and given her usual morning dose of metoprolol. She ultimately converted she does have underlying left bundle branch block she denies any further chest pains chest x-ray looked normal incidental notation of a bladder infection and hypokalemia. She is given oral potassium supplement discharged home with an increase her potassium to 1 twice daily. Continue her current dose of metoprolol. Will set her up for an outpatient Holter monitor to evaluate for other episodes of breakthrough RVR. Patient was given dose of Rocephin here started on cefdinir 1 tablet twice daily for 7 days beginning tomorrow. Lab Data 09/09/24 06:20 09/09/24 06:20 Radiology Impressions Chest X-Ray 09/09/24 06:21 IMPRESSION: No acute cardiopulmonary disease. Laboratory Results WBC 7.63 10^3/uL (3.29-11.43) 09/09/24 06:20 RBC 3.49 10^6/uL (3.85-5.65) L 09/09/24 06:20 Hgb 11.70 g/dL (11.27-16.99) 09/09/24 06:20 Hct 33.6 % (36-47) L 09/09/24 06:20 MCV 96.3 fl (85-98) 09/09/24 06:20 MCH 33.5 pg (27-33) H 09/09/24 06:20 MCHC 34.8 g/dL (30-55) 09/09/24 06:20 RDW 13.7 % (12.1-15.1) 09/09/24 06:20 Plt Count 325 10^3/cmm (157-399) 09/09/24 06:20 MPV 9.7 fL (7.4-10.4) 09/09/24 06:20 Neut % (Auto) 52.9 % 09/09/24 06:20 Lymph % (Auto) 26.5 % 09/09/24 06:20 [place] % (Auto) 12.3 % 09/09/24 06:20 Eos % (Auto) 6.8 % 09/09/24 06:20 Baso % (Auto) 0.8 % 09/09/24 06:20 Neut # (Auto) 4.04 10^3/uL (1.8-7.7) 09/09/24 06:20 Lymph # (Auto) 2.0 10^3/uL (0.8-4.8) 09/09/24 06:20 [place] # (Auto) 0.9 10^3/uL (0.2-0.9) 09/09/24 06:20 Eos # (Auto) 0.5 10^3/uL (0.0-0.8) 09/09/24 06:20 Baso # (Auto) 0.1 10^3/uL (0.0-0.1) 09/09/24 06:20 Nucleated RBC % (auto) 0 % 09/09/24 06:20 Nucleated RBCs # 0.0 /100WBC 09/09/24 06:20 Sodium 141 mmol/L (136-145) 09/09/24 06:20 Potassium 3.0 mmol/L (3.5-5.1) L 09/09/24 06:20 Chloride 98 mmol/L (98-107) 09/09/24 06:20 Carbon Dioxide 30 mmol/L (22-29) H 09/09/24 06:20 Anion Gap 16.0 (5-19) 09/09/24 06:20 BUN 14 mg/dL (8-23) 09/09/24 06:20 Creatinine 0.9 mg/dL (0.5-0.9) 09/09/24 06:20 GFR Calculation Not Reportable 09/09/24 06:20 Glucose 112 mg/dL (65-115) 09/09/24 06:20 Calculated Osmolality 293 mOsm/kg (285-295) 09/09/24 06:20 Calcium 9.0 mg/dL (8.5-10.5) 09/09/24 06:20 Magnesium 1.4 mg/dL (1.7-2.3) L 09/09/24 06:20 Total Bilirubin 0.6 mg/dL (0.15-1.2) 09/09/24 06:20 AST 20 U/L (0-32) 09/09/24 06:20 ALT 8 U/L (0-33) 09/09/24 06:20 Alkaline Phosphatase 89 U/L (35-105) 09/09/24 06:20 Total Protein 6.7 g/dL (6.6-8.7) 09/09/24 06:20 Albumin 4.1 g/dL (3.5-5.2) 09/09/24 06:20 Globulin 2.6 g/dL (1.3-4.6) 09/09/24 06:20 Urine Color Yellow (Yellow) 09/09/24 06:49 Urine Appearance Cloudy (CLEAR) A 09/09/24 06:49 Urine pH 5.5 (5-7) 09/09/24 06:49 Ur Specific [place] 1.017 (1.005-1.030) 09/09/24 06:49 Urine Protein 1+ (Negative) A 09/09/24 06:49 Urine Glucose (UA) Negative (Normal) 09/09/24 06:49 Urine Ketones Negative (Negative) 09/09/24 06:49 Urine Blood Non-haemolysed trace (Negative) 09/09/24 06:49 Urine Nitrate Positive (Negative) A 09/09/24 06:49 Urine Bilirubin Negative (Negative) 09/09/24 06:49 Urine Urobilinogen 1.0 mg/dL (Negative) 09/09/24 06:49 Ur Leukocyte Esterase 2+ (Negative) A 09/09/24 06:49 Urine RBC 3-5 /hpf (0-2) 09/09/24 06:49 Urine WBC 51-100 /hpf (0-5) H 09/09/24 06:49 Ur Squamous Epith Cells 0-5 /hpf (0-5) 09/09/24 06:49 Amorphous Sediment Not Reportable 09/09/24 06:49 Urine Bacteria 4+ /hpf (NONE) H 09/09/24 06:49 Hyaline Casts 7.10 /lpf 09/09/24 06:49 All radiology interpretation(s) finalized by discharge Discharge Plan Discharge Patient Disposition: Home Clinical Impression: Atrial fibrillation with RVR, Cystitis, Hypokalemia Condition: Stable Prescriptions: New cefdinir 300 mg capsule 300 mg PO BID 7 Days Qty: 14 0RF No Action hydroxychloroquine 200 mg tablet 200 mg PO BID EyeProtect 7,160-113-100 esgy-sg-rwjx tablet 1 tab PO DAILY Fish Oil 100-160-1,000 mg capsule 1 cap PO DAILY cholecalciferol (vitamin D3) 10 mcg (400 unit) tablet 10 mcg PO DAILY furosemide [Lasix] 20 mg tablet 40 mg PO .COMPLEX Qty: 270 2RF Rx Instructions: 40 mg orally and 1 tab in the evening; albuterol sulfate [Ventolin HFA] 90 mcg/actuation HFA aerosol inhaler 2 puff inhalation QID PRN (Reason: shortness of breath or wheezing) Qty: 8.5 3RF (DME) tubing and mask for nebulizer See Rx Instructions .Route .MEDSUPPLY Qty: 1 0RF Rx Instructions: As directed (DME) Blood Pressure Cuff Misc See Rx Instructions .Route Qty: 1 0RF Rx Instructions: As directed levothyroxine 100 mcg tablet 100 mcg PO DAILY Rx Instructions: TAKE 1 TABLET BY MOUTH EVERY DAY potassium chloride 20 mEq tablet,ER particles/crystals 20 meq PO DAILY Rx Instructions: TAKE ONE TABLET BY MOUTH EVERY DAY pantoprazole 40 mg tablet,delayed release (DR/EC) 40 mg PO BID metoprolol tartrate 50 mg tablet 50 mg PO BID Rx Instructions: TAKE ONE TABLET BY MOUTH TWICE DAILY Eliquis 5 mg tablet 5 mg PO BID Rx Instructions: TAKE 1 TABLET BY MOUTH TWICE DAILY Discharge Orders: Discharge ED (Routine); Ordered 09/09/24 Ordered By: Carmelo Pendleton Referrals: Ana Gould, TOOL ENGINEER [Primary Care Provider] - Discharge Diet: Usual diet Discharge Activity: Increase activity as tolerated Patient Instructions: Opioid Safety, Pain Management Activity Restrictions/Additional Instructions: Thank you for choosing [facility] for your healthcare needs today. It is very important that you follow up as instructed or that you return to the Emergency Department should you have concerns or if your condition changes or worsens in any way. You were seen in the emergency room for atrial fibrillation. With medications given you converted back to a normal sinus rhythm and your heart rate was controlled. We did give you your morning dose of metoprolol in the emergency room. You should continue your current dose of metoprolol to control your heart rate. Will set you up for a outpatient 72-hour Holter monitor to evaluate for episodes of your heart rate going too high. Additionally you are noted to have a low potassium and you are given a potassium supplement in the emergency room and recommend that you increase your oral potassium intake to 1 tablet twice a day. Finally you are noted to have a bladder infection you were given an initial dose of IV antibiotics in the emergency room and can start the oral antibiotics 1 pill twice a day for a week tomorrow. Case management will set up the Holter monitor. Recommend you call your doctor and follow-up within a week in the office. Coding Level of Care Code ED Piano Case Maker for Oliva Gamble
[2024-09-09 06:45] LABS: Alanine Aminotransferase 8 U/L (0-33); Albumin Level 4.1 g/dL (3.5-5.2); Alkaline Phosphatase 89 U/L (35-105); Aspartate Amino Transferase 20 U/L (0-32); Blood Urea Nitrogen 14 mg/dL (8-23); Carbon Dioxide 30 mmol/L (22-29); Chloride 98 mmol/L (98-107); Creatinine Clr Calc Pharmacy 46.9226; Globulin 2.6 g/dL (1.3-4.6); Glucose 112 mg/dL (65-115); Magnesium 1.4 mg/dL (1.7-2.3); Osmolality Calculated 293 mOsm/kg (285-295); Sodium 141 mmol/L (136-145); Total Bilirubin 0.6 mg/dL (0.15-1.2); Total Protein 6.7 g/dL (6.6-8.7)
--- NOTE | 2024-09-09 06:50 | ECG_ITS ---
[facility] Date: 2024[facility]09[facility]09 Pat Name: Mary Shoemaker Department: Room: Gender: Female Division Chief: : 1940 Requested By: Carmelo Smith Order Number: [id number] Ines MD: Dejon Morris M.D. Measurements Intervals [place] Rate: 146 P: 0 MD: 0 QRS: -12 QRSD: 129 T: 150 QT: 305 QTc: 476 Interpretive Statements ATRIAL FIBRILLATION WITH RAPID VENTRICULAR RESPONSE LEFT BUNDLE BRANCH BLOCK [120+ ms QRS DURATION, 80+ ms Q/S IN V1/V2, 85+ ms R IN I/aVL/V5/V6] Compared to ECG 12/23/2022 23:40:25 No significant changes Electronically Signed On 09-09-2024 16:57:16 CRATING AND MOVING ESTIMATOR by Dejon Morris M.D. [email or web address]
[2024-09-09] MEDS: metoprolol tartrate 50 mg Tablet PO (07:11)
[2024-09-09] MEDS: dilTIAZem 100 MG in sodium chloride 0.9% (add-van) 100 ML IV (07:12)
[2024-09-09 07:46] LABS: Bilirubin Urine Negative (Negative); Blood Urine Non-haemolysed trace (Negative); Glucose Urine UA Negative (Normal); Ketones Urine Negative (Negative); Leukocyte Esterase Urine 2+ (Negative); Nitrate Urine Positive (Negative); Protein Urine 1+ (Negative); Specific Gravity, Urine 1.017 (1.005-1.030); Urine Appearance Cloudy (CLEAR); Urine Color Yellow (Yellow); pH Urine 5.5 (5-7)
[2024-09-09 07:49] LABS: Add Urine Microscopic? YES; Bacteria Urine 4+ /hpf; Squamous Epithelial Cell Urine 0-5 /hpf (0-5); WBC Urine 51-100 /hpf (0-5)
[2024-09-09] MEDS: dilTIAZem 5 mg/mL SDV 5 mL 10 MG IVP (07:54)
[2024-09-09 08:02] LABS: Add Urine Culture? Yes; UA Slide Review UA Slide Review Perf
[2024-09-09] MEDS: cefTRIAXone 1,000 mg SDV 1000 MG IVP (08:54)
[2024-09-09] MEDS: potassium chloride oral liq 20 mEq/15 mL UDC 40 MEQ PO (09:03)
[2024-09-09] MEDS: magnesium oxide 400 mg tablet 800 MG PO (09:03)
--- NOTE | 2024-09-09 09:53 | DCPLANNER ---
messaged heart care for er f/u
== END 2024-09-09 10:08 | disposition home or self-care (01) ==
PROVIDERS: Emergency Provider Family Medicine; PCP Nurse Practitioner Family
DX: I48.20 Chronic atrial fibrillation, unspecified (principal); E87.6 Hypokalemia; Z79.01 Long term (current) use of anticoagulants; Z87.891 Personal history of nicotine dependence; I25.10 Atherosclerotic heart disease of native coronary artery without angina pectoris; E78.5 Hyperlipidemia, unspecified; I10 Essential (primary) hypertension
CPT/HCPCS: 36415; 71045; 80053; 81001; 83735; 85025; 87040; 87077; 87086; 87186; 93005; 96365; 96375; 96376; 99285; J0696; J3490

== ENCOUNTER → 2024-09-29 13:07 | Outpatient (BNVA) | payer MEDICARE, OTHER, SELFPAY | PROVIDERS: PCP Nurse Practitioner Family; Visit Provider Internal Medicine | DX: I48.91 Unspecified atrial fibrillation (principal); I10 Essential (primary) hypertension; E03.9 Hypothyroidism, unspecified; J45.20 Mild intermittent asthma, uncomplicated; Z86.711 Personal history of pulmonary embolism; Z87.891 Personal history of nicotine dependence | CPT/HCPCS: 99214 ==

== ENCOUNTER → 2024-11-09 13:00 | Outpatient (BNVA) | payer MEDICARE, OTHER, SELFPAY | PROVIDERS: PCP Nurse Practitioner Family; Visit Provider Nurse Practitioner Family | DX: I10 Essential (primary) hypertension (principal); R60.9 Edema, unspecified; Z13.6 Encounter for screening for cardiovascular disorders; E55.9 Vitamin D deficiency, unspecified | CPT/HCPCS: 80053; 80061; 82306; 82607; 82746; 83880; 84443; 85025 ==

== ENCOUNTER 2025-01-05 15:53 | Emergency (ER) | payer MEDICARE, OTHER, SELFPAY ==
[2025-01-05] VITALS (23 sets, daily range): BP systolic 100–180; BP diastolic 61–130; PULSE 57–149; RESP 17–20; TEMP 36.7; O2SAT 90–97; BMI 27.4
--- NOTE | 2025-01-05 15:55 | ECG_ITS ---
[facility] Date: 2025-[facility]-05 Pat Name: Mary Shoemaker Department: Room: Gender: Female Ross Lift Operator: : 1940 Requested By: Carmelo Smith Order Number: [id number] Ines MD: Inocencio Walters M.D. Measurements Intervals [place] Rate: 66 P: 23 [place]: 168 QRS: -19 QRSD: 142 T: 76 QT: 416 QTc: 438 Interpretive Statements SINUS RHYTHM LEFT BUNDLE BRANCH BLOCK [120+ ms QRS DURATION, 80+ ms Q/S IN V1/V2, 85+ ms R IN I/aVL/V5/V6] Compared to ECG 09/09/2024 06:13:18 Atrial fibrillation no longer present Electronically Signed On 01-06-2025 13:37:00 CDT by Inocencio Walters M.D. [email or web address]
--- NOTE | 2025-01-05 16:30 | XRR_ITS ---
PROCEDURE INFORMATION: Exam: XR Chest Exam date and time: 01/05/2025 4:35 PM Age: 84 years old Clinical indication: Pain; Chest pressure; Additional info: Chest pain TECHNIQUE: Imaging protocol: Radiologic exam of the chest. Views: 1 view. COMPARISON: CR (CHEST, ) 09/09/2024 6:36 AM FINDINGS: Lungs: Lungs appear free of acute disease. Pleural spaces: Unremarkable. No pleural effusion. No pneumothorax. Heart/Mediastinum: Unremarkable. No cardiomegaly. Bones/joints: No acute findings. XR/XR chest 1V portable [id number] IMPRESSION: No acute findings.
[2025-01-05] MEDS: aspirin 81 mg Chew Tablet 324 MG PO (16:45)
[2025-01-05 16:52] LABS: Basophils # 0.1 10^3/uL (0.0-0.1); Basophils % 0.8 %; Eosinophils # 0.7 10^3/uL (0.0-0.8); Eosinophils % 8.3 %; Lymphocytes # 1.7 10^3/uL (0.8-4.8); Lymphocytes % 21.9 %; Mean Corpuscular HGB Conc 33.7 g/dL (30-55); Mean Corpuscular Hemoglobin 32.8 pg (27-33); Mean Corpuscular Volume 97.4 fl (85-98); Monocytes % 12.6 %; Neutrophils # 4.43 10^3/uL (1.8-7.7); Neutrophils % 56.1 %; Nucleated Red Blood Cells % 0 %; Platelet Count 268 10^3/cmm (157-399); Red Blood Count 3.08 10^6/uL (3.85-5.65); Red Cell Distribution Width 13.5 % (12.1-15.1); White Blood Count 7.87 10^3/uL (3.29-11.43)
[2025-01-05 17:08] LABS: INR 1.25 (0.8-1.2)
--- NOTE | 2025-01-05 17:08 | W.ED.CHESTPA ---
HPI - Chest Pain General: Chief Complaint: Chest Pain Stated Complaint: Cp Time Seen by Provider: 01/05/25 16:30 History of Present Illness: Patient is an 84-year-old female presenting with chest pain that began at approximately 03:30. The pain is located in her chest and between her shoulders, initially described as a dull pain that progressed to become sharper. The chest pain is reportedly less severe than the interscapular pain. Patient has a known history of atrial fibrillation and has experienced similar episodes twice before, with one episode requiring a 5-day hospitalization. She denies shortness of breath, nausea, or vomiting. Patient reports chronic sweating. She has bilateral leg swelling that improves with elevation. Related Data Home Medications ?Medication ?Instructions ?Recorded ?Confirmed vit A 7,160 unit-vit C 113 mg-vit 1 tab PO DAILY 09/14/20 01/04/25 E 100 [id number]-[id number] tablet (EyeProtect) hydroxychloroquine 200 mg tablet 200 mg PO BID 12/11/21 01/04/25 cholecalciferol (vitamin D3) 10 10 mcg PO DAILY 03/24/24 01/04/25 mcg (400 unit) tablet omega 9-xxd-zpe-fish oil 100 1 cap PO DAILY 03/24/24 01/04/25 mg-160 mg-1,000 mg capsule (Fish Oil) apixaban 5 mg tablet (Eliquis) 5 mg PO BID 09/09/24 01/04/25 Previous Rx's ?Medication ?Instructions ?Recorded tubing and mask for nebulizer #1 ea 04/24/22 miscellaneous medical supply #1 ea 01/06/23 (Blood Pressure Cuff) albuterol sulfate 90 mcg/actuation 2 puff inhalation QID PRN 05/10/24 aerosol inhaler (Ventolin HFA) shortness of breath or wheezing #8.5 grams furosemide 20 mg tablet (Lasix) 40 mg (2 x 20 mg) PO .COMPLEX #270 05/10/24 tabs potassium chloride 20 mEq 20 meq PO BID #180 tabs 09/29/24 tablet,extended release(part/cryst) levothyroxine 100 mcg tablet 100 mcg PO DAILY #90 tabs 01/02/25 pantoprazole 40 mg tablet,delayed See Rx Instructions .Route 01/02/25 release .COMPLEX #60 tabs diltiazem HCl 60 mg 60 mg PO BID #60 caps 01/05/25 capsule,extended release 12 hr metoprolol tartrate 50 mg tablet 50 mg PO BID #120 tabs 01/05/25 Allergies Allergy/AdvReac Type Severity Reaction Status Date / Time No Known Allergies Allergy Verified 01/04/25 16:04 [facility] ED PFSH: Medical History Asthma Enrolled in chronic care management Hyperlipidemia Hypothyroid HTN (hypertension) Coronary artery disease 30% mid LAD 12/25/22 NSTEMI (non-ST elevated myocardial infarction) Atrial fibrillation with RVR Edema History of pulmonary embolism Lupus Lymphadenopathy SCC (spinal cord compression) History of compression fracture of spine Emphysema of lung History of GI bleed Myalgia Varicose veins of both lower extremities Diverticulosis Atrial fibrillation Vitamin D insufficiency Surgical History S/P D&C (status post dilation and curettage) S/P hysterectomy Previous back surgery Family History Mother Cancer Social History Smoking and tobacco/nicotine status: former use of tobacco/nicotine Quit status (tobacco/nicotine): has quit using Former quit date comment: reports smoking cigarettes occasionally as teenager, unsure as to length Second hand smoke exposure: No Alcohol intake: never Substance/Drug Use: never Lives independently: No Household members: children Marital status: / service: No Current occupational status: retired Current gender identity: Female Special rafita needs: No Physical Exam Const: COMMON NORMALS: no acute distress, average body habitus, alert and well nourished GENERAL APPEARANCE: cooperative NUTRITIONAL APPEARANCE: overweight ORIENTATION/CONSCIOUSNESS: Yes awake OTHER: Nontoxic-appearing 84-year-old female who is awake alert and in no acute distress HENMT: COMMON NORMALS: normocephalic and atraumatic HEAD & SCALP: normocephalic and atraumatic Eye: COMMON NORMALS: conjunctivae normal CONJUNCTIVA: Yes conjunctivae normal Neck/C-Spine: GENERAL: Yes normal visual inspection Resp: COMMON NORMALS: normal respiratory effort, No retractions and No use of accessory muscles Cardio: COMMON NORMALS: Peripheral pulses 2+ throughout RHYTHM: abnormal rhythm PERIPHERAL PULSES: Peripheral pulses 2+ throughout GI: COMMON NORMALS: Soft to palpation and non-tender PALPATION: Yes Soft to palpation Extremity: COMMON NORMALS: full ROM NARRATIVE EXTREMITY EXAM: 2+ bilateral lower extremity edema Neuro: COMMON NORMALS: no focal motor deficits SENSORIUM/ORIENTATION: Yes alert Skin: COMMON NORMALS: no rashes or lesions noted GENERAL SKIN EXAM: no rashes or lesions noted Course Vital Signs: Vital signs: Vital Signs Temperature 98.0 F 01/05/25 16:01 Pulse Rate 99 01/05/25 21:00 Respiratory Rate 20 H 01/05/25 16:51 Blood Pressure 134/74 01/05/25 21:00 Pulse Oximetry 91 01/05/25 21:00 Oxygen Delivery Me thod Room Air 01/05/25 21:00 MDM - Chest Pain Medical Decision Making Review of Systems: Constitutional: Denies fever, reports chronic sweating Cardiovascular: Positive for chest pain, denies shortness of breath Gastrointestinal: History of diarrhea (controlled with medication), denies nausea/vomiting Genitourinary: Denies urinary problems Musculoskeletal: Reports bilateral leg swelling All other systems reviewed and negative Medications: Blood thinner (specific agent not mentioned) Lasix (furosemide) Anti-diarrheal medication (specific agent not mentioned) Past Medical History: Asthma Hyperlipidemia Hypothyroid HTN (hypertension) Coronary artery disease 30% mid LAD 12/25/22NSTEMI (non-ST elevated myocardial infarction) Atrial fibrillation with RVR Edema History of pulmonary embolism Lupus Lymphadenopathy SCC (spinal cord compression) History of compression fracture of spine Emphysema of lung History of GI bleed Myalgia Varicose veins of both lower extremities Diverticulosis Atrial fibrillation Vitamin D insufficiency Social History: Limited mobility Uses lift chair at home 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 Problem List: 1. Acute chest pain, 2. Atrial fibrillation, 3. Peripheral edema, 4. Systolic murmur Differential Diagnosis: Acute coronary syndrome, rate-related chest pain due to atrial fibrillation, musculoskeletal pain, aortic pathology, pulmonary embolism ED Course: Patient presenting with chest pain, currently rate-controlled. Basic labs including cardiac enzymes ordered. Chest X-ray ordered for further evaluation. Patient being monitored for changes in condition. Assessment and Plan: 1. Chest Pain: - Obtain cardiac enzymes and chest X-ray - Continuous cardiac monitoring - Consider cardiology consultation based on initial results 2. Atrial Fibrillation: - Currently rate-controlled - Continue current anticoagulation - Monitor rhythm 3. Peripheral Edema: - Continue current Lasix - Encourage elevation and compression stockings - Monitor fluid status Patient was given 5 mg IV metoprolol x 2 and 2 g IV magnesium. She has had mostly well-controlled A-fib while here but did have a couple of episodes of A-fib with RVR which seems to be her underlying problem. She had a heart cath about a year and a half ago that did not show any significant vascular disease. I spoke with cardiology, Dr. Borrego and reviewed her echocardiogram and previous visits with him. He recommended providing the patient with 500 mL of normal saline while here and starting on 60 mg of p.o. Cardizem twice daily. I discussed this with the patient and family and they are all comfortable with discharge home. They state they live [place] the road from the hospital and can easily return if symptoms were to change or worsen. Her troponin and delta troponin are stable. Heart rate has been less than 120 for over an hour and 1/2 to 2 hours now and typically below 100 bpm. Blood pressure is 134/74 near time of discharge. She reports feeling much better while here. She will follow-up with cardiology and contact them tomorrow. Return precautions were provided. Medical Records I reviewed the patient's medical records. Lab Data I reviewed the patient's lab results. 01/05/25 16:44 01/05/25 16:44 Radiology Impressions Chest X-Ray 01/05/25 16:30 IMPRESSION: No acute findings. Laboratory Results WBC 7.87 10^3/uL (3.29-11.43) 01/05/25 16:44 RBC 3.08 10^6/uL (3.85-5.65) L 01/05/25 16:44 Hgb 10.10 g/dL (11.27-16.99) L 01/05/25 16:44 Hct 30.0 % (36-47) L 01/05/25 16:44 MCV 97.4 fl (85-98) 01/05/25 16:44 MCH 32.8 pg (27-33) 01/05/25 16:44 MCHC 33.7 g/dL (30-55) 01/05/25 16:44 RDW 13.5 % (12.1-15.1) 01/05/25 16:44 Plt Count 268 10^3/cmm (157-399) 01/05/25 16:44 MPV 10.0 fL (7.4-10.4) 01/05/25 16:44 Neut % (Auto) 56.1 % 01/05/25 16:44 Lymph % (Auto) 21.9 % 01/05/25 16:44 [place] % (Auto) 12.6 % 01/05/25 16:44 Eos % (Auto) 8.3 % 01/05/25 16:44 Baso % (Auto) 0.8 % 01/05/25 16:44 Neut # (Auto) 4.43 10^3/uL (1.8-7.7) 01/05/25 16:44 Lymph # (Auto) 1.7 10^3/uL (0.8-4.8) 01/05/25 16:44 [place] # (Auto) 1.0 10^3/uL (0.2-0.9) H 01/05/25 16:44 Eos # (Auto) 0.7 10^3/uL (0.0-0.8) 01/05/25 16:44 Baso # (Auto) 0.1 10^3/uL (0.0-0.1) 01/05/25 16:44 Nucleated RBC % (auto) 0 % 01/05/25 16:44 Nucleated RBCs # 0.0 /100WBC 01/05/25 16:44 PT 16.50 SECONDS (12.1-14.9) H 01/05/25 16:44 INR 1.25 (0.8-1.2) H 01/05/25 16:44 APTT 27.6 SECONDS (23.9-36.7) 01/05/25 16:44 Sodium 140 mmol/L (136-145) 01/05/25 16:44 Potassium 3.2 mmol/L (3.5-5.1) L 01/05/25 16:44 Chloride 95 mmol/L (98-107) L 01/05/25 16:44 Carbon Dioxide 28 mmol/L (22-29) 01/05/25 16:44 Anion Gap 20.2 (5-19) H 01/05/25 16:44 BUN 15 mg/dL (8-23) 01/05/25 16:44 Creatinine 0.8 mg/dL (0.5-0.9) 01/05/25 16:44 GFR Calculation Not Reportable 01/05/25 16:44 Glucose 105 mg/dL (65-115) 01/05/25 16:44 Calculated Osmolality 291 mOsm/kg (285-295) 01/05/25 16:44 Calcium 8.2 mg/dL (8.5-10.5) L 01/05/25 16:44 Total Bilirubin 0.5 mg/dL (0.15-1.2) 01/05/25 16:44 AST 18 U/L (0-32) 01/05/25 16:44 ALT 13 U/L (0-33) 01/05/25 16:44 Alkaline Phosphatase 103 U/L (35-105) 01/05/25 16:44 Troponin T Baseline 27 ng/L (0-10) H 01/05/25 16:44 Troponin T 120 Minute 27.16 ng/L (0-10) H 01/05/25 18:41 Delta Troponin T 0.16 ABS# (0-10) 01/05/25 18:41 Total Protein 6.2 g/dL (6.6-8.7) L 01/05/25 16:44 Albumin 4.1 g/dL (3.5-5.2) 01/05/25 16:44 Globulin 2.1 g/dL (1.3-4.6) 01/05/25 16:44 Lipase 10 U/L (13-60) L 01/05/25 16:44 All radiology interpretation(s) finalized by discharge Discharge Plan Discharge Patient Disposition: Home Clinical Impression: Atrial fibrillation with rapid ventricular response, Acute hypokalemia Condition: Stable Prescriptions: New diltiazem HCl 60 mg capsule,extended release 12 hr 60 mg PO BID Qty: 60 0RF No Action hydroxychloroquine 200 mg tablet 200 mg PO BID EyeProtect 7,160-113-100 rkvq-mw-twji tablet 1 tab PO DAILY Fish Oil 100-160-1,000 mg capsule 1 cap PO DAILY cholecalciferol (vitamin D3) 10 mcg (400 unit) tablet 10 mcg PO DAILY potassium chloride 20 mEq tablet,ER particles/crystals 20 meq PO BID Qty: 180 3RF furosemide [Lasix] 20 mg tablet 40 mg PO .COMPLEX Qty: 270 2RF Rx Instructions: 40 mg orally and 1 tab in the evening; albuterol sulfate [Ventolin HFA] 90 mcg/actuation HFA aerosol inhaler 2 puff inhalation QID PRN (Reason: shortness of breath or wheezing) Qty: 8.5 3RF (DME) tubing and mask for nebulizer See Rx Instructions .Route .MEDSUPPLY Qty: 1 0RF Rx Instructions: As directed (DME) Blood Pressure Cuff Misc See Rx Instructions .Route Qty: 1 0RF Rx Instructions: As directed pantoprazole 40 mg tablet,delayed release (DR/EC) See Rx Instructions .ROUTE .COMPLEX Qty: 60 0RF Dose Instruction: TAKE 1 TABLET BY MOUTH TWICE DAILY Rx Instructions: TAKE 1 TABLET BY MOUTH TWICE DAILY levothyroxine 100 mcg tablet 100 mcg PO DAILY Qty: 90 0RF Rx Instructions: TAKE 1 TABLET BY MOUTH EVERY DAY metoprolol tartrate 50 mg tablet 50 mg PO BID Qty: 120 1RF Rx Instructions: TAKE ONE TABLET BY MOUTH TWICE DAILY Eliquis 5 mg tablet 5 mg PO BID Rx Instructions: TAKE 1 TABLET BY MOUTH TWICE DAILY Discharge Orders: Discharge ED (Routine); Ordered 01/05/25 Ordered By: Len Melendez Referrals: Ana Gould FNP [Primary Care Provider, Family Practice] Discharge Diet: Low Salt Discharge Activity: Resume usual activity Patient Instructions: A-fib (Atrial Fibrillation) (ED), Opioid Safety, Pain Management Activity Restrictions/Additional Instructions: Continue home medications as previously directed. In addition to your home medication, you have been started on a new medication called diltiazem/Cardizem. Start this medication tomorrow. Follow-up with your power technician for further management of your atrial fibrillation. Return to the ER for recurrence of chest pain, shortness of breath, difficulty breathing, or any other concerns. Print Language: Georgian Coding Level of Care Code ED [place] Box Tender for Oliva Gamble
[2025-01-05 17:09] LABS: Partial Thromboplastin Time 27.6 SECONDS (23.9-36.7)
[2025-01-05 17:14] LABS: Troponin(5th) Baseline 27 ng/L (0-10)
[2025-01-05 17:19] LABS: Alanine Aminotransferase 13 U/L (0-33); Albumin Level 4.1 g/dL (3.5-5.2); Alkaline Phosphatase 103 U/L (35-105); Anion Gap 20.2 (5-19); Aspartate Amino Transferase 18 U/L (0-32); Blood Urea Nitrogen 15 mg/dL (8-23); Calcium 8.2 mg/dL (8.5-10.5); Carbon Dioxide 28 mmol/L (22-29); Chloride 95 mmol/L (98-107); Creatinine Clr Calc Pharmacy 52.0249; Globulin 2.1 g/dL (1.3-4.6); Glucose 105 mg/dL (65-115); Lipase 10 U/L (13-60); Osmolality Calculated 291 mOsm/kg (285-295); Potassium 3.2 mmol/L (3.5-5.1); Sodium 140 mmol/L (136-145); Total Bilirubin 0.5 mg/dL (0.15-1.2); Total Protein 6.2 g/dL (6.6-8.7)
[2025-01-05] MEDS: metoprolol tartrate 1 mg/1 mL SDV 5 mL 5 MG IVP ×2 (17:43→18:31)
[2025-01-05] MEDS: potassium chloride ER 20 mEq Tablet 40 MEQ PO (18:30)
--- NOTE | 2025-01-05 18:30 | ECG_ITS ---
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
[2025-01-05] MEDS: magnesium sulfate premix 2 GM/50 ML PIGGYBACK IV (18:39)
[2025-01-05 19:06] LABS: Troponin 5 2HR 27.16 ng/L (0-10); Troponin 5 2HR Delta 0.16 ABS# (0-10)
[2025-01-05] MEDS: dilTIAZem 60 mg Tablet PO (20:20)
[2025-01-05] MEDS: sodium chloride 0.9% 500 ML IV (20:21)
== END 2025-01-05 21:45 | disposition home or self-care (01) ==
PROVIDERS: Emergency Provider Student in an Organized Health Care Education/Training Program; PCP Nurse Practitioner Family
DX: I48.20 Chronic atrial fibrillation, unspecified (principal); E87.6 Hypokalemia; Z79.01 Long term (current) use of anticoagulants; I25.10 Atherosclerotic heart disease of native coronary artery without angina pectoris; I10 Essential (primary) hypertension; E78.5 Hyperlipidemia, unspecified; J43.9 Emphysema, unspecified; Z87.891 Personal history of nicotine dependence
CPT/HCPCS: 36415; 71045; 80053; 83690; 84484; 85025; 85610; 85730; 93005; 96365; 96375; 96376; 99285; J3475; J3490; J7040; J9999

== ENCOUNTER → 2025-01-10 15:22 | Outpatient (BNVA) | payer MEDICARE, OTHER, SELFPAY | PROVIDERS: PCP Nurse Practitioner Family; Visit Provider Nurse Practitioner Family | DX: I48.91 Unspecified atrial fibrillation (principal); I10 Essential (primary) hypertension; Z86.711 Personal history of pulmonary embolism; E03.9 Hypothyroidism, unspecified; J45.20 Mild intermittent asthma, uncomplicated; Z87.891 Personal history of nicotine dependence; Z79.01 Long term (current) use of anticoagulants | CPT/HCPCS: 36415; 80048; 83880; 99213 ==

== ENCOUNTER 2025-01-19 07:26 | Outpatient (CLI) | payer MEDICARE, OTHER, SELFPAY ==
[2025-01-19 08:17] LABS: Anion Gap 10.9 (5-19); Blood Urea Nitrogen 23 mg/dL (8-23); Carbon Dioxide 33 mmol/L (22-29); Chloride 98 mmol/L (98-107); Glucose 97 mg/dL (65-115); Osmolality Calculated 290 mOsm/kg (285-295); Potassium 3.9 mmol/L (3.5-5.1); Sodium 138 mmol/L (136-145)
== END 2025-01-19 07:27 | disposition home or self-care (01) ==
LOC: LAB 07:26
PROVIDERS: PCP Nurse Practitioner Family; Visit Provider Nurse Practitioner Family
DX: E87.6 Hypokalemia (principal)
CPT/HCPCS: 36415; 80048

== ENCOUNTER 2025-03-02 15:14 | Outpatient (CLI) | payer MEDICARE, OTHER, SELFPAY ==
--- NOTE | 2025-03-02 15:20 | MRR_ITS ---
PROCEDURE INFORMATION: Exam: MR Abdomen Without and With Contrast; Liver Exam date and time: 03/02/2025 3:38 PM Age: 84 years old Clinical indication: Condition or disease; Liver condition; Other: Liver disease, iron overload; Additional info: Abnormal findings of blood chemistry. Liver disease iron overload TECHNIQUE: Imaging protocol: MR Abdomen with and without intravenous contrast. Exam focused on the liver. Contrast material: MULTIHANCE; Contrast volume: 16 ml; Contrast route: INTRAVENOUS (IV); COMPARISON: CT abdomen pelvis w con* [id number] 11/05/2018 2:47 PM FINDINGS: Liver: Signal drop in the liver on inphase imaging relative to opposed phase imaging. Gallbladder and biliary ducts: Cholelithiasis without MR evidence of acute cholecystitis. Mild wall thickening along the gallbladder neck, likely similar to 11/05/2018. Pancreas: Normal. Kidneys: Severe right hydronephrosis. The visualized portions of the right ureter are also dilated. No left hydronephrosis. Stomach and bowel: The stomach is underdistended, limiting evaluation. Diffuse gastric wall thickening. Intraperitoneal space: No free fluid. Lymph nodes: No enlarged nodes. Bones/joints: Degenerative changes of the visualized spine. MR/MR abdomen wo/w con* [id number] IMPRESSION: 1. 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 2. Severe right hydroureteronephrosis with indeterminate etiology. This could be further assessed with renal ultrasound or CT abdomen/pelvis to assess for distal obstruction. 3. Cholelithiasis.
[2025-03-02] MEDS: gadobenate dimeglumine 20 mL vial 16 ML IV (16:28)
== END 2025-03-02 15:15 | disposition home or self-care (01) ==
LOC: RAD 15:16
PROVIDERS: PCP Nurse Practitioner Family; Visit Provider Internal Medicine
DX: E83.119 Hemochromatosis, unspecified (principal); R79.89 Other specified abnormal findings of blood chemistry; N13.30 Unspecified hydronephrosis; K80.20 Calculus of gallbladder without cholecystitis without obstruction
CPT/HCPCS: 74183; A9577

== ENCOUNTER → 2025-03-30 13:05 | Outpatient (BNVA) | payer MEDICARE, OTHER, SELFPAY | PROVIDERS: PCP Nurse Practitioner Family; Visit Provider Internal Medicine | DX: I48.91 Unspecified atrial fibrillation (principal); Z79.01 Long term (current) use of anticoagulants; I10 Essential (primary) hypertension; E03.9 Hypothyroidism, unspecified; J45.909 Unspecified asthma, uncomplicated; Z86.711 Personal history of pulmonary embolism; Z87.891 Personal history of nicotine dependence; I25.2 Old myocardial infarction | CPT/HCPCS: 99214 ==

== ENCOUNTER 2025-04-17 07:44 | Outpatient (CLI) | payer MEDICARE, OTHER, SELFPAY ==
--- NOTE | 2025-04-17 08:07 | CTR_ITS ---
PROCEDURE INFORMATION: Exam: CT Abdomen And Pelvis Without Contrast Exam date and time: 04/17/2025 8:41 AM Age: 84 years old Clinical indication: Condition or disease; Prior surgery; Surgery date: 6+ months; Surgery type: Hyst; Follow up mri and US right hydroureteronephrosis TECHNIQUE: Imaging protocol: Computed tomography of the abdomen and pelvis without contrast. Radiation optimization: All CT scans at this facility use at least one of these dose optimization techniques: automated exposure control; mA and/or kV adjustment per patient size (includes targeted exams where dose is matched to clinical indication); or iterative reconstruction. COMPARISON: MR abdomen wo/w con* [id number] 03/02/2025 3:38 PM RADIATION DOSE METRICS: Total DLP (mGy-cm): 467.44 FINDINGS: Limitations: Images degraded by patient motion artifact. Lungs: Bibasilar atelectasis or scarring. Heart: Calcifications of the mitral valve annulus and coronary arteries. Liver: Unremarkable noncontrast appearance. Gallbladder and biliary ducts: No visible gallstones. Nondilated bile ducts. Pancreas: Atrophied. Spleen: Punctate calcified granulomas. Adrenal glands: No mass. Kidneys and ureters: Severe right hydronephrosis. No significant hydroureter. No calcified urolithiasis identified. Stomach and bowel: Stomach is decompressed which limits evaluation of the wall. Nondistended bowel loops. Moderate colonic stool. Scattered colonic diverticula without associated inflammatory change. Appendix: Not well seen. Intraperitoneal space: No free fluid or free air. Hazy attenuation of the mesenteric fat the midabdomen. Vasculature: IVC filter. Atherosclerosis. Nonaneurysmal abdominal aorta. Lymph nodes: No pathologically enlarged lymph nodes. Urinary bladder: Unremarkable as visualized. Reproductive: Hyperattenuating nodule of the vaginal cuff measuring 1.3 cm. Status post hysterectomy. Bones/joints: Osteopenia. Age indeterminate, chronic appearing fractures of the L3 through L5 superior endplates. Advanced degenerative changes of the spine. Soft tissues: Unremarkable. CT/CT kidney stone [id number] IMPRESSION: 1. Severe right hydronephrosis without hydroureter, suggestive of UPJ obstruction. No visible impacted calculus at the UPJ. Consider CT urography for further evaluation. 2. 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 3. Colonic diverticulosis. 4. Age indeterminate, chronic appearing fractures of the L3-L5 superior endplates. Limited evaluation due to diffuse osteopenia. Consider MRI as clinically warranted/appropriate. 5. Status post hysterectomy with a 1.3 cm hyperattenuating nodule of the vaginal cuff. Consider pelvic ultrasound or MRI for further characterization if clinically warranted/appropriate. 6. Additional chronic and incidental/ancillary findings as above. COMMENTS: For patients with an IVC filter, recommend assessment for a management plan for the patient's IVC filter. If there is no established management plan, recommend referral to an interventional clinician on a nonemergent basis for evaluation.
== END 2025-04-17 07:45 | disposition home or self-care (01) ==
LOC: RAD 07:45
PROVIDERS: PCP Nurse Practitioner Family; Visit Provider Internal Medicine
DX: N13.30 Unspecified hydronephrosis (principal); K57.30 Diverticulosis of large intestine without perforation or abscess without bleeding
CPT/HCPCS: 74176

== ENCOUNTER 2025-04-17 08:00 | Oncology outpatient (recurring) (ONCR) | payer MEDICARE, OTHER, SELFPAY ==
[2025-04-12 16:34] LABS: Hematocrit 29.9 % (36-47); Hemoglobin 10.20 g/dL (11.27-16.99); Mean Corpuscular HGB Conc 34.1 g/dL (30-55); Mean Corpuscular Hemoglobin 34.1 pg (27-33); Mean Corpuscular Volume 100.0 fl (85-98); Nucleated Red Blood Cells % 0 %; Platelet Count 266 10^3/cmm (157-399); Red Blood Count 2.99 10^6/uL (3.85-5.65); White Blood Count 6.08 10^3/uL (3.29-11.43)
[2025-04-12 16:58] LABS: Alanine Aminotransferase 13 U/L (0-33); Albumin Level 4.2 g/dL (3.5-5.2); Alkaline Phosphatase 99 U/L (35-105); Anion Gap 16.2 (5-19); Aspartate Amino Transferase 18 U/L (0-32); Blood Urea Nitrogen 22 mg/dL (8-23); Calcium 9.2 mg/dL (8.5-10.5); Carbon Dioxide 30 mmol/L (22-29); Chloride 101 mmol/L (98-107); Creatinine Clr Calc Pharmacy 33.7674; Globulin 2.6 g/dL (1.3-4.6); Glucose 104 mg/dL (65-115); Iron 59 ug/dL (37-145); Osmolality Calculated 300 mOsm/kg (285-295); Potassium 4.2 mmol/L (3.5-5.1); Sodium 143 mmol/L (136-145); Total Iron Binding Capacity 158 mcg/dl; Total Protein 6.8 g/dL (6.6-8.7); Unsaturated Iron Binding 99 ug/dL (112-347)
[2025-04-12 17:11] LABS: Ferritin 2437 ng/mL (15-150)
[2025-04-12 17:13] LABS: Vitamin B12 685 pg/mL (232-1245)
--- NOTE | 2025-04-17 08:00 | USR_ITS ---
PROCEDURE INFORMATION: Exam: US Abdomen Complete Exam date and time: 04/17/2025 8:03 AM Age: 84 years old Clinical indication: Abnormal findings; Abnormal lab test; Other: Elevated ferritin TECHNIQUE: Imaging protocol: Real-time ultrasound of the abdomen with image documentation. Complete exam. COMPARISON: MR abdomen wo/w con* [id number] 03/02/2025 3:38 PM FINDINGS: Limitations: Very difficult exam from metallic standpoint due to overlying bowel gas and patient's inability to position properly; per the genetic technologist notes. Liver: Measures 13.3 cm in length. Hepatic echogenicity is grossly within normal limits however there is limited evaluation. No discrete mass. Normal flow directionality in the main portal vein. Gallbladder: Suggested gallstones. No definite pericholecystic fluid or gallbladder wall thickening. Sonographic Yang's sign not reported. Biliary ducts: Nondilated. The common duct measures 0.3 cm at the torrey hepatis. Pancreas: Grossly unremarkable where visualized. Right kidney: Measures 10.5 cm in length. Apparent dlneqeim-pz-mcvvmj hydronephrosis. Left kidney: Measures 9.8 cm in length. No hydronephrosis or evidence of a solid mass. Spleen: Measures 9.7 cm in length. Unremarkable. Aorta: Unremarkable as imaged. Inferior vena cava: Unremarkable as imaged. US/US abdomen complete* [id number] IMPRESSION: 1. Technically difficult exam which limits evaluation. 2. Suggested cholelithiasis without overt evidence of acute cholecystitis. 3. Mtshnbss-pl-orijjq right hydronephrosis.
== END 2025-04-30 23:59 | disposition home or self-care (01) ==
LOC: RAD 04-18 00:01 → ONCMED 04-18 10:46
PROVIDERS: PCP Nurse Practitioner Family; Visit Provider Internal Medicine
DX: D64.9 Anemia, unspecified (principal); R79.89 Other specified abnormal findings of blood chemistry; N13.30 Unspecified hydronephrosis; R93.3 Abnormal findings on diagnostic imaging of other parts of digestive tract; K57.30 Diverticulosis of large intestine without perforation or abscess without bleeding
CPT/HCPCS: 36415; 74176; 76700; 80053; 81256; 82607; 82668; 82728; 83010; 83090; 83540; 83550; 83615; 83921; 85025; 85045; 99204

== ENCOUNTER 2025-05-11 14:43 | Oncology outpatient (recurring) (ONCR) | payer MEDICARE, OTHER, SELFPAY | END 2025-05-30 23:59 | disposition home or self-care (01) | PROVIDERS: PCP Nurse Practitioner Family; Visit Provider Internal Medicine | DX: D64.9 Anemia, unspecified (principal); N18.9 Chronic kidney disease, unspecified; N89.8 Other specified noninflammatory disorders of vagina | CPT/HCPCS: 99213 ==

== ENCOUNTER → 2025-06-21 12:21 | Outpatient (BNVA) | payer MEDICARE, OTHER, SELFPAY | PROVIDERS: PCP Nurse Practitioner Family; Visit Provider Nurse Practitioner Family | DX: R25.2 Cramp and spasm (principal); I10 Essential (primary) hypertension | CPT/HCPCS: 80053; 80061; 84443; 85025 ==

== ENCOUNTER 2025-06-29 18:16 | Inpatient (IN) | payer MEDICARE, OTHER, SELFPAY ==
[2025-06-29] VITALS (19 sets, daily range): BP systolic 96–156; BP diastolic 62–94; PULSE 67–151; RESP 8–27; TEMP 36.1–36.6; O2SAT 90–100; BMI 26.6
--- NOTE | 2025-06-29 18:18 | XRR_ITS ---
PROCEDURE INFORMATION: Exam: XR Chest Exam date and time: 06/29/2025 6:42 PM Age: 84 years old Clinical indication: Pain; Chest pressure; Additional info: Chest pain TECHNIQUE: Imaging protocol: Radiologic exam of the chest. Views: 1 view. COMPARISON: CR XR chest 1V portable [id number] 01/05/2025 4:35 PM FINDINGS: Lungs: A few scattered nonspecific although chronic appearing pulmonary strands. Pleural spaces: Unremarkable. No pleural effusion. No pneumothorax. Heart/Mediastinum: Unremarkable. No cardiomegaly. Vasculature: Aortic atherosclerosis. Bones/joints: Mild degenerative changes of the AC joints and moderate to severe degenerative changes of the glenohumeral joint on the right. XR/XR chest 1V portable [id number] IMPRESSION: No definite acute infiltrate or effusion.
--- OUTSIDE RECORDS SUMMARY | 2025-06-29 18:21 | XMS_ITS | Encounter Summary ---
Author Organization [facility] Address [address] [place] [address] Care Team Providers Care Tower Dragline Operator Name Role Phone Magaly Menchaca MD Primary Care Provider [phone] Encounter Details Date Type Department Care Team (Latest Contact Info) Description 05/03/2003 Outpatient Historical [facility] Family Medicine [address] [phone] Claude Felder DO NO ADDRESS ON FILE SCREENING MAL NEOP-RECTUM (Primary Dx) Social History Tobacco Use Types Packs/Day Years Used Date Smoking Tobacco: Never Assessed Comments Unknown Sex and Gender Information Value Date Recorded Sex Assigned at Not on file 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
--- OUTSIDE RECORDS SUMMARY | 2025-06-29 18:21 | XMS_ITS | Encounter Summary ---
Author Organization [facility] Address [address] [place] [address] Care Team Providers Care Perinatal Breastfeeding Assistant Name Role Phone Magaly Menchaca MD Primary Care Provider [phone] Encounter Details Date Type Department Care Team (Latest Contact Info) Description 03/18/2004 Outpatient Historical [facility] Rheumatology- [facility] [address] [place] [id number] Alexx Saleh DO [address] [facility] [address] [place] [address] Syst lupus erythematosus (Primary Dx) Social History Tobacco Use Types Packs/Day Years Used Date Smoking Tobacco: Never Assessed Comments Unknown Sex and Gender Information Value Date Recorded Sex Assigned at Not on file 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
--- OUTSIDE RECORDS SUMMARY | 2025-06-29 18:21 | XMS_ITS | Encounter Summary ---
Author Organization [facility] Address [address] [place] [address] Care Team Providers Care It Systems Analyst Consultant Name Role Phone Magaly Menchaca MD Primary Care Provider [phone] Encounter Details Date Type Department Care Team (Late st Contact Info) Description 12/05/2003 Outpatient Historical [facility] Rheumatology- [facility] [address] [place] [address] Alexx Saleh, [address] [facility] [address] [place] [address] INFLAMM POLYARTHROP NOS (CMS/HCC) (Primary Dx); MYALGIA AND MYOSITIS NOS; Elevated sediment rate; OTHER MALAISE AND FATIGUE Social History Tobacco Use Types Packs/Day Years Used Date Smoking Tobacco: Never Assessed Comments Unknown Sex and Gender Information Value Date Recorded Sex Assigned at Not on file Legal Sex Female 3:45 AM BOBBIN CLEANER HAND Gender Identity Not on file Sexual Orientation Not on file documented as of this encounter Plan of Treatment Not on file documented as of this encounter Visit Diagnoses Diagnosis Unspecified inflammatory polyarthropathy (CMS/HCC)- Primary Unspecified inflammatory polyarthropathy Myalgia and myositis, unspecified Mylagia and myositis, unspecified Elevated sediment rate Elevated sedimentation rate Other malaise and fatigue documented in this encounter Care Teams It Systems Analyst Consultant Relationship Specialty Start Date End Date Magaly Menchaca MD [address] [place] [address] PCP - General Family Practice 05/22/20 documented as of this encounter
--- OUTSIDE RECORDS SUMMARY | 2025-06-29 18:21 | XMS_ITS | Encounter Summary ---
Author Organization [facility] Address [address] [place] [address] Care Team Providers Care Concrete Engineer Name Role Phone Magaly Menchaca MD Primary Care Provider [phone] Encounter Details Date Type Department Care Team (Latest Contact Info) Description 02/25/2005 Outpatient Historical [facility] Family Medicine [address] [address] Claude Felder DO NO ADDRESS ON FILE Syst lupus erythematosus (Primary Dx); CHEST PAIN NOS Social History Tobacco Use Types Packs/Day Years Used Date Smoking Tobacco: Never Assessed Comments Unknown Sex and Gender Information Value Date Recorded Sex Assigned at Not on file Legal Sex Female 3:45 AM PHARMACIST APPRENTICE Gender Identity Not on file Sexual Orientation Not on file documented as of this encounter Plan of Treatment Not on file documented as of this encounter Visit Diagnoses Diagnosis Syst lupus erythematosus- Primary Systemic lupus erythematosus Chest pain, unspecified documented in this encounter Care Teams Concrete Engineer Relationship Specialty Start Date End Date Magaly Menchaca MD [address] [facility] [place] [address] PCP - General Family Practice 05/22/20 documented as of this encounter
--- OUTSIDE RECORDS SUMMARY | 2025-06-29 18:21 | XMS_ITS | Encounter Summary ---
Author Organization [facility] Address [address] [place] [address] Care Team Providers Care Garment Parts Cutter Hand Name Role Phone Magaly Menchaca MD Primary Care Provider [phone] Encounter Details Date Type Department Care Team (Latest Contact Info) Description 06/16/2006 Outpatient [facility] Breast Center [facility] [address] [place], [place] [id number] Claude Felder DO NO ADDRESS ON FILE Other Screening Mammogram (Primary Dx) Social History Tobacco Use Types Packs/Day Years Used Date Smoking Tobacco: Never Assessed Comments Unknown Sex and Gender Information Value Date Recorded Sex Assigned at Not on file Legal Sex Female 3:45 AM MANAGER NEONATAL Gender Identity Not on file Sexual Orientation Not on file documented as of this encounter Plan of Treatment Not on file documented as of this encounter Visit Diagnoses Diagnosis Other screening mammogram- Primary documented in this encounter Care Teams Garment Parts Cutter Hand Relationship Specialty Start Date End Date Magaly Menchaca MD [address] [place] [address] PCP - General Family Practice 05/22/20 documented as of this encounter
--- OUTSIDE RECORDS SUMMARY | 2025-06-29 18:21 | XMS_ITS | Encounter Summary ---
Author Organization [facility] Address [address] [place] [address] Care Team Providers Care Residential Tech Name Role Phone Magaly Menchaca MD Primary Care Provider [phone] Encounter Details Date Type Department Care Team ([facility] Contact Info) Description 06/11/2005 Outpatient Historical [facility] Vilma Morrow, ELECTRONIC PUBLICATIONS SPECIALIST [address] [phone] Social History Tobacco Use Types Packs/Day Years Used Date Smoking Tobacco: Never Assessed Comments Unknown Sex and Gender Information Value Date Recorded Sex Assigned at Not on file Legal Sex Female 3:45 AM SUPERVISOR TRANSFERRING AND BOXING Gender Identity Not on file Sexual Orientation Not on file documented as of this encounter Plan of Treatment Not on file documented as of this encounter Visit Diagnoses Not on filedocumented in this encounter Care Teams Residential Tech Relationship Specialty Start Date End Date Magaly Menchaca MD [address] [place] [address] PCP - General Family Practice 05/22/20 documented as of this encounter
--- OUTSIDE RECORDS SUMMARY | 2025-06-29 18:21 | XMS_ITS | Encounter Summary ---
Author Organization [facility] Address [address] [place] [address] Care Team Providers Care Geology Instructor Name Role Phone Magaly Menchaca MD Primary Care Provider [phone] Encounter Details Date Type Department Care Team (Late st Contact Info) Description 07/29/2007 Inpatient [facility] Breast Center [facility] [address] [place], [place] [address] Claude Felder DO NO ADDRESS ON FILE Shira Wells MD NO ADDRESS ON FILE Social History Tobacco Use Types Packs/Day Years Used Date Smoking Tobacco: Never Assessed Comments Unknown Sex and Gender Information Value Date Recorded Sex Assigned at Not on file Legal Sex Female 3:45 AM BELT AND LINK ASSEMBLY SUPERVISOR Gender Identity Not on file Sexual Orientation Not on file documented as of this encounter Plan of Treatment Not on file documented as of this encounter Visit Diagnoses Not on filedocumented in this encounter Care Teams Geology Instructor Relationship Specialty Start Date End Date Magaly Menchaca MD [address] [place] [address] PCP - General Family Practice 05/22/20 documented as of this encounter
--- OUTSIDE RECORDS SUMMARY | 2025-06-29 18:21 | XMS_ITS | Encounter Summary ---
Author Organization [facility] Address [address] [place] [address] Care Team Providers Care Roofing Sales Representative Name Role Phone Magaly Menchaca MD Primary Care Provider [phone] Encounter Details Date Type Department Care Team (Latest Contact Info) Description 07/03/[address] [facility] [address] [facility] [address] [place] [address] Danii Chavez MD NO ADDRESS ON FILE SCREENING MAMM-MAILG NEOPL-OTHER (Primary Dx) Social History Tobacco Use Types Packs/Day Years Used Date Smoking Tobacco: Never Assessed Comments Unknown Sex and Gender Information Value Date Recorded Sex Assigned at Not on file Legal Sex Female 3:45 AM MENDER HAND Gender Identity Not on file Sexual Orientation Not on file documented as of this encounter Plan of Treatment Not on file documented as of this encounter Visit Diagnoses Diagnosis Other screening mammogram- Primary documented in this encounter Care Teams Roofing Sales Representative Relationship Specialty Start Date End Date Magaly Menchaca MD [address] [place] [address] PCP - General Family Practice 05/22/20 documented as of this encounter
--- OUTSIDE RECORDS SUMMARY | 2025-06-29 18:21 | XMS_ITS | Encounter Summary ---
Author Organization [facility] Address [address] [place] [address] Care Team Providers Care E Commerce Specialist Name Role Phone Magaly Menchaca MD Primary Care Provider [phone] Encounter Details Date Type Department Care Team (Latest Contact Info) Description 04/01/2005 Outpatient Historical [facility] Family Medicine [address] [phone] Claude Felder DO NO ADDRESS ON FILE HYPOVOLEMIA (Primary Dx) Social History Tobacco Use Types Packs/Day Years Used Date Smoking Tobacco: Never Assessed Comments Unknown Sex and Gender Information Value Date Recorded Sex Assigned at Not on file Legal Sex Female 3:45 AM DIVER ASSISTANT Gender Identity Not on file Sexual Orientation Not on file documented as of this encounter Plan of Treatment Not on file documented as of this encounter Visit Diagnoses Diagnosis Volume depletion- Primary documented in this encounter Care Teams E Commerce Specialist Relationship Specialty Start Date End Date Magaly Menchaca MD [address] [place] [address] PCP - General Family Practice 05/22/20 documented as of this encounter
--- OUTSIDE RECORDS SUMMARY | 2025-06-29 18:21 | XMS_ITS | Encounter Summary ---
Author Organization [facility] Address [address] [place] [address] Care Team Providers Care Manufacturing Machine Operator Name Role Phone Magaly Menchaca MD Primary Care Provider [phone] Encounter Details Date Type Department Care Team (Latest Contact Info) Description 01/05/[address] [facility] Rheumatology- [facility] [address] [place] [address] Alexx Saleh DO [address] [place] [address] Syst Lupus Erythematosus (Primary Dx); Pain in Joint, Lower Leg; Primary Localized Osteoarthrosis, Lower Leg Social History Tobacco Use Types Packs/Day Years Used Date Smoking Tobacco: Never Assessed Comments Unknown Sex and Gender Information Value Date Recorded Sex Assigned at Not on file Legal Sex Female 3:45 AM HOUSEHOLD ASSISTANT Gender Identity Not on file Sexual Orientation Not on file documented as of this encounter Plan of Treatment Not on file documented as of this encounter Visit Diagnoses Diagnosis Syst lupus erythematosus- Primary Systemic lupus erythematosus Pain in joint, lower leg Primary localized osteoarthrosis, lower leg documented in this encounter Care Teams Manufacturing Machine Operator Relationship Specialty Start Date End Date Magaly Menchaca MD [address] [place] [address] PCP - General Family Practice 05/22/20 documented as of this encounter
--- OUTSIDE RECORDS SUMMARY | 2025-06-29 18:21 | XMS_ITS | Encounter Summary ---
Author Organization [facility] Address [address] [place] [address] Care Team Providers Care Epidemiology Intern Name Role Phone Magaly Menchaca MD Primary Care Provider [phone] Encounter Details Date Type Department Care Team (Latest Contact Info) Description 05/18/[address] [facility] General Surgery [address] [place] [phone] [place] [address] [facility] [address] [place] [address] GI SYSTEM SYMPTOMS OTHER (Primary Dx) Social History Tobacco Use Types Packs/Day Years Used Date Smoking Tobacco: Never Assessed Comments Unknown Sex and Gender Information Value Date Recorded Sex Assigned at Not on file Legal Sex Female 3:45 AM SET OFF BLOCKER Gender Identity Not on file Sexual Orientation Not on file documented as of this encounter Plan of Treatment Not on file documented as of this encounter Visit Diagnoses Diagnosis Other symptoms involving digestive system(787.99)- Primary Other symptoms involving digestive system documented in this encounter Care Teams Epidemiology Intern Relationship Specialty Start Date End Date Magaly Menchaca MD [address] [place] [address] PCP - General Family Practice 05/22/20 documented as of this encounter
--- OUTSIDE RECORDS SUMMARY | 2025-06-29 18:21 | XMS_ITS | Encounter Summary ---
Author Organization [facility] Address [address] [place] [address] Care Team Providers Care Induction Machine Setter Name Role Phone Magaly Menchaca MD Primary Care Provider [phone] Encounter Details Date Type Department Care Team (Latest Contact Info) Description 05/13/2005 Outpatient Historical [facility] Family Medicine [address] [address] Claude Felder DO NO ADDRESS ON FILE Syst lupus erythematosus (Primary Dx); BACKACHE NOS; ACUTE SINUSITIS NOS Social History Tobacco Use Types Packs/Day Years Used Date Smoking Tobacco: Never Assessed Comments Unknown Sex and Gender Information Value Date Recorded Sex Assigned at Not on file Legal Sex Female 3:45 AM OPERATIONAL TEST MECHANIC Gender Identity Not on file Sexual Orientation Not on file documented as of this encounter Plan of Treatment Not on file documented as of this encounter Visit Diagnoses Diagnosis Syst lupus erythematosus- Primary Systemic lupus erythematosus Backache, unspecified Acute sinusitis, unspecified documented in this encounter Care Teams Induction Machine Setter Relationship Specialty Start Date End Date Magaly Menchaca MD [address] [place] [address] PCP - General Family Practice 05/22/20 documented as of this encounter
--- OUTSIDE RECORDS SUMMARY | 2025-06-29 18:21 | XMS_ITS | Encounter Summary ---
Author Organization [facility] Address [address] [place] [address] Care Team Providers Care Medical Imaging Technician Name Role Phone Magaly Menchaca MD Primary Care Provider [phone] Encounter Details Date Type Department Care Team (Late st Contact Info) Description 07/03/2003 Outpatient [facility] Breast Center [facility] [address] [place] [address] Viri Anthony MD [address] [place] [address] SCREENING MAMM-MAILG NEOPL-OTHER (Primary Dx) Social History Tobacco Use Types Packs/Day Years Used Date Smoking Tobacco: Never Assessed Comments Unknown Sex and Gender Information Value Date Recorded Sex Assigned at Not on file Legal Sex Female 3:45 AM NIB ASSEMBLER Gender Identity Not on file Sexual Orientation Not on file documented as of this encounter Plan of Treatment Not on file documented as of this encounter Visit Diagnoses Diagnosis Other screening mammogram- Primary documented in this encounter Care Teams Medical Imaging Technician Relationship Specialty Start Date End Date Magaly Menchaca MD [address] [place] [address] PCP - General Family Practice 05/22/20 documented as of this encounter
--- OUTSIDE RECORDS SUMMARY | 2025-06-29 18:21 | XMS_ITS | Encounter Summary ---
Author Organization [facility] Address [address] [place] [address] Care Team Providers Care Dry Wall Installations Mechanic Name Role Phone Magaly Menchaca MD Primary Care Provider [phone] Encounter Details Date Type Department Care Team (Latest Contact Info) Description 02/27/2005 Outpatient Historical [facility] [address] [place] [address] Claude Felder DO NO ADDRESS ON FILE CHEST PAIN NOS (Primary Dx) Social History Tobacco Use Types Packs/Day Years Used Date Smoking Tobacco: Never Assessed Comments Unknown Sex and Gender Information Value Date Recorded Sex Assigned at Not on file Legal Sex Female 3:45 AM QUALITY CONTROL AUDITOR Gender Identity Not on file Sexual Orientation Not on file documented as of this encounter Plan of Treatment Not on file documented as of this encounter Visit Diagnoses Diagnosis Chest pain, unspecified- Primary documented in this encounter Care Teams Dry Wall Installations Mechanic Relationship Specialty Start Date End Date Magaly Menchaca MD [address] [place] [address] PCP - General Family Practice 05/22/20 documented as of this encounter
--- OUTSIDE RECORDS SUMMARY | 2025-06-29 18:21 | XMS_ITS | Encounter Summary ---
Author Organization [facility] Address [address] [place] [address] Care Team Providers Care Counter Dish Carrier Name Role Phone Magaly Menchaca MD Primary Care Provider [phone] Encounter Details Date Type Department Care Team (Late st Contact Info) Description 08/17/2003 Outpatient Historical [facility] Dermatology- [address] [place] [phone] Nelson Bess MD [address] [place] [address] LUPUS ERYTHEMATOSUS (Primary Dx) Social History Tobacco Use Types Packs/Day Years Used Date Smoking Tobacco: Never Assessed Comments Unknown Sex and Gender Information Value Date Recorded Sex Assigned at Not on file Legal Sex Female 3:45 AM NURSE TECH Gender Identity Not on file Sexual Orientation Not on file documented as of this encounter Plan of Treatment Not on file documented as of this encounter Visit Diagnoses Diagnosis Lupus erythematosus- Primary documented in this encounter Care Teams Counter Dish Carrier Relationship Specialty Start Date End Date Magaly Menchaca MD [address] [place] [address] PCP - General Family Practice 05/22/20 documented as of this encounter
--- OUTSIDE RECORDS SUMMARY | 2025-06-29 18:21 | XMS_ITS | Encounter Summary ---
Author Organization [facility] Address [address] [place] [address] Care Team Providers Care Principal Java Software Engineer Name Role Phone Magaly Menchaca MD Primary Care Provider [phone] Encounter Details Date Type Department Care Team (Latest Contact Info) Description 01/08/2004 Outpatient Historical [facility] Family Medicine [place] [address] [phone] Claude Felder DO NO ADDRESS ON FILE Syst lupus erythematosus (Primary Dx) Social History Tobacco Use Types Packs/Day Years Used Date Smoking Tobacco: Never Assessed Comments Unknown Sex and Gender Information Value Date Recorded Sex Assigned at Not on file Legal Sex Female 3:45 AM YARD TRUCK DRIVER Gender Identity Not on file Sexual Orientation Not on file documented as of this encounter Plan of Treatment Not on file documented as of this encounter Visit Diagnoses Diagnosis Syst lupus erythematosus- Primary Systemic lupus erythematosus documented in this encounter Care Teams Principal Java Software Engineer Relationship Specialty Start Date End Date Magaly Menchaca MD [address] [place] [address] PCP - General Family Practice 05/22/20 documented as of this encounter
--- OUTSIDE RECORDS SUMMARY | 2025-06-29 18:21 | XMS_ITS | Encounter Summary ---
Author Organization [facility] Address [address] [place] [address] Care Team Providers Care School Standards Coach Name Role Phone Magaly Menchaca MD Primary Care Provider [phone] Encounter Details Date Type Department Care Team (Latest Contact Info) Description 04/24/2003 Outpatient Historical [facility] Family Medicine [address] [phone] Claude Felder DO NO ADDRESS ON FILE DERMATOMYCOSIS NOS (Primary Dx) Social History Tobacco Use Types Packs/Day Years Used Date Smoking Tobacco: Never Assessed Comments Unknown Sex and Gender Information Value Date Recorded Sex Assigned at Not on file Legal Sex Female 3:45 AM GAS METER REPAIR SUPERVISOR Gender Identity Not on file Sexual Orientation Not on file documented as of this encounter Plan of Treatment Not on file documented as of this encounter Visit Diagnoses Diagnosis Dermatomycosis, unspecified- Primary documented in this encounter Care Teams School Standards Coach Relationship Specialty Start Date End Date Magaly Menchaca MD [address] [place] [address] PCP - General Family Practice 05/22/20 documented as of this encounter
--- OUTSIDE RECORDS SUMMARY | 2025-06-29 18:21 | XMS_ITS | Encounter Summary ---
Author Organization [facility] Address [address] [place] [address] Care Team Providers Care Motor Coach Driver Name Role Phone Magaly Menchaca MD Primary Care Provider Encounter Details Date Type Department Care Team (Latest Contact Info) Description 07/29/2006 Outpatient Historical [facility] Family Medicine [address] [phone] Claude Felder DO NO ADDRESS ON FILE Unspecified Hypothyroidism (Primary Dx) Social History Tobacco Use Types Packs/Day Years Used Date Smoking Tobacco: Never Assessed Comments Unknown Sex and Gender Information Value Date Recorded Sex Assigned at Not on file Legal Sex Female 3:45 AM MINUTE CLERK Gender Identity Not on file Sexual Orientation Not on file documented as of this encounter Plan of Treatment Not on file documented as of this encounter Visit Diagnoses Diagnosis Unspecified hypothyroidism- Primary documented in this encounter Care Teams Motor Coach Driver Relationship Specialty Start Date End Date Magaly Menchaca MD [address] [place] [address] PCP - General Family Practice 05/22/20 documented as of this encounter
--- OUTSIDE RECORDS SUMMARY | 2025-06-29 18:21 | XMS_ITS | Encounter Summary ---
Author Organization [facility] Address [address] [place] [address] Care Team Providers Care Physical Biochemist Name Role Phone Magaly Menchaca MD Primary Care Provider [phone] Encounter Details Date Type Department Care Team (Latest Contact Info) Description 03/31/2006 Outpatient Historical [facility] Family Medicine [address] [address] Claude Felder DO NO ADDRESS ON FILE Unspecified Hypothyroidism (Primary Dx); Syst Lupus Erythematosus Social History Tobacco Use Types Packs/Day Years Used Date Smoking Tobacco: Never Assessed Comments Unknown Sex and Gender Information Value Date Recorded Sex Assigned at Not on file Legal Sex Female 3:45 AM SUPERVISOR [employer] Gender Identity Not on file Sexual Orientation Not on file documented as of this encounter Plan of Treatment Not on file documented as of this encounter Visit Diagnoses Diagnosis Unspecified hypothyroidism- Primary Syst lupus erythematosus Systemic lupus erythematosus documented in this encounter Care Teams Physical Biochemist Relationship Specialty Start Date End Date Magaly Menchaca MD [address] [place] [address] PCP - General Family Practice 05/22/20 documented as of this encounter
--- OUTSIDE RECORDS SUMMARY | 2025-06-29 18:21 | XMS_ITS | Encounter Summary ---
Author Organization [facility] Address [address] [place] [address] Care Team Providers Care Deboning Team Leader Name Role Phone Magaly Menchaca MD Primary Care Provider [phone] Encounter Details Date Type Department Care Team (Latest Contact Info) Description 01/08/2005 Outpatient Historical [facility] Rheumatology- [facility] [place] [address] [place] [address] Alexx Saleh DO [address] [address] [place] [address] Syst lupus erythematosus (Primary Dx); PLEURISY W/O EFFUS OR TB Social History Tobacco Use Types Packs/Day Years Used Date Smoking Tobacco: Never Assessed Comments Unknown Sex and Gender Information Value Date Recorded Sex Assigned at Not on file Legal Sex Female 3:45 AM ELECTRONIC WARFARE OPERATOR Gender Identity Not on file Sexual Orientation Not on file documented as of this encounter Plan of Treatment Not on file documented as of this encounter Visit Diagnoses Diagnosis Syst lupus erythematosus- Primary Systemic lupus erythematosus Pleurisy without mention of effusion or current tuberculosis documented in this encounter Care Teams Deboning Team Leader Relationship Specialty Start Date End Date Magaly Menchaca MD [address] [place] [address] PCP - General Family Practice 05/22/20 documented as of this encounter
--- OUTSIDE RECORDS SUMMARY | 2025-06-29 18:21 | XMS_ITS | Encounter Summary ---
Author Organization [facility] Address [address] [place] [address] Care Team Providers Care Maternity Floor Supervisor Name Role Phone Magaly Menchaca MD Primary Care Provider [phone] Encounter Details Date Type Department Care Team (Latest Contact Info) Description 03/05/2004 Outpatient Historical [facility] Family Medicine [address] [address] Claude Felder DO NO ADDRESS ON FILE DERMATITIS NOS (Primary Dx); Syst lupus erythematosus Social History Tobacco Use Types Packs/Day Years Used Date Smoking Tobacco: Never Assessed Comments Unknown Sex and Gender Information Value Date Recorded Sex Assigned at Not on file Legal Sex Female 3:45 AM CARBON CAPTURE POWER PLANT MANAGER Gender Identity Not on file Sexual Orientation Not on file documented as of this encounter Plan of Treatment Not on file documented as of this encounter Visit Diagnoses Diagnosis Contact dermatitis and other eczema, due to unspecified cause- Primary Syst lupus erythematosus Systemic lupus erythematosus documented in this encounter Care Teams Maternity Floor Supervisor Relationship Specialty Start Date End Date Magaly Menchaca MD [address] [place] [address] PCP - General Family Practice 05/22/20 documented as of this encounter
--- OUTSIDE RECORDS SUMMARY | 2025-06-29 18:21 | XMS_ITS | Encounter Summary ---
Author Organization [facility] Address [address] [place] [address] Care Team Providers Care School Cafeteria Cook Head Name Role Phone Magaly Menchaca MD Primary Care Provider [phone] Encounter Details Date Type Department Care Team (Late st Contact Info) Description 01/11/2003 Outpatient Historical [facility] [address] [place] [address] Nelson Bess MD [address] [place] [address] DERMATITIS NOS (Primary Dx) Social History Tobacco Use Types Packs/Day Years Used Date Smoking Tobacco: Never Assessed Comments Unknown Sex and Gender Information Value Date Recorded Sex Assigned at Not on file Legal Sex Female 3:45 AM DATA TECHNICAL LEAD Gender Identity Not on file Sexual Orientation Not on file documented as of this encounter Plan of Treatment Not on file documented as of this encounter Visit Diagnoses Diagnosis Contact dermatitis and other eczema, due to unspecified cause- Primary documented in this encounter Care Teams School Cafeteria Cook Head Relationship Specialty Start Date End Date Magaly Menchaca MD [address] [place] [address] PCP - General Family Practice 05/22/20 documented as of this encounter
--- OUTSIDE RECORDS SUMMARY | 2025-06-29 18:21 | XMS_ITS | Encounter Summary ---
Author Organization [facility] Address [address] [place] [address] Care Team Providers Care Sheet Metal Shop Helper Name Role Phone Magaly Menchaca MD Primary Care Provider [phone] Encounter Details Date Type Department Care Team (Latest Contact Info) Description 09/23/2005 Outpatient Historical [facility] Family Medicine [address] [phone] Claude Felder DO NO ADDRESS ON FILE HYPOTHYROIDISM NOS (Primary Dx) Social History Tobacco Use Types Packs/Day Years Used Date Smoking Tobacco: Never Assessed Comments Unknown Sex and Gender Information Value Date Recorded Sex Assigned at Not on file Legal Sex Female 3:45 AM GARMENT SEWER HAND Gender Identity Not on file Sexual Orientation Not on file documented as of this encounter Plan of Treatment Not on file documented as of this encounter Visit Diagnoses Diagnosis Unspecified hypothyroidism- Primary documented in this encounter Care Teams Sheet Metal Shop Helper Relationship Specialty Start Date End Date Magaly Menchaca MD [address] [place] [address] PCP - General Family Practice 05/22/20 documented as of this encounter
--- OUTSIDE RECORDS SUMMARY | 2025-06-29 18:21 | XMS_ITS | Encounter Summary ---
Author Organization [facility] Address [address] [place] [address] Care Team Providers Care Gas Fitter Helper Name Role Phone Magaly Menchaca MD Primary Care Provider [phone] Encounter Details Date Type Department Care Team (Latest Contact Info) Description 06/18/2005 Outpatient Historical [facility] Family Medicine [address] [phone] Claude Felder DO NO ADDRESS ON FILE HYPOTHYROIDISM NOS (Primary Dx) Social History Tobacco Use Types Packs/Day Years Used Date Smoking Tobacco: Never Assessed Comments Unknown Sex and Gender Information Value Date Recorded Sex Assigned at Not on file Legal Sex Female 3:45 AM FOUNDING PARTNER Gender Identity Not on file Sexual Orientation Not on file documented as of this encounter Plan of Treatment Not on file documented as of this encounter Visit Diagnoses Diagnosis Unspecified hypothyroidism- Primary documented in this encounter Care Teams Gas Fitter Helper Relationship Specialty Start Date End Date Magaly Menchaca MD [address] [place] [address] PCP - General Family Practice 05/22/20 documented as of this encounter
--- OUTSIDE RECORDS SUMMARY | 2025-06-29 18:21 | XMS_ITS | Encounter Summary ---
Author Organization [facility] Address [address] [place] [address] Care Team Providers Care Elevator Attendant Name Role Phone Magaly Menchaca MD Primary Care Provider [phone] Encounter Details Date Type Department Care Team (Late st Contact Info) Description 09/25/2004 Outpatient Historical [facility] [address] [facility] [address] [place] [address] Sadie Allen MD NO ADDRESS ON FILE SCREENING MAMM-MAILG NEOPL-OTHER (Primary Dx) Social History Tobacco Use Types Packs/Day Years Used Date Smoking Tobacco: Never Assessed Comments Unknown Sex and Gender Information Value Date Recorded Sex Assigned at Not on file Legal Sex Female 3:45 AM DEPUTY [place] ATTORNEY Gender Identity Not on file Sexual Orientation Not on file documented as of this encounter Plan of Treatment Not on file documented as of this encounter Visit Diagnoses Diagnosis Other screening mammogram- Primary documented in this encounter Care Teams Elevator Attendant Relationship Specialty Start Date End Date Magaly Menchaca MD [address] [place] [address] PCP - General Family Practice 05/22/20 documented as of this encounter
--- OUTSIDE RECORDS SUMMARY | 2025-06-29 18:21 | XMS_ITS | Encounter Summary ---
Author Organization [facility] Address [address] [place] [address] Care Team Providers Care Managed Care Manager Name Role Phone Magaly Menchaca MD Primary Care Provider [phone] Encounter Details Date Type Department Care Team (Late st Contact Info) Description 02/01/2007 Outpatient Historical [facility] Alexx Saleh DO [address] [facility] [address] [place] [address] Social History Tobacco Use Types Packs/Day Years Used Date Smoking Tobacco: Never Assessed Comments Unknown Sex and Gender Information Value Date Recorded Sex Assigned at Not on file Legal Sex Female 3:45 AM FLOAT PHLEBOTOMIST Gender Identity Not on file Sexual Orientation Not on file documented as of this encounter Plan of Treatment Not on file documented as of this encounter Visit Diagnoses Not on filedocumented in this encounter Care Teams Managed Care Manager Relationship Specialty Start Date End Date Magaly Menchaca MD [address] [facility] [place] [address] PCP - General Family Practice 05/22/20 documented as of this encounter
--- OUTSIDE RECORDS SUMMARY | 2025-06-29 18:21 | XMS_ITS | Encounter Summary ---
Author Organization [facility] Address [address] [place] [address] Care Team Providers Care A&P Technician Name Role Phone Magaly Menchaca MD Primary Care Provider [phone] Encounter Details Date Type Department Care Team (Late st Contact Info) Description 03/29/2003 Outpatient Historical [facility] Dermatology- [address] [place] [phone] Nelson Bess MD [address] [place] [address] LUPUS ERYTHEMATOSUS (Primary Dx) Social History Tobacco Use Types Packs/Day Years Used Date Smoking Tobacco: Never Assessed Comments Unknown Sex and Gender Information Value Date Recorded Sex Assigned at Not on file Legal Sex Female 3:45 AM TOOLROOM CLERK Gender Identity Not on file Sexual Orientation Not on file documented as of this encounter Plan of Treatment Not on file documented as of this encounter Visit Diagnoses Diagnosis Lupus erythematosus- Primary documented in this encounter Care Teams A&P Technician Relationship Specialty Start Date End Date Magaly Menchaca MD [address] [place] [phone] PCP - General Family Practice 05/22/20 documented as of this encounter
--- OUTSIDE RECORDS SUMMARY | 2025-06-29 18:21 | XMS_ITS | Encounter Summary ---
Author Organization [facility] Address [address] [place] [address] Care Team Providers Care Museum Preparator Name Role Phone Magaly Menchaca MD Primary Care Provider [phone] Encounter Details Date Type Department Care Team (Latest Contact Info) Description 03/19/2006 Outpatient Historical [facility] Rheumatology- [facility] [place] [address] [place] [address] Alexx Saleh DO [address] [facility] [address] [place] [address] Syst Lupus Erythematosus (Primary Dx) Social History Tobacco Use Types Packs/Day Years Used Date Smoking Tobacco: Never Assessed Comments Unknown Sex and Gender Information Value Date Recorded Sex Assigned at Not on file Legal Sex Female 3:45 AM PIPER INSTALLER Gender Identity Not on file Sexual Orientation Not on file documented as of this encounter Plan of Treatment Not on file documented as of this encounter Visit Diagnoses Diagnosis Syst lupus erythematosus- Primary Systemic lupus erythematosus documented in this encounter Care Teams Museum Preparator Relationship Specialty Start Date End Date Magaly Menchaca MD [address] [place] [address] PCP - General Family Practice 05/22/20 documented as of this encounter
--- OUTSIDE RECORDS SUMMARY | 2025-06-29 18:21 | XMS_ITS | Encounter Summary ---
Author Organization [facility] Address [address] [place] [address] Care Team Providers Care Manager Business Information Name Role Phone Magaly Menchaca MD Primary Care Provider [phone] Encounter Details Date Type Department Care Team (Late st Contact Info) Description 01/11/2003 Outpatient Historical [facility] Dermatology- [address] [place] [address] Nelson Bess MD [address] [place] [address] SOLAR SKIN DAMAGE NOS (Primary Dx) Social History Tobacco Use Types Packs/Day Years Used Date Smoking Tobacco: Never Assessed Comments Unknown Sex and Gender Information Value Date Recorded Sex Assigned at Not on file Legal Sex Female 3:45 AM CASHIERS BUSSERS FOOD RUNNERS Gender Identity Not on file Sexual Orientation Not on file documented as of this encounter Plan of Treatment Not on file documented as of this encounter Visit Diagnoses Diagnosis Other dermatitis due to solar radiation- Primary documented in this encounter Care Teams Manager Business Information Relationship Specialty Start Date End Date Magaly Menchaca MD [address] [place] [address] PCP - General Family Practice 05/22/20 documented as of this encounter
--- OUTSIDE RECORDS SUMMARY | 2025-06-29 18:21 | XMS_ITS | Encounter Summary ---
Author Organization [facility] Address [address] [place] [address] Care Team Providers Care Casting Machine Service Operator Name Role Phone Magaly Menchaca MD Primary Care Provider [phone] Encounter Details Date Type Department Care Team (Latest Contact Info) Description 12/26/2003 Outpatient Historical [facility] Rheumatology- [facility] [address] [place] [address] Alexx Slaeh DO [address] [facility] [address] [place] [address] Syst lupus erythematosus (Primary Dx) Social History Tobacco Use Types Packs/Day Years Used Date Smoking Tobacco: Never Assessed Comments Unknown Sex and Gender Information Value Date Recorded Sex Assigned at Not on file Legal Sex Female 3:45 AM SAND BOBBER Gender Identity Not on file Sexual Orientation Not on file documented as of this encounter Plan of Treatment Not on file documented as of this encounter Visit Diagnoses Diagnosis Syst lupus erythematosus- Primary Systemic lupus erythematosus documented in this encounter Care Teams Casting Machine Service Operator Relationship Specialty Start Date End Date Magaly Menchaca MD [address] [place] [address] PCP - General Family Practice 05/22/20 documented as of this encounter
--- OUTSIDE RECORDS SUMMARY | 2025-06-29 18:21 | XMS_ITS | Encounter Summary ---
Author Organization [facility] Address [address] [place] [address] Care Team Providers Care Home Service Advisor Name Role Phone Magaly Menchaca MD Primary Care Provider [phone] Encounter Details Date Type Department Care Team (Late st Contact Info) Description 08/03/2007 Outpatient [facility] Breast Center [facility] [address] [place], [place] [id number] Social History Tobacco Use Types Packs/Day Years Used Date Smoking Tobacco: Never Assessed Comments Unknown Sex and Gender Information Value Date Recorded Sex Assigned at Not on file Legal Sex Female 3:45 AM GRANT ADMINISTRATOR Gender Identity Not on file Sexual Orientation Not on file documented as of this encounter Plan of Treatment Not on file documented as of this encounter Visit Diagnoses Not on filedocumented in this encounter Care Teams Home Service Advisor Relationship Specialty Start Date End Date Magaly Menchaca MD [address] [place] [address] PCP - General Family Practice 05/22/20 documented as of this encounter
--- OUTSIDE RECORDS SUMMARY | 2025-06-29 18:21 | XMS_ITS | Encounter Summary ---
Author Organization [facility] Address [address] [place] [address] Care Team Providers Care Rough Rice Tender Name Role Phone Magaly Menchaca MD Primary Care Provider Encounter Details Date Type Department Care Team (Latest Contact Info) Description 11/17/2003 Outpatient Historical [facility] Family Medicine [address] [address] Claude Felder DO NO ADDRESS ON FILE JOINT PAIN-UNSPEC (Primary Dx); LUPUS ERYTHEMATOSUS Social History Tobacco Use Types Packs/Day Years Used Date Smoking Tobacco: Never Assessed Comments Unknown Sex and Gender Information Value Date Recorded Sex Assigned at Not on file Legal Sex Female 3:45 AM RESIDENTIAL SUPPORT SPECIALIST Gender Identity Not on file Sexual Orientation Not on file documented as of this encounter Plan of Treatment Not on file documented as of this encounter Visit Diagnoses Diagnosis Pain in joint, site unspecified- Primary Lupus erythematosus documented in this encounter Care Teams Rough Rice Tender Relationship Specialty Start Date End Date Magaly Menchaca MD [address] [place] [address] PCP - General Family Practice 05/22/20 documented as of this encounter
--- OUTSIDE RECORDS SUMMARY | 2025-06-29 18:21 | XMS_ITS | Encounter Summary ---
Author Organization [facility] Address [address] [place] [address] Care Team Providers Care Logging Superintendent Name Role Phone Magaly Menchaca MD Primary Care Provider Encounter Details Date Type Department Care Team (Late st Contact Info) Description 01/05/2007 Outpatient Historical [facility] [address] [place] [address] Alexx Saleh, [address] [facility] [address] [place] [address] Pain in Joint, Lower Leg (Primary Dx) Social History Tobacco Use Types Packs/Day Years Used Date Smoking Tobacco: Never Assessed Comments Unknown Sex and Gender Information Value Date Recorded Sex Assigned at Not on file Legal Sex Female 3:45 AM ENDODONTIC ASSISTANT Gender Identity Not on file Sexual Orientation Not on file documented as of this encounter Plan of Treatment Not on file documented as of this encounter Visit Diagnoses Diagnosis Pain in joint, lower leg- Primary documented in this encounter Care Teams Logging Superintendent Relationship Specialty Start Date End Date Magaly Menchaca MD [address] [place] [address] PCP - General Family Practice 05/22/20 documented as of this encounter
--- OUTSIDE RECORDS SUMMARY | 2025-06-29 18:21 | XMS_ITS | Encounter Summary ---
Author Organization [facility] Address [address] [place] [address] Care Team Providers Care Rn Transitional Name Role Phone Magaly Menchaca MD Primary Care Provider [phone] Encounter Details Date Type Department Care Team (Late st Contact Info) Description 07/03/2003 Outpatient Historical [facility] Viri Anthony MD [address] [place] [address] Social History Tobacco Use Types Packs/Day Years Used Date Smoking Tobacco: Never Assessed Comments Unknown Sex and Gender Information Value Date Recorded Sex Assigned at Not on file Legal Sex Female 3:45 AM MARKETING PERFORMANCE ANALYST Gender Identity Not on file Sexual Orientation Not on file documented as of this encounter Plan of Treatment Not on file documented as of this encounter Visit Diagnoses Not on filedocumented in this encounter Care Teams Rn Transitional Relationship Specialty Start Date End Date Magaly Menchaca MD [address] [place] [address] PCP - General Family Practice 05/22/20 documented as of this encounter
--- OUTSIDE RECORDS SUMMARY | 2025-06-29 18:21 | XMS_ITS | Encounter Summary ---
Author Organization [facility] Address [address] [place] [address] Care Team Providers Care Rat Breeder Name Role Phone Magaly Menchaca MD Primary Care Provider [phone] Encounter Details Date Type Department Care Team (Latest Contact Info) Description 10/11/2003 Outpatient Historical [facility] Family Medicine [address] [phone] Claude Felder DO NO ADDRESS ON FILE Syst lupus erythematosus (Primary Dx); HYPOTHYROIDISM NOS Social History Tobacco Use Types Packs/Day Years Used Date Smoking Tobacco: Never Assessed Comments Unknown Sex and Gender Information Value Date Recorded Sex Assigned at Not on file Legal Sex Female 3:45 AM ELECTRONIC PAGE MAKEUP SYSTEM OPERATOR Gender Identity Not on file Sexual Orientation Not on file documented as of this encounter Plan of Treatment Not on file documented as of this encounter Visit Diagnoses Diagnosis Syst lupus erythematosus- Primary Systemic lupus erythematosus Unspecified hypothyroidism documented in this encounter Care Teams Rat Breeder Relationship Specialty Start Date End Date Magaly Menchaca MD [address] [place] [address] PCP - General Family Practice 05/22/20 documented as of this encounter
--- OUTSIDE RECORDS SUMMARY | 2025-06-29 18:21 | XMS_ITS | Encounter Summary ---
Author Organization [facility] Address [address] [place] [address] Care Team Providers Care Overlock Waistline Joiner Name Role Phone Magaly Menchaca MD Primary Care Provider [phone] Encounter Details Date Type Department Care Team (Latest Contact Info) Description 10/28/2004 Outpatient Historical [facility] Family Medicine [address] [address] Claude Felder DO NO ADDRESS ON FILE HYPOTHYROIDISM NOS (Primary Dx); Syst lupus erythematosus; VACCINE FOR TETANUS/DIPHTERIA Social History Tobacco Use Types Packs/Day Years Used Date Smoking Tobacco: Never Assessed Comments Unknown Sex and Gender Information Value Date Recorded Sex Assigned at Not on file Legal Sex Female 3:45 AM PLATE PAINTER APPRENTICE Gender Identity Not on file Sexual Orientation Not on file documented as of this encounter Plan of Treatment Not on file documented as of this encounter Visit Diagnoses Diagnosis Unspecified hypothyroidism- Primary Syst lupus erythematosus Systemic lupus erythematosus Need for prophylactic vaccination with tetanus-diphtheria (Td) documented in this encounter Care Teams Overlock Waistline Joiner Relationship Specialty Start Date End Date Magaly Menchaca MD [address] [place] [address] PCP - General Family Practice 05/22/20 documented as of this encounter
--- OUTSIDE RECORDS SUMMARY | 2025-06-29 18:21 | XMS_ITS | Encounter Summary ---
Author Organization [facility] Address [address] [place] [address] Care Team Providers Care Complaint Manager Name Role Phone Magaly Menchaca MD Primary Care Provider [phone] Encounter Details Date Type Department Care Team (Latest Contact Info) Description 12/24/2004 Outpatient Historical [facility] Family Medicine [address] [address] Claude Felder DO NO ADDRESS ON FILE CHEST PAIN NOS (Primary Dx); Syst lupus erythematosus Social History Tobacco Use Types Packs/Day Years Used Date Smoking Tobacco: Never Assessed Comments Unknown Sex and Gender Information Value Date Recorded Sex Assigned at Not on file Legal Sex Female 3:45 AM ASSOCIATE SPA DIRECTOR Gender Identity Not on file Sexual Orientation Not on file documented as of this encounter Plan of Treatment Not on file documented as of this encounter Visit Diagnoses Diagnosis Chest pain, unspecified- Primary Syst lupus erythematosus Systemic lupus erythematosus documented in this encounter Care Teams Complaint Manager Relationship Specialty Start Date End Date Magaly Menchaca MD [address] [place] [address] PCP - General Family Practice 05/22/20 documented as of this encounter
--- OUTSIDE RECORDS SUMMARY | 2025-06-29 18:21 | XMS_ITS | Encounter Summary ---
Author Organization [facility] Address [address] [place] [address] Care Team Providers Care Offset Label Rewinder Name Role Phone Magaly Menchaca MD Primary Care Provider [phone] Encounter Details Date Type Department Care Team ([facility] Contact Info) Description 09/25/2004 Outpatient Historical [facility] Vilma Morrow, ASSISTANT FIELD HOCKEY COACH [address] [phone] Social History Tobacco Use Types Packs/Day Years Used Date Smoking Tobacco: Never Assessed Comments Unknown Sex and Gender Information Value Date Recorded Sex Assigned at Not on file Legal Sex Female 3:45 AM COPPERSMITH HELPER Gender Identity Not on file Sexual Orientation Not on file documented as of this encounter Plan of Treatment Not on file documented as of this encounter Visit Diagnoses Not on filedocumented in this encounter Care Teams Offset Label Rewinder Relationship Specialty Start Date End Date Magaly Menchaca MD [address] [place] [address] PCP - General Family Practice 05/22/20 documented as of this encounter
--- OUTSIDE RECORDS SUMMARY | 2025-06-29 18:21 | XMS_ITS | Encounter Summary ---
Author Organization [facility] Address [address] [place] [address] Care Team Providers Care Netbackup Administrator Name Role Phone Magaly Menchaca MD Primary Care Provider [phone] Encounter Details Date Type Department Care Team (Late st Contact Info) Description 02/09/2003 Outpatient Historical [facility] Dermatology- [address] [place] [phone] Nelson Bess MD [address] [place] [address] LUPUS ERYTHEMATOSUS (Primary Dx) Social History Tobacco Use Types Packs/Day Years Used Date Smoking Tobacco: Never Assessed Comments Unknown Sex and Gender Information Value Date Recorded Sex Assigned at Not on file Legal Sex Female 3:45 AM PROJECT DIRECTOR Gender Identity Not on file Sexual Orientation Not on file documented as of this encounter Plan of Treatment Not on file documented as of this encounter Visit Diagnoses Diagnosis Lupus erythematosus- Primary documented in this encounter Care Teams Netbackup Administrator Relationship Specialty Start Date End Date Magaly Menchaca MD [address] [place] [phone] PCP - General Family Practice 05/22/20 documented as of this encounter
--- OUTSIDE RECORDS SUMMARY | 2025-06-29 18:21 | XMS_ITS | Encounter Summary ---
Author Organization [facility] Address [address] [place] [address] Care Team Providers Care Wellhead Pumper Name Role Phone Magaly Menchaca MD Primary Care Provider [phone] Encounter Details Date Type Department Care Team (Late st Contact Info) Description 04/28/2003 Outpatient Historical [facility] FY Claude Felder DO NO ADDRESS ON FILE Social History Tobacco Use Types Packs/Day Years Used Date Smoking Tobacco: Never Assessed Comments Unknown Sex and Gender Information Value Date Recorded Sex Assigned at Not on file Legal Sex Female 3:45 AM FRYER LINE HELPER Gender Identity Not on file Sexual Orientation Not on file documented as of this encounter Plan of Treatment Not on file documented as of this encounter Visit Diagnoses Not on filedocumented in this encounter Care Teams Wellhead Pumper Relationship Specialty Start Date End Date Magaly Menchaca MD [address] [place] [address] [place] [address] PCP - General Family Practice 05/22/20 documented as of this encounter
--- OUTSIDE RECORDS SUMMARY | 2025-06-29 18:21 | XMS_ITS | Encounter Summary ---
Author Organization [facility] Address [address] [place] [address] Care Team Providers Care Branch Library Clerk Name Role Phone Magaly Menchaca MD Primary Care Provider [phone] Encounter Details Date Type Department Care Team (Latest Contact Info) Description 06/16/2006 Outpatient Historical [facility] [address] [facility] [address] [place] [address] Danii Chavez MD NO ADDRESS ON FILE Other Screening Mammogram (Primary Dx) Social History Tobacco Use Types Packs/Day Years Used Date Smoking Tobacco: Never Assessed Comments Unknown Sex and Gender Information Value Date Recorded Sex Assigned at Not on file Legal Sex Female 3:45 AM PST SUPERVISOR Gender Identity Not on file Sexual Orientation Not on file documented as of this encounter Plan of Treatment Not on file documented as of this encounter Visit Diagnoses Diagnosis Other screening mammogram- Primary documented in this encounter Care Teams Branch Library Clerk Relationship Specialty Start Date End Date Magaly Menchaca MD [address] [place] [address] PCP - General Family Practice 05/22/20 documented as of this encounter
--- OUTSIDE RECORDS SUMMARY | 2025-06-29 18:21 | XMS_ITS | Encounter Summary ---
Author Organization [facility] Address [address] [place] [address] Care Team Providers Care Boat Master Name Role Phone Magayl Menchaca MD Primary Care Provider [phone] Encounter Details Date Type Department Care Team (Latest Contact Info) Description 06/12/2004 Outpatient Historical [facility] Rheumatology- [facility] [place] 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
--- OUTSIDE RECORDS SUMMARY | 2025-06-29 18:21 | XMS_ITS | Encounter Summary ---
Author Organization [facility] Address [address] [place] [address] Care Team Providers Care Outfitter Cabin Name Role Phone Magaly Menchaca MD Primary Care Provider [phone] Encounter Details Date Type Department Care Team (Latest Contact Info) Description 07/08/2005 Outpatient Historical [facility] Rheumatology- [facility] [place] [address] [place] [address] Alexx Saleh DO [address] [facility] [address] [place] [address] Syst lupus erythematosus (Primary Dx); Vaccine for influenza Social History Tobacco Use Types Packs/Day Years Used Date Smoking Tobacco: Never Assessed Comments Unknown Sex and Gender Information Value Date Recorded Sex Assigned at Not on file 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
--- OUTSIDE RECORDS SUMMARY | 2025-06-29 18:21 | XMS_ITS | Encounter Summary ---
Author Organization [facility] Address [address] [place] [address] Phone Care Team Providers Care Seasonal Recruiter Name Role Phone Kamari Thakkar Primary Care Provider Encounter Details Date Type Department Care Team (Late st Contact Info) Description 01/02/2019 Orders Only [facility] [address] [place] [address] Marco Antonio Villasenor MA [address] [place] [address] Chronic kidney disease, not otherwise specified Social History Tobacco Use Types Packs/Day Years Used Date Smoking Tobacco: Never Assessed Comments Unknown Sex and Gender Information Value Date Recorded Sex Assigned at Not on file Legal Sex Female 8:05 AM EDT Gender Identity Not on file Sexual Orientation Not on file documented as of this encounter Plan of Treatment Not on file documented as of this encounter Visit Diagnoses Diagnosis Chronic kidney disease, not otherwise specified documented in this encounter Care Teams Seasonal Recruiter Relationship Specialty Start Date End Date Kamari Thakkar ARNP [address] [place] [phone] PCP - General Nurse Practitioner 11/25/18 documented as of this encounter
--- OUTSIDE RECORDS SUMMARY | 2025-06-29 18:21 | XMS_ITS | Encounter Summary ---
Author Organization [facility] Address [address] [place] [address] Care Team Providers Care Chucking Machine Operator Name Role Phone Magaly Menchaca MD Primary Care Provider [phone] Encounter Details Date Type Department Care Team (Latest Contact Info) Description 04/10/2004 Outpatient Historical [facility] Family Medicine [place] [address] [phone] Claude Felder DO NO ADDRESS ON FILE Syst lupus erythematosus (Primary Dx) Social History Tobacco Use Types Packs/Day Years Used Date Smoking Tobacco: Never Assessed Comments Unknown Sex and Gender Information Value Date Recorded Sex Assigned at Not on file 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
--- OUTSIDE RECORDS SUMMARY | 2025-06-29 18:21 | XMS_ITS | Encounter Summary ---
Author Organization [facility] Address [address] [place] [address] Care Team Providers Care Dairy Lab Technician Name Role Phone Magaly Menchaca MD Primary Care Provider [phone] Encounter Details Date Type Department Care Team (Latest Contact Info) Description 09/25/2004 Outpatient [facility] Breast Center [facility] [address] [place], [place] [address] Chan Sanchez MD NO ADDRESS ON FILE SCREENING MAMM-MAILG NEOPL-OTHER (Primary Dx) Social History Tobacco Use Types Packs/Day Years Used Date Smoking Tobacco: Never Assessed Comments Unknown Sex and Gender Information Value Date Recorded Sex Assigned at Not on file Legal Sex Female 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
--- OUTSIDE RECORDS SUMMARY | 2025-06-29 18:21 | XMS_ITS | Encounter Summary ---
Author Organization [facility] Address [address] [place] [address] Care Team Providers Care Medical Charge Entry Specialist Name Role Phone Magaly Menchaca MD Primary Care Provider [phone] Encounter Details Date Type Department Care Team (Latest Contact Info) Description 07/29/2004 Outpatient Historical [facility] Family Medicine [address] [address] Claude Felder DO NO ADDRESS ON FILE HYPOTHYROIDISM NOS (Primary Dx); Syst lupus erythematosus Social History Tobacco Use Types Packs/Day Years Used Date Smoking Tobacco: Never Assessed Comments Unknown Sex and Gender Information Value Date Recorded Sex Assigned at Not on file 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
--- OUTSIDE RECORDS SUMMARY | 2025-06-29 18:21 | XMS_ITS | Encounter Summary ---
Author Organization [facility] Address [address] [place] [address] Care Team Providers Care Supervisor Bottle House Cleaners Name Role Phone Magaly Menchaca MD Primary Care Provider [phone] Encounter Details Date Type Department Care Team (Late st Contact Info) Description 07/07/2002 Outpatient Historical [facility] Anthony MD [address] [place] [address] SCREENING MAMM-MAILG NEOPL-OTHER (Primary Dx) Social History Tobacco Use Types Packs/Day Years Used Date Smoking Tobacco: Never Assessed Comments Unknown Sex and Gender Information Value Date Recorded Sex Assigned at Not on file Legal Sex Female 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
--- OUTSIDE RECORDS SUMMARY | 2025-06-29 18:21 | XMS_ITS | Encounter Summary ---
Author Organization [facility] Address [address] [place] [address] Care Team Providers Care Insurance Instructor Name Role Phone Magaly Menchaca MD Primary Care Provider [phone] Encounter Details Date Type Department Care Team (Latest Contact Info) Description 05/08/2003 Outpatient Historical [facility] Family Medicine [address] [address] Claude Felder DO NO ADDRESS ON FILE DERMATOMYOSITIS (CMS/HCC) (Primary Dx) Social History Tobacco Use Types Packs/Day Years Used Date Smoking Tobacco: Never Assessed Comments Unknown Sex and Gender Information Value Date Recorded Sex Assigned at Not on file Legal Sex Female 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
--- OUTSIDE RECORDS SUMMARY | 2025-06-29 18:21 | XMS_ITS | Encounter Summary ---
Author Organization [facility] Address [address] [place] [address] Care Team Providers Care Weight And Balance Control Agent Name Role Phone Magaly Menchaca MD Primary Care Provider [phone] Encounter Details Date Type Department Care Team (Late st Contact Info) Description 02/25/2005 Outpatient Historical [facility] Family Medicine [address] [address] Cladue Felder DO NO ADDRESS ON FILE Social History Tobacco Use Types Packs/Day Years Used Date Smoking Tobacco: Never Assessed Comments Unknown Sex and Gender Information Value Date Recorded Sex Assigned at Not on file Legal 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 Female 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 Gender Identity Not on file Sexual Orientation Not on file documented as of this encounter Plan of Treatment Not on file documented as of this encounter Procedures Procedure Name Priority Date/Time Associated Diagnosis Comments IMMUNOFIXATION Routine 02/25/2005 11:30 AM CDT PROTEIN ELECTROPHORESIS W/REFLEX,SERUM Routine 02/25/2005 11:30 AM CDT documented in this encounter Results * (ABNORMAL) PROTEIN ELECTROPHORESIS, SERUM (02/25/2005 11:30 AM CDT) SPE INTERP INTERFACE SYSTEM Comment: Essentially normal pattern Interpreted by: Debora Hopson PROTEIN TOTAL, SPE 6.80 6.10 - 7.80 g/dL INTERFACE SYSTEM ALBUMIN SPE 4.29 3.50 - 5.30 g/dL INTERFACE SYSTEM ALPHA 1 GLOBULIN SPE .20 0.11 - 0.31 INTERFACE SYSTEM ALPHA 2 GLOBULIN SPE .82 0.58 - 1.16 g/dL INTERFACE SYSTEM BETA GLOBULIN .75 0.59 - 0.88 g/dL INTERFACE SYSTEM GAMMA GLOBULIN .73 0.50 - 1.35 g/dL INTERFACE SYSTEM ALBUMIN %, 63.1 57.4 - 65.5 % INTERFACE SYSTEM % ALPHA 1 GLOBULIN 2.9 1.8 - 3.8 % INTERFACE SYSTEM % ALPHA 2 GLOBULIN 12.1 9.5 - 14.3 % INTERFACE SYSTEM % Beta Globulin 11.0(H) 9.1 - 10.9 % INTERFACE SYSTEM % GAMMA GLOBULIN 10.7 8.2 - 16.7 % INTERFACE SYSTEM ALBUMIN/GLOBUL IN RATIO 1.71 g/dL INTERFACE SYSTEM 02/25/2005 11:3 0 AM CDT Claude Felder DO CHEMISTRY ORDERABLES Final Resu lt INTERFACE SYSTEM Refer to clinic/hospital department * IMMUNOFIXATION (02/25/2005 11:30 AM CDT) IMMUNOFIXATION INTER FACE SYSTEM Comment: No M band identified. Interpreted by: Debora Hopson 02/25/2005 11:3 0 AM CDT Claude Felder DO CHEMISTRY ORDERABLES Final Resu lt INTERFACE SYSTEM Refer to clinic/hospital department documented in this encounter Visit Diagnoses Not on filedocumented in this encounter Care Teams Weight And Balance Control Agent Relationship Specialty Start Date End Date Magaly Menchaca MD [address] [place] [phone] PCP - General Family Practice 05/22/20 documented as of this encounter
--- OUTSIDE RECORDS SUMMARY | 2025-06-29 18:21 | XMS_ITS | Encounter Summary ---
Author Organization [facility] Address [address] [place] [address] Care Team Providers Care Regulatory Submissions Associate Name Role Phone Magaly Menchaca MD Primary Care Provider [phone] Encounter Details Date Type Department Care Team (Late st Contact Info) Description 10/11/2003 Outpatient Historical [facility] Family Medicine [address] [phone] Claude Felder DO NO ADDRESS ON FILE Social History Tobacco Use Types Packs/Day Years Used Date Smoking Tobacco: Never Assessed Comments Unknown Sex and Gender Information Value Date Recorded Sex Assigned at Not on file Legal 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
--- OUTSIDE RECORDS SUMMARY | 2025-06-29 18:21 | XMS_ITS | Encounter Summary ---
Author Organization [facility] Address [address] [place] [address] Care Team Providers Care Pantomimist Name Role Phone Magaly Menchaca MD Primary Care Provider [phone] Encounter Details Date Type Department Care Team (Latest Contact Info) Description 07/12/2003 Outpatient Historical [facility] Family Medicine [address] [address] Claude Felder DO NO ADDRESS ON FILE DERMATOMYOSITIS (CMS/HCC) (Primary Dx) Social History Tobacco Use Types Packs/Day Years Used Date Smoking Tobacco: Never Assessed Comments Unknown Sex and Gender Information Value Date Recorded Sex Assigned at Not on file Legal Sex Female 3:45 AM 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
--- NOTE | 2025-06-29 18:22 | ECG_ITS ---
[facility] 2025-06-29 Pat Name: Mary Shoemaker Department: Room: Gender: Female Charge Attendant: : 1940 Requested By: Zoey Smith Order Number: [id number] Ines MD: Ed Palmer M.D. Measurements Intervals [place] Rate: 142 P: 0 HI: 0 QRS: 2 QRSD: 127 T: 93 QT: 299 QTc: 460 Interpretive Statements ATRIAL FIBRILLATION WITH RAPID VENTRICULAR RESPONSE LEFT BUNDLE BRANCH BLOCK [120+ ms QRS DURATION, 80+ ms Q/S IN V1/V2, 85+ ms R IN I/aVL/V5/V6] INTERPRETATION BASED ON A DEFAULT AGE OF 40 YEARS Compared to ECG 01/05/2025 17:36:01 No significant changes Electronically Signed On 07-01-2025 20:48:52 CDT by Ed Palmer M.D. [email or web address] [id number]
--- OUTSIDE RECORDS SUMMARY | 2025-06-29 18:22 | XMS_ITS | Clinical Summary ---
Author Organization [facility] (Formerly [facility]) Joaquin diaz Carol Address [address] [place] [address] Phone Care Team Providers Care Gallery Or Museum Technician Name Role Phone Magaly Menchaca MD Primary Care Provider [phone] Allergies No known active allergies Medications SYNTHROID 88 mcg Oral Tab Take 100 mcg by mouth daily . Active Cholecalciferol, Vitamin D3, (VITAMIN D-3) 1,000 unit Oral Chew Take 1 Tab by mouth daily. Active 0mega-3 fatty acids-vitamin E (FISH OIL) 1,000 mg Oral Cap Take 1,000 mg by mouth. Active VIT C/VIT E/LUTEIN/MIN/OMEGA -3 (OCUVITE ORAL) Take by mouth. Active docusate sodium (COLACE) 100 mg capsule Take 1 Capsule (100 mg) by mouth 2 times daily. 60 Capsule 12/04/19 19 Active metoprolol tartrate (LOPRESSOR) 50 mg tablet Take 1 Tablet (50 mg) by mouth 2 times daily. 60 Tablet 12/04/19 19 Active pantoprazole (PROTONIX) 40 mg Tablet, Delayed Release (E.C.) Take 1 Tablet (40 mg) by mouth 2 times daily before meals. 60 Tablet 12/04/19 19 Active warfarin (COUMADIN) 2 mg tablet Take 1 Tablet (2 mg) by mouth late in the day. 30 Tablet 12/04/19 19 Active pneumococcal polysaccharide vaccine, PPSV23, (pneumovax 23) 25 mcg/0.5 mL Solution Inject 0.5 mL by intramuscular injection one time only. Active pneumococcal conjugate vaccine PF, PCV13, (PREVNAR 13, PF,) 0.5 mL Syringe Inject 0.5 mL by intramuscular injection one time only. Active vitamin A-vitamin C-vitamin E (OCUVITE) Tablet Take 1 Tablet by mouth daily. Active acetaminophen (TYLENOL) 325 mg tablet Take 325 mg by mouth every 4 hours as needed. Active levalbuterol HFA (XOPENEX HFA) 45 mcg/Actuation HFA Aerosol Inhaler Take by inhalation every 6 hours. Active potassium chloride (KLOR-CON) 20 mEq Extended Release tablet Take 20 mEq by mouth daily. Active hydrOXYchloroQUINE (PLAQUENIL) 200 mg tablet TAKE 1 TABLET BY MOUTH TWICE DAILY 60 Tablet 4 09/18/19 21 Active Active Problems Problem Noted Date Diagnosed Date Acute combined systolic and diastolic congestive heart failure 11/28/2018 Paroxysmal atrial fibrillation with RVR 11/26/19 19 Hypothyroidism 11/24/2018 MARBIN (acute kidney injury) 11/22/2018 Acute blood loss anemia 11/18/2018 HCAP (healthcare-associated pneumonia) 9 Acute pulmonary embolism 11/18/2018 Upper GI bleed 11/18/2018 Paroxysmal atrial fibrillation 11/07/2018 Chronic gastric ulcer withou t hemorrhage and without perforation 11/07/2018 Leukocytosis (leucocytosis) 11/06/2018 UTI (urinary tract infection) with staph aureas 11/06/2018 Closed T10 fracture 11/06/2018 Encounter for long-term (current) use of medicat ions 05/26/2013 Generalized osteoarthrosis, involving multiple sites (fingers, ankles and toes) 05/26/2013 Overview (05/26/2013): Recommended to soak feet in hot water and disolved Epsom salt. Use Tylenol (Acetamophen) as needed for arthritis joint pain. History of shingles 05/27/2012 Systemic Lupus Erythematosus on Hydroxychloroqui ne 05/27/2012 Overview (05/27/2012): No active rash noted. Also has features of secondary Sjogrens syndrome causing eye, mouth and skin dryness. Clinically stable. Primary localized osteoarthrosis, lower leg 01/2008 Melena Normocytic anemia due to blood loss Acute duodenal ulcer Acute respiratory failure with hypoxia Bilateral leg weakness Hypokalemia Cord compression Acute renal failure with tubular necrosis Resolved Problems Problem Noted Date Diagnosed Date Resolved Date Hyponatremia 11/06/2018 11/07/2018 Systemic lupus erythematosus 01/04/2008 05/27/2012 Overview (05/24/2009): Symptoms of her Systemic Lupus Erythematosus condition have included photosensitivity, arthritis, malaise and rash Immunizations Immunization Administration Dates Next Due (PREVNAR 13)(6 WKS UP) PNEUM OCOCCAL CONJUGATE (PCV13) 0.5 ML, IM 11/10/2018 (TDVAX)(7 YRS UP) TETANUS AN D DIPHTHERIA TOXOIDS, ADSORBED (2 LF OF TETANUS TOXOID AND 2 LF OF DIPHTHERIA TOXOID), 0.5ML (PF), IM 10/28/2004 INFLUENZA VACCINE HIGH DOSE QUADRIVALENT 65 YR UP PF IM 05/21/2020 Influenza Seasonal Unspecifi ed Formulation IM 07/08/2005 Influenza Vaccine High Dose 65+ Yrs IM 8,05/21/2017,05/22/2016 Influenza Vaccine Split 3+ Yrs IM 05/26/2013,,05/24/2009 Zoster Vaccine Live SQ 12/15/2012 Family History Medical History Relation Name Comments Healthy Brother Riley Healthy Daughter Justa Breast Cancer Mother Healthy Sister Cynthia Healthy Son 1 Chevy Healthy Son 2 Linden Relation Name Status Comments Brother Riley Alive Daughter Justa Alive Mother Sister Cynthia Alive Son 1 Chevy Alive Son 2 Linden Alive Social History Tobacco Use Types Packs/Day Years Used Date Smoking Tobacco: Never Smokeless Tobacco: Never Alcohol Use Standard Drinks/Week Comments No 0 (1 standard drink = 0.6 oz pur e alcohol) Comments No Sex and Gender Information Value Date Recorded Sex Assigned at Not on file 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 Gender Identity Not on file Sexual Orientation Not on file Occupation Industry Job Start Date Job End Date Not on file Not on file Not on file Not on file Last Filed Vital Signs Vital Sign Reading Time Taken Comments Blood Pressure 126/76 05/21/2020 9:56 AM CDT Pulse 76 05/21/2020 9:56 AM CDT Temperature 36.9 C (98.5 F) 12/03/2018 7:09 AM CDT Respiratory Rate 18 12/03/2018 7:09 AM CDT Oxygen Saturation 93% 05/21/2020 9:56 AM CDT Inhaled Oxygen Concentration - - Weight 82.6 kg (182 lb) 05/21/2020 9:56 AM CDT Height 162.6 cm (5' 4 ) 05/21/2020 9:56 AM CDT Body Mass Index 31.24 05/21/2020 9:56 AM CDT Plan of Treatment Health Maintenance Due Date Last Done Comments DTAP/TDAP/TD VACCINES (1 - Tdap) 10/29/2004 10/28/19 05 ZOSTER VACCINE (1 of 2) 02/09/2013 12/15/2012 RSV VACCINE (60+ or ) (1 - 1-dose 75+ series) 2016 PNEUMOCOCCAL VACCINE 50+ YEA RS (2 of 2 - PPSV23, PCV20, or PCV21) 01/05/2019 11/10/2018 OSTEOPOROSIS SCREENING 05/23/2024 05/23/2019 INFLUENZA VACCINE (#1) 2025 0, 05/24/2018, 05/21/2017, Additional history exists Medical Devices Implanted Type Area Oncology Coordinator Device Identifier Shelf Expiration Date Model / Serial / Lot Hemostatic Surgiflo 8ml W/Thrombin 299 - [id number] Implanted:Qty: 2 on 11/21/2018 by Trenton Maynard MD at [facility] Hemostatic N/A: Back [employer] 02/28/2020 [id number] / / [id number] Hemostatic Surgifoam [id number] Implanted:Qty: 1 on 11/21/2018 by Trenton Maynard MD at [facility] Hemostatic N/A: Back [employer]- [employer] 09/23/20221971 / / [id number] Filter Vc Addison Jug [id number]/25/20 Implanted:Qty: 1 on 11/22/2018 by Chava Martínez MD Other Inferior Vena Cava CR BARD- [employer] 10/28/2021 [id number] / / [id number] Vitoss Ba Foam Pack 5ml [id number] - [id number] Implanted:Qty: 1 on 11/21/2018 by Trenton Maynard MD at [facility] Tissue N/A: Back TI[employer] SPINE 02/26/20202101-160 5 / / [id number] Vitoss Ba Foam Pack 1.2ml - [id number] Implanted:Qty: 1 on 11/21/2018 by Trenton Maynard MD at [facility] Tissue N/A: Back [employer] 12/27/2019160 1 / / [id number] Procedures Procedure Name Priority Date/Time Associated Diagnosis Comments XR DEXA BONE DENSITY AXIAL 1 OR MORE SITES Routine 05/23/2019 11:00 AM CDT Closed fracture of tenth thoracic vertebra, unspecified fracture morphology, initial encounter Closed wedge compression fracture of tenth thoracic vertebra, sequela from Last 3 Months or Most Recently Relevant to Health Maintenance Results * XR DEXA BONE DENSITY AXIAL 1 OR MORE SITES (05/23/2019 11:00 AM CDT) Anatomical Region Laterality Modality Nuclear Medicine 05/23/2019 11:0 0 AM CDT Impressions 05/24/2019 2:18 PM CDT IMPRESSION: Abnormal examination Low bone density/osteopenia is present at all locations lying at the average the patient's age-matched control having decreased physiologically by comparison to the prior examination and consistent with age-appropriate physiologic demineralization. NOF guidelines recommend consideration of FDA-approved medical therapies in patients with FRAX determined 10-year probabilities of hip/major osteoporosis-related fractures equal or greater than 3%/20% respectively. Consider assessing fracture risk using the FRAX analysis tool for guidance of clinical management available online at www.shef.ac.uk/FRAX/. Enter SimplyTapp for Select DXA and the total hip BMD value as it will provide a more accurate assessment of fracture risk. Narrative 05/24/2019 2:18 PM CDT DEXA Evaluation of the Lumbar Spine and Left Proximal Femur Reason for Consultation: Ovarian failure with history of vertebral fracture as an adult. Evaluation of bone mineral density. The following absorptiometry data were obtained. The quality of this examination is acceptable with regards to count density, processed images, data display and lack of important artifacts (including but not limited to motion and attenuation artifacts). Serial examination number two with comparison to a prior exam of 08/06/2000. Lumbar spine images demonstrate evidence of degenerative changes throughout resulting in spurious elevation of bone density. L1-L4 BMD (g/cm2): 1.054 Adult T-score: -1.0 Adult Z-score: 0.4 Left Femoral Neck BMD (g/cm2): 0.813 Adult T-score: -1.6 Adult Z-score: 0.2 Left Total Hip BMD (g/cm2): 0.786 Adult T-score: -1.8 Adult Z-score: -0.1 Procedure Note Bryan Hernandez MD - 05/24/2019 DEXA Evaluation of the Lumbar Spine and Left Proximal Femur Reason for Consultation: Ovarian failure with history of vertebral fracture as an adult. Evaluation of bone mineral density. The following absorptiometry data were obtained. The quality of this examination is acceptable with regards to count density, processed images, data display and lack of important artifacts (including but not limited to motion and attenuation artifacts). Serial examination number two with comparison to a prior exam of 08/06/2000. Lumbar spine images demonstrate evidence of degenerative changes throughout resulting in spurious elevation of bone density. L1-L4 BMD (g/cm2): 1.054 Adult T-score: -1.0 Adult Z-score: 0.4 Left Femoral Neck BMD (g/cm2): 0.813 Adult T-score: -1.6 Adult Z-score: 0.2 Left Total Hip BMD (g/cm2): 0.786 Adult T-score: -1.8 Adult Z-score: -0.1 IMPRESSION: Abnormal examination Low bone density/osteopenia is present at all locations lying at the average the patient's age-matched control having decreased physiologically by comparison to the prior examination and consistent with age-appropriate physiologic demineralization. NOF guidelines recommend consideration of FDA-approved medical therapies in patients with FRAX determined 10-year probabilities of hip/major osteoporosis-related fractures equal or greater than 3%/20% respectively. Consider assessing fracture risk using the FRAX analysis tool for guidance of clinical management available online at www.shef.ac.uk/FRAX/. Enter SimplyTapp for Select DXA and the total hip BMD value as it will provide a more accurate assessment of fracture risk. us Angeli Reed MD DIAGNOSTIC IMAGING ORDERABLE S Final Result from Last 3 Months or Most Recently Relevant to Health Maintenance Insurance [facility] Advance Directives For more information, please contact: [phone] * Full Code (Latest Code Status on File) Date Activated Date Inactivated Comments 11/18/2018 6:38 AM 12/03/2018 5:09 PM * Full Code Date Activated Date Inactivated Comments 11/06/2018 1:28 AM 11/10/2018 4:27 PM Care Teams Gallery Or Museum Technician Relationship Specialty Start Date End Date Magaly Menchaca MD [address] [place] [phone] PCP - General Family Practice 05/22/20
--- OUTSIDE RECORDS SUMMARY | 2025-06-29 18:22 | XMS_ITS | Encounter Summary ---
Author Organization [facility] Address [address] [place] [address] Care Team Providers Care Dollyman Name Role Phone Magaly Menchaca MD Primary Care Provider [phone] Encounter Details Date Type Department Care Team (Late st Contact Info) Description 06/17/2001 Outpatient Historical [facility] [address] [facility] [address] [place] [address] Sadie Allen MD NO ADDRESS ON FILE Other screening mammogram (Primary Dx) Social History Tobacco Use Types Packs/Day Years Used Date Smoking Tobacco: Never Assessed Comments Unknown Sex and Gender Information Value Date Recorded Sex Assigned at Not on file 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
--- OUTSIDE RECORDS SUMMARY | 2025-06-29 18:22 | XMS_ITS | Encounter Summary ---
Author Organization [facility] Address [address] [place] [address] Care Team Providers Care Hat Body Sorter Name Role Phone Magaly Menchaca MD Primary Care Provider [phone] Encounter Details Date Type Department Care Team (Latest Contact Info) Description 06/27/1998 Outpatient Historical [facility] [address] [facility] [address] [place] [address] Danii Chavez MD NO ADDRESS ON FILE Family history of malignant neoplasm of breast (Primary Dx) Social History Tobacco Use Types Packs/Day Years Used Date Smoking Tobacco: Never Assessed Comments Unknown Sex and Gender Information Value Date Recorded Sex Assigned at Not on file 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
--- OUTSIDE RECORDS SUMMARY | 2025-06-29 18:22 | XMS_ITS | Encounter Summary ---
Author Organization [facility] Address [address] [place] [address] Care Team Providers Care Program Assistant Name Role Phone Magaly Menchaca MD Primary Care Provider [phone] Encounter Details Date Type Department Care Team (Late st Contact Info) Description 08/01/[address] 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 Gender Identity Not on file Sexual Orientation Not on file documented as of this encounter Plan of Treatment Not on file documented as of this encounter Procedures Procedure Name Priority Date/Time Associated Diagnosis Comments MAMMO SCREENING BILAT Routine 08/04/2008 9:20 AM BUSINESS DEVELOPMENT COORDINATOR documented in this encounter Results * MAMMO SCREENING BILAT (08/04/2008 9:20 AM BUSINESS DEVELOPMENT COORDINATOR) Anatomical Region Laterality Modality Breast Bilateral Other Narrative 08/04/2008 9:20 AM BUSINESS DEVELOPMENT COORDINATOR FINAL - See Scanned Document Procedure Note 10/10/2015 FINAL - See Scanned Document Chan Sanchez MD MAMMO ORDERABLES Tonja l Result documented in this encounter Visit Diagnoses Not on filedocumented in this encounter Care Teams Program Assistant Relationship Specialty Start Date End Date Magaly Menchaca MD [address] [phone] PCP - General Family Practice 05/22/20 documented as of this encounter
--- OUTSIDE RECORDS SUMMARY | 2025-06-29 18:22 | XMS_ITS | Encounter Summary ---
Author Organization [facility] Address [address] [facility] Attn: [place] [address] Care Team Providers Care Export Sales Assistant Name Role Phone Magaly Menchaca MD Primary Care Provider [phone] Encounter Details Date Type Department Care Team (Late st Contact Info) Description 06/17/2001 Outpatient Historical Viri Anthony MD [address] [place] [address] Social History Tobacco Use Types Packs/Day Years Used Date Smoking Tobacco: Never Assessed Comments Unknown Sex and Gender Information Value Date Recorded Sex Assigned at Not on file Legal Sex Female 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
--- OUTSIDE RECORDS SUMMARY | 2025-06-29 18:22 | XMS_ITS | Encounter Summary ---
Author Organization [facility] Address [address] [place] [address] Care Team Providers Care Polygraph Examiner Name Role Phone Magaly Menchaca MD Primary Care Provider [phone] Encounter Details Date Type Department Care Team (Late st Contact Info) Description 09/30/1999 Outpatient Historical [facility] [address] [facility] [address] [place] [address] Sadie Allen MD NO ADDRESS ON FILE Family history of malignant neoplasm of breast (Primary Dx) Social History Tobacco Use Types Packs/Day Years Used Date Smoking Tobacco: Never Assessed Comments Unknown Sex and Gender Information Value Date Recorded Sex Assigned at Not on file 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
--- OUTSIDE RECORDS SUMMARY | 2025-06-29 18:22 | XMS_ITS | Encounter Summary ---
Author Organization [facility] Address [address] [place] [address] Care Team Providers Care Print Production Associate Name Role Phone Magaly Menchaca MD Primary Care Provider [phone] Encounter Details Date Type Department Care Team (Late st Contact Info) Description 08/12/[address] 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
--- OUTSIDE RECORDS SUMMARY | 2025-06-29 18:22 | XMS_ITS | Encounter Summary ---
Author Organization [facility] Address [address] [place] [address] Care Team Providers Care Process Development Engineer Name Role Phone Magaly Menchaca MD Primary Care Provider [phone] Encounter Details Date Type Department Care Team (Late st Contact Info) Description 12/10/[address] 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
--- OUTSIDE RECORDS SUMMARY | 2025-06-29 18:22 | XMS_ITS | Encounter Summary ---
Author Organization [facility] Address [address] [place] [address] Care Team Providers Care Distance Education Faculty Liaison Name Role Phone Magaly Menchaca MD Primary Care Provider [phone] Encounter Details Date Type Department Care Team (Latest Contact Info) Description 06/27/1998 Outpatient Historical [facility] Jose Thomas NO ADDRESS ON FILE Gynecologic examination (Primary Dx); Need vaccination-viral disease Social History Tobacco Use Types Packs/Day Years Used Date Smoking Tobacco: Never Assessed Comments Unknown Sex and Gender Information Value Date Recorded Sex Assigned at Not on file 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 Gender Identity Not on file Sexual Orientation Not on file documented as of this encounter Plan of Treatment Not on file documented as of this encounter Visit Diagnoses Diagnosis Gynecologic examination- Primary Gynecological examination Need vaccination-viral disease Need for prophylactic vaccination and inoculation against other viral diseases documented in this encounter Care Teams Distance Education Faculty Liaison Relationship Specialty Start Date End Date Magaly Menchaca MD [address] [place] [address] PCP - General Family Practice 05/22/20 documented as of this encounter
--- OUTSIDE RECORDS SUMMARY | 2025-06-29 18:22 | XMS_ITS | Encounter Summary ---
Author Organization [facility] Address [address] [facility] Attn: [place] [address] Care Team Providers Care Industrial Truck Driver Name Role Phone Magaly Menchaca MD Primary Care Provider [phone] Encounter Details Date Type Department Care Team (Late st Contact Info) Description 12/10/2001 Outpatient Historical Viri Anthony MD [address] [place] [address] Social History Tobacco Use Types Packs/Day Years Used Date Smoking Tobacco: Never Assessed Comments Unknown Sex and Gender Information Value Date Recorded Sex Assigned at Not on file Legal Sex Female 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
--- OUTSIDE RECORDS SUMMARY | 2025-06-29 18:22 | XMS_ITS | Encounter Summary ---
Author Organization [facility] Address [address] [place] [address] Care Team Providers Care Glass Loading Equipment Tender Name Role Phone Magaly Menchaca MD Primary Care Provider [phone] Encounter Details Date Type Department Care Team (Latest Contact Info) Description 12/02/1999 Outpatient Historical [facility] Imaging Services-[facility] [place] [address] [place] [id number] Chavez Fuentes MD NO ADDRESS ON FILE Chest pain, unspecified (Primary Dx) Social History Tobacco Use Types Packs/Day Years Used Date Smoking Tobacco: Never Assessed Comments Unknown Sex and Gender Information Value Date Recorded Sex Assigned at Not on file Legal Sex Female 3:45 AM PSYCHOMETRIC EXAMINER Gender Identity Not on file Sexual Orientation Not on file documented as of this encounter Plan of Treatment Not on file documented as of this encounter Visit Diagnoses Diagnosis Chest pain, unspecified- Primary documented in this encounter Care Teams Glass Loading Equipment Tender Relationship Specialty Start Date End Date Magaly Menchaca MD [address] [place] [address] PCP - General Family Practice 05/22/20 documented as of this encounter
--- OUTSIDE RECORDS SUMMARY | 2025-06-29 18:22 | XMS_ITS | Encounter Summary ---
Author Organization [facility] Address [address] [place] [address] Care Team Providers Care Global Implementation Manager Name Role Phone Magaly Menchaca MD Primary Care Provider [phone] Encounter Details Date Type Department Care Team (Latest Contact Info) Description 12/26/1999 Outpatient Historical [facility] Chavez Fuentes MD NO ADDRESS ON FILE Myalgia and myositis, unspecified (Primary Dx) Social History Tobacco Use Types Packs/Day Years Used Date Smoking Tobacco: Never Assessed Comments Unknown Sex and Gender Information Value Date Recorded Sex Assigned at Not on file Legal Sex Female 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
--- OUTSIDE RECORDS SUMMARY | 2025-06-29 18:22 | XMS_ITS | Encounter Summary ---
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
--- OUTSIDE RECORDS SUMMARY | 2025-06-29 18:22 | XMS_ITS | Encounter Summary ---
Author Organization [facility] Address [address] [place] [address] Care Team Providers Care Storage Worker Name Role Phone Magaly Menchaca MD Primary Care Provider [phone] Encounter Details Date Type Department Care Team (Late st Contact Info) Description 08/04/2008 Outpatient Historical [facility] [address] [facility] [address] [place] [address] Social History Tobacco Use Types Packs/Day Years Used Date Smoking Tobacco: Never Assessed Comments No Sex and Gender Information Value Date Recorded Sex Assigned at Not on file Legal Sex Female 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
--- OUTSIDE RECORDS SUMMARY | 2025-06-29 18:22 | XMS_ITS | Clinical Summary ---
Author Organization [facility] Address [address] [place] [address] Care Team Providers Care Sample Sawyer Name Role Phone Kamari Thakkar CLICKING MACHINE OPERATOR Primary Care Provider Allergies No known active allergies Medications XOPENEX HFA 45 MCG/ACT inhaler USE TWO INHALATIONS THREE TIMES DAILY NEEDED 3 9 Active levothyroxine (SYNTHROID, LEVOTHROID) 88 MCG tablet TAKE ONE TABLET BY MOUTH EVERY DAY 3 9 Active metoprolol tartrate (LOPRESSOR) 50 MG tablet Take 50 mg by mouth 2 (two) times a day 9 Active ondansetron (ZOFRAN) 4 MG tablet TAKE ONE TABLET BY MOUTH FOUR TIMES DAILY as needed for NAUSEA 0 9 Active pantoprazole (PROTONIX) 40 MG EC tablet Take 40 mg by mouth 2 (two) times a day 9 Active warfarin (COUMADIN) 5 MG tablet As directed 9 Active Vitamin D, Cholecalciferol , 1000 units tablet Take 1 tablet by mouth 1 (one) time each day Active acetaminophen (TYLENOL) 325 MG tablet Take by mouth every 6 (six) hours if needed for mild pain Active potassium chloride (KLOR-CON M20) 20 MEQ CR tablet Take 20 mEq by mouth 1 (one) time each day Do not crush or chew. Active Active Problems Problem Noted Date Diagnosed Date Acute kidney failure with lesion of tubular necr osis 01/07/2019 Family History Medical History Relation Comments Cancer Mother Relation Status Comments Mother Social History Tobacco Use Types Packs/Day Years Used Date Smoking Tobacco: Never Smokeless Tobacco: Never Alcohol Use Standard Drinks/Week Comments Never 0 (1 standard drink = 0.6 oz pur e alcohol) AUDIT-C Answer Date Recorded Frequency of Alcohol Consumption Never 01/07/2019 Average Number of Drinks Not on file 019 Frequency of Binge Drinking Not on file 12/29 Comments Unknown Sex and Gender Information Value Date Recorded Sex Assigned at Not on file Legal Sex Female 8:05 AM EDT Gender Identity Not on file Sexual Orientation Not on file Last Filed Vital Signs Vital Sign Reading Time Taken Comments Blood Pressure 116/80 01/07/2019 11:53 AM CDT Pulse 70 01/07/2019 11:53 AM CDT Temperature - - Respiratory Rate - - Oxygen Saturation - - Inhaled Oxygen Concentration - - Weight 72.6 kg (160 lb) 01/07/2019 11:53 AM CDT Height 165.1 cm (5' 5 ) 01/07/2019 11:53 AM CDT Body Mass Index 26.63 01/07/2019 11:53 AM CDT Plan of Treatment Health Maintenance Due Date Last Done Comments Pneumococcal Vaccine: 50+ Years (2 of 2 - PPSV23, PCV20, or PCV21) 01/05/2019 11/10/2018 Influenza Vaccine (#1) 2025 8, 05/21/2017, 05/22/2016, Additional history exists Pneumococcal Vaccine: Peds (0 to 5 Years) and At-Risk Patients (6 to 49 Years) Discontinued 11/10/2018 Hepatitis B Vaccine Aged Out No longe r eligible based on patient's age to complete this topic Insurance [address] [place] [address] Medicare [facility] Care Teams Sample Sawyer Relationship Specialty Start Date End Date Kamari Thakkar ARNP [address] [place] [phone] PCP - General Nurse Practitioner 11/25/18
--- OUTSIDE RECORDS SUMMARY | 2025-06-29 18:22 | XMS_ITS | Encounter Summary ---
Author Organization [facility] Address [address] [place] [address] Care Team Providers Care Color Card Maker Name Role Phone Magaly Menchaca MD Primary Care Provider Encounter Details Date Type Department Care Team (Latest Contact Info) Description 12/02/1999 Outpatient Historical [facility] Chavez Fuentes MD NO ADDRESS ON FILE Chest pain, unspecified (Primary Dx) Social History Tobacco Use Types Packs/Day Years Used Date Smoking Tobacco: Never Assessed Comments Unknown Sex and Gender Information Value Date Recorded Sex Assigned at Not on file Legal Sex Female 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
--- OUTSIDE RECORDS SUMMARY | 2025-06-29 18:22 | XMS_ITS | Encounter Summary ---
Author Organization [facility] Address [address] [place] [address] Care Team Providers Care Vehicle Controls Engineer Name Role Phone Magaly Menchaca MD Primary Care Provider [phone] Encounter Details Date Type Department Care Team (Latest Contact Info) Description 08/06/2000 Outpatient Historical [facility] Scan Services-[facility] [address] [place] [address] Chacho Cardona MD NO ADDRESS ON FILE Other ovarian failure (Primary Dx) Social History Tobacco Use Types Packs/Day Years Used Date Smoking Tobacco: Never Assessed Comments Unknown Sex and Gender Information Value Date Recorded Sex Assigned at Not on file Legal Sex Female 3:45 AM PUBLIC RELATIONS DIRECTOR Gender Identity Not on file Sexual Orientation Not on file documented as of this encounter Plan of Treatment Not on file documented as of this encounter Visit Diagnoses Diagnosis Other ovarian failure- Primary documented in this encounter Care Teams Vehicle Controls Engineer Relationship Specialty Start Date End Date Magaly Menchaca MD [address] [place] [address] PCP - General Family Practice 05/22/20 documented as of this encounter
--- NOTE | 2025-06-29 18:29 | W.ED.ARRPALP ---
HPI - Arrhythmia/Palpitations General: Chief Complaint: Arrhythmia/Palpitations Stated Complaint: CP Time Seen by Provider: 06/29/25 18:28 History of Present Illness: 84-year-old female with a history of atrial fibrillation, chronic anticoagulation on Eliquis, hypertension, hyperlipidemia, hypothyroidism, asthma, history of pulmonary embolism, and diverticulosis who presents to the emergency room with chest pain and tachycardia. She says she can feel her heart going very fast and she had a pressure in the center of her chest. Related Data Home Medications ?Medication ?Instructions ?Recorded ?Confirmed vit A 7,160 unit-vit C 113 mg-vit 1 tab PO DAILY 09/14/20 06/21/25 E 100 vdyc-aflk-luowrc tablet (EyeProtect) hydroxychloroquine 200 mg tablet 200 mg PO BID 12/11/21 06/21/25 cholecalciferol (vitamin D3) 10 10 mcg PO DAILY 03/24/24 06/21/25 mcg (400 unit) tablet omega 7-ntc-dzg-fish oil 100 1 cap PO DAILY 03/24/24 06/21/25 mg-160 mg-1,000 mg capsule (Fish Oil) Previous Rx's ?Medication ?Instructions ?Recorded tubing and mask for nebulizer #1 ea 04/24/22 miscellaneous medical supply #1 ea 01/06/23 (Blood Pressure Cuff) albuterol sulfate 90 mcg/actuation 2 puff inhalation QID PRN 05/10/24 aerosol inhaler (Ventolin HFA) shortness of breath or wheezing #8.5 grams potassium chloride 20 mEq 20 meq PO BID #180 tabs 09/29/24 tablet,extended release(part/cryst) diltiazem HCl 60 mg 60 mg PO BID #60 caps 01/10/25 capsule,extended release 12 hr apixaban 5 mg tablet (Eliquis) 5 mg PO BID #180 tabs 06/21/25 furosemide 20 mg tablet (Lasix) 40 mg (2 x 20 mg) PO .COMPLEX #270 06/21/25 tabs levothyroxine 100 mcg tablet 100 mcg PO DAILY #90 tabs 06/21/25 metoprolol tartrate 50 mg tablet See Rx Instructions .Route 06/21/25 .COMPLEX #180 tabs pantoprazole 40 mg tablet,delayed See Rx Instructions .Route 06/21/25 release .COMPLEX #60 tabs Allergies Allergy/AdvReac Type Severity Reaction Status Date / Time No Known Allergies Allergy Verified 06/21/25 11:34 Review of Systems Narrative: Constitutional symptoms: Negative except as documented in HPI. Skin symptoms: Negative except as documented in HPI. Eye symptoms: Negative except as documented in HPI. ENMT symptoms: Negative except as documented in HPI. Respiratory symptoms: Negative except as documented in HPI. Cardiovascular symptoms: Negative except as documented in HPI. Gastrointestinal symptoms: Negative except as documented in HPI. Genitourinary symptoms: Negative except as documented in HPI. Musculoskeletal symptoms: Negative except as documented in HPI. Neurologic symptoms: Negative except as documented in HPI. Psychiatric symptoms: Negative except as documented in HPI. Endocrine symptoms: Negative except as documented in HPI. PFSH ED PFSH: Medical History (Updated 06/29/25 @ 20:29 by Zoey Freire MD) Asthma Enrolled in chronic care management Hyperlipidemia Hypothyroid HTN (hypertension) Coronary artery disease 30% mid LAD 12/25/22 NSTEMI (non-ST elevated myocardial infarction) Atrial fibrillation with RVR Edema History of pulmonary embolism Lupus Lymphadenopathy SCC (spinal cord compression) History of compression fracture of spine Emphysema of lung History of GI bleed Myalgia Varicose veins of both lower extremities Diverticulosis Atrial fibrillation Vitamin D insufficiency Surgical History S/P D&C (status post dilation and curettage) S/P hysterectomy Previous back surgery Family History Mother Cancer Social History Smoking and tobacco/nicotine status: former use of tobacco/nicotine Quit status (tobacco/nicotine): has quit using Former quit date comment: reports smoking cigarettes occasionally as teenager, unsure as to length Second hand smoke exposure: No Alcohol intake: never Substance/Drug Use: never Lives independently: No Household members: children Marital status: / service: No Current occupational status: retired Current gender identity: Female Special rafita needs: No Physical Exam Narrative: EXAM NARRATIVE: General: Alert, no acute distress. Skin: Warm, dry. Head: Normocephalic, atraumatic. Neck: Supple, trachea midline. Eye: Extraocular movements are intact. Ears, nose, mouth and throat: mucosa moist. Cardiovascular: Irregular, tachycardic, Normal peripheral perfusion. Respiratory: Lungs are clear to auscultation, respirations are non-labored, breath sounds are equal, Symmetrical chest wall expansion. Gastrointestinal: Soft, Nontender, Non distended Musculoskeletal: Normal ROM, no deformity. Neurological: Alert and oriented, No focal neurological deficit observed. Psychiatric: Cooperative, appropriate mood & affect. Course Vital Signs: Vital signs: Vital Signs Temperature 97.8 F 06/29/25 18:17 Pulse Rate 133 H 06/29/25 20:06 Respiratory Rate 8 L 06/29/25 18:42 Blood Pressure 96/74 06/29/25 20:06 Pulse Oximetry 96 06/29/25 20:06 Oxygen Delivery Me thod Nasal Cannula 06/29/25 20:06 Oxygen Flow Rate 2 06/29/25 20:06 MDM - Arrhythmia/Palpitations Medical Decision Making Medical decision making: Patient's reason for coming to the emergency room: Chest pain and tachycardia Social determinants: Patient has family present. I reviewed the patient's medical record. 84-year-old female with a history of atrial fibrillation, chronic anticoagulation on Eliquis, hypertension, hyperlipidemia, hypothyroidism, asthma, history of pulmonary embolism, and diverticulosis I reviewed the patient's current home meds Alternate historians: Differential diagnosis for patient with chest pain includes but is not limited to and based on the above HPI, review of systems and physical exam: Pneumonia. unstable angina. angina. Acute coronary syndrome / AL. Pulmonary embolism. Costochondritis / musculoskeletal. Pleurisy. Pericarditis. Esophageal spasm. Pancreatitis. Cholecystitis. Orders placed to evaluate differential diagnosis based on the above differential, HPI and physical exam EKG: Time 1821. Rate 142. Atrial fibrillation with rapid ventricular response, No ST-T changes, no ectopy, This was reviewed and interpreted by myself the ER physician at 182 Lab Review: Laboratory results were reviewed and interpreted by myself the emergency room physician. No leukocytosis. No anemia. She does have a slight urinary tract infection with 11-20 whites but no bacteria. I am giving some fluids and Rocephin at this time. She does not appear to be septic. But her pressure has been a little bit soft so starting fluids. Lactate and blood cultures were added at this time as well Assessment of risk: Level of risk: Moderate Hospitalization considerations: Patient is being admitted Reexamination: Rate has come down from the 140s to about 105. This was reviewed and interpreted by myself the emergency room physician. I also reviewed the radiology report. Assessment and plan: A-fib with RVR Chest pain Urinary tract infection ?Amiodarone bolus and amnio drip. Some improvement. No chest pain. ?At this point I do not think the patient is septic but given that she has been tachycardic and hypotensive starting some fluids and giving antibiotics. -1.5 L normal saline bolus. Limited fluid resuscitation at this point given her heart history. - IV Rocephin -Sepsis quality measures. -Lactic acid with a reflex was ordered. -Blood cultures were ordered. ?I reevaluated the patient's volume status after sepsis fluids were given. -I discussed the patient with the hospitalist on-call who is admitting the patient. - Discussed findings and plan with patient. Answered any questions. - All laboratory values were reviewed and interpreted personally by myself, the ER physician - All imaging was reviewed and interpreted personally by myself, the ER physician. - Evaluation and treatment of this problem were appropriate in the emergency setting Lab Data 06/29/25 18:38 06/29/25 18:38 Radiology Impressions Chest X-Ray 06/29/25 18:18 IMPRESSION: No definite acute infiltrate or effusion. Laboratory Results WBC 7.63 10^3/uL (3.29-11.43) 06/29/25 18:38 RBC 3.16 10^6/uL (3.85-5.65) L 06/29/25 18:38 Hgb 10.80 g/dL (11.27-16.99) L 06/29/25 18:38 Hct 32.1 % (36-47) L 06/29/25 18:38 MCV 101.6 fl (85-98) H 06/29/25 18:38 MCH 34.2 pg (27-33) H 06/29/25 18:38 MCHC 33.6 g/dL (30-55) 06/29/25 18:38 RDW 14.1 % (12.1-15.1) 06/29/25 18:38 Plt Count 251 10^3/cmm (157-399) 06/29/25 18:38 MPV 10.2 fL (7.4-10.4) 06/29/25 18:38 Neut % (Auto) 64.5 % 06/29/25 18:38 Lymph % (Auto) 18.6 % 06/29/25 18:38 Talbot % (Auto) 11.5 % 06/29/25 18:38 Eos % (Auto) 4.1 % 06/29/25 18:38 Baso % (Auto) 1.0 % 06/29/25 18:38 Neut # (Auto) 4.92 10^3/uL (1.8-7.7) 06/29/25 18:38 Lymph # (Auto) 1.4 10^3/uL (0.8-4.8) 06/29/25 18:38 Talbot # (Auto) 0.9 10^3/uL (0.2-0.9) 06/29/25 18:38 Eos # (Auto) 0.3 10^3/uL (0.0-0.8) 06/29/25 18:38 Baso # (Auto) 0.1 10^3/uL (0.0-0.1) 06/29/25 18:38 Nucleated RBC % (auto) 0 % 06/29/25 18:38 Nucleated RBCs # 0.0 /100WBC 06/29/25 18:38 Sodium 139 mmol/L (136-145) 06/29/25 18:38 Potassium 3.0 mmol/L (3.5-5.1) L 06/29/25 18:38 Chloride 98 mmol/L (98-107) 06/29/25 18:38 Carbon Dioxide 26 mmol/L (22-29) 06/29/25 18:38 Anion Gap 18.0 (5-19) 06/29/25 18:38 BUN 18 mg/dL (8-23) 06/29/25 18:38 Creatinine 1.0 mg/dL (0.5-0.9) H 06/29/25 18:38 GFR Calculation Not Reportable 06/29/25 18:38 Glucose 115 mg/dL (65-115) 06/29/25 18:38 Calculated Osmolality 291 mOsm/kg (285-295) 06/29/25 18:38 Calcium 9.0 mg/dL (8.5-10.5) 06/29/25 18:38 Total Bilirubin 0.5 mg/dL (0.15-1.2) 06/29/25 18:38 AST 18 U/L (0-32) 06/29/25 18:38 ALT 12 U/L (0-33) 06/29/25 18:38 Alkaline Phosphatase 101 U/L (35-105) 06/29/25 18:38 Troponin T Baseline 37 ng/L (0-10) H 06/29/25 18:38 NT-Pro-B Natriuret Pep 823 pg/mL (0-450) H 06/29/25 18:38 Total Protein 6.5 g/dL (6.6-8.7) L 06/29/25 18:38 Albumin 4.3 g/dL (3.5-5.2) 06/29/25 18:38 Globulin 2.2 g/dL (1.3-4.6) 06/29/25 18:38 Urine Color Yellow (Yellow) 06/29/25 19:35 Urine Appearance Clear (CLEAR) 06/29/25 19:35 Urine pH 6.5 (5-7) 06/29/25 19:35 Ur Specific [place] 1.009 (1.005-1.030) 06/29/25 19:35 Urine Protein Negative (Negative) 06/29/25 19:35 Urine Glucose (UA) Negative (Normal) 06/29/25 19:35 Urine Ketones Negative (Negative) 06/29/25 19:35 Urine Blood Negative (Negative) 06/29/25 19:35 Urine Nitrate Negative (Negative) 06/29/25 19:35 Urine Bilirubin Negative (Negative) 06/29/25 19:35 Urine Urobilinogen 0.2 mg/dL (Negative) 06/29/25 19:35 Ur Leukocyte Esterase 1+ (Negative) A 06/29/25 19:35 Urine RBC 0-2 /hpf (0-2) 06/29/25 19:35 Urine WBC 11-20 /hpf (0-5) H 06/29/25 19:35 Ur Squamous Epith Cells 0-5 /hpf (0-5) 06/29/25 19:35 Amorphous Sediment Not Reportable 06/29/25 19:35 Urine Bacteria None seen /hpf (NONE) 06/29/25 19:35 Hyaline Casts 0.81 /lpf 06/29/25 19:35 All radiology interpretation(s) finalized by discharge Discharge Plan Discharge Patient Disposition: Admitted As Inpatient Clinical Impression: Atrial fibrillation with rapid ventricular response, Urinary tract infection Condition: Stable Coding Level of Care Code ED Dope Heater for Oliva Gamble
[2025-06-29] MEDS: amiodarone 150 MG/100 ML PREMIX 400 MG IV (18:44)
[2025-06-29 19:01] LABS: Hematocrit 32.1 % (36-47); Hemoglobin 10.80 g/dL (11.27-16.99); Mean Corpuscular HGB Conc 33.6 g/dL (30-55); Mean Corpuscular Hemoglobin 34.2 pg (27-33); Mean Corpuscular Volume 101.6 fl (85-98); Nucleated Red Blood Cells % 0 %; Platelet Count 251 10^3/cmm (157-399); Red Blood Count 3.16 10^6/uL (3.85-5.65); White Blood Count 7.63 10^3/uL (3.29-11.43)
[2025-06-29] MEDS: AMIODARONE HCL/D5W 900 MG/500 ML BAG 33.33 MG IV (19:12)
[2025-06-29 19:30] LABS: Troponin(5th) Baseline 37 ng/L (0-10)
[2025-06-29 19:36] LABS: Alanine Aminotransferase 12 U/L (0-33); Albumin Level 4.3 g/dL (3.5-5.2); Alkaline Phosphatase 101 U/L (35-105); Aspartate Amino Transferase 18 U/L (0-32); Blood Urea Nitrogen 18 mg/dL (8-23); Calcium 9.0 mg/dL (8.5-10.5); Carbon Dioxide 26 mmol/L (22-29); Chloride 98 mmol/L (98-107); Creatinine Clr Calc Pharmacy 40.3990; Globulin 2.2 g/dL (1.3-4.6); Glucose 115 mg/dL (65-115); NT Pro B Type Natriuretic Pept 823 pg/mL (0-450); Osmolality Calculated 291 mOsm/kg (285-295); Sodium 139 mmol/L (136-145); Total Protein 6.5 g/dL (6.6-8.7)
[2025-06-29 19:39] LABS: Anion Gap 18.0 (5-19); Potassium 3.0 mmol/L (3.5-5.1)
[2025-06-29 19:46] LABS: Glucose Urine UA Negative (Normal); Nitrate Urine Negative (Negative); Specific Gravity, Urine 1.009 (1.005-1.030)
--- NOTE | 2025-06-29 20:18 | ECG_ITS ---
[facility] Test Date: 2025-06-29 Pat Name: Mary Shoemaker Department: Room: Gender: Female Quality Engineer Medical Device: : 1940 Requested By: Zoey Smith Order Number: [id number] Reading MD: ANNE GA Measurements Intervals [place] Rate: 122 P: 0 TX: 0 QRS: 29 QRSD: 137 T: 172 QT: 332 QTc: 474 Interpretive Statements ATRIAL FIBRILLATION WITH RAPID VENTRICULAR RESPONSE LEFT BUNDLE BRANCH BLOCK [120+ ms QRS DURATION, 80+ ms Q/S IN V1/V2, 85+ ms R IN I/aVL/V5/V6] Compared to ECG 06/29/2025 18:22:59 No significant changes Electronically Signed On 07-01-2025 21:18:56 CDT by ANNE GA [id number]
--- NOTE | 2025-06-29 20:36 | PM.HP ---
Providers/Chief Complaint Admitting Physician: YARELI RESTREPO--DO--- patient admitted before 12 midnight Primary Care Provider: PARVEEN Pascal Chief Complaint: CP History of Present Illness Mary Shoemaker is a 84 year old female with medical history significant for chronic atrial fibrillation and CHF who presented today with complaints of chest pain and with a rapid ventricular rates in the 140s. Patient also noted to have bronchitis troponin was at 54 with a positive delta at 17. This is a non-STEMI. Patient will need to be on heparin drip and be admitted to ICU. Patient is on Eliquis will hold Eliquis at this time. 6-hour troponin was even higher with a troponin of 88 and a delta positive at 51.04. Patient does not have any further chest pains. Resting well and sleeping well . Cardiology has been contacted and will be following up with the patient. Aside for chest pain with NSTEMI patient does have acute bronchitis and receiving doxycycline and steroid therapy. Had mild hypokalemia at 3 was replaced with acute cystitis treated with ceftriaxone follow through with culture and sensitivity Review of Systems Narrative: System review upon 10 organ review we are unremarkable except for cardiovascular system with chest pains. Medications/Allergies Home Medications ?Medication ?Instructions ?Recorded ?Confirmed ?Last Taken ?Type vit A 7,160 unit-vit C 113 mg-vit 1 tab PO DAILY 09/14/20 06/21/25 07/20/21 History E 100 ofkm-jpom-cgysio tablet (EyeProtect) hydroxychloroquine 200 mg tablet 200 mg PO BID 12/11/21 06/21/25 Unknown History tubing and mask for nebulizer #1 ea 04/24/22 06/21/25 Unknown Rx miscellaneous medical supply #1 ea 01/06/23 06/21/25 Unknown Rx (Blood Pressure Cuff) cholecalciferol (vitamin D3) 10 10 mcg PO DAILY 03/24/24 06/21/25 Unknown History mcg (400 unit) tablet omega 8-uou-gbe-fish oil 100 1 cap PO DAILY 03/24/24 06/21/25 Unknown History mg-160 mg-1,000 mg capsule (Fish Oil) albuterol sulfate 90 mcg/actuation 2 puff inhalation QID PRN 05/10/24 06/21/25 Unknown Rx aerosol inhaler (Ventolin HFA) shortness of breath or wheezing #8.5 grams potassium chloride 20 mEq 20 meq PO BID #180 tabs 09/29/24 06/21/25 Unknown Rx tablet,extended release(part/cryst) diltiazem HCl 60 mg 60 mg PO BID #60 caps 01/10/25 06/21/25 Unknown Rx capsule,extended release 12 hr apixaban 5 mg tablet (Eliquis) 5 mg PO BID #180 tabs 06/21/25 06/21/25 Unknown Rx furosemide 20 mg tablet (Lasix) 40 mg (2 x 20 mg) PO .COMPLEX #270 06/21/25 06/21/25 Unknown Rx tabs levothyroxine 100 mcg tablet 100 mcg PO DAILY #90 tabs 06/21/25 06/21/25 Unknown Rx metoprolol tartrate 50 mg tablet See Rx Instructions .Route 06/21/25 06/21/25 Unknown Rx .COMPLEX #180 tabs pantoprazole 40 mg tablet,delayed See Rx Instructions .Route 06/21/25 06/21/25 Unknown Rx release .COMPLEX #60 tabs Allergies Allergy/AdvReac Type Severity Reaction Status Date / Time No Known Allergies Allergy Verified 06/21/25 11:34 PFSH Acute PFSH: Medical History Asthma Enrolled in chronic care management Hyperlipidemia Hypothyroid HTN (hypertension) Coronary artery disease 30% mid LAD 12/25/22 NSTEMI (non-ST elevated myocardial infarction) Atrial fibrillation with RVR Edema History of pulmonary embolism Lupus Lymphadenopathy SCC (spinal cord compression) History of compression fracture of spine Emphysema of lung History of GI bleed Myalgia Varicose veins of both lower extremities Diverticulosis Atrial fibrillation Vitamin D insufficiency Surgical History S/P D&C (status post dilation and curettage) S/P hysterectomy Previous back surgery Family History Mother Cancer Social History Smoking and tobacco/nicotine status: former use of tobacco/nicotine Quit status (tobacco/nicotine): has quit using Former quit date comment: reports smoking cigarettes occasionally as teenager, unsure as to length Second hand smoke exposure: No Alcohol intake: never Substance/Drug Use: never Lives independently: No Household members: children Marital status: / service: No Current occupational status: retired Current gender identity: Female Special rafita needs: No Vitals/I&O/Wt Last Vital Signs Temp 97.8 F 06/29/25 18:17 Pulse 133 H 06/29/25 20:06 Resp 8 L 06/29/25 18:42 BP 96/74 06/29/25 20:06 Pulse Ox 96 06/29/25 20:06 O2 Del Method Nasal Cannula 06/29/25 20:06 O2 Flow Rate 2 06/29/25 20:06 06/29/25 06/29/25 06/29/25 06:59 14:59 22:59 Intake Total 100 / 100 Balance 100 / 100 Weight last 48 hrs Weight 68.039 kg Physical Exam Narrative: General the patient is nice and witty in no apparent distress at the time of my evaluation. Patient is chest pain-free. HEENT normocephalic/atraumatic neck neck is supple cardiovascular heart is regular lungs are pretty much clear abdomen soft nontender nondistended unremarkable extremities intact no edema has good pulses neurology has no focality lab studies lab studies reviewed and noted. Data 06/29/25 18:38 06/29/25 18:38 A&P Assessment and plan 1. Chest pain: 2. NSTEMI (non-ST elevated myocardial infarction): 3. Hypokalemia: 4. Atrial fibrillation with rapid ventricular response: 5. History of CHF (congestive heart failure): 6. Acute cystitis: Plan: #1 Chest pain - Patient with palpitations significant for atrial fibrillation and had chest pain at the same time - Patient 6-hour troponin is 88 with a delta positive at 51.04 - Patient troponin and delta had been increasing and patient had been placed on heparin drip at the early stage of care. - Patient had been admitted to stepdown unit bed in ICU location as an overflow - Patient had been chest pain-free and denies any complaints. - Further care will be with cardiology follow-up with the echocardiogram will not order any stress test on this patient and let the cardiology follow through as to what they want. #2 NSTEMI - Continue heparin drip and follow cardiology recommendation #3 Hypokalemia at 3 - Replace with 40 mEq of K-Dur #4 Atrial fibrillation with rapid ventricular rate - Patient placed on amiodarone drip and had converted to normal sinus rhythm at this time. #5 GI and DVT prophylaxis in place #6 Acute cystitis - Ceftriaxone had been given in the ED will continue with this and follow through with culture and sensitivity and optimize accordingly PDMP PDMP Reviewed: Last Reviewed 06/30/25 04:29 by Yareli Restrepo MD Attestations Medical Necessity Statement*: Patient had been admitted with non-STEMI will need at least 2 midnights for optimization of care. Coding Level of Care Code 11930 Diagnoses Chest pain R07.9 NSTEMI (non-ST elevated myocardial infarction) I21.4 Hypokalemia E87.6 Atrial fibrillation with rapid ventricular response I48.91 History of CHF (congestive heart failure) Z86.79 Acute cystitis N30.00 Time Spent (min) 60
[2025-06-29 21:19] LABS: Troponin 5 2HR 54.25 ng/L (0-10)
[2025-06-29 21:22] LABS: Lactic Sepsis W/Reflex 1.1 mmol/L (0.5-2.2)
[2025-06-29 21:25] LABS: Troponin 5 2HR Delta 17.25 ABS# (0-10)
[2025-06-29] MEDS: cefTRIAXone 1,000 mg SDV 1000 MG IVP (21:35)
[2025-06-29] MEDS: methylPREDNISolone sod succ 40 mg/mL INJ IVP (23:58)
[2025-06-29] MEDS: doxycycline 100 MG in sodium chloride 0.9% (plus) 100 ML IV (23:58)
[2025-06-30] VITALS (74 sets, daily range): BP systolic 106–162; BP diastolic 44–100; PULSE 60–103; RESP 14–33; TEMP 36.3–37.1; O2SAT 89–100; BMI 28.8; BMI 26.9
--- NOTE | 2025-06-30 00:18 | ECG_ITS ---
Witel Test Date: 2025-06-30 Pat Name: Mary Shoemaker Department: Room: [facility] Gender: Female [employer]: : 1940 Requested By: Zoey Smith Order Number: [id number] Reading MD: ANNE GA Measurements Intervals [place] Rate: 71 P: 77 NC: 176 QRS: -2 QRSD: 141 T: 97 QT: 433 QTc: 472 Interpretive Statements SINUS RHYTHM WITH OCCASIONAL SUPRAVENTRICULAR PREMATURE COMPLEXES LEFT BUNDLE BRANCH BLOCK [120+ ms QRS DURATION, 80+ ms Q/S IN V1/V2, 85+ ms R IN I/aVL/V5/V6] Compared to ECG 06/29/2025 20:27:49 Atrial fibrillation no longer present Electronically Signed On 07-01-2025 21:19:20 CDT by ANNE GA [email or web address]
[2025-06-30 01:16] LABS: Troponin 5 6HR 88.04 ng/L (0-10)
[2025-06-30 01:28] LABS: Troponin 5 6HR Delta 51.04 ng/L (0-12)
[2025-06-30] MEDS: heparin drip 25,000 UNIT/500 ML PREMIX 20 UNIT IV (02:08)
--- NOTE | 2025-06-30 02:22 | PC.NURSE ---
Informed Dr. Mendez of critical trop 51.04 gave verbal to start heparin drip. Also informed her patient declined senna.
[2025-06-30 05:15] LABS: Hematocrit 27.8 % (36-47); Hemoglobin 9.20 g/dL (11.27-16.99); Mean Corpuscular HGB Conc 33.1 g/dL (30-55); Mean Corpuscular Hemoglobin 33.0 pg (27-33); Mean Corpuscular Volume 99.6 fl (85-98); Nucleated Red Blood Cells % 0 %; Platelet Count 217 10^3/cmm (157-399); Red Blood Count 2.79 10^6/uL (3.85-5.65); White Blood Count 5.68 10^3/uL (3.29-11.43)
[2025-06-30 05:40] LABS: Alanine Aminotransferase 9 U/L (0-33); Albumin Level 3.8 g/dL (3.5-5.2); Alkaline Phosphatase 87 U/L (35-105); Anion Gap 15.9 (5-19); Aspartate Amino Transferase 18 U/L (0-32); Blood Urea Nitrogen 14 mg/dL (8-23); Calcium 8.4 mg/dL (8.5-10.5); Carbon Dioxide 27 mmol/L (22-29); Chloride 102 mmol/L (98-107); Creatinine Clr Calc Pharmacy 51.2931; Globulin 2.1 g/dL (1.3-4.6); Glucose 153 mg/dL (65-115); Magnesium 1.5 mg/dL (1.7-2.3); Osmolality Calculated 298 mOsm/kg (285-295); Sodium 142 mmol/L (136-145); Total Protein 5.9 g/dL (6.6-8.7)
[2025-06-30 05:49] LABS: Potassium 2.9 mmol/L (3.5-5.1)
--- NOTE | 2025-06-30 05:56 | PC.NURSE ---
relayed critical lab results to Dr. Ramon she gave verbal orders for another 40 meq potassium in 4 hours order placed
--- NOTE | 2025-06-30 09:19 | P.CONIM_ITS ---
<Statement entered by Bhavani Cordero MD - 06/30/25 20:54> Patient was evaluated and cared for in conjunction with an advanced practice practitioner. I personally examined the patient and reviewed the chart and all pertinent data including imaging, telemetry, and laboratory results. I discussed the patient in detail with the advanced practice practitioner. Please see their note for complete H&P testing result and agreed upon plan of care for the patient. Converted back to sinus rhythm GENERAL: Patient is alert, awake and oriented x3. HEART: Regular S1 and S2. No murmur, rub or gallop. LUNGS: Clear to auscultate bilaterally. CENTRAL NERVOUS SYSTEM: Grossly nonfocal. EXTREMITIES: Lower extremities with out edema bilaterally. 1. Atrial fibrillation with rapid ventricular response 2. History of pulmonary embolism on anticoagulation 3. NSTEMI type II 4. Coronary artery disease appeared to be stable denies any chest pain 5. On anticoagulant therapy patient is on Eliquis 6. Diastolic congestive heart failure, NYHA class 3: 7. Hypothyroid: 8. Asthma Patient is converted to sinus rhythm, will increase Cardizem to 180 mg from tomorrow will give 60 mg extra since 120 mg has been already given, increase metoprolol to 37.5 mg twice daily from tomorrow. Continue Eliquis. Echocardiogram to assess LV function and any wall motion abnormality Providers/Reason For Consult 2 Consulting Physician/Specialty*: Dr Debora Cordero, interventional cardiology Reason for Consult*: elevated troponin in setting of atrial fibrillation with RVR Requesting Physician: Dr. Ramon Attending Physician: Jared Blackwood MD Primary Care Provider: PARVEEN Pascal History of Present Illness History of Present Illness Mary Shoemaker is a 84 year old female with past medical history of atrial fibrillation anticoagulated with Eliquis, asthma/emphysema, hypertension, hypothyroidism, history of GI bleed, varicose veins. She presented to the emergency room yesterday with chest pain, found to be in atrial fibrillation with RVR. She was started on amiodarone infusion after bolus and has since converted to sinus rhythm. Troponin series: 37?>54?>88. She reports following an air conditioner out of a window yesterday, feels she may have overdone it. Has when her symptoms began. She did not have any coughing, chest pain, fever, UTI, nausea or vomiting, volume overload in the days or weeks leading up to this event. She is chest pain-free now. Echocardiogram in 2023 showed LVEF 50 to 55% with mild . She had coronary angiogram in 2022 revealing 30% mid LAD stenosis but no other coronary artery disease was present. Review of Systems 2 Const: Denies: fever(s), chills, change in weight, fatigue or diaphoresis Eyes: Denies: change in vision ENMT: Denies: epistaxis Card: Denies: chest pain, palpitations, irregular heart rhythm, edema, syncope, pre-syncope, dyspnea on exertion, orthopnea or leg pain with exertion Resp: Denies: dyspnea, productive cough or wheezing GI: Denies: nausea, vomiting, hematemesis, hematochezia or melena : Denies: hematuria Musc: Denies: extremity swelling Patricio/Lymph: Denies: easy bruising or easy bleeding Medications/Allergies Home Medications ?Medication ?Instructions ?Recorded ?Confirmed ?Last Taken ?Type vit A 7,160 unit-vit C 113 mg-vit 1 tab PO DAILY 09/1406/21/25 07/20/21 History E 100 xdzv-hmth-ztbzwf tablet (EyeProtect) hydroxychloroquine 200 mg tablet 200 mg PO BID 2 06/21/25 Unknown History tubing and mask for nebulizer #1 ea 04/24/22 06/21/25 Unknown Rx miscellaneous medical supply #1 ea 01/06/23 06/21/25 U nknown Rx (Blood Pressure Cuff) cholecalciferol (vitamin D3) 10 10 mcg PO DAILY 06/21/25 Unknown History mcg (400 unit) tablet omega 5-jpt-ojy-fish oil 100 1 cap PO DAILY 03/24/24 1 Unknown History mg-160 mg-1,000 mg capsule (Fish Oil) albuterol sulfate 90 mcg/actuation 2 puff inhalation Q ID PRN 05/10/24 06/21/25 Unknown Rx aerosol inhaler (Ventolin HFA) shortness of breath or wheezing #8.5 grams potassium chloride 20 mEq 20 meq PO BID #180 tabs /06/21/25 Unknown Rx tablet,extended release(part/cryst) diltiazem HCl 60 mg 60 mg PO BID #60 caps 06/21/25 Unknown Rx capsule,extended release 12 hr apixaban 5 mg tablet (Eliquis) 5 mg PO BID #180 tabs 1 06/21/25 Unknown Rx furosemide 20 mg tablet (Lasix) 40 mg (2 x 20 mg) PO . COMPLEX #270 06/21/25 06/21/25 Unknown Rx tabs levothyroxine 100 mcg tablet 100 mcg PO DAILY #90 tabs 06/21/25 06/21/25 Unknown Rx metoprolol tartrate 50 mg tablet See Rx Instructions . Route 06/21/25 06/21/25 Unknown Rx .COMPLEX #180 tabs pantoprazole 40 mg tablet,delayed See Rx Instructions .Route 06/21/25 06/21/25 Unknown Rx release .COMPLEX #60 tabs Allergies Allergy/AdvReac Type Severity Reaction Status Date / Time No Known Allergies Allergy Verified 06/21/25 11:34 Current Medications Generic Name Dose Route Start Last Admin Trade Name Freq PRN Reason Stop Dose Admin Albuterol/Ipratropium 3 ml 06/30/25 08:00 06/30/25 07:57 Ipratropium-Albuterol 3 Ml Neb INHALATION 3 ml QID.RESPIRATORY SUZANNA Administration Docusate Sodium 100 mg 06/30/25 05:00 06/30/25 05:28 Docusate Sodium 100 Mg Capsule PO 100 mg BID SUZANNA Administration AMIODARONE HCL/D5W 900 mg in 500 mls @ 0 mls/hr 06/29/25 18:30 06/30/25 02:53 Amiodarone 900 Mg/500 Ml-D5w IV 06/30/25 12:00 0.5 mg/min .Q0M SUZANNA 16.67 mls/hr Protocol Titration Per Protocol Sodium Chloride 1,000 mls @ 75 mls/hr 06/29/25 23:32 06/30/25 00:09 Sodium Chloride 0.9% IV 75 mls/hr .[id number] SUZANNA Administration Doxycycline Hyclate 100 mg/ 100 mls @ 100 mls/hr 06/29/25 23:32 06/30/25 00:58 Sodium Chloride IV Infused Q12H SUZANNA Infusion Protocol Pantoprazole Sodium 40 mg 06/30/25 05:00 06/30/25 05:[address] 40 Mg Tablet PO 40 mg DAILY SUZANNA Administration Senna 17.2 mg 06/29/25 23:32 06/29/25 23:54 Sennosides 8.6 Mg Tablet PO Not Given BEDTIME SUZANNA PFSH Acute 2 PFSH: Medical History Asthma Enrolled in chronic care management Hyperlipidemia Hypothyroid HTN (hypertension) Coronary artery disease 30% mid LAD 12/25/22 NSTEMI (non-ST elevated myocardial infarction) Atrial fibrillation with RVR Edema History of pulmonary embolism Lupus Lymphadenopathy SCC (spinal cord compression) History of compression fracture of spine Emphysema of lung History of GI bleed Myalgia Varicose veins of both lower extremities Diverticulosis Atrial fibrillation Vitamin D insufficiency Surgical History S/P D&C (status post dilation and curettage) S/P hysterectomy Previous back surgery Family History Mother Cancer Social History Smoking and tobacco/nicotine status: former use of tobacco/nicotine Quit status (tobacco/nicotine): has quit using Former quit date comment: reports smoking cigarettes occasionally as teenager, unsure as to length Second hand smoke exposure: No Alcohol intake: never Substance/Drug Use: never Lives independently: No Household members: children Marital status: / service: No Current occupational status: retired Current gender identity: Female Special rafita needs: No Vitals/I&O/Wt Last Vital Signs Temp 97 F L 06/29/25 23:20 Pulse 68 06/30/25 08:01 Resp 16 06/30/25 07:59 BP 144/59 06/30/25 04:20 Pulse Ox 99 06/30/25 07:59 O2 Del Method Nasal Cannula 06/30/25 07:59 O2 Flow Rate 2 06/30/25 07:59 06/29/25 06/30/25 06/30/25 22:59 06:59 14:59 Intake Total 100 / 1467.845 3176.085 / 1456.085 Balance 100 / 0445.084 6567.085 / 1456.085 Weight last 48 hrs Weight 156 lb 11.979 oz Weight 155 lb 3.287 oz Weight 150 lb Physical Exam 2 Const: COMMON NORMALS: no acute distress and patient oriented x3 GENERAL APPEARANCE: cooperative and comfortable ORIENTATION/CONSCIOUSNESS: Yes awake, Yes oriented to person, Yes oriented to place and Yes oriented to time Chest: COMMONS NORMALS: normal inspection of the chest and normal palpation of entire chest wall CHEST: Yes Symmetrical chest wall rise Resp: COMMON NORMALS: normal respiratory effort, No retractions, No use of accessory muscles and clear to auscultation bilaterally EFFORT & INSPECTION: Yes symmetric chest movement AUSCULTATION: clear to auscultation bilaterally Cardio: COMMON NORMALS: regular rate, regular rhythm, S1 normal heart sound present, S2 normal heart sound present, No gallops present (Cardio), No clicks present (Cardio), No murmurs present (Cardio) and No rub (Cardio) RATE: r egular rate RHYTHM: regular rhythm HEART SOUNDS: S1 normal heart sound present and S2 normal heart sound present PERIPHERAL PULSES: radial pulses present Extremity: COMMON NORMALS: no pedal edema Neuro: COMMON NORMALS: patient oriented x3 and moves all extremities S ENSORIUM/ORIENTATION: Yes oriented to person, Yes oriented to place and Yes oriented to time Data 06/30/25 04:20 06/30/25 04:20 Micro: Microbiology 06/29/25 20:40 Blood Culture - Preliminary Blood SPECIMEN COLLECTED 06/29/25 20:40 Blood Culture - Preliminary Blood SPECIMEN COLLECTED A&P Assessment and plan 1. Atrial fibrillation: 2. History of pulmonary embolism: 3. NSTEMI (non-ST elevated myocardial infarction): 4. Coronary artery disease: 5. On anticoagulant therapy: 6. Aortic stenosis: 7. Diastolic congestive heart failure, NYHA class 3: 8. Hypothyroid: 9. Asthma: Plan: Troponin leak likely due to demand ischemia from atrial fibrillation with RVR. Will discontinue heparin infusion, restart Eliquis 5 mg twice daily. Will also restart diltiazem 120 mg daily, uptitrate metoprolol to tartrate to 37.5 mg twice daily. Stop amiodarone infusion at noon, a few hours after diltiazem dose has been administered. Awaiting read of echocardiogram. If she has no regional wall motion abnormalities, no further cardiac testing is needed. PDMP PDMP Reviewed: Not Reviewed Coding Level of Care Code Acute Code for Chg Fwd Diagnoses Atrial fibrillation I48.91 History of pulmonary embolism Z86.711 NSTEMI (non-ST elevated myocardial infarction) I21.4 Coronary artery disease I25.10 On anticoagulant therapy Z79.01 Aortic stenosis I35.0 Diastolic congestive heart failure, NYHA class 3 I50.30 Hypothyroid E03.9 Asthma J45.909
[2025-06-30 10:15] LABS: Partial Thromboplastin Time 211.5 SECONDS (23.9-36.7)
[2025-06-30] MEDS: dilTIAZem ER (24HR) 120 mg Capsule PO (10:38)
[2025-06-30] MEDS: potassium phosphate (mEq K) 40 MEQ in sodium chloride 0.9% (100 ml) 100 ML 27.25 MEQ IV (10:39)
[2025-06-30] MEDS: magnesium sulfate premix 4 GM/100 ML PREMIX IV (10:39)
[2025-06-30] MEDS: doxycycline 100 MG in sodium chloride 0.9% (plus) 100 ML IV (10:44)
[2025-06-30] MEDS: methylPREDNISolone sod succ 40 mg/mL INJ IVP (11:00)
--- NOTE | 2025-06-30 20:35 | USCV_ITS ---
Mary Shoemaker Age: 84 Gender: F : 1940 Exam Date: 06/30/2025 00:11 Ordering Phys: Yareli Ramon MD Technologist: SHARAD Exam Location: [facility] [place] Indication: Shortness of breath with Atrial fibrillation BP: 96 / 74 HR: 67 Rhythm: Sinus Technical Quality: Adequate MEASUREMENTS (Male / Female) Normal Values 2D ECHO LV Diastolic Diameter PLAX 3.6 cm 4.2 - 5.9 / 3.9 - 5.3 cm IVS Diastolic Thickness 1.3 cm 0.6 - 1.0 / 0.6 - 0.9 cm IVS Systolic Thickness 1.3 cm LVPW Diastolic Thickness 2.2 cm 0.6 - 1.0 / 0.6 - 0.9 cm LVPW Systolic Thickness 2.1 cm LVOT Diameter 2.0 cm LV Ejection Fraction 2D Teich 54.9 % LV Ejection Fraction MOD 4C 53.2 % LV Ejection Fraction MOD 2C 69.6 % LV Ejection Fraction 2C AL 68.6 % LA Diameter 3.4 cm Aorta at Sinotubular Diameter 2.8 cm IVC Diameter 2.0 cm M-MODE LA Ao Ratio MM 1.3 AV Cusp Separation MM 1.4 cm DOPPLER AV Peak Velocity 206.0 cm/s LVOT Peak Velocity 79.0 cm/s AV Area Cont Eq vti 1.5 cm squared AV Area Cont Eq pk 1.2 cm squared MV Peak Velocity 131.0 cm/s MV Area PHT 2.7 cm squared Mitral E to A Ratio 1.4 TV Peak Velocity 267.3 cm/s TR Peak Velocity 274.0 cm/s TR Peak Gradient 30.0 mmHg TV Peak E Velocity 54.0 cm/s PV Peak Velocity 120.0 cm/s FINDINGS Left Ventricle Normal left ventricular size, systolic function and wall thickness, with no regional wall motion abnormalities. Left ventricular ejection fraction is estimated at 60 %. Grade II/IV diastolic dysfunction, moderately elevated filling pressures. Right Ventricle Normal right ventricular size and systolic function. Right Atrium Normal right atrial size. Left Atrium Normal left atrial size. IA Septum Normal appearance of the interatrial septum. Mitral Valve Moderately thickened mitral valve. Moderate mitral annular calcification. Moderate mitral valve regurgitation. Aortic Valve Normal aortic valve structure. No aortic valve stenosis or regurgitation. Tricuspid Valve Mild tricuspid valve regurgitation. Pulmonic Valve Mild pulmonary valve regurgitation. Pericardium No pericardial effusion. Aorta Normal diameter of the aortic root and ascending thoracic aorta. IVC Normal IVC diameter. CONCLUSIONS Normal left ventricular size, systolic function and wall thickness, with no regional wall motion abnormalities. Left ventricular ejection fraction is estimated at 60 %. Grade II/IV diastolic dysfunction, moderately elevated filling pressures. Moderately thickened mitral valve. Moderate mitral annular calcification. Moderate mitral valve regurgitation. Mild tricuspid valve regurgitation. There is no pericardial effusion. Right atrial pressure is around 5 mm of mercury. Bhavani Cordero MD (Electronically Signed) Final Date: 30 June 2025 21:13 S
[2025-06-30] MEDS: cefTRIAXone 1,000 mg SDV 1000 MG IVP (20:40)
--- NOTE | 2025-06-30 20:40 | P.PN_ITS ---
Subjective 2 Subjective: The patient was seen in the morning alongside with her daughter and doing well alert and oriented and confirmed her DNR status with the daughter and the pt herself. still having mild sob but is better than the yesterday Vitals/I&O/Wt Last Vital Signs Temp 98.7 F 06/30/25 20:00 Pulse 99 06/30/25 20:13 Resp 22 H 06/30/25 20:13 BP 116/52 06/30/25 17:00 Pulse Ox 95 06/30/25 20:13 O2 Del Method Nasal Cannula 06/30/25 20:13 O2 Flow Rate 2 06/30/25 20:13 06/30/25 06/30/25 06/30/25 06:59 14:59 22:59 Intake Total 1356.085 / 4454.134 2807.2579 / 1869.2579 233.38 / 2102.6379 Balance 1356.085 / 1599.805 2231.2579 / 1869.2579 233.38 / 2102.6379 Weight last 48 hrs Weight 71.1 kg Weight 70.4 kg Weight 68.039 kg Physical Exam 2 Narrative: General: Alert and oriented to self and the place, lying comfortably without any distress and able to speak in full sentences on 2 L NC HEENT: Normocephalic, atraumatic, grossly unremarkable exam Cardio: Irregularly irregular rhythm with tachy, normal S1-S2 however cannot appreciate the murmurs due to tachycardia, mild increased JVP, Respiratory: Patient having bibasal inspiratory crackles more or less fine in nature, no wheezes or stridor GI: Abdomen soft, nontender, nondistended, normoactive bowel sounds present all 4 quadrants, Neuro: Gross neurological examination unremarkable Behavior: Appropriate and cooperative Extremities: Adequate palpable pulses, mild pallor positive, bilateral pedal edema Data 06/30/25 04:20 06/30/25 04:20 Micro: Microbiology 06/29/25 20:40 Blood Culture - Preliminary Blood SPECIMEN COLLECTED 06/29/25 20:40 Blood Culture - Preliminary Blood SPECIMEN COLLECTED A&P Assessment and plan 1. History of CHF (congestive heart failure): Patient presented with shortness of breath and found to be in atrial fibrillation with RVR and troponin leak, and was started on amnio drip and heparin infusion proBNP around 800s, Cardiology consulted. Upon evaluation patient was in sinus rhythm and further plan discussed with the cardiology that explained that likely the troponin leak is secondary to demand ischemia. To discontinue heparin infusion and to restart Eliquis 5 mg twice daily To restart diltiazem 120 mg daily and to uptitrate metoprolol. Hold Amio drip Echocardiogram results awaited 2. Atrial fibrillation with rapid ventricular response: Continue Eliquis 5 mg twice daily Diltiazem 120 mg daily and to uptitrate metoprolol Echo awaited 3. Physical deconditioning: OT PT evaluation 4. HTN (hypertension): Patient blood pressure currently stable, Hold fluids Patient in mild features of overload, based on her bilateral lung exam and clinically lower leg edema pitting in nature, Patient on home dose Lasix 40 mg daily, to start the patient on 40 mg IV Lasix and to continue to monitor electrolytes 5. Aortic stenosis: Currently stable no chest pain Echo showed normal ventricular systolic function with ejection fraction of 60%. Aortic valve seems normal in structure with moderate mitral valve regurg, for full report refer to the echo results 6. Hyperlipidemia: Continue on omega-3/fish oil supplements, no statins found in home medication Continue home medication 7. Coronary artery disease: Patient following with the cardiology as outpatient and managed accordingly Referral as outpatient and follow the inpatient recommendations 8. Hypothyroid: Continue home dose levothyroxine 100 mcg daily 9. Asthma: Continue ipratropium and levalbuterol scheduled every 4 hourly 10. GERD (gastroesophageal reflux disease): Continue PPI and GI prophylaxis 11. Acute cystitis: There were no leukocytosis or features suggestive of any UTI or infection Discontinue antibiotics and steroids Continue to monitor PDMP PDMP Reviewed: Not Reviewed Attestations 2 Medical Necessity Statement*: Patient will likely stay more than 2 midnights for the management of her atrial fibrillation Presenting with chest pain and shortness of breath. Time Spent in Patient Care: Greater than 35 minutes (>than 50% of time spent in counselling and/or direct pt care on unit) . Critical Care Time: The high probability of a clinically significant, sudden or life threatening deterioration, as referenced in this documentation, required my full and direct attention, intervention and personal management. The critical care time shown is in addition to time spent performing any reported separately billable procedures and includes the following: [x] Data and vital sign review and interpretation [x ] Patient assessment, examination and intervention [x] Medication orders and management [x] Patient/Family updates as able [x] Care Coordination and Documentation. Critical Care Time (min): 35 Other Attestations: Patient condition has been discussed at length with the patient/family, I have independently reviewed the chart labs imaging/diagnostics/EKG. the goals of care and code status with the patient/family/NOK/legal insurance representative, and documented accordingly. The management has been done according to the current clinical condition with respect to patient goals of care and based on recommendations/guidelines. The patient/family has been informed about the current condition and further plan of care. Agreed with the plan of care and understood without any language barrier. Every effort was made to ensure accuracy of membership correspondent. Any obvious errors or omissions should be clarified with the author of the document. Coding Level of Care Code Critical Care >/= 30 minutes Diagnoses History of CHF (congestive heart failure) Z86.79 Atrial fibrillation with rapid ventricular response I48.91 Physical deconditioning R53.81 HTN (hypertension) I10 Aortic stenosis I35.0 Hyperlipidemia E78.5 Coronary artery disease I25.10 Hypothyroid E03.9 Asthma J45.909 GERD (gastroesophageal reflux disease) K21.9 Acute cystitis N30.00
[2025-06-30] MEDS: FUROsemide 10 mg/mL SDV 4mL 40 MG IVP (21:50)
[2025-06-30 22:42] LABS: Anion Gap 16.7 (5-19); Blood Urea Nitrogen 18 mg/dL (8-23); Calcium 8.4 mg/dL (8.5-10.5); Carbon Dioxide 23 mmol/L (22-29); Chloride 103 mmol/L (98-107); Creatinine Clr Calc Pharmacy 38.6988; Glucose 188 mg/dL (65-115); Osmolality Calculated 295 mOsm/kg (285-295); Potassium 3.7 mmol/L (3.5-5.1); Sodium 139 mmol/L (136-145)
--- NOTE | 2025-06-30 23:03 | PC.NURSE ---
Report called to Viv on [facility], patient transferred at 2203.
[2025-06-30] MEDS: alum-mag-hydroxide-sime 30 mL UDC PO (23:10)
[2025-07-01] VITALS (13 sets, daily range): BP systolic 100–159; BP diastolic 45–76; PULSE 62–104; RESP 22–34; TEMP 36.1–36.8; O2SAT 81–96; BMI 28.3
--- NOTE | 2025-07-01 02:24 | PC.NURSE ---
2200- Patient complaining of indigestion. Dr. Ramon notified and received orders for Malaax 30ml po now then q 4h prn. Since administration patient states her symptoms resolved.
[2025-07-01 03:29] LABS: Hematocrit 24.4 % (36-47); Hemoglobin 8.10 g/dL (11.27-16.99); Mean Corpuscular HGB Conc 33.2 g/dL (30-55); Mean Corpuscular Hemoglobin 32.9 pg (27-33); Mean Corpuscular Volume 99.2 fl (85-98); Nucleated Red Blood Cells % 0.2 %; Platelet Count 207 10^3/cmm (157-399); Red Blood Count 2.46 10^6/uL (3.85-5.65); White Blood Count 11.56 10^3/uL (3.29-11.43)
[2025-07-01 03:51] LABS: Alanine Aminotransferase 10 U/L (0-33); Albumin Level 3.6 g/dL (3.5-5.2); Alkaline Phosphatase 77 U/L (35-105); Anion Gap 14.0 (5-19); Aspartate Amino Transferase 14 U/L (0-32); Blood Urea Nitrogen 18 mg/dL (8-23); Calcium 8.7 mg/dL (8.5-10.5); Carbon Dioxide 27 mmol/L (22-29); Chloride 102 mmol/L (98-107); Creatinine Clr Calc Pharmacy 38.6988; Globulin 1.5 g/dL (1.3-4.6); Glucose 117 mg/dL (65-115); Magnesium 2.3 mg/dL (1.7-2.3); Osmolality Calculated 291 mOsm/kg (285-295); Potassium 4.0 mmol/L (3.5-5.1); Sodium 139 mmol/L (136-145); Total Protein 5.1 g/dL (6.6-8.7)
[2025-07-01 03:58] LABS: Thyroid Stimulating Hormone 3.21 uIU/mL (0.27-4.20)
[2025-07-01] MEDS: dilTIAZem ER (24HR) 180 mg Capsule PO (05:35)
[2025-07-01] MEDS: alum-mag-hydroxide-sime 30 mL UDC PO (05:35)
--- NOTE | 2025-07-01 05:38 | PC.NURSE ---
2330- Report given and patient transferred to CSU. Patient complaining of indigestion. MD notified.
--- NOTE | 2025-07-01 13:55 | P.PN_ITS ---
Subjective 2 Subjective: Feeling okay today. Sitting up eating lunch. Denies palpitations, shortness of breath, chest pain. Vitals/I&O/Wt Last Vital Signs Temp 96.9 F L 07/01/25 12:00 Pulse 68 07/01/25 12:00 Resp 29 H 07/01/25 12:00 BP 108/46 07/01/25 12:00 Pulse Ox 96 07/01/25 12:00 O2 Del Method Nasal Cannula 07/01/25 08:00 O2 Flow Rate 2 07/01/25 08:00 06/30/25 07/01/25 07/01/25 22:59 06:59 14:59 Intake Total 889.63 / 2758.8879 600 / 600 Output Total 300 / 300 150 / 150 Balance 889.63 / 2758.8879 -300 / 2458.8879 450 / 450 Weight last 48 hrs Weight 165 lb 5.547 oz Weight 167 lb 12.348 oz Weight 156 lb 11.979 oz Weight 167 lb 12.348 oz Weight 155 lb 3.287 oz Weight 150 lb Physical Exam 2 Narrative: General: In no acute distress Neck: No jugular venous distention or carotid bruits Heart: Normal S1 and S2 with a regular rate and rhythm, Lungs: Normal respiratory effort with no use of intercostal muscles, clear lungs sounds to auscultation Extremities: No lower extremity edema Neuro: Alert and oriented x 3 Data 07/01/25 03:22 07/01/25 03:22 Micro: Microbiology 06/29/25 20:40 Blood Culture - Preliminary Blood NEGATIVE TO DATE 06/29/25 20:40 Blood Culture - Preliminary Blood NEGATIVE TO DATE Other data: echo 06/30/2025: Normal left ventricular size, systolic function and wall thickness, with no regional wall motion abnormalities. Left ventricular ejection fraction is estimated at 60 %. Grade II/IV diastolic dysfunction, moderately elevated filling pressures. Moderately thickened mitral valve. Moderate mitral annular calcification. Moderate mitral valve regurgitation. Mild tricuspid valve regurgitation. There is no pericardial effusion. A&P Assessment and plan 1. Atrial fibrillation with rapid ventricular response: - converted to sinus rhythm 2. Diastolic congestive heart failure, NYHA class 3: - Appears compensated 3. HTN (hypertension): ? Well-controlled 4. Coronary artery disease: - denies CP 5. Mitral valve regurgitation: - moderate, echo 06/30/2025 Plan: - please ambulate patient - if ambulating well, can discharge on: - metoprolol to tartrate 37.5mg bid - diltiazem 24 hour release 180mg daily - Eliquis 5 mg twice daily - Furosemide 40 mg daily - follow up in our office in 2 weeks PDMP PDMP Reviewed: Not Reviewed Attestations 2 Medical Necessity Statement*: discharging Coding Level of Care Code 29126 Diagnoses Atrial fibrillation with rapid ventricular response I48.91 Diastolic congestive heart failure, NYHA class 3 I50.30 HTN (hypertension) I10 Coronary artery disease I25.10 Mitral valve regurgitation I34.0
--- NOTE | 2025-07-01 16:50 | P.PN_ITS ---
Subjective 2 Subjective: the patient was seen in the morning, and doing much better however desaturates when walking. home O2 eval requested. pt is able to ambulate and is doing better Vitals/I&O/Wt Last Vital Signs Temp 96.9 F L 07/01/25 12:00 Pulse 74 07/01/25 14:00 Resp 26 H 07/01/25 14:00 BP 108/46 07/01/25 12:00 Pulse Ox 86 L 07/01/25 16:35 O2 Del Method Nasal Cannula 07/01/25 14:00 O2 Flow Rate 4 07/01/25 16:35 07/01/25 07/01/25 07/01/25 06:59 14:59 22:59 Intake Total 600 / 600 Output Total 300 / 300 150 / 150 Balance -300 / 2458.8879 450 / 450 Weight last 48 hrs Weight 75 kg Weight 76.1 kg Weight 71.1 kg Weight 76.1 kg Weight 70.4 kg Weight 68.039 kg Physical Exam 2 Narrative: General: Alert and oriented to self and the place, lying comfortably without any distress and able to speak in full sentences on 2 L NC HEENT: Normocephalic, atraumatic, grossly unremarkable exam Cardio: Irregularly irregular rhythm with tachy, normal S1-S2 however cannot appreciate the murmurs due to tachycardia, JVP normal Respiratory: Patient having mild bibasal inspiratory crackles more or less fine in nature better than yesterday, no wheezes or stridor GI: Abdomen soft, nontender, nondistended, normoactive bowel sounds present all 4 quadrants, Neuro: Gross neurological examination unremarkable Behavior: Appropriate and cooperative Extremities: Adequate palpable pulses, mild pallor positive, bilateral pedal edema Data 07/01/25 03:22 07/01/25 03:22 Micro: Microbiology 06/29/25 20:40 Blood Culture - Preliminary Blood NEGATIVE TO DATE 06/29/25 20:40 Blood Culture - Preliminary Blood NEGATIVE TO DATE A&P Assessment and plan 1. History of CHF (congestive heart failure): Patient presented with shortness of breath and found to be in atrial fibrillation with RVR and troponin leak, and was started on amnio drip and heparin infusion, that was discontinued after cardiology recommendation and based on patient vitals, sinus rhythm with further review of labs proBNP around 800s, Cardiology on board recommended for diltiazem 180 mg daily To continue Eliquis 5 twice daily To continue metoprolol 37.5 mg twice daily Cardiology further explained that likely the troponin leak is secondary to demand ischemia. Echocardiogram results showed no regional wall motion abnormalities 2. Atrial fibrillation with rapid ventricular response: Continue Eliquis 5 mg twice daily Diltiazem 180 daily and metoprolol 37.5 mg twice daily 3. Physical deconditioning: OT PT evaluation and further recommendation to follow 4. Primary hypertension: Patient blood pressure currently stable, Continue to monitor 5. Nonrheumatic aortic valve stenosis: Currently stable no chest pain Echo showed normal ventricular systolic function with ejection fraction of 60%. Aortic valve seems normal in structure with moderate mitral valve regurg, for full report refer to the echo results 6. Mixed hyperlipidemia: Continue on omega-3/fish oil supplements, no statins found in home medication Continue home medication 7. Coronary artery disease: Patient following with the cardiology as outpatient and managed accordingly Referral as outpatient and follow the inpatient recommendations 8. Hypothyroidism, unspecified type: Continue home dose levothyroxine 100 mcg daily 9. Mild intermittent asthma without complication: Continue ipratropium and levalbuterol scheduled every 4 hourly 10. GERD (gastroesophageal reflux disease): Continue PPI and GI prophylaxis 11. Acute cystitis: Patient had mild leukocytosis, no fever or any signs of infection blood cultures till date negative Likely related to stress No indication for antibiotics or any steroids. Continue to monitor PDMP PDMP Reviewed: Not Reviewed Attestations 2 Medical Necessity Statement*: Patient will stay overnight for further home O2 evaluation and optimization of her heart failure medications Time Spent in Patient Care: 16 - 35 minutes (>than 50% of time sp ent in counselling and/or direct pt care on unit) . Other Attestations: Patient condition has been discussed at length with the patient/family, I have independently reviewed the chart labs imaging/diagnostics/EKG. the goals of care and code status with the patient/family/NOK/legal financial representative, and documented accordingly. The management has been done according to the current clinical condition with respect to patient goals of care and based on recommendations/guidelines. The patient/family has been informed about the current condition and further plan of care. Agreed with the plan of care and understood without any language barrier. Every effort was made to ensure accuracy of lead security officer. Any obvious errors or omissions should be clarified with the author of the document. Coding Level of Care Code 17177 Diagnoses History of CHF (congestive heart failure) Z86.79 Atrial fibrillation with rapid ventricular response I48.91 Physical deconditioning R53.81 Primary hypertension I10 Hypertension type: primary hypertension Nonrheumatic aortic valve stenosis I35.0 Cardiac valve disease etiology: nonrheumatic Mixed hyperlipidemia E78.2 Hyperlipidemia type: mixed hyperlipidemia Coronary artery disease I25.10 Hypothyroidism, unspecified type E03.9 Hypothyroidism type: unspecified Mild intermittent asthma without complication J45.20 Asthma severity: mild Asthma persistence: intermittent Asthma complication type: uncomplicated GERD (gastroesophageal reflux disease) K21.9 Acute cystitis N30.00
[2025-07-01] MEDS: dilTIAZem 5 mg/mL SDV 5 mL 10 MG IVP ×2 (20:35→22:35)
[2025-07-01 20:47] LABS: ABG PCO2 43.0 mmHg (35-45); ABG PH Result 7.47 (7.35-7.45); Arterial Blood Gas Hematocrit 31.4 % (37-47); Blood Gas LPM 6.0 %; Blood Gas Sample Type Venous; Carboxyhemoglobin 1.5 %THgb (0.4-20.1); Glucose Level-ABG 162.0 mg/dL (70-115); HCO3 ABG 31.1 mmol/L (22-26); Ionized Calcium Level - ABG 1.1 mmol/L (1.1-1.4); Methemoglobin 0.9 % (0.4-1.5); Oxygen Saturation ABG 42.8; PO2 ABG 24.5 mmHg (80.0-100.0); Potassium Level - ABG 4.2 mmol/L (3.5-5.0); Sodium Level - ABG 137.0 mmol/L (131-143)
[2025-07-01] MEDS: cefTRIAXone 2,000 mg SDV 2000 MG IVP (21:19)
[2025-07-01 21:50] LABS: ABG PCO2 38.9 mmHg (35-45); ABG PH Result 7.50 (7.35-7.45); Alveolar-Arterial Oxygen Gradi 6.4 mmHg (5-10); Arterial Blood Gas Hematocrit 29.6 % (37-47); Blood Gas Allen Test Pos; Blood Gas LPM 6.0 %; Blood Gas Sample Site Radial, left; Blood Gas Sample Type Arterial; Carboxyhemoglobin 1.3 %THgb (0.4-20.1); Glucose Level-ABG 157.0 mg/dL (70-115); HCO3 ABG 30.5 mmol/L (22-26); Ionized Calcium Level - ABG 1.1 mmol/L (1.1-1.4); Methemoglobin 1.1 % (0.4-1.5); Oxygen Saturation ABG 89.8; PO2 ABG 53.4 mmHg (80.0-100.0); Potassium Level - ABG 3.8 mmol/L (3.5-5.0); Sodium Level - ABG 137.0 mmol/L (131-143)
[2025-07-01] MEDS: AMIODARONE HCL/D5W 900 MG/500 ML BAG 33.33 MG IV (22:32)
[2025-07-01] MEDS: LORazepam 1 MG/0.5 ML injection 0.5 MG IVP (22:37)
[2025-07-01] MEDS: amiodarone 150 MG/100 ML PREMIX 400 MG IV (22:53)
--- NOTE | 2025-07-01 22:53 | XRR_ITS ---
PROCEDURE INFORMATION: Exam: XR Chest Exam date and time: 07/01/2025 11:29 PM Age: 84 years old Clinical indication: Shortness of breath; Additional info: Increased o2 demand TECHNIQUE: Imaging protocol: Radiologic exam of the chest. Views: 1 view. COMPARISON: CR (CHEST, ) 06/29/2025 6:42 PM FINDINGS: Lungs: There are peripheral reticular opacities at each lung base. Pulmonary venous distension. Pleural spaces: Bilateral pleural effusions are noted. Heart/Mediastinum: Cardiac silhouette is partly obscured by adjacent pleural fluid but the heart does not appear substantially enlarged. Vasculature: Tortuous aorta without dilation. Bones/joints: Subjective bony demineralization. XR/XR chest 1V portable [id number] IMPRESSION: New bilateral pleural effusions, pulmonary venous distension, and basilar interstitial opacities suggest heart failure. Atypical pneumonia is less likely but not excluded.
--- NOTE | 2025-07-01 23:08 | CTR_ITS ---
PROCEDURE INFORMATION: Exam: CTA Chest With Contrast Exam date and time: 07/01/2025 11:51 PM Age: 84 years old Clinical indication: Cough and shortness of breath; Cough with SOB, hypoxia, and hypoxemia. History of emphysema. ; Additional info: Pulse oximetry very low significant hypoxemia po2 53, facial color is lyudmila, cyanotic TECHNIQUE: Imaging protocol: Computed tomographic angiography of the chest with contrast. Exam focused on the arteries. 3D rendering (Not supervised by radiologist): MIP and/or 3D reconstructed images were created by the technologist. Radiation optimization: All CT scans at this facility use at least one of these dose optimization techniques: automated exposure control; mA and/or kV adjustment per patient size (includes targeted exams where dose is matched to clinical indication); or iterative reconstruction. Contrast material: OMNI 350; Contrast volume: 71 ml; Contrast route: INTRAVENOUS (IV); COMPARISON: CR (CHEST, ) 07/01/2025 11:29 PM RADIATION DOSE METRICS: Total DLP (mGy-cm): 401.53 FINDINGS: Pulmonary arteries: Normal caliber pulmonary artery tree without visible filling defect. Aorta: There is insufficient contrast in the aortic lumen to exclude acute dissection or penetrating ulcer. Normal caliber thoracic aorta with mild calcific plaque. Lungs: There is diffuse bronchial wall thickening likely reflecting edema in the bronchovascular interstitium. Septal lines are noted in the right lung. There is compressive atelectasis in each lung. Large volume retained secretions are noted in the tracheobronchial tree with multifocal bronchial occlusion. Pleural spaces: Moderate non loculated water density bilateral pleural effusions. No pneumothorax on either side. Heart: Moderate cardiomegaly. Moderate mitral annulus calcification. Distended pulmonary veins with moderate distension of the left atrium. Lymph nodes: There is diffuse mediastinal adenopathy. Career Agent precarinal node measures 1.3 cm short axis diameter. Subcarinal node measures 1.9 cm short axis diameter. Several of the enlarged nodes demonstrate punctate calcifications. No axillary or supraclavicular adenopathy. Bones/joints: Pronounced thoracic kyphosis with multilevel ankylosis. Chronic appearing compression deformity noted in the lower thoracic spine. Soft tissues: Unremarkable. CT/CT angio chest PE protcl [id number] IMPRESSION: 1. No findings of acute pulmonary embolism. There is insufficient contrast in the aortic lumen to exclude dissection, but no displaced calcium is seen. 2. Findings are most compelling for heart failure with cardiomegaly, bilateral water density pleural effusions, and sparse interstitial edema. There is considerable compressive atelectasis in each lung. 3. Moderate mediastinal adenopathy. Several of the nodes are centrally calcified, significance unclear.
[2025-07-01] MEDS: iohexol 350 mg/mL 500 mL Btl (per mL) IV (23:56)
[2025-07-02] VITALS (29 sets, daily range): BP systolic 105–145; BP diastolic 43–107; PULSE 59–109; RESP 16–30; TEMP 36.4–36.8; O2SAT 88–99
--- NOTE | 2025-07-02 00:19 | PC.NURSE ---
At shift change patient complaining of pain pointing to her chest. Asked patient if it was indigestion and she stated yes. This nurse went to get morphine and maalox to give patient. When this nurse went back in patient was crying saying she was in pain the stated I need to get to the hospital. I need to go up stairs to my doctor . Educated patient that she is in the hospital. At this time patient is becoming agitated saying she need to get out and get help. At 2005 attempted to obtain EKG due to patient complaining of chest pain. Also attempted to give PRN morphine. Patient yelling at nurse Stay away from me. I don't want any meds, I don't want any needles. . Patient having new confusion so Dr. Ramon notified and at bedside. Received orders for ABG and 10 mg cardizem due to patient converting back into AF in the 140-150. Around 2100 RT attempting to get ABG but patient is becoming aggresive. Dr. Ramon notified and is at bedside going over chart. Received orders for o.5 mg ativan and 2000 mg IV rocephin Q24 hr. Son yordan was called and notified of situation. Patients family showed up and stayed for a few hours. An hour after administration of initial cardizem patient HR was still in 140-150. Dr. Ramon notified and received orders for 10 mg cardizem IVP, amio bolus, and amio gtt. MD at bedside to discuss labs, respiratory status, increased O2 needs, and mentation with family. MD to place additional orders. UA obtained. Patient was taken to CT to assess for PE due to increased O2 demand. shortly after returning from CT scanner patient became agitated again. Patient pulled out IV and kept pulling of O2 mask. Dr. Ramon notified and received orders for 1 mg ativan. supervisor compounding and finishing notified and sitter placed at bedside.
[2025-07-02 00:24] LABS: Glucose Urine UA Negative (Normal); Nitrate Urine Negative (Negative); Specific Gravity, Urine 1.008 (1.005-1.030)
[2025-07-02] MEDS: FUROsemide 10 mg/mL SDV 4mL 40 MG IVP ×3 (00:53→22:25)
[2025-07-02] MEDS: morphine 4 mg/mL SDV 1 mL 2 MG IVP (00:53)
[2025-07-02] MEDS: LORazepam 1 MG/0.5 ML injection IVP (01:06)
--- NOTE | 2025-07-02 01:23 | PC.NURSE ---
PRN NIH done to further investigate change in mentation. Patient was complaining of arms hurting and unable to keep bilateral arms up long enough.
--- NOTE | 2025-07-02 02:37 | PC.NURSE ---
Addendum entered by Evelina Champion RN 07/02/25 02:44: I, Shazia Champion epic prelude analyst personally witnessed Yamil Montenegro RN waste 1.5 mg of Ativan into the white drug buster bottle. Original Note: When attempting to withdrawn the 0.5 mg ativan the pyxis was displaying a greyed out order. 2mg/ml ativan was then overrode in pyxis. 0.25 ml of ativan was drawn up and the rest wasted to equal the correct dosage of 0.5 mg. When primary nurse and head of housekeeping attempted to waste ativan pyxis displayed Error: Unable to waste more than remaining amount . supervisor rubber covering to call pharmacy in AM. supervisor rubber covering witness waste in white bottle and correct dosage given to patient.
--- NOTE | 2025-07-02 02:43 | PC.NURSE ---
When attempting to withdrawn the 1 mg ativan the pyxis, it displayed again a greyed out order. Another dose of 2mg/ml ativan vial was then overrode in pyxis. 1 mg which is 0.5 ml was drawn up and the remaining 0.5 mg was wasted in the med room witnessed by hide house supervisor. When primary nurse and housekeeper caregiver attempted to waste ativan in the pyxis it displayed Error: Unable to waste more than remaining amount . Pharmacy to be contacted in AM.
[2025-07-02 03:41] LABS: Hematocrit 27.5 % (36-47); Hemoglobin 9.20 g/dL (11.27-16.99); Mean Corpuscular HGB Conc 33.5 g/dL (30-55); Mean Corpuscular Hemoglobin 34.1 pg (27-33); Mean Corpuscular Volume 101.9 fl (85-98); Nucleated Red Blood Cells % 0 %; Platelet Count 219 10^3/cmm (157-399); Red Blood Count 2.70 10^6/uL (3.85-5.65); White Blood Count 16.94 10^3/uL (3.29-11.43)
[2025-07-02 03:57] LABS: Alanine Aminotransferase 13 U/L (0-33); Albumin Level 3.6 g/dL (3.5-5.2); Alkaline Phosphatase 86 U/L (35-105); Anion Gap 14.0 (5-19); Aspartate Amino Transferase 17 U/L (0-32); Blood Urea Nitrogen 22 mg/dL (8-23); Calcium 8.5 mg/dL (8.5-10.5); Carbon Dioxide 31 mmol/L (22-29); Chloride 94 mmol/L (98-107); Creatinine Clr Calc Pharmacy 32.2068; Globulin 2.3 g/dL (1.3-4.6); Glucose 137 mg/dL (65-115); Osmolality Calculated 285 mOsm/kg (285-295); Potassium 4.0 mmol/L (3.5-5.1); Sodium 135 mmol/L (136-145); Total Protein 5.9 g/dL (6.6-8.7)
--- NOTE | 2025-07-02 06:02 | PC.NURSE ---
Patient very lethargic opening eye briefly. At this time patient only stated first name then went back to bed. Dr. Ramon at bedside to check on patient. At this time patient is not awake enough to safely take AM pills. Dr. Ramon stated to give pills at later time around [id number] Gilmore Let this patient sleep .
--- NOTE | 2025-07-02 06:17 | PC.NURSE ---
Daughter christian called and updated.
--- NOTE | 2025-07-02 06:38 | PM.MISC ---
Miscellaneous Note Purpose of Documentation: Recurrent atrial fibrillation with rapid ventricular rate in the 140s to 150s with acute medical delirium and acral cyanosis with saturation in the 70s Note: Patient had an event that needed emergent care after multiple avenues to manage atrial fibrillation rapid ventricular rate with ill effect on the patient I had to start the patient on amiodarone drip after a trial of 2 separate doses of 10 mg IV Cardizem failure. Because of so much cyanosis chest x-ray obtained and showed new bilateral pleural effusion I follow through with getting a CTA I gave patient IV Lasix 40 mg one-time dose I have left a voice note for the cardiology for this patient this patient is not in any shape to be discharged today need further care. Amiodarone had not had good effect. This had to be handled very cautiously and allow patient to be able to settle down with medical management. Patient did have UTI last dose of antibiotics was the day before I initiated antibiotics on her yesterday so she had not missed anything in that regard. Patient did get some Ativan last night because she was ripping things off and that was able to keep her calm while the family were at their at this time she is restful must continue to treat and optimize.
--- NOTE | 2025-07-02 07:25 | P.PN_ITS ---
Subjective 2 Subjective: I was called on by Dr. Baldwin regarding Ms. Pappas who went into A-fib with rapid ventricular response acute shortness of breath requiring more than 9 L I came to the hospital and examined the patient by bedside. Vitals/I&O/Wt Last Vital Signs Temp 97.5 F L 07/02/25 03:46 Pulse 68 07/02/25 03:46 Resp 22 H 07/02/25 03:46 BP 118/51 07/02/25 03:46 Pulse Ox 95 07/02/25 03:54 O2 Del Method Nasal Cannula 07/02/25 03:54 O2 Flow Rate 4 07/02/25 03:54 07/01/25 07/02/25 07/02/25 22:59 05:59 14:59 Intake Total 240 / 840 383.305 / 940 Output Total 300 / 450 Balance -60 / 390 383.305 / 490 Weight last 48 hrs Weight 162 lb 0.636 oz Weight 165 lb 5.547 oz Weight 167 lb 12.348 oz Physical Exam 2 Const: OTHER: GENERAL: Patient is alert, awake and oriented x3. Patient is sleepy as given Ativan for agitation HEART: Regular S1 and S2. No murmur, rub or gallop. LUNGS: Inspiratory mid to basal crackles with dullness at the base bilaterally. CENTRAL NERVOUS SYSTEM: Grossly nonfocal. EXTREMITIES: Lower extremities with out edema bilaterally. Data 07/02/25 03:16 07/02/25 03:16 A&P Assessment and plan 1. Atrial fibrillation with rapid ventricular response: - converted to sinus rhythm 2. Chronic diastolic congestive heart failure, NYHA class 3: - Appears compensated 3. Primary hypertension: ? Well-controlled 4. Coronary artery disease: - denies CP 5. Mitral valve regurgitation: - moderate, echo 06/30/2025 6. Pulmonary edema: 7. Pleural cavity effusion: Plan: Patient was given IV Lasix 40 mg once, will increase it to 40 mg IV twice daily Beach's catheter as patient is incontinent to measure and in output Hold metoprolol and Cardizem Patient was started on amiodarone IV converted to sinus rhythm and become bradycardic therefore it was stopped Once she will able to tolerate we will switch her to p.o. 200 mg of Amio since patient is going in and out of atrial fibrillation and will need rhythm control CTA was performed in the morning by our hospitalist colleague which ruled out pulmonary embolism but establish moderate bilateral pleural effusions with pulm edema. Plan to continue IV diuresis Oxygen requirement has improved to 4 L If effusions does not resolve may consider tapping Further plan will be devised as per progress of the patient. PDMP PDMP Reviewed: Not Reviewed Attestations 2 Medical Necessity Statement*: Patient require continuation of hospitalization for above defined care Coding Level of Care Code Acute Code for Chg Fwd Diagnoses Atrial fibrillation with rapid ventricular response I48.91 Chronic diastolic congestive heart failure, NYHA class 3 I50.32 Congestive heart failure chronicity: chronic Primary hypertension I10 Hypertension type: primary hypertension Coronary artery disease I25.10 Mitral valve regurgitation I34.0 Pulmonary edema J81.1 Pleural cavity effusion J90
--- NOTE | 2025-07-02 07:43 | PC.NURSE ---
Dr. Cordero at bedside with Dr. Ramon. Received orders to stop cardizem and metoprolol. When patient is more awake with restart her on PO amiodarone. Also received orders for lasix 40 mg IVP BID. Amiodarone gtt paused due to low HR.
[2025-07-02] MEDS: piperacillin-tazobactam 3.375 GM in sodium chloride 0.9% (plus) 50 ML IV ×2 (10:12→16:47)
--- NOTE | 2025-07-02 13:21 | P.PN_ITS ---
Subjective 2 Subjective: Overnight the patient had an episode for A fib alongwith desaturation started on amio and received diuresis, started on ceftriaxone CT chest was done and showed pleural effusions Vitals/I&O/Wt Last Vital Signs Temp 98.0 F 07/02/25 11:40 Pulse 71 07/02/25 11:40 Resp 21 H 07/02/25 11:40 BP 123/64 07/02/25 11:40 Pulse Ox 97 07/02/25 11:40 O2 Del Method Aerosol Mask 07/02/25 11:40 O2 Flow Rate 4 07/02/25 08:00 07/01/25 07/02/25 07/02/25 22:59 05:59 14:59 Intake Total 240 / 840 383.305 / 940 16.392 / 16.392 Output Total 300 / 450 500 / 500 Balance -60 / 390 383.305 / 490 -483.608 / -483.608 Weight last 48 hrs Weight 73.5 kg Weight 75 kg Weight 76.1 kg Physical Exam 2 Narrative: General: Alert and oriented to self and the place however was feeling tired in the morning, lying comfortably without any distress and able to speak in full sentences on 3 L NC HEENT: Normocephalic, atraumatic, grossly unremarkable exam Cardio: Irregularly irregular rhythm with tachy, normal S1-S2 however cannot appreciate the murmurs due to tachycardia, JVP normal Respiratory: Patient having basal inspiratory crackles more than yesterday with harsh breathing conducting sounds, no wheezes or stridor GI: Abdomen soft, nontender, nondistended, normoactive bowel sounds present all 4 quadrants, Neuro: Gross neurological examination unremarkable Behavior: Appropriate and cooperative Extremities: Adequate palpable pulses, mild pallor positive, bilateral pedal edema Data 07/02/25 03:16 07/02/25 03:16 Micro: Microbiology 07/02/25 08:43 Blood Culture - Preliminary Blood SPECIMEN COLLECTED 07/02/25 08:42 Blood Culture - Preliminary Blood SPECIMEN COLLECTED A&P Assessment and plan 1. History of CHF (congestive heart failure): Patient presented with shortness of breath and found to be in atrial fibrillation with RVR and troponin leak, and was started on amnio drip and heparin infusion, that was discontinued after cardiology recommendation, high pro BNP overnight had Afib with RVR and desaturation with high likely of fluid overload on CT chest Cardiology on board and DR Palmer suggested verbally over the phone, to start the pt on amiodaron 400mg bid orally, and hold infusion to avoid fluid overload Hold metoprolol and diltiazem at the moment lasix once dose at 3pm today and later to re-assess tomorrow for IV vs orally To continue Eliquis 5 twice daily Cardiology further explained that likely the troponin leak is secondary to demand ischemia. Echocardiogram results showed no regional wall motion abnormalities 2. Atrial fibrillation with rapid ventricular response: Continue Eliquis 5 mg twice daily hold BB and cardiazem amio 400mg bid orally as per Dr Palmer since the patient recurrent At fib with RVR and had twice amio drip started after holding. 3. Physical deconditioning: OT PT evaluation and further recommendation to follow 4. Primary hypertension: Patient blood pressure currently stable, Continue to monitor 5. Nonrheumatic aortic valve stenosis: Currently stable no chest pain Echo showed normal ventricular systolic function with ejection fraction of 60%. Aortic valve seems normal in structure with moderate mitral valve regurg, for full report refer to the echo results 6. Mixed hyperlipidemia: Continue on omega-3/fish oil supplements, no statins found in home medication Continue home medication 7. Coronary artery disease: Patient following with the cardiology as outpatient and managed accordingly Referral as outpatient and follow the inpatient recommendations 8. Hypothyroidism, unspecified type: Continue home dose levothyroxine 100 mcg daily 9. Mild intermittent asthma without complication: Continue ipratropium and levalbuterol scheduled every 4 hourly 10. GERD (gastroesophageal reflux disease): Continue PPI and GI prophylaxis 11. Acute cystitis: Patient had mild leukocytosis, no fever or any signs of infection blood cultures till date negative Likely related to stress No indication for antibiotics or any steroids. Continue to monitor 12. Leukocytosis: overnight patient had At Fib with RVR and had increased WBCS count, could be stress vs sepsis given the benefit of doubt to proceed with sepsis protocol management blood and urine cultures zosyn guided by the pharmacist for dosing FU cultures maintain MAP >65mmhg maintain normal O2 sats and normoglycemia adequate hydration however qvoid over hydration that may aggravate congestive heart failure. maintain I/O 13. Sepsis: overnight patient had At Fib with RVR and had increased WBCS count, could be stress vs sepsis blood and urine cultures zosyn guided by the pharmacist for dosing FU cultures maintain MAP >65mmhg adequate hydration however qvoid over hydration that may aggravate congestive heart failure. maintain I/O PDMP PDMP Reviewed: Not Reviewed Attestations 2 Medical Necessity Statement*: Patient will stay overnight for further home O2 evaluation and optimization of her heart failure medications and possible sepsis? Time Spent in Patient Care: Greater than 35 minutes (>than 50% of time spent in counselling and/or direct pt care on unit) . Other Attestations: Patient condition has been discussed at length with the patient/family, I have independently reviewed the chart labs imaging/diagnostics/EKG. the goals of care and code status with the patient/family/NOK/legal personal service representative, and documented accordingly. The management has been done according to the current clinical condition with respect to patient goals of care and based on recommendations/guidelines. The patient/family has been informed about the current condition and further plan of care. Agreed with the plan of care and understood without any language barrier. Every effort was made to ensure accuracy of turf and grounds supervisor. Any obvious errors or omissions should be clarified with the author of the document. Coding Level of Care Code 28360 Diagnoses History of CHF (congestive heart failure) Z86.79 Atrial fibrillation with rapid ventricular response I48.91 Physical deconditioning R53.81 Primary hypertension I10 Hypertension type: primary hypertension Nonrheumatic aortic valve stenosis I35.0 Cardiac valve disease etiology: nonrheumatic Mixed hyperlipidemia E78.2 Hyperlipidemia type: mixed hyperlipidemia Coronary artery disease I25.10 Hypothyroidism, unspecified type E03.9 Hypothyroidism type: unspecified Mild intermittent asthma without complication J45.20 Asthma complication type: uncomplicated Asthma persistence: intermittent Asthma severity: mild GERD (gastroesophageal reflux disease) K21.9 Acute cystitis N30.00 Leukocytosis D72.829 Sepsis A41.9
--- NOTE | 2025-07-02 15:45 | PC.NURSE ---
telegraphic typewriter operator chief called Dr Cordero with update on patient's output, which has been 800 up until the time this is written. Blood pressure is 118/46, potassium is 4.0, and patient is still on 4L. Dr Cordero gave verbal order for 40mg IVP Lasix and 20mg po potassium and to have the night nurse call him with vitals and output tonight.
--- NOTE | 2025-07-02 21:38 | PC.NURSE ---
Updated Dr. Cordero regarding u.o of 1000 and vitals 114/42 HR 76 96% on 4 L. Also notified that she has fine crackles still. Received orders for 40 mg lasix IVP now.
--- NOTE | 2025-07-02 23:38 | PC.NURSE ---
Dr. Cordero at nurses station to discuss rhythm. At this time telemery displays going back into AF. Patient then started becoming tachy into the 130-140. Received orders to restart amio gtt and potassium lab.
[2025-07-02] MEDS: AMIODARONE HCL/D5W 900 MG/500 ML BAG 33.33 MG IV (23:51)
[2025-07-03] VITALS (27 sets, daily range): BP systolic 87–125; BP diastolic 48–86; PULSE 69–144; RESP 19–28; TEMP 35.9–37.2; O2SAT 91–99
[2025-07-03] MEDS: piperacillin-tazobactam 3.375 GM in sodium chloride 0.9% (plus) 50 ML IV ×3 (00:08→17:01)
[2025-07-03 00:14] LABS: Potassium 3.9 mmol/L (3.5-5.1)
--- NOTE | 2025-07-03 02:43 | PC.NURSE ---
0020- amio gtt started at 2350 patient HR is still 120-140's. Current BP 96/61. Notified Dr. Ramon and received orders to continue care. 0139- Amio gtt has been on for over an hour and patient HR is still 120-140's. SBP ranges from 90-120 but current BP is 113/86. Notified Dr. Ramon and received orders to give cardizem 10 mg IVP once. before admin cardizem push BP was retaken left arm read 95/50 and right arm 88/58. Dr. Ramon notifed and received orders to hold cardizem, let patient rest. Received additional orders that in an hour if SBP is 120 or map is 65-70 can give the IVP of cardizem.
[2025-07-03 03:12] LABS: Hematocrit 26.9 % (36-47); Hemoglobin 9.00 g/dL (11.27-16.99); Mean Corpuscular HGB Conc 33.5 g/dL (30-55); Mean Corpuscular Hemoglobin 33.5 pg (27-33); Mean Corpuscular Volume 100.0 fl (85-98); Nucleated Red Blood Cells % 0 %; Platelet Count 182 10^3/cmm (157-399); Red Blood Count 2.69 10^6/uL (3.85-5.65); White Blood Count 8.96 10^3/uL (3.29-11.43)
[2025-07-03 03:38] LABS: Alanine Aminotransferase 13 U/L (0-33); Albumin Level 3.4 g/dL (3.5-5.2); Alkaline Phosphatase 80 U/L (35-105); Anion Gap 12.6 (5-19); Aspartate Amino Transferase 14 U/L (0-32); Blood Urea Nitrogen 18 mg/dL (8-23); Calcium 8.7 mg/dL (8.5-10.5); Carbon Dioxide 34 mmol/L (22-29); Chloride 93 mmol/L (98-107); Creatinine Clr Calc Pharmacy 32.2068; Globulin 2.4 g/dL (1.3-4.6); Glucose 111 mg/dL (65-115); Magnesium 1.8 mg/dL (1.7-2.3); Osmolality Calculated 285 mOsm/kg (285-295); Potassium 3.6 mmol/L (3.5-5.1); Sodium 136 mmol/L (136-145); Total Protein 5.8 g/dL (6.6-8.7)
--- NOTE | 2025-07-03 06:35 | PC.NURSE ---
0455- updated Dr. angel regarding hr of 120-140 with SBP from 80-100. Dr. stanley rmay with holding cardizem, continuing amio, and holding further lasix.
--- NOTE | 2025-07-03 10:52 | P.PN_ITS ---
<Statement entered by Ed Palmer MD - 07/03/25 18:11> Patient was evaluated and cared for in conjunction with an advanced practice practitioner. I personally saw the patient and reviewed the chart and all pertinent data. I discussed the patient in detail with the advanced practice practitioner. Please see their note for assessment and plan of care for the patient. Agree with changing IV amio to oral, but at dose of 200mg bid for 2 weeks, then decrease to 200mg daily Repeat CXR to reeval pleural effusions lasix 40mg po daily Will need to resume Eliquis once blood no longer in sputum - hopefully in next couple of days Subjective 2 Subjective: Noted some bloody sputum today. Remains in sinus rhythm, on amiodarone infusion 0.5mg/min. Creatinine 1.3 today, seems to be near baseline. Breathing feels better. She diuresed over 3L in the last 24 hours. Vitals/I&O/Wt Last Vital Signs Temp 96.6 F L 07/03/25 07:20 Pulse 79 07/03/25 08:00 Resp 26 H 07/03/25 08:00 BP 120/52 07/03/25 07:20 Pulse Ox 98 07/03/25 08:00 O2 Del Method Nasal Cannula 07/03/25 08:00 O2 Flow Rate 2 07/03/25 08:00 07/02/25 07/03/25 07/03/25 22:59 06:59 14:59 Intake Total 27.708 / 1180.747 966.647 / 1180.747 240 / 240 Output Total 1650 / 4275 2125 / 4275 Balance -1622.292 / -3094.253 -1158.353 / -3094.253 240 / 240 Weight last 48 hrs Weight 164 lb 3.91 oz Weight 162 lb 0.636 oz Physical Exam 2 Const: COMMON NORMALS: no acute distress and patient oriented x3 GENERAL APPEARANCE: cooperative and comfortable ORIENTATION/CONSCIOUSNESS: Yes awake, Yes oriented to person, Yes oriented to place and Yes oriented to time Chest: COMMONS NORMALS: normal inspection of the chest and normal palpation of entire chest wall CHEST: Yes Symmetrical chest wall rise Resp: COMMON NORMALS: normal respiratory effort, No retractions and No use of accessory muscles EFFORT & INSPECTION: Yes symmetric chest movement A USCULTATION: crackles (bases) Laterality: bilateral and posterior Cardio: COMMON NORMALS: regular rate, regular rhythm, S1 normal heart sound present, S2 normal heart sound present, No gallops present (Cardio), No clicks present (Cardio), No murmurs present (Cardio) and No rub (Cardio) RATE: r egular rate RHYTHM: regular rhythm HEART SOUNDS: S1 normal heart sound present and S2 normal heart sound present PERIPHERAL PULSES: radial pulses present Extremity: COMMON NORMALS: no pedal edema Neuro: COMMON NORMALS: patient oriented x3 and moves all extremities S ENSORIUM/ORIENTATION: Yes oriented to person, Yes oriented to place and Yes oriented to time Data 07/03/25 02:03 07/03/25 02:03 Micro: Microbiology 07/02/25 08:34 Urine Culture - Preliminary Urine Catheterized 07/02/25 08:42 Blood Culture - Preliminary Blood NEGATIVE TO DATE 07/02/25 08:43 Blood Culture - Preliminary Blood NEGATIVE TO DATE A&P Assessment and plan 1. Atrial fibrillation with rapid ventricular response: 2. Diastolic congestive heart failure, NYHA class 3: 3. HTN (hypertension): 4. Coronary artery disease: 5. Mitral valve regurgitation: 6. Pulmonary edema: 7. Pleural cavity effusion: Plan: Can switch to oral amiodarone 200mg daily tomorrow, since she is in sinus rhythm with good heart rates. Agree with restarting metoprolol 12.5mg BID and monitor telemetry for bradycardia. Holding Eliquis due to bloody sputum. Lasix dosing 40mg daily. PDMP PDMP Reviewed: Not Reviewed Attestations 2 Medical Necessity Statement*: atrial fibrillation with RVR Coding Level of Care Code Acute Code for [facility] Fwd Diagnoses Atrial fibrillation with rapid ventricular response I48.91 Diastolic congestive heart failure, NYHA class 3 I50.30 HTN (hypertension) I10 Coronary artery disease I25.10 Mitral valve regurgitation I34.0 Pulmonary edema J81.1 Pleural cavity effusion J90
--- NOTE | 2025-07-03 11:44 | PC.SOCIAL ---
IMM Updated Updated pt on IMM. No questions voiced. Provided pt a copy. Initialed, dated, & timed a copy & placed in chart.
--- NOTE | 2025-07-03 14:22 | P.PN_ITS ---
Subjective 2 Subjective: Creatinine at 1.3 today. Patient reports she is breathing better, however had streaky hemoptysis this morning. Medications: Reviewed: Yes Vitals/I&O/Wt Last Vital Signs Temp 97.8 F 07/03/25 11:30 Pulse 77 07/03/25 11:30 Resp 22 H 07/03/25 11:30 BP 125/56 07/03/25 11:30 Pulse Ox 91 07/03/25 11:30 O2 Del Method Nasal Cannula 07/03/25 11:30 O2 Flow Rate 2 07/03/25 08:00 07/02/25 07/03/25 07/03/25 22:59 06:59 14:59 Intake Total 27.708 / 214.100 966.647 / 1180.747 530 / 530 Output Total 1650 / 2150 2125 / 4275 600 / 600 Balance -1622.292 / -1935.900 -1158.353 / -3094.253 -70 / -70 Weight last 48 hrs Weight 74.5 kg Weight 73.5 kg Physical Exam 2 Narrative: General: No acute distress, AO x3 HEENT: PERRLA, pupils bilaterally equal and reactive, pallors not present Chest: Crackles to auscultation bilaterally. CVS: S1-S2 regular, no murmurs, no tachycardia, no gallops, no rubs Abdomen: Soft, nontender, no organomegaly, bowel sounds present Neuro: No focal deficits, no facial deformity, AO x3, power 5/5 in all limbs Data 07/03/25 02:03 07/03/25 02:03 Micro: Microbiology 07/02/25 08:34 Urine Culture - Preliminary Urine Catheterized 07/02/25 08:42 Blood Culture - Preliminary Blood NEGATIVE TO DATE 07/02/25 08:43 Blood Culture - Preliminary Blood NEGATIVE TO DATE A&P Assessment and plan 1. History of CHF (congestive heart failure): Patient presented with shortness of breath and found to be in atrial fibrillation with RVR and troponin leak, and was started on amnio drip and heparin infusion, that was discontinued after cardiology recommendation, high pro BNP overnight had Afib with RVR and desaturation with high likely of fluid overload on CT chest Cardiology on board and DR Palmer suggested verbally over the phone, to start the pt on amiodaron 400mg bid orally, and hold infusion to avoid fluid overload Hold metoprolol and diltiazem at the moment lasix once dose at 3pm today and later to re-assess tomorrow for IV vs orally To continue Eliquis 5 twice daily Cardiology further explained that likely the troponin leak is secondary to demand ischemia. Echocardiogram results showed no regional wall motion abnormalities 2. Atrial fibrillation with rapid ventricular response: Continue Eliquis 5 mg twice daily hold BB and cardiazem amio 400mg bid orally as per Dr Palmer since the patient recurrent At fib with RVR and had twice amio drip started after holding. 3. Physical deconditioning: OT PT evaluation and further recommendation to follow 4. Primary hypertension: Patient blood pressure currently stable, Continue to monitor 5. Nonrheumatic aortic valve stenosis: Currently stable no chest pain Echo showed normal ventricular systolic function with ejection fraction of 60%. Aortic valve seems normal in structure with moderate mitral valve regurg, for full report refer to the echo results 6. Mixed hyperlipidemia: Continue on omega-3/fish oil supplements, no statins found in home medication Continue home medication 7. Coronary artery disease: Patient following with the cardiology as outpatient and managed accordingly Referral as outpatient and follow the inpatient recommendations 8. Hypothyroidism, unspecified type: Continue home dose levothyroxine 100 mcg daily 9. Mild intermittent asthma without complication: Continue ipratropium and levalbuterol scheduled every 4 hourly 10. GERD (gastroesophageal reflux disease): Continue PPI and GI prophylaxis 11. Acute cystitis: Patient had mild leukocytosis, no fever or any signs of infection blood cultures till date negative Likely related to stress No indication for antibiotics or any steroids. Continue to monitor 12. Leukocytosis: overnight patient had At Fib with RVR and had increased WBCS count, could be stress vs sepsis given the benefit of doubt to proceed with sepsis protocol management blood and urine cultures zosyn guided by the pharmacist for dosing FU cultures maintain MAP >65mmhg maintain normal O2 sats and normoglycemia adequate hydration however qvoid over hydration that may aggravate congestive heart failure. maintain I/O 13. Sepsis: overnight patient had At Fib with RVR and had increased WBCS count, could be stress vs sepsis blood and urine cultures zosyn guided by the pharmacist for dosing FU cultures maintain MAP >65mmhg adequate hydration however qvoid over hydration that may aggravate congestive heart failure. maintain I/O 14. Acute bronchitis and bronchiolitis: Plan: July 03, 2025 Chart reviewed. 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 She presented to the emergency room on June 30, 2025 with chest pain and was found to be in A-fib with RVR. Troponin series was 37-50- 88. 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 She has a new 02 requirement. Echocardiogram showed EF 60%, gr 2 diastolic dysfunction. She received Lasix 40 mg IV on 07/02/201110/2024. CTA of the chest performed on 07/01/2025 without any signs of PE. There was noted to be bilateral pleural effusions, sparse interstitial edema, moderate mediastinal lymphadenopathy, lymph nodes measuring 1.3 to 1.9 cm.Large volume of retained secretions were noted in the tracheobronchial tree with multifocal bronchial occlusion. Patient was initially on amiodarone infusion, converted to sinus rhythm and became bradycardic following which amiodarone infusion was discontinued. She was transition to p.o. amiodarone, however overnight she did go back into A-fib RVR for which amiodarone infusion was resumed at 0.5 mg. Leukocytosis resolved today. She is currently on piperacillin/tazobactam. This may be related to acute bacterial bronchitis which is improving after addition of antibiotics. Check sputum culture. Blood-tinged sputum today. Holding Eliquis for today while this resolves. Check respiratory viral panel. As azithromycin 500 mg daily for atypical coverage in addition. Check MRSA screen. Lasix 40 mg IV to be repeated today. Closely monitor kidney function with this intervention. Resume low-dose metoprolol 12.5 mg twice daily while closely monitoring heart rate. On amiodarone infusion, she is currently in sinus rhythm. PDMP PDMP Reviewed: Not Reviewed Attestations 2 Medical Necessity Statement*: Continued need for IV diuresis, IV antibiotics, amiodarone infusion, close monitoring of heart rate kidney function. Coding Level of Care Code Acute Code for Chg Fwd High MDM includes number and complexity of problems actively addressed during encounter, amount and/or complexity of data reviewed/ordered and described risk of complication, morbidity or mortality of management as documented Diagnoses History of CHF (congestive heart failure) Z86.79 Atrial fibrillation with rapid ventricular response I48.91 Physical deconditioning R53.81 Primary hypertension I10 Hypertension type: primary hypertension Nonrheumatic aortic valve stenosis I35.0 Cardiac valve disease etiology: nonrheumatic Mixed hyperlipidemia E78.2 Hyperlipidemia type: mixed hyperlipidemia Coronary artery disease I25.10 Hypothyroidism, unspecified type E03.9 Hypothyroidism type: unspecified Mild intermittent asthma without complication J45.20 Asthma severity: mild Asthma persistence: intermittent Asthma complication type: uncomplicated GERD (gastroesophageal reflux disease) K21.9 Acute cystitis N30.00 Leukocytosis D72.829 Sepsis A41.9 Acute bronchitis and bronchiolitis J20.9; J21.9
[2025-07-03] MEDS: FUROsemide 10 mg/mL SDV 4mL 40 MG IVP (14:32)
[2025-07-03 19:02] LABS: Glucose Urine UA Negative (Normal); Nitrate Urine Negative (Negative); Specific Gravity, Urine 1.009 (1.005-1.030)
[2025-07-03 19:14] LABS: MRSA PCR OZH (swab) NOT DETECTED (Not Detecte)
[2025-07-03 19:44] LABS: Coronavirus 229E,HKU1,NL63,OC4 Not Detected (NOT DETECT); Parainfluenza Virus Type 1 Not Detected (NOT DETECT); Parainfluenza Virus Type 2 Not Detected (NOT DETECT); Parainfluenza Virus Type 3 Not Detected (NOT DETECT); Parainfluenza Virus Type 4 Not Detected (NOT DETECT); SARS-COV-2 Not Detected (NOT DETECT)
[2025-07-03] MEDS: AMIODARONE HCL/D5W 900 MG/500 ML BAG 16.67 MG IV (20:35)
[2025-07-04] VITALS (11 sets, daily range): BP systolic 109–134; BP diastolic 41–72; PULSE 64–113; RESP 18–29; TEMP 36.2–36.7; O2SAT 94–99
[2025-07-04] MEDS: piperacillin-tazobactam 3.375 GM in sodium chloride 0.9% (plus) 50 ML IV ×3 (00:17→16:18)
[2025-07-04 05:08] LABS: Hematocrit 26.9 % (36-47); Hemoglobin 9.00 g/dL (11.27-16.99); Mean Corpuscular HGB Conc 33.5 g/dL (30-55); Mean Corpuscular Hemoglobin 34.0 pg (27-33); Mean Corpuscular Volume 101.5 fl (85-98); Nucleated Red Blood Cells % 0 %; Platelet Count 188 10^3/cmm (157-399); Red Blood Count 2.65 10^6/uL (3.85-5.65); White Blood Count 8.22 10^3/uL (3.29-11.43)
[2025-07-04 05:29] LABS: Alanine Aminotransferase 12 U/L (0-33); Albumin Level 3.3 g/dL (3.5-5.2); Alkaline Phosphatase 73 U/L (35-105); Anion Gap 14.3 (5-19); Aspartate Amino Transferase 11 U/L (0-32); Blood Urea Nitrogen 22 mg/dL (8-23); Calcium 8.6 mg/dL (8.5-10.5); Carbon Dioxide 33 mmol/L (22-29); Chloride 93 mmol/L (98-107); Creatinine Clr Calc Pharmacy 32.3932; Globulin 2.4 g/dL (1.3-4.6); Glucose 132 mg/dL (65-115); Osmolality Calculated 289 mOsm/kg (285-295); Potassium 3.3 mmol/L (3.5-5.1); Sodium 137 mmol/L (136-145); Total Protein 5.7 g/dL (6.6-8.7)
--- NOTE | 2025-07-04 08:41 | XR_ITS ---
WS: [id number] Portable AP upright chest, 07/04/2025 Clinical Data: Pleural effusions Comparison: Portable chest, 07/01/2025 Findings: The bilateral interstitial markings remain the same which probably represent pulmonary edema. There are moderate bilateral pleural effusions unchanged. The heart is enlarged. No nodules or masses are seen. No pneumonia or pneumothorax is present. The aortic arch shows calcification and tortuosity. Monitor leads are on the chest wall. There is a vena caval filter in the abdomen. XR/XR chest 1V portable [id number] Impression: 1. Probable pulmonary edema with cardiomegaly and bilateral effusions unchanged . 2. Atherosclerosis.
--- NOTE | 2025-07-04 12:32 | PM.PN ---
Subjective Subjective: She had an episode of atrial fibrillation with RVR overnight. Amiodarone infusion discontinued, she will start oral amiodarone today twice daily. Chest x-ray obtained today -report states unchanged pulmonary edema and bilateral pleural effusion, thoracentesis planned. She will have to hold Eliquis for 48 hours prior. Vitals/I&O/Wt Last Vital Signs Temp 98.0 F 07/04/25 07:34 Pulse 64 07/04/25 08:00 Resp 18 07/04/25 08:00 BP 113/41 07/04/25 07:34 Pulse Ox 96 07/04/25 08:00 O2 Del Method Nasal Cannula 07/04/25 08:00 O2 Flow Rate 2 07/04/25 08:00 07/03/25 07/04/25 07/04/25 22:59 06:59 14:59 Intake Total 777.272 / 1717.272 410 / 1717.272 247 / 247 Output Total 960 / 2160 600 / 2160 Balance -182.728 / -442.728 -190 / -442.728 247 / 247 Weight last 48 hrs Weight 164 lb 0.383 oz Weight 164 lb 3.91 oz Physical Exam Const: COMMON NORMALS: no acute distress and patient oriented x3 GENERAL APPEARANCE: cooperative and comfortable ORIENTATION/CONSCIOUSNESS: Yes awake, Yes oriented to person, Yes oriented to place and Yes oriented to time Chest: COMMONS NORMALS: normal inspection of the chest and normal palpation of entire chest wall CHEST: Yes Symmetrical chest wall rise Resp: COMMON NORMALS: normal respiratory effort, No retractions and No use of accessory muscles EFFORT & INSPECTION: Yes symmetric chest movement AUSCULTATION: diminished lung sounds on the right Cardio: COMMON NORMALS: regular rate, regular rhythm, S1 normal heart sound present, S2 normal heart sound present, No gallops present (Cardio), No clicks present (Cardio), No murmurs present (Cardio) and No rub (Cardio) RATE: regular rate RHYTHM: regular rhythm HEART SOUNDS: S1 normal heart sound present and S2 normal heart sound present PERIPHERAL PULSES: radial pulses present Extremity: COMMON NORMALS: no pedal edema Neuro: COMMON NORMALS: patient oriented x3 and moves all extremities SENSORIUM/ORIENTATION: Yes oriented to person, Yes oriented to place and Yes oriented to time Data 07/04/25 04:36 07/04/25 04:36 Micro: Microbiology 07/02/25 08:34 Urine Culture - Final Urine Catheterized 07/03/25 20:30 Bacterial Antigens - Final Urine,Clean Catch 07/03/25 17:25 Legionella Urinary Antigen - Final Urine Catheterized 07/02/25 08:42 Blood Culture - Preliminary Blood NEGATIVE TO DATE 07/02/25 08:43 Blood Culture - Preliminary Blood NEGATIVE TO DATE A&P Assessment and plan 1. Atrial fibrillation with rapid ventricular response: 2. Diastolic congestive heart failure, NYHA class 3: 3. HTN (hypertension): 4. Coronary artery disease: 5. Mitral valve regurgitation: 6. Pleural cavity effusion: Plan: Continuing to hold Eliquis. Continue Lasix 40 mg IV daily and metoprolol 12.5 mg twice daily. She can resume amiodarone 200 mg twice daily, now in sinus rhythm. PDMP PDMP Reviewed: Not Reviewed Attestations Medical Necessity Statement*: Thoracentesis, atrial fibrillation with RVR Coding Level of Care Code Acute Code for [facility] Diagnoses Atrial fibrillation with rapid ventricular response I48.91 Diastolic congestive heart failure, NYHA class 3 I50.30 HTN (hypertension) I10 Coronary artery disease I25.10 Mitral valve regurgitation I34.0 Pleural cavity effusion J90
--- NOTE | 2025-07-04 12:47 | US_ITS ---
WS: [id number] Ultrasound thorax, limited. HISTORY: Evaluate effusions. Small bilateral pleural effusions are identified. There is atelectatic lung within the RIGHT pleural effusion. Similar appearance of the LEFT pleural effusion. US/US chest [id number] IMPRESSION: Small bilateral pleural effusions with atelectatic lung.
--- NOTE | 2025-07-04 13:43 | P.PN_ITS ---
Subjective 2 Subjective: Oxygen requirement improving from 3 L/min to 1 L/min today.Symptomatically appears to be less tachypneic. Sitting up in chair. Overall still net positive by 1.4 L.Heart rate is well-controlled today. Medications: Reviewed: Yes Vitals/I&O/Wt Last Vital Signs Temp 98.0 F 07/04/25 07:34 Pulse 64 07/04/25 08:00 Resp 18 07/04/25 08:00 BP 113/41 07/04/25 07:34 Pulse Ox 96 07/04/25 08:00 O2 Del Method Nasal Cannula 07/04/25 08:00 O2 Flow Rate 2 07/04/25 08:00 07/03/25 07/04/25 07/04/25 22:59 06:59 14:59 Intake Total 777.272 / 1307.272 410 / 1717.272 297 / 297 Output Total 960 / 1560 600 / 2160 Balance -182.728 / -252.728 -190 / -442.728 297 / 297 Weight last 48 hrs Weight 74.4 kg Weight 74.5 kg Physical Exam 2 Narrative: General: No acute distress, AO x3 HEENT: PERRLA, pupils bilaterally equal and reactive, pallors not present Chest: Crackles to auscultation bilaterally. CVS: S1-S2 regular, no murmurs, no tachycardia, no gallops, no rubs Abdomen: Soft, nontender, no organomegaly, bowel sounds present Neuro: No focal deficits, no facial deformity, AO x3, power 5/5 in all limbs Data 07/04/25 04:36 07/04/25 04:36 Micro: Microbiology 07/02/25 08:34 Urine Culture - Final Urine Catheterized 07/03/25 20:30 Bacterial Antigens - Final Urine,Clean Catch 07/03/25 17:25 Legionella Urinary Antigen - Final Urine Catheterized 07/02/25 08:42 Blood Culture - Preliminary Blood NEGATIVE TO DATE 07/02/25 08:43 Blood Culture - Preliminary Blood NEGATIVE TO DATE A&P Assessment and plan 1. History of CHF (congestive heart failure): Patient presented with shortness of breath and found to be in atrial fibrillation with RVR and troponin leak, and was started on amnio drip and heparin infusion, that was discontinued after cardiology recommendation, high pro BNP overnight had Afib with RVR and desaturation with high likely of fluid overload on CT chest Cardiology on board and DR Palmer suggested verbally over the phone, to start the pt on amiodaron 400mg bid orally, and hold infusion to avoid fluid overload Hold metoprolol and diltiazem at the moment lasix once dose at 3pm today and later to re-assess tomorrow for IV vs orally To continue Eliquis 5 twice daily Cardiology further explained that likely the troponin leak is secondary to demand ischemia. Echocardiogram results showed no regional wall motion abnormalities 2. Atrial fibrillation with rapid ventricular response: Continue Eliquis 5 mg twice daily hold BB and cardiazem amio 400mg bid orally as per Dr Palmer since the patient recurrent At fib with RVR and had twice amio drip started after holding. 3. Physical deconditioning: OT PT evaluation and further recommendation to follow 4. Primary hypertension: Patient blood pressure currently stable, Continue to monitor 5. Nonrheumatic aortic valve stenosis: Currently stable no chest pain Echo showed normal ventricular systolic function with ejection fraction of 60%. Aortic valve seems normal in structure with moderate mitral valve regurg, for full report refer to the echo results 6. Mixed hyperlipidemia: Continue on omega-3/fish oil supplements, no statins found in home medication Continue home medication 7. Coronary artery disease: Patient following with the cardiology as outpatient and managed accordingly Referral as outpatient and follow the inpatient recommendations 8. Hypothyroidism, unspecified type: Continue home dose levothyroxine 100 mcg daily 9. Mild intermittent asthma without complication: Continue ipratropium and levalbuterol scheduled every 4 hourly 10. GERD (gastroesophageal reflux disease): Continue PPI and GI prophylaxis 11. Acute cystitis: Patient had mild leukocytosis, no fever or any signs of infection blood cultures till date negative Likely related to stress No indication for antibiotics or any steroids. Continue to monitor 12. Leukocytosis: overnight patient had At Fib with RVR and had increased WBCS count, could be stress vs sepsis given the benefit of doubt to proceed with sepsis protocol management blood and urine cultures zosyn guided by the pharmacist for dosing FU cultures maintain MAP >65mmhg maintain normal O2 sats and normoglycemia adequate hydration however qvoid over hydration that may aggravate congestive heart failure. maintain I/O 13. Sepsis: overnight patient had At Fib with RVR and had increased WBCS count, could be stress vs sepsis blood and urine cultures zosyn guided by the pharmacist for dosing FU cultures maintain MAP >65mmhg adequate hydration however qvoid over hydration that may aggravate congestive heart failure. maintain I/O 14. Acute bronchitis and bronchiolitis: Plan: July 03, 2025 Chart reviewed. 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 She presented to the emergency room on June 30, 2025 with chest pain and was found to be in A-fib with RVR. Troponin series was 37-50- 88. Cardiology was consulted and this was thought to be related to type II [place]. She has a new 02 requirement. Echocardiogram showed EF 60%, gr 2 diastolic dysfunction. She received Lasix 40 mg IV on 07/02/201110/2024. CTA of the chest performed on 07/01/2025 without any signs of PE. There was noted to be bilateral pleural effusions, sparse interstitial edema, moderate mediastinal lymphadenopathy, lymph nodes measuring 1.3 to 1.9 cm.Large volume of retained secretions were noted in the tracheobronchial tree with multifocal bronchial occlusion. Patient was initially on amiodarone infusion, converted to sinus rhythm and became bradycardic following which amiodarone infusion was discontinued. She was transition to p.o. amiodarone, however overnight she did go back into A-fib RVR for which amiodarone infusion was resumed at 0.5 mg. Leukocytosis resolved today. She is currently on piperacillin/tazobactam. This may be related to acute bacterial bronchitis which is improving after addition of antibiotics. Check sputum culture. Blood-tinged sputum today. Holding Eliquis for today while this resolves. Check respiratory viral panel. As azithromycin 500 mg daily for atypical coverage in addition. Check MRSA screen. Lasix 40 mg IV to be repeated today. Closely monitor kidney function with this intervention. Resume low-dose metoprolol 12.5 mg twice daily while closely monitoring heart rate. On amiodarone infusion, she is currently in sinus rhythm. July 04, 2025 Symptomatically slightly better today. Oxygen requirement down at 1 L/min. Less tachypneic. Heart rate is better controlled. Amiodarone infusion to be discontinued this morning. Transition to 200 mg twice daily. No hemoptysis today. Eliquis to remain on hold. Chest x-ray shows right pleural effusion. Ordered for ultrasound to estimate volume. Discussed possibility of thoracentesis with the patient. She would like to discuss with her daughter before deciding whether she would like to go for the procedure or not. Lorne remains on hold for possible procedure. Continue Lasix 40 mg IV daily. Additional dose of Lasix 20 mg IV this evening. Creatinine is stable today at 1.3. Noted to have overnight oxygen dropped to 80% during sleep. No known history of sleep apnea. Overnight oximetry study ordered for further assessment. Continue piperacillin/tazobactam day 3 today, continue azithromycin day 2 today. PDMP PDMP Reviewed: Not Reviewed Attestations 2 Medical Necessity Statement*: Continued need for IV diuresis. Possible thoracentesis. Coding Level of Care Code Acute Code for Chg Fwd High MDM includes number and complexity of problems actively addressed during encounter, amount and/or complexity of data reviewed/ordered and described risk of complication, morbidity or mortality of management as documented Diagnoses History of CHF (congestive heart failure) Z86.79 Atrial fibrillation with rapid ventricular response I48.91 Physical deconditioning R53.81 Primary hypertension I10 Hypertension type: primary hypertension Nonrheumatic aortic valve stenosis I35.0 Cardiac valve disease etiology: nonrheumatic Mixed hyperlipidemia E78.2 Hyperlipidemia type: mixed hyperlipidemia Coronary artery disease I25.10 Hypothyroidism, unspecified type E03.9 Hypothyroidism type: unspecified Mild intermittent asthma without complication J45.20 Asthma severity: mild Asthma persistence: intermittent Asthma complication type: uncomplicated GERD (gastroesophageal reflux disease) K21.9 Acute cystitis N30.00 Leukocytosis D72.829 Sepsis A41.9 Acute bronchitis and bronchiolitis J20.9; J21.9
[2025-07-04] MEDS: FUROsemide 10 mg/mL SDV 2mL 20 MG IVP (14:17)
[2025-07-04] MEDS: FUROsemide 10 mg/mL SDV 4mL 40 MG IVP (16:24)
[2025-07-05] VITALS (10 sets, daily range): BP systolic 100–134; BP diastolic 36–65; PULSE 67–80; RESP 21–26; TEMP 36.2–36.8; O2SAT 84–100
[2025-07-05] MEDS: piperacillin-tazobactam 3.375 GM in sodium chloride 0.9% (plus) 50 ML IV ×3 (00:52→16:48)
[2025-07-05 05:43] LABS: Hematocrit 25.4 % (36-47); Hemoglobin 8.60 g/dL (11.27-16.99); Mean Corpuscular HGB Conc 33.9 g/dL (30-55); Mean Corpuscular Hemoglobin 33.7 pg (27-33); Mean Corpuscular Volume 99.6 fl (85-98); Nucleated Red Blood Cells % 0 %; Platelet Count 222 10^3/cmm (157-399); Red Blood Count 2.55 10^6/uL (3.85-5.65); White Blood Count 7.42 10^3/uL (3.29-11.43)
[2025-07-05 06:07] LABS: Alanine Aminotransferase 9 U/L (0-33); Albumin Level 3.3 g/dL (3.5-5.2); Alkaline Phosphatase 68 U/L (35-105); Anion Gap 14.5 (5-19); Aspartate Amino Transferase 10 U/L (0-32); Blood Urea Nitrogen 20 mg/dL (8-23); Calcium 8.7 mg/dL (8.5-10.5); Carbon Dioxide 31 mmol/L (22-29); Chloride 94 mmol/L (98-107); Creatinine Clr Calc Pharmacy 31.8134; Globulin 2.6 g/dL (1.3-4.6); Glucose 112 mg/dL (65-115); Osmolality Calculated 285 mOsm/kg (285-295); Potassium 3.5 mmol/L (3.5-5.1); Sodium 136 mmol/L (136-145); Total Protein 5.9 g/dL (6.6-8.7)
--- NOTE | 2025-07-05 08:54 | P.PN_ITS ---
<Statement entered by Bhavani Cordero MD - 07/07/25 19:32> Patient was evaluated and cared for in conjunction with an advanced practice practitioner. I personally examined the patient and reviewed the chart and all pertinent data including imaging, telemetry, and laboratory results. I discussed the patient in detail with the advanced practice practitioner. Please see their note for complete H&P testing result and agreed upon plan of care for the patient. Subjective 2 Subjective: She had atrial fibrillation with RVR overnight, will increase metoprolol to 25mg BID, continue diuresis. Pleural effusions evaluated by ultrasound yesterday, too small to consider thoracentesis. She is in sinus rhythm now. Vitals/I&O/Wt Last Vital Signs Temp 98.3 F 07/05/25 07:48 Pulse 72 07/05/25 08:03 Resp 22 H 07/05/25 08:03 BP 100/36 07/05/25 07:48 Pulse Ox 95 07/05/25 08:03 O2 Del Method Nasal Cannula 07/05/25 08:03 O2 Flow Rate 2 07/05/25 08:03 07/04/25 07/05/25 07/05/25 22:59 06:59 14:59 Intake Total 286 / 1453 150 / 1453 Output Total 1200 / 3101 351 / 3101 Balance -914 / -1648 -201 / -1648 Weight last 48 hrs Weight 157 lb 13.616 oz Weight 164 lb 0.383 oz Physical Exam 2 Const: COMMON NORMALS: no acute distress and patient oriented x3 GENERAL APPEARANCE: cooperative and comfortable ORIENTATION/CONSCIOUSNESS: Yes awake, Yes oriented to person, Yes oriented to place and Yes oriented to time Chest: COMMONS NORMALS: normal inspection of the chest and normal palpation of entire chest wall CHEST: Yes Symmetrical chest wall rise Resp: COMMON NORMALS: normal respiratory effort, No retractions and No use of accessory muscles EFFORT & INSPECTION: Yes symmetric chest movement A USCULTATION: crackles Laterality: right (mid to base) Cardio: COMMON NORMALS: regular rate, regular rhythm, S1 normal heart sound present, S2 normal heart sound present, No gallops present (Cardio), No clicks present (Cardio), No murmurs present (Cardio) and No rub (Cardio) RATE: r egular rate RHYTHM: regular rhythm HEART SOUNDS: S1 normal heart sound present and S2 normal heart sound present PERIPHERAL PULSES: radial pulses present Extremity: COMMON NORMALS: no pedal edema Neuro: COMMON NORMALS: patient oriented x3 and moves all extremities S ENSORIUM/ORIENTATION: Yes oriented to person, Yes oriented to place and Yes oriented to time Data 07/05/25 05:08 07/05/25 05:08 Micro: Microbiology 06/29/25 20:40 Blood Culture - Final Blood NO GROWTH AFTER 5 DAYS 06/29/25 20:40 Blood Culture - Final Blood NO GROWTH AFTER 5 DAYS 07/04/25 08:30 Gram Stain - Final Sputum - Expectorated Sputum 07/02/25 08:34 Urine Culture - Final Urine Catheterized 07/03/25 20:30 Bacterial Antigens - Final Urine,Clean Catch A&P Assessment and plan 1. Atrial fibrillation with rapid ventricular response: 2. Diastolic congestive heart failure, NYHA class 3: 3. Coronary artery disease: 4. Hyperlipidemia: 5. History of pulmonary embolism: 6. HTN (hypertension): Plan: Uptitrating metoprolol for better rate control. Continue diuresis with Lasix 40mg IV daily. Continue amiodarone 200mg BID, Eliquis 5mg BID. PDMP PDMP Reviewed: Not Reviewed Attestations 2 Medical Necessity Statement*: atrial fibrillation with RVR Coding Level of Care Code Acute Code for [facility] Diagnoses Atrial fibrillation with rapid ventricular response I48.91 Diastolic congestive heart failure, NYHA class 3 I50.30 Coronary artery disease I25.10 Hyperlipidemia E78.5 History of pulmonary embolism Z86.711 HTN (hypertension) I10
--- NOTE | 2025-07-05 13:11 | PC.SOCIAL ---
IMM Updated Updated pt on IMM. No questions voiced. Provided pt a copy. Initialed, dated, & timed copy in chart.
--- NOTE | 2025-07-05 14:55 | P.PN_ITS ---
Subjective 2 Subjective: Clinically feels better today. Ultrasound of the chest showed bilateral small pleural effusions, not safe to drainage at this time. Patient up with PT today. Medications: Reviewed: Yes Vitals/I&O/Wt Last Vital Signs Temp 98.3 F 07/05/25 07:48 Pulse 73 07/05/25 13:24 Resp 22 H 07/05/25 13:24 BP 115/52 07/05/25 11:47 Pulse Ox 96 07/05/25 13:24 O2 Del Method Nasal Cannula 07/05/25 13:24 O2 Flow Rate 2 07/05/25 13:24 07/04/25 07/05/25 07/05/25 22:59 06:59 14:59 Intake Total 286 / 1303 150 / 1453 90 / 90 Output Total 1200 / 2750 351 / 3101 Balance -914 / -1447 -201 / -1648 90 / 90 Weight last 48 hrs Weight 71.6 kg Weight 74.4 kg Physical Exam 2 Narrative: General: No acute distress, AO x3 HEENT: PERRLA, pupils bilaterally equal and reactive, pallors not present Chest: Crackles to auscultation bilaterally. CVS: S1-S2 regular, no murmurs, no tachycardia, no gallops, no rubs Abdomen: Soft, nontender, no organomegaly, bowel sounds present Neuro: No focal deficits, no facial deformity, AO x3, power 5/5 in all limbs Data 07/05/25 05:08 07/05/25 05:08 Micro: Microbiology 07/04/25 08:30 Gram Stain - Final Sputum - Expectorated Sputum Sputum Culture - Preliminary 06/29/25 20:40 Blood Culture - Final Blood NO GROWTH AFTER 5 DAYS 06/29/25 20:40 Blood Culture - Final Blood NO GROWTH AFTER 5 DAYS 07/02/25 08:34 Urine Culture - Final Urine Catheterized 07/03/25 20:30 Bacterial Antigens - Final Urine,Clean Catch A&P Assessment and plan 1. History of CHF (congestive heart failure): Patient presented with shortness of breath and found to be in atrial fibrillation with RVR and troponin leak, and was started on amnio drip and heparin infusion, that was discontinued after cardiology recommendation, high pro BNP overnight had Afib with RVR and desaturation with high likely of fluid overload on CT chest Cardiology on board and DR Palmer suggested verbally over the phone, to start the pt on amiodaron 400mg bid orally, and hold infusion to avoid fluid overload Hold metoprolol and diltiazem at the moment lasix once dose at 3pm today and later to re-assess tomorrow for IV vs orally To continue Eliquis 5 twice daily Cardiology further explained that likely the troponin leak is secondary to demand ischemia. Echocardiogram results showed no regional wall motion abnormalities 2. Atrial fibrillation with rapid ventricular response: Continue Eliquis 5 mg twice daily hold BB and cardiazem amio 400mg bid orally as per Dr Palmer since the patient recurrent At fib with RVR and had twice amio drip started after holding. 3. Physical deconditioning: OT PT evaluation and further recommendation to follow 4. Primary hypertension: Patient blood pressure currently stable, Continue to monitor 5. Nonrheumatic aortic valve stenosis: Currently stable no chest pain Echo showed normal ventricular systolic function with ejection fraction of 60%. Aortic valve seems normal in structure with moderate mitral valve regurg, for full report refer to the echo results 6. Mixed hyperlipidemia: Continue on omega-3/fish oil supplements, no statins found in home medication Continue home medication 7. Coronary artery disease: Patient following with the cardiology as outpatient and managed accordingly Referral as outpatient and follow the inpatient recommendations 8. Hypothyroidism, unspecified type: Continue home dose levothyroxine 100 mcg daily 9. Mild intermittent asthma without complication: Continue ipratropium and levalbuterol scheduled every 4 hourly 10. GERD (gastroesophageal reflux disease): Continue PPI and GI prophylaxis 11. Acute cystitis: Patient had mild leukocytosis, no fever or any signs of infection blood cultures till date negative Likely related to stress No indication for antibiotics or any steroids. Continue to monitor 12. Leukocytosis: overnight patient had At Fib with RVR and had increased WBCS count, could be stress vs sepsis given the benefit of doubt to proceed with sepsis protocol management blood and urine cultures zosyn guided by the pharmacist for dosing FU cultures maintain MAP >65mmhg maintain normal O2 sats and normoglycemia adequate hydration however qvoid over hydration that may aggravate congestive heart failure. maintain I/O 13. Sepsis: overnight patient had At Fib with RVR and had increased WBCS count, could be stress vs sepsis blood and urine cultures zosyn guided by the pharmacist for dosing FU cultures maintain MAP >65mmhg adequate hydration however qvoid over hydration that may aggravate congestive heart failure. maintain I/O 14. Acute bronchitis and bronchiolitis: Plan: July 03, 2025 Chart reviewed. 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 She presented to the emergency room on June 30, 2025 with chest pain and was found to be in A-fib with RVR. Troponin series was 37-50- 88. 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 She has a new 02 requirement. Echocardiogram showed EF 60%, gr 2 diastolic dysfunction. She received Lasix 40 mg IV on 07/02/201110/2024. CTA of the chest performed on 07/01/2025 without any signs of PE. There was noted to be bilateral pleural effusions, sparse interstitial edema, moderate mediastinal lymphadenopathy, lymph nodes measuring 1.3 to 1.9 cm.Large volume of retained secretions were noted in the tracheobronchial tree with multifocal bronchial occlusion. Patient was initially on amiodarone infusion, converted to sinus rhythm and became bradycardic following which amiodarone infusion was discontinued. She was transition to p.o. amiodarone, however overnight she did go back into A-fib RVR for which amiodarone infusion was resumed at 0.5 mg. Leukocytosis resolved today. She is currently on piperacillin/tazobactam. This may be related to acute bacterial bronchitis which is improving after addition of antibiotics. Check sputum culture. Blood-tinged sputum today. Holding Eliquis for today while this resolves. Check respiratory viral panel. As azithromycin 500 mg daily for atypical coverage in addition. Check MRSA screen. Lasix 40 mg IV to be repeated today. Closely monitor kidney function with this intervention. Resume low-dose metoprolol 12.5 mg twice daily while closely monitoring heart rate. On amiodarone infusion, she is currently in sinus rhythm. July 04, 2025 Symptomatically slightly better today. Oxygen requirement down at 1 L/min. Less tachypneic. Heart rate is better controlled. Amiodarone infusion to be discontinued this morning. Transition to 200 mg twice daily. No hemoptysis today. Eliquis to remain on hold. Chest x-ray shows right pleural effusion. Ordered for ultrasound to estimate volume. Discussed possibility of thoracentesis with the patient. She would like to discuss with her daughter before deciding whether she would like to go for the procedure or not. Lorne remains on hold for possible procedure. Continue Lasix 40 mg IV daily. Additional dose of Lasix 20 mg IV this evening. Creatinine is stable today at 1.3. Noted to have overnight oxygen dropped to 80% during sleep. No known history of sleep apnea. Overnight oximetry study ordered for further assessment. Continue piperacillin/tazobactam day 3 today, continue azithromycin day 2 today. July 05, 2025 Oxygen requirement at 2 L/min today. She feels improved. Heart rate remains controlled. Ultrasound of the chest performed yesterday, minimal fluid, not safe for drainage. Hemoptysis resolved. Resume Eliquis. Discontinue IV Lasix. Transition to p.o. Lasix 40 mg twice daily. Remove Beach catheter. If patient does well with transition from IV to oral Lasix anticipate discharge in the upcoming 24 hours. Speech therapy assessment appreciated. No signs or symptoms of aspiration. PDMP PDMP Reviewed: Not Reviewed Attestations 2 Medical Necessity Statement*: Transition IV to oral diuretics, antibiotics to continue, anticipate discharge in the upcoming 24 hours if does well with this change. Coding Level of Care Code Acute Code for Chg Fwd Diagnoses History of CHF (congestive heart failure) Z86.79 Atrial fibrillation with rapid ventricular response I48.91 Physical deconditioning R53.81 Primary hypertension I10 Hypertension type: primary hypertension Nonrheumatic aortic valve stenosis I35.0 Cardiac valve disease etiology: nonrheumatic Mixed hyperlipidemia E78.2 Hyperlipidemia type: mixed hyperlipidemia Coronary artery disease I25.10 Hypothyroidism, unspecified type E03.9 Hypothyroidism type: unspecified Mild intermittent asthma without complication J45.20 Asthma severity: mild Asthma persistence: intermittent Asthma complication type: uncomplicated GERD (gastroesophageal reflux disease) K21.9 Acute cystitis N30.00 Leukocytosis D72.829 Sepsis A41.9 Acute bronchitis and bronchiolitis J20.9; J21.9
--- NOTE | 2025-07-05 14:56 | PC.SLP ---
Visited with patient with family present. Patient is doing well with no s/s of aspiration. Regular diet/liquid continues to be appropriate. Patient reports d/c tomorrow.
--- NOTE | 2025-07-05 15:35 | PC.NURSE ---
Patient's de leon catheter is removed.
[2025-07-06] VITALS: BP 156/58; PULSE 69; RESP 26; O2SAT 95
--- NOTE | 2025-07-06 00:16 | PC.NURSE ---
at the beginning of the shift this nurse asked patient if she was ready for that enema, patient refused stating she pooped at 1830 stating she will see in the morning if she wants it.
[2025-07-06] MEDS: piperacillin-tazobactam 3.375 GM in sodium chloride 0.9% (plus) 50 ML IV (01:30)
[2025-07-06] MEDS: haloperidol inj 5 mg/mL INJ 1 mL 2 MG IM (02:15)
--- NOTE | 2025-07-06 02:45 | PC.NURSE ---
the patient started yelling this nurse, the other RN, and the OSTOMY CARE NURSE went to patient's room, patient is now completely confused, only alert to name, patient thinks she is in a torn up shack in the [place] and just wants to go to the hospital, attempted to reorientate patient, multiple attempt failed, this nurse and OSTOMY CARE NURSE moved patient from recliner to bed, patient then became verbally aggressive, and cussing. She kept yelling at staff that we are all going to hell for keeping her in the [place]. Contacted MD about verbal aggressive and the lack of sleep the past two days and the patient attempting to hit staff, MD ordered 2mg of IM haldol, order entered and given see MAR. after giving IM haldol, patient was settled in bed with bed alarm on with 3 side rails up. Checked on patient less than 10 minutes later and patient pulled out both IV accesses and ripped off Cardiac leads, and had O2 out of her nose. Talked with patient she has agreed to leave O2 in nose at this time but is refusing for another IV placement at this time
[2025-07-06 04:00] VITALS: PULSE 82; RESP 25; O2SAT 84
--- NOTE | 2025-07-06 04:23 | PC.NURSE ---
patient is refusing to have wear O2, patient is O2 reading is between 84-91 on room air
--- NOTE | 2025-07-06 05:46 | PC.NURSE ---
Addendum entered by Gemma Barrios RN 07/06/25 05:54: IM haldol not IV, MD was also notified about patient pulling IV and refusing for one to be placed Original Note: MD contacted due to patient refusing AM meds, MD said to try one more time later in morning, meds were retimed to 0800, and MD ordered a one time dose of 2mg IV haldol if needed later for agitation. order entered
[2025-07-06 07:52] VITALS: PULSE 86; RESP 26; TEMP 36.8; O2SAT 84
--- NOTE | 2025-07-06 09:48 | PM.DCS ---
Discharge Providers Date of Admission: 06/29/25 22:14 Date of Discharge: July 06, 2025 Attending Provider at Admission: Yareli Ramon MD Attending Provider at Discharge: Rosy Carrillo MD Primary Care Provider: PARVEEN Pascal Diagnoses at Discharge Discharge Diagnosis 1. History of CHF (congestive heart failure): 2. Atrial fibrillation with rapid ventricular response: 3. Physical deconditionin. Primary hypertension: 5. Nonrheumatic aortic valve stenosis: 6. Mixed hyperlipidemia: 7. Coronary artery disease: 8. Hypothyroidism, unspecified type: 9. Mild intermittent asthma without complication: 10. GERD (gastroesophageal reflux disease): 11. Acute cystitis: 12. Leukocytosis: 13. Sepsis: 14. 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 She presented to the emergency room on June 30, 2025 with chest pain and was found to be in A-fib with RVR. Troponin series was 37-50- 88. Cardiology was consulted and this was thought to be related to type II [place]. She has a new 02 requirement. Echocardiogram showed EF 60%, gr 2 diastolic dysfunction. She received iv Lasix transitioned to po lasix at discharge. CTA of the chest performed on 07/01/2025 without any signs of PE. There was noted to be bilateral pleural effusions not amenable to drainage. , moderate mediastinal lymphadenopathy, lymph nodes measuring 1.3 to 1.9 cm.Large volume of retained secretions were noted in the tracheobronchial tree with multifocal bronchial occlusion. recieved treatment with iv piperacillin/tazobactam. This may be related to acute bacterial bronchitis which is improving after addition of antibiotics. A fib controlled with iv amiodarone, transitioned to po amiodarone and metoprolol. Discharged today im improved state with home oxygen. Physical Exam Narrative: General: No acute distress, AO x3 HEENT: PERRLA, pupils bilaterally equal and reactive, pallors not present Chest: Normal vesicular breath sounds, no added sounds, equal good air entry bilaterally CVS: S1-S2 regular, no murmurs, no tachycardia, no gallops, no rubs Abdomen: Soft, nontender, no organomegaly, bowel sounds present Neuro: No focal deficits, no facial deformity, AO x3, power 5/5 in all limbs Discharge Data Studies Completed and Pending Completed Studies During Hospitalization Category Date Time Status CTA chest [CT angio chest PE protcl [id number]] Stat Cat Scan 07/01/25 23:08 Completed CXRP [XR chest 1V portable [id number]] Stat Exams 07/01/25 22:53 Completed XR chest 1V portable [id number] Routine Exams 07/04/25 08:41 Completed XR chest 1V portable [id number] Stat Exams 06/29/25 18:18 Completed CV. echo complete* [id number] Stat Ultrasound 06/30/25 20:35 [place] chest [id number] Routine Ultrasound 07/04/25 12:47 Completed Pending at discharge Category Date Time Status Blood Culture Stat Lab 07/02/25 08:43 Results CMP [Comprehensive Metabolic Panel] AM LABS Lab 07/06/25 04:00 Ordered Complete Blood Count w/Auto AM LABS Lab 07/06/25 04:00 Ordered Sputum Culture and Gram Stain Routine Lab 07/03/25 14:40 Uncollected Sputum Culture and Gram Stain Stat Lab 07/04/25 08:30 Results Radiology Impressions Chest CTA 07/01/25 23:08 IMPRESSION: 1. No findings of acute pulmonary embolism. There is insufficient contrast in the aortic lumen to exclude dissection, but no displaced calcium is seen. 2. Findings are most compelling for heart failure with cardiomegaly, bilateral water density pleural effusions, and sparse interstitial edema. There is considerable compressive atelectasis in each lung. 3. Moderate mediastinal adenopathy. Several of the nodes are centrally calcified, significance unclear. Chest X-Ray 07/04/25 08:41 Impression: 1. Probable pulmonary edema with cardiomegaly and bilateral effusions unchanged. 2. Atherosclerosis. Chest Ultrasound 07/04/25 12:47 IMPRESSION: Small bilateral pleural effusions with atelectatic lung. Laboratory Results WBC 7.42 10^3/uL (3.29-11.43) 07/05/25 05:08 RBC 2.55 10^6/uL (3.85-5.65) L 07/05/25 05:08 Hgb 8.60 g/dL (11.27-16.99) L 07/05/25 05:08 Hct 25.4 % (36-47) L 07/05/25 05:08 MCV 99.6 fl (85-98) H 07/05/25 05:08 MCH 33.7 pg (27-33) H 07/05/25 05:08 MCHC 33.9 g/dL (30-55) 07/05/25 05:08 RDW 13.9 % (12.1-15.1) 07/05/25 05:08 Plt Count 222 10^3/cmm (157-399) 07/05/25 05:08 MPV 10.2 fL (7.4-10.4) 07/05/25 05:08 Neut % (Auto) 62.7 % 07/05/25 05:08 Lymph % (Auto) 14.3 % 07/05/25 05:08 [place] % (Auto) 15.4 % 07/05/25 05:08 Eos % (Auto) 6.6 % 07/05/25 05:08 Baso % (Auto) 0.7 % 07/05/25 05:08 Neut # (Auto) 4.66 10^3/uL (1.8-7.7) 07/05/25 05:08 Lymph # (Auto) 1.1 10^3/uL (0.8-4.8) 07/05/25 05:08 [place] # (Auto) 1.1 10^3/uL (0.2-0.9) H 07/05/25 05:08 Eos # (Auto) 0.5 10^3/uL (0.0-0.8) 07/05/25 05:08 Baso # (Auto) 0.1 10^3/uL (0.0-0.1) 07/05/25 05:08 Nucleated RBC % (auto) 0 % 07/05/25 05:08 Nucleated RBCs # 0.0 /100WBC 07/05/25 05:08 APTT 211.5 SECONDS (23.9-36.7) H* 06/30/25 08:42 D-Dimer <= 0.27 ug/mLFEU (0-0.59) 07/01/25 23:30 Specimen Type Arterial 07/01/25 21:40 Sample Site Radial, left 07/01/25 21:40 ABG pH 7.50 (7.35-7.45) H 07/01/25 21:40 ABG pCO2 38.9 mmHg (35-45) 07/01/25 21:40 ABG pO2 53.4 mmHg (80.0-100.0) L 07/01/25 21:40 ABG HCO3 30.5 mmol/L (22-26) H 07/01/25 21:40 ABG O2 Saturation 89.8 07/01/25 21:40 ABG Base Excess 6.9 mmol/L (-2.0-2.0) H 07/01/25 21:40 Silas Test Pos 07/01/25 21:40 A-a O2 Gradient 6.4 mmHg (5-10) 07/01/25 21:40 Hematocrit 29.6 % (37-47) L 07/01/25 21:40 Hgb O2 Saturation 87.6 % (95-100) L 07/01/25 21:40 Carboxyhemoglobin 1.3 %THgb (0.4-20.1) 07/01/25 21:40 Methemoglobin 1.1 % (0.4-1.5) 07/01/25 21:40 Total Hemoglobin 9.7 g/dL (12-16) L 07/01/25 21:40 Sodium 137.0 mmol/L (131-143) 07/01/25 21:40 Potassium 3.8 mmol/L (3.5-5.0) 07/01/25 21:40 Glucose 157.0 mg/dL (70-115) H 07/01/25 21:40 Ionized Calcium 1.1 mmol/L (1.1-1.4) 07/01/25 21:40 O2 Delivery Device Nc 07/01/25 21:40 O2 Liters/Min 6.0 % 07/01/25 21:40 Apparel Sales Leader ID [email or web address] 07/01/25 21:40 Sodium 136 mmol/L (136-145) 07/05/25 05:08 Potassium 3.5 mmol/L (3.5-5.1) 07/05/25 05:08 Chloride 94 mmol/L (98-107) L 07/05/25 05:08 Carbon Dioxide 31 mmol/L (22-29) H 07/05/25 05:08 Anion Gap 14.5 (5-19) 07/05/25 05:08 BUN 20 mg/dL (8-23) 07/05/25 05:08 Creatinine 1.3 mg/dL (0.5-0.9) H 07/05/25 05:08 GFR Calculation Not Reportable 07/05/25 05:08 Glucose 112 mg/dL (65-115) 07/05/25 05:08 POC Glucose 192 mg/dL (70-110) H 07/01/25 20:38 Calculated Osmolality 285 mOsm/kg (285-295) 07/05/25 05:08 Lactic Acid 1.1 mmol/L (0.5-2.2) 06/29/25 20:40 Calcium 8.7 mg/dL (8.5-10.5) 07/05/25 05:08 Phosphorus 2.9 mg/dL (2.5-4.5) 07/01/25 03:22 Magnesium 1.8 mg/dL (1.7-2.3) 07/03/25 02:03 Total Bilirubin 0.6 mg/dL (0.15-1.2) 07/05/25 05:08 AST 10 U/L (0-32) 07/05/25 05:08 ALT 9 U/L (0-33) 07/05/25 05:08 Alkaline Phosphatase 68 U/L (35-105) 07/05/25 05:08 Troponin T Baseline 37 ng/L (0-10) H 06/29/25 18:38 Troponin T 120 Minute 54.25 ng/L (0-10) H 06/29/25 20:40 Delta Troponin T 17.25 ABS# (0-10) H* 06/29/25 20:40 Troponin T Hi Sens 6Hr 88.04 ng/L (0-10) H 06/30/25 00:51 Troponin T Hi Sens 6Hr Delta 51.04 ng/L (0-12) H* 06/30/25 00:51 NT-Pro-B Natriuret Pep 823 pg/mL (0-450) H 06/29/25 18:38 Total Protein 5.9 g/dL (6.6-8.7) L 07/05/25 05:08 Albumin 3.3 g/dL (3.5-5.2) L 07/05/25 05:08 Globulin 2.6 g/dL (1.3-4.6) 07/05/25 05:08 TSH 3.21 uIU/mL (0.27-4.20) 07/01/25 03:22 Urine Color Yellow (Yellow) 07/03/25 17: Urine Appearance Clear (CLEAR) 07/03/25: Urine pH 7.5 (5-7) 07/03/25: Ur Specific [place] 1.009 (1.005-1.030) 07/03/25 17: Urine Protein Negative (Negative) 07/03/25: Urine Glucose (UA) Negative (Normal) 07/03/25: Urine Ketones Negative (Negative) 07/03/25: Urine Blood Negative (Negative) 07/03/25: Urine Nitrate Negative (Negative) 07/03/25: Urine Bilirubin Negative (Negative) 07/03/25: Urine Urobilinogen 0.2 mg/dL (Negative) 07/03/25: Ur Leukocyte Esterase Negative (Negative) 07/03/25 17: Urine RBC 0-2 /hpf (0-2) 07/03/25 17: Urine WBC 0-5 /hpf (0-5) 07/03/25 17:25 Ur Squamous Epith Cells 0-5 /hpf (0-5) 07/03/25: Amorphous Sediment Not Reportable 07/03/25: Urine Bacteria None seen /hpf (NONE) 07/03/25 Hyaline Casts 0-4 /lpf H 07/03/25: Nasal MRSA (PCR) Not detected (Not Detecte) 07/03/25: Adenovirus (PCR) Not detected (NOT DETECT) 07/03/25: C. pneumoniae DNA (PCR) Not detected (NOT DETECT) 07/03/25 Coronavirus 229E (PCR) Not detected (NOT DETECT) 07/03/25: Human Metapneumovir PCR Not detected (NOT DETECT) 07/03/25: Influenza A (H1) PCR Not detected (NOT DETECT) 07/03/25: Influ A (H1/09) PCR Not detected (NOT DETECT) 11/03/25 17:25 Influenza A (H3) PCR Not detected (NOT DETECT) 07/03/25 17:25 Influenza Type A (PCR) Not detected (NOT DETECT) 07/03/25 17:25 Influenza Type B (PCR) Not detected (NOT DETECT) 07/03/25 17:25 M. pneumoniae (PCR) Not detected (NOT DETECT) 07/03/25 17: Parainfluenza 1 (PCR) Not detected (NOT DETECT) 07/03/25 17: Parainfluenza 2 (PCR) Not detected (NOT DETECT) 07/03/25 17: Parainfluenza 3 (PCR) Not detected (NOT DETECT) 07/03/25 17: Parainfluenza 4 (PCR) Not detected (NOT DETECT) 07/03/25 17: RSV Type A (PCR) Not detected (NOT DETECT) 07/03/25 17: RSV Type B (PCR) Not detected (NOT DETECT) 07/03/25 17: Entero/Rhino (PCR) Not detected (NOT DETECT) 07/03/25 17:25 SARS-CoV-2 (PCR) Not detected (NOT DETECT) 07/03/25 17:25 Vitals Last Vital Signs Temp 98.3 F 07/06/25 07:52 Pulse 86 07/06/25 07:52 Resp 26 H 07/06/25 07:52 BP 156/58 07/06/25 00:00 Pulse Ox 84 L 07/06/25 07:52 O2 Del Method Room Air 07/06/25 07:52 O2 Flow Rate 2 07/05/25 15:54 Discharge Plan Discharge Patient Disposition: Home Health Service Condition: Stable Prescriptions: New amiodarone [Pacerone] 200 mg Tablet 200 mg PO DAILY 30 Days Qty: 30 0RF Rx Instructions: take 200BID x 5 days, then reduce dose to 200mg daily azithromycin 250 mg Tablet 500 mg PO Q24H 2 Days Qty: 4 0RF amoxicillin-pot clavulanate 875-125 mg tablet 1 tab PO BID 5 Days Qty: 10 0RF fluticasone propion-salmeterol [Advair Diskus] 500-50 mcg/dose blister with device 1 inh inhalation BID 30 Days Qty: 60 0RF Continued hydroxychloroquine 200 mg tablet 200 mg PO BID EyeProtect 7,160-113-100 ejfa-ml-urtt tablet 1 tab PO DAILY Fish Oil 100-160-1,000 mg capsule 1 cap PO DAILY cholecalciferol (vitamin D3) 10 mcg (400 unit) tablet 10 mcg PO DAILY potassium chloride 20 mEq tablet,ER particles/crystals 20 meq PO BID Qty: 180 3RF levothyroxine 100 mcg tablet 100 mcg PO DAILY Qty: 90 1RF Rx Instructions: TAKE 1 TABLET BY MOUTH EVERY DAY pantoprazole 40 mg tablet,delayed release (DR/EC) See Rx Instructions .ROUTE .COMPLEX Qty: 60 5RF Dose Instruction: TAKE 1 TABLET BY MOUTH TWICE DAILY Rx Instructions: TAKE 1 TABLET BY MOUTH TWICE DAILY Eliquis 5 mg tablet 5 mg PO BID Qty: 180 1RF Rx Instructions: TAKE 1 TABLET BY MOUTH TWICE DAILY Changed metoprolol tartrate 50 mg tablet 25 mg PO BID Qty: 180 1RF Dose Instruction: TAKE 1 TABLET BY MOUTH TWICE DAILY Rx Instructions: TAKE 1 TABLET BY MOUTH TWICE DAILY furosemide [Lasix] 20 mg tablet 40 mg PO DAILY Qty: 270 1RF Rx Instructions: 40 mg orally and 1 tab in the evening; Discharge Order = DC NOW: Discharge Order (Routine); Ordered 07/06/25 Ordered By: Rosy Carrillo Other Ambulatory Orders: DME: Oxygen (Order) Location: None Selected Ordered By: Rosy Carrillo Referrals: [facility] [Outside] [facility]) [Outside] Ana Gould FNP [Primary Care Provider, [facility]] - 07/11/25 12:00 pm Discharge Diet: Usual diet Discharge Activity: Resume usual activity Patient Instructions: Atrial Fibrillation, Chest Pain - Chest Wall, Amoxicillin (By mouth), Amiodarone (By mouth), Azithromycin (By mouth), Heart Failure (DC), GERD (Gastroesophageal Reflux Disease) (GEN), Opioid Safety, Patient Portal & Ольга Instructions Discharge Attestations Time Spent in Discharge Care*: greater than 30 min Status at Discharge: Cognitive status at discharge: cognitively intact, Behavioral status at discharge: cooperative, Quality Metrics Clinical Quality Measures [ No reported AMI, CVA or VTE this stay] Coding Level of Care Code Acute Code for Chg Fwd Diagnoses History of CHF (congestive heart failure) Z86.79 Atrial fibrillation with rapid ventricular response I48.91 Physical deconditioning R53.81 Primary hypertension I10 Hypertension type: primary hypertension Nonrheumatic aortic valve stenosis I35.0 Cardiac valve disease etiology: nonrheumatic Mixed hyperlipidemia E78.2 Hyperlipidemia type: mixed hyperlipidemia Coronary artery disease I25.10 Hypothyroidism, unspecified type E03.9 Hypothyroidism type: unspecified Mild intermittent asthma without complication J45.20 Asthma complication type: uncomplicated Asthma persistence: intermittent Asthma severity: mild GERD (gastroesophageal reflux disease) K21.9 Acute cystitis N30.00 Leukocytosis D72.829 Sepsis A41.9 Acute bronchitis and bronchiolitis J20.9; J21.9
--- NOTE | 2025-07-06 10:04 | PC.NURSE ---
Provider is updated that patient had another rough night. She pulled out both of her IV's overnight and is refusing to let nursing start another one. She is also refusing to take her morning medications. Patient is more confused this morning.
--- NOTE | 2025-07-06 12:49 | P.PN_ITS ---
<Statement entered by Bhavani Cordero MD - 07/07/25 19:29> Patient was evaluated and cared for in conjunction with an advanced practice practitioner. I personally examined the patient and reviewed the chart and all pertinent data including imaging, telemetry, and laboratory results. I discussed the patient in detail with the advanced practice practitioner. Please see their note for complete H&P testing result and agreed upon plan of care for the patient. Subjective 2 Subjective: She is feeling better today. Remains in sinus rhythm. She is discharging home. Will keep on oral Lasix 40mg BID, amiodarone 200 BID, and metoprolol 25 BID. Vitals/I&O/Wt Last Vital Signs Temp 98.3 F 07/06/25 07:52 Pulse 86 07/06/25 07:52 Resp 26 H 07/06/25 07:52 BP 156/58 07/06/25 00:00 Pulse Ox 84 L 07/06/25 07:52 O2 Del Method Room Air 07/06/25 07:52 O2 Flow Rate 2 07/05/25 15:54 07/05/25 07/06/25 07/06/25 22:59 06:59 14:59 Intake Total 340 / 575 145 / 575 Output Total 500 / 500 Balance 340 / 575 145 / 575 -500 / -500 Weight last 48 hrs Weight 159 lb 2.78 oz Weight 157 lb 13.616 oz Physical Exam 2 Const: COMMON NORMALS: no acute distress and patient oriented x3 GENERAL APPEARANCE: cooperative and comfortable ORIENTATION/CONSCIOUSNESS: Yes awake, Yes oriented to person, Yes oriented to place and Yes oriented to time Chest: COMMONS NORMALS: normal inspection of the chest and normal palpation of entire chest wall CHEST: Yes Symmetrical chest wall rise Resp: COMMON NORMALS: normal respiratory effort, No retractions and No use of accessory muscles EFFORT & INSPECTION: Yes symmetric chest movement A USCULTATION: diminished lung sounds on the right (base) Cardio: COMMON NORMALS: regular rate, regular rhythm, S1 normal heart sound present, S2 normal heart sound present, No gallops present (Cardio), No clicks present (Cardio), No murmurs present (Cardio) and No rub (Cardio) RATE: r egular rate RHYTHM: regular rhythm HEART SOUNDS: S1 normal heart sound present and S2 normal heart sound present PERIPHERAL PULSES: radial pulses present Extremity: COMMON NORMALS: no pedal edema Neuro: COMMON NORMALS: patient oriented x3 and moves all extremities S ENSORIUM/ORIENTATION: Yes oriented to person, Yes oriented to place and Yes oriented to time Data 07/05/25 05:08 07/05/25 05:08 Micro: Microbiology 07/04/25 08:30 Gram Stain - Final Sputum - Expectorated Sputum Sputum Culture - Preliminary A&P Assessment and plan 1. Atrial fibrillation: 2. Diastolic congestive heart failure, NYHA class 3: 3. Coronary artery disease: 4. Hyperlipidemia: 5. History of pulmonary embolism: 6. HTN (hypertension): Plan: Pleural effusion improving, no significant shortness of breath. Continue PO Lasix, rhythm control with amiodarone 200mg BID, can possibly be tapered in the clinic later. Tolerating anticoagulation with Eliquis 5mg BID. PDMP PDMP Reviewed: Not Reviewed Attestations 2 Medical Necessity Statement*: hi home Coding Level of Care Code Acute Code for [facility] Diagnoses Atrial fibrillation I48.91 Diastolic congestive heart failure, NYHA class 3 I50.30 Coronary artery disease I25.10 Hyperlipidemia E78.5 History of pulmonary embolism Z86.711 HTN (hypertension) I10
== END 2025-07-06 13:21 | disposition home health service (06) | DRG 280 ==
LOC: ER 21:03 → ICU 22:14 → CSU 06-30 22:03
PROVIDERS: Internal Medicine Cardiovascular Disease; Student in an Organized Health Care Education/Training Program; Admitting Provider Internal Medicine; Emergency Provider Emergency Medicine; PCP Nurse Practitioner Family; Visit Provider Student in an Organized Health Care Education/Training Program
DX: I48.91 Unspecified atrial fibrillation (principal); A41.9 Sepsis, unspecified organism; I21.A1 Myocardial infarction type 2; I50.32 Chronic diastolic (congestive) heart failure; N30.00 Acute cystitis without hematuria; J81.1 Chronic pulmonary edema; J91.8 Pleural effusion in other conditions classified elsewhere; I83.93 Asymptomatic varicose veins of bilateral lower extremities; E87.6 Hypokalemia; R41.0 Disorientation, unspecified; I08.0 Rheumatic disorders of both mitral and aortic valves; J20.9 Acute bronchitis, unspecified; K21.9 Gastro-esophageal reflux disease without esophagitis; I11.0 Hypertensive heart disease with heart failure; E78.2 Mixed hyperlipidemia; D63.8 Anemia in other chronic diseases classified elsewhere; I95.9 Hypotension, unspecified; R53.81 Other malaise; I25.10 Atherosclerotic heart disease of native coronary artery without angina pectoris; E03.9 Hypothyroidism, unspecified; J45.909 Unspecified asthma, uncomplicated; Z79.01 Long term (current) use of anticoagulants; Z86.711 Personal history of pulmonary embolism; Z79.890 Hormone replacement therapy; Z79.899 Other long term (current) drug therapy; Z90.710 Acquired absence of both cervix and uterus; Z87.891 Personal history of nicotine dependence; Z11.52 Encounter for screening for COVID-19
CPT/HCPCS: 36415; 36416; 36600; 71045; 71275; 76604; 80048; 80051; 80053; 81001; 82330; 82805; 82962; 83605; 83735; 83880; 84100; 84132; 84443; 84484; 85025; 85378; 85730; 86403; 87040; 87070; 87086; 87205; 87449; 87486; 87581; 87633; 92523; 92610; 93005; 93306; 94640; 94760; 96365; 96372; 96375; 97110; 97116; 97162; 97167; 97530; 99291; A4222; J0282; J0283; J0696; J1630; J1644; J1938; J2060; J2270; J2543; J2919; J3475; J3490; J7030; J7614; J7644; J9999; Q0144

== ENCOUNTER → 2025-07-11 12:43 | Outpatient (BNVA) | payer MEDICARE, OTHER, SELFPAY | PROVIDERS: PCP Nurse Practitioner Family; Visit Provider Nurse Practitioner Family | DX: I48.91 Unspecified atrial fibrillation (principal) | CPT/HCPCS: 80053; 85025 ==

== ENCOUNTER 2025-08-18 09:16 | Oncology outpatient (recurring) (ONCR) | payer MEDICARE, OTHER, SELFPAY ==
[2025-08-18 09:47] LABS: Hematocrit 30.3 % (36-47); Hemoglobin 9.90 g/dL (11.27-16.99); Mean Corpuscular HGB Conc 32.7 g/dL (30-55); Mean Corpuscular Hemoglobin 33.0 pg (27-33); Mean Corpuscular Volume 101.0 fl (85-98); Nucleated Red Blood Cells % 0 %; Platelet Count 215 10^3/cmm (157-399); Red Blood Count 3.00 10^6/uL (3.85-5.65); White Blood Count 5.58 10^3/uL (3.29-11.43)
[2025-08-18 10:10] LABS: Alanine Aminotransferase 12 U/L (0-33); Albumin Level 4.3 g/dL (3.5-5.2); Alkaline Phosphatase 74 U/L (35-105); Anion Gap 15.4 (5-19); Aspartate Amino Transferase 18 U/L (0-32); Blood Urea Nitrogen 29 mg/dL (8-23); Calcium 9.2 mg/dL (8.5-10.5); Carbon Dioxide 28 mmol/L (22-29); Chloride 98 mmol/L (98-107); Globulin 2.1 g/dL (1.3-4.6); Glucose 118 mg/dL (65-115); Osmolality Calculated 291 mOsm/kg (285-295); Potassium 4.4 mmol/L (3.5-5.1); Sodium 137 mmol/L (136-145); Total Protein 6.4 g/dL (6.6-8.7)
== END 2025-08-30 23:59 | disposition home or self-care (01) ==
PROVIDERS: PCP Nurse Practitioner Family; Visit Provider Internal Medicine
DX: D64.9 Anemia, unspecified (principal); Z87.891 Personal history of nicotine dependence; N13.30 Unspecified hydronephrosis; N90.89 Other specified noninflammatory disorders of vulva and perineum; Z86.718 Personal history of other venous thrombosis and embolism; Z86.711 Personal history of pulmonary embolism; Z79.01 Long term (current) use of anticoagulants; Z86.79 Personal history of other diseases of the circulatory system
CPT/HCPCS: 36415; 80053; 85025; 99213